=== PATIENT | female | born 1980 | race Caucasian/White ===

== ENCOUNTER → 2020-08-16 15:48 | Outpatient (BNVA) | payer OTHER, SELFPAY | PROVIDERS: PCP Emergency Medicine; Referring Provider Emergency Medicine; Visit Provider Surgery | DX: Z76.89 Persons encountering health services in other specified circumstances (principal) ==

== ENCOUNTER 2022-03-20 14:07 | Outpatient (REF) | payer MEDICAID, SELFPAY ==
--- NOTE | ~2022-03-20 | MM_ITS ---
EXAMINATION: MM DIAGNOSTIC DIGITAL BREAST TOMOSYNTHESIS, BILATERAL US DIAGNOSTIC ULTRASOUND BREAST, BILATERAL CLINICAL INFORMATION: 41-year-old with bilateral outer quadrant pain for approximately 2 months. No palpable mass or discharge. No prior breast imaging. No known family history breast cancer. The lifetime risk of breast cancer based on the Tyrer-Cuzick Model is 8%. COMPARISON: None (current study represents initial baseline exam). TECHNIQUE: Digital mammography is performed in craniocaudal and mediolateral oblique views. Digital breast tomosynthesis is performed in implant-displaced craniocaudal and implant-displaced mediolateral oblique views. Synthesized 2D images are generated from the tomosynthesis. Computer-aided detection (CAD) is performed for this exam. Ultrasound bilateral breasts is targeted to the areas of mastodynia, left 3:00-6:00 and right 6:00-9:00. Grayscale imaging and color Doppler are performed without and with harmonics. FINDINGS: There are scattered areas of fibroglandular density (ACR BI-RADS breast composition Category b). Breast tissue composition borders on heterogeneously dense. There is mild fibronodular parenchymal pattern without architectural abnormality or significant mass or abnormal calcifications. There are bilateral implants. The implant contours are smooth and grossly symmetric. There is no skin thickening or coarsening of the Darwin's ligaments. The axilla are unremarkable. Ultrasound bilateral breasts show no cystic or solid mass or architectural abnormality. No focal duct ectasia. No skin thickening or edema tracking in soft tissue planes. Results are discussed with the patient at time of visit. MM/MM tomosynthesis diag imp BI IMPRESSION: -No mammographic evidence of malignancy or inflammatory changes. -Unremarkable bilateral targeted breast ultrasound. ASSESSMENT: BI-RADS 2: Benign RECOMMENDATION: 1. Patient's bilateral mastodynia should be managed based on the clinical impression. 2. Otherwise, routine annual screening mammography. This patient's information was entered into a reminder system with a target due date for their next mammogram.
== END 2022-03-20 14:08 | disposition home or self-care (01) ==
LOC: HO.MAMMO 14:07
PROVIDERS: Visit Provider Internal Medicine
DX: N64.4 Mastodynia (principal)
CPT/HCPCS: 76642; 77062; 77066

== ENCOUNTER 2023-09-23 11:47 | Outpatient (REF) | payer MEDICAID, SELFPAY ==
[2023-09-23 14:05] LABS: HBS Num1 > 1000.00 mIU/mL (0-7.99); ~Hepatitis B Surface Antibody REACTIVE (Nonreactive)
[2023-09-25 09:49] LABS: Rubella IgG Antibody 4.85 Index
[2023-09-26 15:38] LABS: TS Negative Control Passed; TS Panel A 0; TS Panel B 0; TS Positive Control Passed; TSpotTB Negative (Negative)
== END 2023-09-23 11:48 | disposition home or self-care (01) ==
LOC: HO.HHCL 11:47
PROVIDERS: Visit Provider Family Medicine
DX: Z01.84 Encounter for antibody response examination (principal); Z11.1 Encounter for screening for respiratory tuberculosis
CPT/HCPCS: 36415; 86481; 86706; 86735; 86762; 86765; 86787

== ENCOUNTER → 2024-02-04 13:06 | Outpatient (BNVA) | payer MEDICAID, SELFPAY | PROVIDERS: PCP Family Medicine; Visit Provider Physician Assistant Medical | DX: S92.515A Nondisplaced fracture of proximal phalanx of left lesser toe(s), initial encounter for closed fracture (principal); X50.1XXA Overexertion from prolonged static or awkward postures, initial encounter | CPT/HCPCS: 99203 ==

== ENCOUNTER 2024-02-13 08:43 | Outpatient (REF) | payer OTHER, SELFPAY | END 2024-02-13 08:44 | disposition home or self-care (01) | LOC: HO.MAMMO 08:43 | PROVIDERS: PCP Family Medicine; Visit Provider Family Medicine | DX: Z13.89 Encounter for screening for other disorder (principal) ==

== ENCOUNTER 2024-02-18 10:18 | Outpatient (REF) | payer MEDICAID, SELFPAY ==
--- NOTE | ~2024-02-18 | XR_ITS ---
EXAMINATION: XR FOOT, LEFT CLINICAL INFORMATION: fracture of proximal phalanx of lesser toes, non displaced, left initial encounter for closed fracture. Order stated s/p fall 2 weeks ago, was told that fracture at left 4th and 5th toes(points to metatarsal area) no records available continued pain. COMPARISON: None available. TECHNIQUE: AP, lateral, and oblique views of the left foot. FINDINGS: The bones and soft tissues are normal. No fracture. Alignment is anatomic. Joint spaces are maintained. XR/XR foot LT min 3V IMPRESSION: Normal left foot.
== END 2024-02-18 10:19 | disposition home or self-care (01) ==
LOC: HO.HHCX 10:18
PROVIDERS: Visit Provider Family Medicine
DX: M79.672 Pain in left foot (principal)
CPT/HCPCS: 73630

== ENCOUNTER 2024-03-28 14:40 | Outpatient (REF) | payer MEDICAID, SELFPAY ==
--- NOTE | ~2024-03-28 | US_ITS ---
EXAMINATION: MM DIAGNOSTIC DIGITAL BREAST TOMOSYNTHESIS, BILATERAL US BREAST LIMITED, LEFT CLINICAL INFORMATION: Patient complaining of upper outer left breast pain x3 months, off and on. Patient also states right retroareolar pain although not currently. Patient due for bilateral screening. Bilateral implants. COMPARISON: Mammography: 03/20/2022 Baseline exam. Ultrasound: Bilateral breasts 11/20/2021 (upper outer bilateral pain) TECHNIQUE: Digital mammography is performed in craniocaudal and mediolateral oblique views. Digital breast tomosynthesis is performed in implant-displaced craniocaudal and implant-displaced mediolateral oblique views. Synthesized 2D images are generated from the tomosynthesis. Computer-aided detection (CAD) is performed for this exam. In addition, full-field left implant displaced ML view was obtained. FINDINGS: The breasts are heterogeneously dense, which may obscure small masses (ACR BI-RADS breast composition Category c). The implant contours are unremarkable. There is heterogeneously dense breast tissue present. There are no suspicious masses, suspicious grouped calcifications, or areas of architectural distortion in either breast. The parenchymal pattern is stable from prior exams. There is no skin or axillary abnormality. No mammographic correlate is seen in the upper outer quadrant left breast to explain breast pain. We will evaluate this region with ultrasound. ULTRASOUND: CLINICAL INFORMATION: Patient complaining of upper outer left breast pain x3 months, off and on. COMPARISON: Ultrasound left breast for same area of pain 11/20/2021. TECHNIQUE: Targeted sonographic evaluation was performed using a high frequency linear transducer. Attention was given to the left breast upper outer quadrant. Selected archived documentation. FINDINGS: LEFT BREAST: -There is heterogeneously dense fibroglandular tissue. Implant appears intact. No suspicious mass, abnormal shadowing, cystic abnormality, or architectural distortion identified in the upper outer quadrant of the left breast. No sonographic correlate to left breast pain. US/US breast LT limited mamm only IMPRESSION: -No mammographic evidence of malignancy in either breast. No implant complication evident. -Unremarkable targeted left breast ultrasound. No mammographic or sonographic correlate to the region of breast pain. Recommend clinical management and follow-up. -Otherwise, recommend returning to routine annual screening mammography. OVERALL ASSESSMENT: Mammography: BI-RADS 2 - Benign Findings Ultrasound: BI-RADS 2 - Benign Findings RECOMMENDATION: 1. Patient should be managed based on the clinical impression. 2. Otherwise, routine annual screening mammography. This patient's information was entered into a reminder system with a target due date for their next mammogram.
== END 2024-03-28 14:41 | disposition home or self-care (01) ==
LOC: HO.MAMMO 14:40
PROVIDERS: PCP Family Medicine; Visit Provider Family Medicine
DX: N64.4 Mastodynia (principal)
CPT/HCPCS: 76642; 77062; 77066

== ENCOUNTER → 2024-03-28 15:30 | Outpatient (BNV) | payer MEDICAID, SELFPAY | PROVIDERS: PCP Family Medicine; Visit Provider Radiology Diagnostic Radiology | DX: N64.4 Mastodynia (principal) | CPT/HCPCS: 76642; 77062; 77066 ==

== ENCOUNTER 2024-05-25 10:00 | Outpatient (REF) | payer MEDICAID, SELFPAY ==
--- NOTE | ~2024-05-25 | US_ITS ---
EXAMINATION: US LOWER EXTREMITY VENOUS (REFLUX EXAM), BILATERAL CLINICAL INFORMATION: Bilateral leg pain, swelling, heaviness, prominent veins COMPARISON: None. TECHNIQUE: Color flow triplex imaging and compression Doppler was performed to evaluate both the deep and the superficial systems bilaterally. To evaluate the superficial system, the examination was performed in the upright position. Color-flow Doppler ultrasound and compression ultrasound were utilized. In addition, maneuvers were utilized to demonstrate reflux. FINDINGS: 1. DEEP VENOUS ULTRASOUND OF THE RIGHT LOWER EXTREMITY: Common Femoral Vein: Compressible, normal respiratory variation and augmented flow. Femoral Vein: Compressible, normal color flow and augmentation. Popliteal Vein: Compressible, normal augmentation. Deep Reflux: There is no evidence of reflux in the deep system in either the common femoral vein, superficial femoral or the popliteal vein. There is no evidence of a Matute's cyst. 2. SUPERFICIAL ULTRASOUND WITH DOPPLER OF RIGHT LOWER EXTREMITY: GREAT SAPHENOUS VEIN: Saphenofemoral Junction: 0.5 cm; Reflux: 0 ms Proximal Thigh: 0.4 cm; Reflux: 0 ms Mid Thigh: 0.5 cm; Reflux: 1628 ms Distal Thigh: 0.4 cm; Reflux: 0 ms At Knee: 0.5 cm; Reflux: 0 ms Proximal Calf: 0.4 cm; Reflux: 0 ms Mid Calf: 0.3 cm; Reflux: 2268 ms Distal Calf: 0.3 cm; Reflux: 0 ms DUPLICATED LATERAL GREAT SAPHENOUS VEIN: Diameter: 0.2 cm at the saphenofemoral junction and mid thigh Reflux: None SMALL SAPHENOUS VEIN: Saphenopopliteal Junction: 0.2 cm; Reflux: 0 ms Proximal: 0.2 cm; Reflux: 0 ms Distal: 0.3 cm; Reflux: 0 ms PERFORATORS: Location: Midportion of small saphenous vein Size: 0.2 Reflux: None VARICOSITIES: Location: Varicosities are seen at the level of the distal thigh, knee, and the proximal calf Size: 0.3 cm Reflux: None 3. DEEP VENOUS ULTRASOUND OF THE LEFT LOWER EXTREMITY: Common Femoral Vein: Compressible, normal respiratory variation and augmented flow. Femoral Vein: Compressible, normal color flow and augmentation. Popliteal Vein: Compressible, normal augmentation. Deep Reflux: There is no evidence of reflux in the deep system in either the common femoral vein, superficial femoral or the popliteal vein. There is no evidence of a Matute's cyst. 4. SUPERFICIAL ULTRASOUND WITH DOPPLER OF LEFT LOWER EXTREMITY: GREAT SAPHENOUS VEIN: Saphenofemoral Junction: 0.6 cm; Reflux: 0 ms Proximal Thigh: 0.3 cm; Reflux: 0 ms Mid Thigh: 0.2 cm; Reflux: 0 ms Distal Thigh: 0.2 cm; Reflux: 0 ms At Knee: 0.2 cm; Reflux: 0 ms Proximal Calf: 0.2 cm; Reflux: 0 ms Mid Calf: 0.3 cm; Reflux: 0 ms Distal Calf: 0.2 cm; Reflux: 0 ms DUPLICATED LATERAL GREAT SAPHENOUS VEIN: Diameter: 0.4 cm at the saphenofemoral junction, 0.3 cm at the mid thigh Reflux: No SMALL SAPHENOUS VEIN: Saphenopopliteal Junction: 0.3 cm; Reflux: 0 ms Proximal: 0.2 cm; Reflux: 0 ms Distal: 0.1 cm; Reflux: 0 ms PERFORATORS: Location: There is a mail processing equipment mechanic at the level of the proximal calf Size: 0.2 cm Reflux: None VARICOSITIES: Location: None Imaged Size: NA Reflux: NA Incidentally in the left popliteal fossa there is a 3.5 x 1.8 x 3.9 cm anechoic structure compatible with a Matute's cyst. US/US venous insuf bilat IMPRESSION: Right: On the right there is segmental reflux within the great saphenous vein at the mid thigh and mid calf segments. There is a small mail processing equipment mechanic associated with the small saphenous vein which does not demonstrate reflux and there are a few varicosities at the level of the distal thigh, the knee, and the proximal calf that measures 0.3 cm and do not demonstrate reflux. Left: On the left there is no evidence of venous reflux. Incidental note of a left Matute's cyst. Electronically signed by: Marco A Bryant MD 05/31/2024 04:08 PM EDT
== END 2024-05-25 10:01 | disposition home or self-care (01) ==
LOC: HO.US 10:00
PROVIDERS: PCP Family Medicine; Visit Provider Family Medicine
DX: R22.43 Localized swelling, mass and lump, lower limb, bilateral (principal)
CPT/HCPCS: 93970

== ENCOUNTER 2024-07-20 12:27 | Outpatient (REF) | payer MEDICAID, SELFPAY ==
--- NOTE | ~2024-07-20 | XR_ITS ---
EXAMINATION: XR FOOT, RIGHT CLINICAL INFORMATION: Persistent right fourth and fifth toe pain. COMPARISON: None available. TECHNIQUE: AP, lateral, and oblique views of the right foot. FINDINGS: The bones and soft tissues appear unremarkable. No fracture identified. Alignment is anatomic. Joint spaces appear maintained. XR/XR foot RT min 3V IMPRESSION: Normal plain film examination of the right foot. Electronically signed by: Wicho Collier MD 07/20/2024 04:02 PM EDT
== END 2024-07-20 12:28 | disposition home or self-care (01) ==
LOC: HO.HHCX 12:27
PROVIDERS: Visit Provider Family Medicine
DX: M79.671 Pain in right foot (principal); G89.29 Other chronic pain
CPT/HCPCS: 73630

== ENCOUNTER 2024-07-20 13:34 | Outpatient (REF) | payer MEDICAID, SELFPAY ==
[2024-07-20 16:48] LABS: Alanine Aminotransferase 13 U/L (0-31); Albumin Level 4.5 g/dL (3.5-5.0); Alkaline Phosphatase 59 U/L (39-117); Anion Gap 9 (12-20); Aspartate Amino Transferase 15 U/L (5-31); Bilirubin Total 0.6 mg/dL (0.0-1.0); Blood Urea Nitrogen 9 mg/dL (9-16); Calcium 9.7 mg/dL (8.4-10.2); Carbon Dioxide 28 mmol/L (22-29); Chloride 107 mmol/L (96-108); Cholesterol 161 mg/dL (<200); Estimated Glomerular Filt Rate > 60; Glucose Random 85 mg/dL (60-115); HDL Cholesterol 63 mg/dL (>40); LDL Cholesterol Calculated 87 mg/dL (<100); Potassium 4.1 mmol/L (3.3-5.1); Sodium 140 mmol/L (135-145); Total Protein 7.4 g/dL (6.5-8.0); Triglycerides 58 mg/dL (<150)
[2024-07-20 16:49] LABS: Estimated Average Glucose 85 mg/dL; Hemoglobin A1C 91.9737 umol/L; Hemoglobin A1c % 4.6 % (<6.0); Total Hemoglobin (HGBA1C) 3455.8219 umol/L
[2024-07-20 17:09] LABS: Parathyroid Hormone Intact 73.6 pg/mL (8.7-77.1); TSH reflex Free T4 1.13 uIU/mL (0.32-4.0); Vitamin D 25-OH Total 19.1 ng/mL (>30)
[2024-07-20 20:42] LABS: Reflex LDLD? No
[2024-07-21 03:31] LABS: CT PCR NOT DETECTED (Not Detect.); NG PCR NOT DETECTED (Not Detect.)
[2024-07-21 08:21] LABS: Syphilis Screen Nonreactive (Nonreactive)
[2024-07-21 08:29] LABS: HBS Num1 > 1000.00 mIU/mL (0-7.99); HBc Num1 0.11 S/CO (0.00-0.79); HBsAGNum1 0.43 S/CO (0.00-0.99); HIV AB/AG Nonreactive (Nonreactive); HIV Num 1 0.04 S/CO (0.00-0.99); Hepatitis B Core Antibody Nonreactive (Nonreactive); Hepatitis B Surface Antigen Negative (Negative); ~Hepatitis B Surface Antibody REACTIVE (Nonreactive); ~Hepatitis C Antibody Nonreactive (Nonreactive)
[2024-07-21 08:49] LABS: Hepatitis A Antibody IgG REACTIVE (Nonreactive); ~Hepatitis A Antibody IgG 9.04 S/CO (0.00-0.99)
[2024-07-23 15:12] LABS: TS Negative Control Passed; TS Panel A 0; TS Panel B 0; TS Positive Control Passed; TSpotTB Negative (Negative)
== END 2024-07-20 13:35 | disposition home or self-care (01) ==
LOC: HO.HHCL 13:34
PROVIDERS: Visit Provider Family Medicine
DX: E66.09 Other obesity due to excess calories (principal); Z01.84 Encounter for antibody response examination; Z11.3 Encounter for screening for infections with a predominantly sexual mode of transmission; E55.9 Vitamin D deficiency, unspecified; Z83.3 Family history of diabetes mellitus; Z68.30 Body mass index [BMI] 30.0-30.9, adult; Z11.1 Encounter for screening for respiratory tuberculosis
CPT/HCPCS: 36415; 80053; 80061; 82306; 83036; 83970; 84443; 86481; 86704; 86706; 86708; 86780; 86787; 86803; 87340; 87389; 87491; 87591

== ENCOUNTER 2024-07-31 16:48 | Outpatient (REF) | payer MEDICAID, SELFPAY ==
--- NOTE | ~2024-07-31 | MR_ITS ---
EXAMINATION: MR BRAIN WITHOUT AND WITH CONTRAST CLINICAL INFORMATION: Episodes of sharp head pain. COMPARISON: None available. TECHNIQUE: MRI of the brain was obtained using routine sequences without and following the administration of 8 mL of Gadavist intravenous contrast. FINDINGS: No focal restricted diffusion is demonstrated to suggest acute or subacute cerebral ischemia. No evidence of acute or chronic hemorrhagic products on heme-sensitive imaging. Normal parenchymal signal characteristics. The ventricles are normal in morphology and size. No abnormal mass effect. No midline shift. Normal appearance of the pituitary gland. No abnormalities of the posterior fossa with normal appearance of the brainstem and cerebellum. Normal arterial and venous vascular flow voids are present. No abnormal contrast enhancement. Normal, homogeneous marrow signal. Mild mucosal thickening of the paranasal sinuses. No signal abnormalities within the mastoids. MR/MR head/brain wo/w con IMPRESSION: 1. No acute intracranial abnormalities. No abnormal intracranial enhancement. 2. No MRI abnormalities to explain the patient's symptoms. Electronically signed by: Johnny Mancilla DO 09/14/2024 05:42 AM [id number]
[2024-07-31] MEDS: gadobutroL 10 ML VIAL IVPUSH (17:33)
== END 2024-07-31 16:49 | disposition home or self-care (01) ==
LOC: HO.MRI 16:48
PROVIDERS: PCP Family Medicine; Visit Provider Family Medicine
DX: G44.85 Primary stabbing headache (principal)
CPT/HCPCS: 70553; A9585

== ENCOUNTER 2025-01-19 12:06 | Outpatient (REF) | payer MEDICAID, SELFPAY ==
--- NOTE | ~2025-01-19 | XR_ITS ---
EXAMINATION: XR LUMBOSACRAL SPINE CLINICAL INFORMATION: LBP and tailbone pain x one mos COMPARISON: None available. TECHNIQUE: Three views of the lumbosacral spine. FINDINGS: There is a mild right convex scoliosis. There is a normal lordosis. There is no subluxation. There is no fracture, compression deformity, or suspicious bone lesion. Disc spaces are preserved throughout. There is normal facet alignment and appearance. The sacrum and SI joints appear normal. No soft tissue abnormality. XR/XR lumbar spine 2-3V IMPRESSION: Aside from a mild right convex scoliosis, normal lumbar spine. Electronically signed by: Terrence Bowie MD 01/19/2025 02:08 PM EDT
--- NOTE | ~2025-01-19 | XR_ITS ---
EXAMINATION: XR SACRUM AND COCCYX CLINICAL INFORMATION: LBP and tailbone pain x one mos COMPARISON: None available. TECHNIQUE: 2 views of the sacrum and 2 views of the coccyx were obtained. FINDINGS: No fracture, dislocation, or suspicious bone lesion. Evaluation of the coccyx is limited due to extensive anatomical variation in this region. No acute finding evident. Sacrum appears intact. SI joints appear grossly normal. No erosive changes. No soft tissue abnormalities are evident. XR/XR sacrum coccyx min 2V IMPRESSION: No acute findings evident. Electronically signed by: Terrence Bowie MD 01/19/2025 02:06 PM EDT
--- OUTSIDE RECORDS SUMMARY | 2025-01-19 15:01 | XMS_ITS | Encounter Summary ---
Author Organization [employer] Address [address] [place] [address] 7 [place] [address] Care Team Providers Care Home Health Care Provider Name Role Phone Anabela Resendez MD Primary Care Provider [phone] Reason for Referral * Imaging (Routine) - Closed Specialty Diagnoses / Procedures Referred By Contlizette hart Referred To Contact Radiology Diagnoses Breast pain, left Procedures BI US Breast Complete Right Anabela Resendez MD [address] [place] [address] Phone: tel: fax: [address] Phone: tel: fax: Referral ID Status Reason Start Date Expiration Date Visits Re quested Visits Authorized [id number] Closed 03/21/2024 03/21/2025 1 1 Encounter Details Date Type Department Care Team (Late st Contact Info) Description 03/21/2024 Orders Only [facility] [address] [place], [place] [phone] Anabela Resendez MD [address] [place] [address] Breast pain, left (Primary Dx) Social History Tobacco Use Types Packs/Day Years Used Date Smoking Tobacco: Never Passive Smoke Exposure: Never Smokeless Tobacco: Never Depression Answer Date Recorded Patient Health Questionnaire-9 Score 0 06/09/2023 Housing Stability Answer Date Recorded What is your housing situation today? I have silverio marks 07/24/[address] you li ve. Do you have problems with any of the following? None of the above 07/24/2023 Food Insecurity Answer Date Recorded Within the past 12 months, y ou worried that your food would run out before you got money to buy more: Never True 07/24/2023 Within the past 12 months,th e food you bought just didn't last and you didn't have enough money to get more: Never True Transportation Answer Date Recorded In the past 12 months, has l ack of transportation kept you from medical appts, meetings, work or from getting things needed for daily living? No 07/24/2023 Utilities Answer Date Recorded In the past 12 months, has t he electric, gas, oil or water company threatened to shut off services in your home? No 07/24/2023 Depression Answer Date Recorded Patient Health Questionnaire-2 Score 0 06/09/2023 Comments Unknown Sex and Gender Information Value Date Recorded Sex Assigned at Female 08/04/2022 10:15 AM EDT Legal Sex Female 10:15 AM EDT Gender Identity Female 08/04/2022 10:15 AM EDT Sexual Orientation Straight 08/04/2022 10 :15 AM EDT documented as of this encounter Plan of Treatment Not on file documented as of this encounter Procedures Procedure Name Priority Date/Time Associated Diagnosis Comments BI US BREAST LIMITED LEFT Routine 03/28/2024 3:43 PM EDT BI MAMMOGRAM DIAG W KRISHNA W IMPLANTS MAKSIM Routine 03/28/2024 3:08 PM EDT documented in this encounter Results * BI US Breast Limited Left (03/28/2024 3:43 PM EDT) Anatomical Region Laterality Modality Breast Left Ultrasound 03/28/2024 3:43 PM EDT Narrative 03/28/2024 3:50 PM EDT ? [facility] ? [address] ?[place] [address] ? Ultrasound Report ? Signed ? Patient: Estevez Kuilan,Romi ?MR ?? #: [id number] ? : 1980 ?Acct:[id number] ? Age/Sex: 43 / F ?ADM Date: 03/28/24 ? Loc: HO.MAMMO ? Attending Dr: Anabela Resendez MD ? Ordering Physician: Anabela Resendez MD ?? Date of Service: 03/28/24 ?? Procedure(s): US breast LT limited mamm only ?? Accession Number(s): [id number] ? cc: Anabela Resendez MD ? EXAMINATION: ?? MM DIAGNOSTIC DIGITAL BREAST TOMOSYNTHESIS, BILATERAL ?? US BREAST LIMITED, LEFT ? CLINICAL INFORMATION: ? Patient complaining of upper outer left breast pain x3 months, off and ?? on. Patient also states right retroareolar pain although not currently. ?? Patient due for bilateral screening. Bilateral implants. ? COMPARISON: ?? Mammography: 03/20/2022 Baseline exam. ?? Ultrasound: Bilateral breasts 11/20/2021 (upper outer bilateral pain) ? TECHNIQUE: ?? Digital mammography is performed in craniocaudal and mediolateral ?? oblique views. ??Digital breast tomosynthesis is performed in ?? implant-displaced craniocaudal and implant-displaced mediolateral ?? oblique views. Synthesized 2D images are generated from the ?? tomosynthesis. Computer-aided detection (CAD) is performed for this ?? exam. In addition, full-field left implant displaced ML view was ?? obtained. ? FINDINGS: ?? The breasts are heterogeneously dense, which may obscure small masses ?? (ACR BI-RADS breast composition Category c). ? The implant contours are unremarkable. ??There is heterogeneously dense ?? breast tissue present. ??There are no suspicious masses, suspicious ?? grouped calcifications, or areas of architectural distortion in either ?? breast. The parenchymal pattern is stable from prior exams. There is no ?? skin or axillary abnormality. ? No mammographic correlate is seen in the upper outer quadrant left ?? breast to explain breast pain. We will evaluate this region with ?? ultrasound. ? ULTRASOUND: ?? CLINICAL INFORMATION: ?? Patient complaining of upper outer left breast pain x3 months, off and ?? on. ? COMPARISON: ?? Ultrasound left breast for same area of pain 11/20/2021. ? TECHNIQUE: ?? Targeted sonographic evaluation was performed using a high frequency ?? linear transducer. Attention was given to the left breast upper outer ?? quadrant. Selected archived documentation. ? FINDINGS: ? LEFT BREAST: ?? -There is heterogeneously dense fibroglandular tissue. Implant appears ?? intact. No suspicious mass, abnormal shadowing, cystic abnormality, or ?? architectural distortion identified in the upper outer quadrant of the ?? left breast. No sonographic correlate to left breast pain. ? US/US breast LT limited mamm only ?? IMPRESSION: ?? -No mammographic evidence of malignancy in either breast. No implant ?? complication evident. ? -Unremarkable targeted left breast ultrasound. No mammographic or ?? sonographic correlate to the region of breast pain. Recommend clinical ?? management and follow-up. ? -Otherwise, recommend returning to routine annual screening ?? mammography. ? OVERALL ASSESSMENT: ?? Mammography: BI-RADS 2 - Benign Findings ?? Ultrasound: BI-RADS 2 - Benign Findings ? RECOMMENDATION: ?? 1. Patient should be managed based on the clinical impression. ?2. ?? Otherwise, routine annual screening mammography. ? This patient's information was entered into a reminder system with a ?? target due date for their next mammogram. ? Dictated By: ?Terrence Bowie MD ? Signed By: ?<Electronically signed by Terrence Bowie MD in OV> ?03/28/24 1546 ? DD/ 1543 ? TD/TT: ? Part Time Receptionist: ? Procedure Note Ashwin, Image - 03/28/2024 [facility] [address] [place] [address] Dr. Stout, [place] [address] Ultrasound Report Signed Patient: Romi Howard #: [id number] : 1980Acct:[id number] Age/Sex: 43 / FADM Date: 03/28/24 Loc: [facility] Attending Dr: Anabela Resendez MD Ordering Physician: Anabela Resendez MD Date of Service: 06/24/24 Procedure(s): US breast LT limited mamm only Accession Number(s): [id number] cc: Anabela Resendez MD EXAMINATION: MM DIAGNOSTIC DIGITAL BREAST TOMOSYNTHESIS, BILATERAL US BREAST LIMITED, LEFT CLINICAL INFORMATION: Patient complaining of upper outer left breast pain x3 months, off and on. Patient also states right retroareolar pain although not currently. Patient due for bilateral screening. Bilateral implants. COMPARISON: Mammography: 03/20/2022 Baseline exam. Ultrasound: Bilateral breasts 11/20/2021 (upper outer bilateral pain) TECHNIQUE: Digital mammography is performed in craniocaudal and mediolateral oblique views. Digital breast tomosynthesis is performed in implant-displaced craniocaudal and implant-displaced mediolateral oblique views. Synthesized 2D images are generated from the tomosynthesis. Computer-aided detection (CAD) is performed for this exam. In addition, full-field left implant displaced ML view was obtained. FINDINGS: The breasts are heterogeneously dense, which may obscure small masses (ACR BI-RADS breast composition Category c). The implant contours are unremarkable. There is heterogeneously dense breast tissue present. There are no suspicious masses, suspicious grouped calcifications, or areas of architectural distortion in either breast. The parenchymal pattern is stable from prior exams. There is no skin or axillary abnormality. No mammographic correlate is seen in the upper outer quadrant left breast to explain breast pain. We will evaluate this region with ultrasound. ULTRASOUND: CLINICAL INFORMATION: Patient complaining of upper outer left breast pain x3 months, off and on. COMPARISON: Ultrasound left breast for same area of pain 11/20/2021. TECHNIQUE: Targeted sonographic evaluation was performed using a high frequency linear transducer. Attention was given to the left breast upper outer quadrant. Selected archived documentation. FINDINGS: LEFT BREAST: -There is heterogeneously dense fibroglandular tissue. Implant appears intact. No suspicious mass, abnormal shadowing, cystic abnormality, or architectural distortion identified in the upper outer quadrant of the left breast. No sonographic correlate to left breast pain. US/US breast LT limited mamm only IMPRESSION: -No mammographic evidence of malignancy in either breast. No implant complication evident. -Unremarkable targeted left breast ultrasound. No mammographic or sonographic correlate to the region of breast pain. Recommend clinical management and follow-up. -Otherwise, recommend returning to routine annual screening mammography. OVERALL ASSESSMENT: Mammography: BI-RADS 2 - Benign Findings Ultrasound: BI-RADS 2 - Benign Findings RECOMMENDATION: 1. Patient should be managed based on the clinical impression. 2. Otherwise, routine annual screening mammography. This patient's information was entered into a reminder system with a target due date for their next mammogram. Dictated By: Terrence Bowie MD Signed By: <Electronically signed by Terrence Bowie MD in OV> 03/28/24 1546 DD/ 1543 TD/TT: Part Time Receptionist: us Anabela Resendez MD IMG US PROCEDURES Final Result * BI Mammogram Diag w/ Krishna w/ Implants Maksim (03/28/2024 3:08 PM EDT) Anatomical Region Laterality Modality Mammography 03/28/2024 3:08 PM EDT Narrative 03/28/2024 3:50 PM EDT ? [facility] ? [address] ?[place] [address] ? Mammography Report ? Signed ? Patient: Estevez Kuilan,Romi ?MR ?? #: [id number] ? : 1980 ?Acct:[id number] ? Age/Sex: 43 / F ?ADM Date: 03/28/ ? Loc: HO.MAMMO ? Attending Dr: Anabela Resendez MD ? Ordering Physician: Anabela Resendez MD ?Results: 2Benign F ?? indings ? Date of Service: 03/28/24 ?Follow Up: 1 Year From Orig ?? inal Mammogram ? Procedure(s): MM tomosynthesis diag imp BI ?? Accession Number(s): [id number] ? cc: Anabela Resendez MD ? EXAMINATION: ?? MM DIAGNOSTIC DIGITAL BREAST TOMOSYNTHESIS, BILATERAL ?? US BREAST LIMITED, LEFT ? CLINICAL INFORMATION: ? Patient complaining of upper outer left breast pain x3 months, off and ?? on. Patient also states right retroareolar pain although not currently. ?? Patient due for bilateral screening. Bilateral implants. ? COMPARISON: ?? Mammography: 03/20/2022 Baseline exam. ?? Ultrasound: Bilateral breasts 11/20/2021 (upper outer bilateral pain) ? TECHNIQUE: ?? Digital mammography is performed in craniocaudal and mediolateral ?? oblique views. ??Digital breast tomosynthesis is performed in ?? implant-displaced craniocaudal and implant-displaced mediolateral ?? oblique views. Synthesized 2D images are generated from the ?? tomosynthesis. Computer-aided detection (CAD) is performed for this ?? exam. In addition, full-field left implant displaced ML view was ?? obtained. ? FINDINGS: ?? The breasts are heterogeneously dense, which may obscure small masses ?? (ACR BI-RADS breast composition Category c). ? The implant contours are unremarkable. ??There is heterogeneously dense ?? breast tissue present. ??There are no suspicious masses, suspicious ?? grouped calcifications, or areas of architectural distortion in either ?? breast. The parenchymal pattern is stable from prior exams. There is no ?? skin or axillary abnormality. ? No mammographic correlate is seen in the upper outer quadrant left ?? breast to explain breast pain. We will evaluate this region with ?? ultrasound. ? ULTRASOUND: ?? CLINICAL INFORMATION: ?? Patient complaining of upper outer left breast pain x3 months, off and ?? on. ? COMPARISON: ?? Ultrasound left breast for same area of pain 11/20/2021. ? TECHNIQUE: ?? Targeted sonographic evaluation was performed using a high frequency ?? linear transducer. Attention was given to the left breast upper outer ?? quadrant. Selected archived documentation. ? FINDINGS: ? LEFT BREAST: ?? -There is heterogeneously dense fibroglandular tissue. Implant appears ?? intact. No suspicious mass, abnormal shadowing, cystic abnormality, or ?? architectural distortion identified in the upper outer quadrant of the ?? left breast. No sonographic correlate to left breast pain. ? MM/MM tomosynthesis diag imp BI ?? IMPRESSION: ?? -No mammographic evidence of malignancy in either breast. No implant ?? complication evident. ? -Unremarkable targeted left breast ultrasound. No mammographic or ?? sonographic correlate to the region of breast pain. Recommend clinical ?? management and follow-up. ? -Otherwise, recommend returning to routine annual screening ?? mammography. ? OVERALL ASSESSMENT: ?? Mammography: BI-RADS 2 - Benign Findings ?? Ultrasound: BI-RADS 2 - Benign Findings ? RECOMMENDATION: ?? 1. Patient should be managed based on the clinical impression. ?2. ?? Otherwise, routine annual screening mammography. ? This patient's information was entered into a reminder system with a ?? target due date for their next mammogram. ? Dictated By: ?Terrence Bowie MD ? Signed By: ?<Electronically signed by Terrence Bowie MD in OV> ?03/28/24 1546 ? DD/ 1508 ? TD/TT: ? Part Time Receptionist: ? Procedure Note Alfred Christopher - 03/28/2024 [facility] [address] [place] [address] Dr. [place], [place] [address] Mammography Report Signed Patient: Romi Howard #: [id number] : 1980Acct:[id number] Age/Sex: 43 / FADM Date: 03/28/24 Loc: MAMMO Attending Dr: Anabela Resendez MD Ordering Physician: Anabela Resendezesults: 2Benign F indings Date of Service: 03/28/24Follow Up: 1 Year From Orig inal Mammogram Procedure(s): MM tomosynthesis diag imp BI Accession Number(s): [id number] cc: Anabela Resendez MD EXAMINATION: MM DIAGNOSTIC DIGITAL BREAST TOMOSYNTHESIS, BILATERAL US BREAST LIMITED, LEFT CLINICAL INFORMATION: Patient complaining of upper outer left breast pain x3 months, off and on. Patient also states right retroareolar pain although not currently. Patient due for bilateral screening. Bilateral implants. COMPARISON: Mammography: 03/20/2022 Baseline exam. Ultrasound: Bilateral breasts 11/20/2021 (upper outer bilateral pain) TECHNIQUE: Digital mammography is performed in craniocaudal and mediolateral oblique views. Digital breast tomosynthesis is performed in implant-displaced craniocaudal and implant-displaced mediolateral oblique views. Synthesized 2D images are generated from the tomosynthesis. Computer-aided detection (CAD) is performed for this exam. In addition, full-field left implant displaced ML view was obtained. FINDINGS: The breasts are heterogeneously dense, which may obscure small masses (ACR BI-RADS breast composition Category c). The implant contours are unremarkable. There is heterogeneously dense breast tissue present. There are no suspicious masses, suspicious grouped calcifications, or areas of architectural distortion in either breast. The parenchymal pattern is stable from prior exams. There is no skin or axillary abnormality. No mammographic correlate is seen in the upper outer quadrant left breast to explain breast pain. We will evaluate this region with ultrasound. ULTRASOUND: CLINICAL INFORMATION: Patient complaining of upper outer left breast pain x3 months, off and on. COMPARISON: Ultrasound left breast for same area of pain 11/20/2021. TECHNIQUE: Targeted sonographic evaluation was performed using a high frequency linear transducer. Attention was given to the left breast upper outer quadrant. Selected archived documentation. FINDINGS: LEFT BREAST: -There is heterogeneously dense fibroglandular tissue. Implant appears intact. No suspicious mass, abnormal shadowing, cystic abnormality, or architectural distortion identified in the upper outer quadrant of the left breast. No sonographic correlate to left breast pain. MM/MM tomosynthesis [facility] BI IMPRESSION: -No mammographic evidence of malignancy in either breast. No implant complication evident. -Unremarkable targeted left breast ultrasound. No mammographic or sonographic correlate to the region of breast pain. Recommend clinical management and follow-up. -Otherwise, recommend returning to routine annual screening mammography. OVERALL ASSESSMENT: Mammography: BI-RADS 2 - Benign Findings Ultrasound: BI-RADS 2 - Benign Findings RECOMMENDATION: 1. Patient should be managed based on the clinical impression. 2. Otherwise, routine annual screening mammography. This patient's information was entered into a reminder system with a target due date for their next mammogram. Dictated By: Terrence Bowie MD Signed By: <Electronically signed by Terrence Bowie MD in OV> 03/28/24 1546 DD/ 1508 TD/TT: Part Time Receptionist: us Anabela Resendez MD IMG BI PROCEDURES Final Result documented in this encounter Visit Diagnoses Diagnosis Breast pain, left- Primary documented in this encounter Additional Health Concerns Assessment Noted Time PHQ-9 Depression Total Score: 0 06/09/20 9:48 AM EDT documented as of this encounter Care Teams Home Health Care Provider Relationship Specialty Start Date End Date Anabela Resendez MD [address] [place] [address] PCP - General Family Medicine 01/21/23 documented as of this encounter
--- OUTSIDE RECORDS SUMMARY | 2025-01-19 15:01 | XMS_ITS | Encounter Summary ---
Author Organization [employer] Address [address] [facility] [address] [place] [address] Care Team Providers Care Long Distance Billing Operator Name Role Phone Anabela Resendez MD Primary Care Provider Reason for Visit * Reason Onset Date Comments Appointment Request 01/21/2023 Encounter Details Date Type Department Care Team ([facility] st Contact Info) Description 01/21/2023 Telephone [facility] [address] [place], [place] [phone] Danni Bhatti FNP [address] [place], [place] [phone] Appointment Request Social History Tobacco Use Types Packs/Day Years Used Date Smoking Tobacco: Never Assessed Comments Unknown Sex and Gender Information Value Date Recorded Sex Assigned at Female 08/04/2022 10:15 AM EDT Legal Sex Female 10:15 AM EDT Gender Identity Female 08/04/2022 10:15 AM EDT Sexual Orientation Straight 08/04/2022 10 :15 AM EDT documented as of this encounter Miscellaneous Notes * Telephone Encounter - Dary Rodriguez RN - 01/21/2023 11:50 AM EDT Call to Romi Yang, pt reports having asthma sx x 2 days. Per pt having cough. Pt having chest tightness . Wheezing only 2 days ago. Pt denies any ear pain, ST or fever. Nasal congestion. Pt using albuterol TID. Pt advised of dispsiton, no appts availability with PCP or team providers today. Pt advised to seek WIC for assessment today. Reviewed operating hours and that wait times vary. Pt upset that has not had TP with new assigned PCP. Pt advised that TP appts are specific slots in provider schedule. Pt last TP annmarie cancelled by office. Will send to [place] to schedule TP appt again for pt. Nothing noted in provider schedule for February. Protocol Used: Asthma Attack (Adult) Protocol-Based Disposition: See in Office or Video Visit Today Video visit offer not recorded Positive Triage Question: * Continuous (nonstop) coughing that keeps patient from working or sleeping, and not improved after2 or 3 inhaler or nebulizer treatments given 20 minutes apart * All higher-acuity triage questions were negative Care Advice Discussed: * Reassurance and Education - Mild Asthma Attack * Asthma Attack * Drink Plenty of Liquids and Use a Humidifier * Reasons To Call Back - You become worse * Telephone Encounter - Claudio Patel - 01/21/2023 11:21 AM EDT Symptom: Wheezing Outcome: Transfer to a nurse or provider NOW! Reason: Struggling for each breath (severe trouble breathing) The caller accepted this outcome Please contact pt at [phone] documented in this encounter Plan of Treatment Not on file documented as of this encounter Visit Diagnoses Not on filedocumented in this encounter Care Teams Long Distance Billing Operator Relationship Specialty Start Date End Date Anabela Resendez MD [address] [place] [phone] PCP - General Family Medicine 01/21/23 documented as of this encounter
--- OUTSIDE RECORDS SUMMARY | 2025-01-19 15:01 | XMS_ITS | Encounter Summary ---
Author Organization [employer] Address [address] [place] [address] [address] [place] [address] Care Team Providers Care Inshore Undersea Warfare Officer Name Role Phone Anabela Rseendez MD Primary Care Provider [phone] Reason for Referral * Imaging (Routine) - Closed Specialty Diagnoses / Procedures Referred By Nicol t Referred To Contact Radiology Diagnoses Breast cancer screening by mammogram Procedures BI Mammogram Screening Tomosynthesis Right Anabela Resendez MD [address] [place] [address] Phone: tel: fax: [address] Phone: tel: fax: Referral ID Status Reason Start Date Expiration Date Visits Re quested Visits Authorized [id number] Closed 02/17/2024 02/16/2025 1 1 * Imaging (Routine) - Closed Specialty Diagnoses / Procedures Referred By Contac t Referred To Contact Radiology Diagnoses Mass of left breast, unspecified quadrant Procedures BI Mammogram Diagnostic Tomosynthesis Left Anabela Resendez MD [address] [place] [address] Phone: tel: fax: [address] Phone: tel: fax: Referral ID Status Reason Start Date Expiration Date Visits Re quested Visits Authorized [id number] Closed 02/17/2024 02/16/2025 1 1 Encounter Details Date Type Department Care Team (Late st Contact Info) Description 02/17/2024 Orders Only [facility] [address] [place] [address] Anabela Resendez MD [address] [place] [address] Mass of left breast, unspecified quadrant (Primary Dx); Breast cancer screening by mammogram Social History Tobacco Use Types Packs/Day Years [...] as of this encounter Plan of Treatment Scheduled Orders Name Type Priority Associated Diagnoses Orde r Schedule BI Mammogram Diagnostic Tomosynthesis Left Imaging Routine Mass of left breast, unspecified quadrant Expected: 02/17/2024, Expires: 04/18/2025 BI Mammogram Screening Tomosynthesis Right Imaging Routine Breast cancer screening by mammogram Expected: 02/17/2024, Expires: 04/18/2025 documented as of this encounter Visit Diagnoses Diagnosis Mass of left breast, unspecified quadrant- Primary Breast cancer screening by mammogram documented in this encounter Additional Health Concerns Assessment Noted Time PHQ-9 Depression Total Score: 0 06/09/20 9:48 AM EDT documented as of this encounter Care Teams Inshore Undersea Warfare Officer Relationship Specialty Start Date End Date Anabela Resendez MD [address] [place] [phone] PCP - General Family Medicine 01/21/23 documented as of this encounter
--- OUTSIDE RECORDS SUMMARY | 2025-01-19 15:01 | XMS_ITS | Encounter Summary ---
Author Organization [employer] Address [address] [facility] 7 [place] [address] Care Team Providers Care Spacecraft Systems Engineer Name Role Phone Anabela Resendez MD Primary Care Provider [phone] Reason for Visit * Reason Onset Date Comments Nurse Triage 08/02/2024 Encounter Details Date Type Department Care Team ([facility] st Contact Info) Description 08/02/2024 Telephone [facility] MEDICINE [address] [place], [place] [phone] Anabela Resendez MD [address] [place], [place] [phone] Nurse Triage Social History Tobacco Use Types Packs/Day Years Used Date Smoking Tobacco: Never Passive Smoke Exposure: Never Smokeless Tobacco: Never Depression Answer Date Recorded Patient Health Questionnaire-9 Score 11 07/27/2024 Patient Health Questionnaire-9 Score 11 07/27/2024 Last PHQ-9: Questionnaire Data Not on file 1 Housing Stability Answer Date Recorded What is your housing situation today? I have silverio marks 06/21/[address] you li ve. Do you have problems with any of the following? None of the above 06/21/2024 Food Insecurity Answer Date Recorded Within the past 12 months, y ou worried that your food would run out before you got money to buy more: Never True 06/21/2024 Within the past 12 months,th e food you bought just didn't last and you didn't have enough money to get more: Never True Transportation Answer Date Recorded In the past 12 months, has l ack of transportation kept you from medical appts, meetings, work or from getting things needed for daily living? No 06/21/2024 Utilities Answer Date Recorded In the past 12 months, has t he electric, gas, oil or water company threatened to shut off services in your home? No 06/21/2024 Depression Answer Date Recorded Patient Health Questionnaire-2 Score 2 07/27/2024 Internet Access Answer Date Recorded Internet Access Q1 Yes 06/21/2024 Internet Access Q2 Not on file 06/21/2024 Comments Unknown Sex and Gender Information Value Date Recorded Sex Assigned at Female 08/04/2022 10:15 AM EDT Legal Sex Female 10:15 AM EDT Gender Identity Female 08/04/2022 10:15 AM EDT Sexual Orientation Straight 08/04/2022 10 :15 AM EDT documented as of this encounter Miscellaneous Notes * Telephone Encounter - Michelle Méndez - 08/02/2024 1:59 PM EDT Symptom: Headache Outcome: Schedule a same-day appointment or talk to a nurse or provider today Reason: Caller denied all higher acuity questions The caller accepted this outcome. documented in this encounter Plan of Treatment Not on file documented as of this encounter Visit Diagnoses Not on filedocumented in this encounter Additional Health Concerns Assessment Noted Time PHQ-9 Depression Total Score: 11 024 10:02 AM EDT documented as of this encounter Care Teams Spacecraft Systems Engineer Relationship Specialty Start Date End Date Anabela Resendez MD [address] [place] [address] PCP - General Family Medicine 01/21/23 documented as of this encounter
--- OUTSIDE RECORDS SUMMARY | 2025-01-19 15:01 | XMS_ITS | Encounter Summary ---
Author Organization [employer] Address [address] [place] [address] [address] [place] [address] Care Team Providers Care [employer] Name Role Phone Anabela Resendez MD Primary Care Provider [phone] Encounter Details Date Type Department Care Team ([facility] st Contact Info) Description 02/05/2023 Orders Only [facility] MED[facility]INE [address] [place], [place] [phone] Anabela Resendez MD [address] [place] [address] Vitamin D deficiency (Primary Dx) Social History Tobacco Use Types Packs/Day Years Used Date Smoking Tobacco: Never Passive Smoke Exposure: Never Smokeless Tobacco: Never Comments Unknown Sex and Gender Information Value Date Recorded Sex Assigned at Female 08/04/2022 10:15 AM EDT Legal Sex Female 10:15 AM EDT Gender Identity Female 08/04/2022 10:15 AM EDT Sexual Orientation Straight 08/04/2022 10 :15 AM EDT COVID-19 Exposure Response Date Recorded In the last 10 days, have yo u been in contact with someone who was confirmed or suspected to have Coronavirus/COVID-19? No / Unsure 02/04/2023 10:15 AM EDT documented as of this encounter Plan of Treatment Not on file documented as of this encounter Visit Diagnoses Diagnosis Vitamin D deficiency- Primary documented in this encounter Care Teams [employer] Relationship Specialty Start Date End Date Anabela Resendez MD [address] [place], [place] [phone] PCP - General Family Medicine 01/21/23 documented as of this encounter
--- OUTSIDE RECORDS SUMMARY | 2025-01-19 15:01 | XMS_ITS | Encounter Summary ---
Author Organization [employer] Address [address] [place] [address] [address], [place] [address] Care Team Providers Care Three Knife Trimmer Name Role Phone Jory Yoder Primary Care Provider Danni Miles Primary Care Provider [phone] Anabela Resendez MD Primary Care Provider [phone] Reason for Visit * Reason Onset Date Comments Appointment Confirmation 11/07/2022 Encounter Details Date Type Department Care Team (Late st Contact Info) Description 11/07/2022 Telephone [facility] MEDICINE [address] [place] [address] Jory Yoder FNP Appointment Confirmation Social History Tobacco Use Types Packs/Day Years Used Date Smoking Tobacco: Never Assessed Comments Unknown Sex and Gender Information Value Date Recorded Sex Assigned at Female 08/04/2022 10:15 AM EDT Legal Sex Female 10:15 AM EDT Gender Identity Female 08/04/2022 10:15 AM EDT Sexual Orientation Straight 08/04/2022 10 :15 AM EDT documented as of this encounter Miscellaneous Notes * Telephone Encounter - Rubio Nair - 11/07/2022 9:10 AM EST Tc to pt. No answer left a message stating new appt due to scheduling error documented in this encounter Plan of Treatment Not on file documented as of this encounter Visit Diagnoses Not on filedocumented in this encounter Care Teams Three Knife Trimmer Relationship Specialty Start Date End Date Jory Yoder FNP PCP - General Family Medicine 09/01/22 11/30/22 Danni Bhatti FNP [address] [place] [address] PCP - General Family Medicine 12/01/22 01/20/23 Anabela Resendez MD [address] [place] [address] PCP - General Family Medicine 01/21/23 documented as of this encounter
--- OUTSIDE RECORDS SUMMARY | 2025-01-19 15:01 | XMS_ITS | Clinical Summary ---
Author Organization [employer] Address [address] [facility] 7 [place] [address] Care Team Providers Care Adobe Flex Developer Name Role Phone Anabela Resendez MD Primary Care Provider [phone] Allergies Active Allergy Reactions Criticality Noted Date Comments Bee Venom 02/04/2023 Cortisone 10/30/2017 Other reaction(s): face,throat swollen Shellfish Allergy 02/04/2023 Shellfish-Derived Products Unknown 0 Medications * This document contains information received from the source organization and may not represent a complete record from that organization. sodium chloride ([place]) 0.65 % nasal sprayIndication s:Allergic rhinitis, unspecified seasonality, unspecified trigger 1-2 spray on each nostril every 2-3 hours as needed for nasal congestion 30 mL 1 023 Active ibuprofen 600 MG tablet Take 1 tablet (600 mg) by mouth every 8 (eight) hours if needed for moderate pain or fever. 30 tablet 1 023 Active albuterol (2.5 MG/3ML) 0.083% nebulizer solutionIndicat ions:Mild intermittent asthma without complication Use 3 ml every 6 hours as needed for difficulty breathing / asthma exacerbation 75 mL 2 024 Active topiramate (Topamax) 25 MG tabletIndicatio ns:Migraine without aura, not refractory Take 1 tablet (25 mg) by mouth Once per day. 90 tablet 3 024 Active SUMAtriptan (Imitrex) 50 MG tablet Take 1 tablet (50 mg) by mouth 1 (one) time if needed for migraine. May repeat dose once in 2 hours if no relief. Do not exceed 2 doses in 24 hours. 9 tablet 3 Active cholecalciferol (Vitamin D-3) 75 MCG (3000 UT) tablet Take 1 tablet (75 mcg) by mouth Once per day. Increased dose 90 tablet 3 Active fluticasone (Flonase) 50 MCG/ACT nasal sprayIndication s:Allergic rhinitis, unspecified seasonality, unspecified trigger ADMINISTER 1-2 SPRAYS INTO AFFECTED NOSTRIL(S) ONCE A DAY 48 mL Active escitalopram (Lexapro) 10 MG tabletIndicatio ns:Anxiety and depression Take 1 tablet (10 mg) by mouth in the morning. 30 tablet 1 024 Active albuterol 108 (90 Base) MCG/ACT inhalerIndicati ons:Mild intermittent asthma without complication Inhale 2 puffs every 4 (four) hours if needed for wheezing or shortness of breath. Maximum 8 puffs per day 18 g 2 025 2025 Active cetirizine (ZyrTEC) 10 MG tabletIndicatio ns:Allergic rhinitis, unspecified seasonality, unspecified trigger Take 1 tablet (10 mg) by mouth Once per day. 90 tablet 3 Active EPINEPHrine (Epipen) 0.3 MG/0.3ML injection syringeIndicati ons:Allergic reaction to bee sting Administer one dose as instructed for severe allergy symptoms. Call 911 after use. 2 each 1 Active naproxen (Naprosyn) 500 MG tablet Take 1 tablet (500 mg) by mouth if needed in the morning and at bedtime for mild pain. DO NOT TAKE WITH MOTRIN 40 tablet 1 025 2025 Active acetaminophen (Tylenol 8 Hour) 650 MG ER tablet Take 1 tablet (650 mg) by mouth every 8 (eight) hours if needed for mild pain. Do not crush, chew, or split. 40 tablet 1 025 2024 Active baclofen (Lioresal) 10 MG tablet Take 1 tablet (10 mg) by mouth if needed in the morning, at noon, and at bedtime for muscle spasms. 60 tablet 1 025 2024 Active lidocaine (Lidoderm) 5 % patch Apply 1 patch topically if needed each day for mild pain. Remove & discard patch within 12 hours or as directed by MD. 30 patch 1 Active Diclofenac Sodium 1 % gel Apply 2 g topically if needed in the morning, at noon, in the evening, and at bedtime (pain). 150 g 3 Active EPINEPHrine (Epipen) 0.3 MG/0.3ML injection syringeIndicati ons:Allergic reaction to bee sting Administer one dose as instructed for severe allergy symptoms. Call 911 after use. 2 each 1 024 2024 Discontinued(R eorder (will not trigger notification to Pharmacy)) albuterol 108 (90 Base) MCG/ACT inhalerIndicati ons:Mild intermittent asthma without complication Inhale 2 puffs every 4 (four) hours if needed for wheezing or shortness of breath. Maximum 8 puffs per day 18 g 2 024 2024 Discontinued(R eorder (will not trigger notification to Pharmacy)) cetirizine (ZyrTEC) 10 MG tabletIndicatio ns:Allergic rhinitis, unspecified seasonality, unspecified trigger Take 1 tablet (10 mg) by mouth Once per day. 90 tablet 3 024 2024 Discontinued(R eorder (will not trigger notification to Pharmacy)) Diclofenac Sodium 1 % gel Apply 2 g topically if needed in the morning, at noon, in the evening, and at bedtime (pain). 150 g 3 024 2024 Discontinued(R eorder (will not trigger notification to Pharmacy)) Active Problems Problem Noted Date Diagnosed Date CHERISE (generalized anxiety disorder) 09/05/2024 Assessment & Plan (09/05/2024 8:19 AM EST): PROGRESS NOTE: ID: Romi is a 43 y.o. straight-identified cis-female with previous documented hx of Depression and Anxiety MH services including OP Psychotherapy who presents for Anxiety and Depression During IBH Consult Romi presenting with depressed mood, crying spells , hopelessness, irritable mood, loss of interests/pleasure , sense of isolation/loneliness , change in appetite or weight reduce appetite, changes in sleep difficulty falling asleep and difficulty staying asleep , psychomotor agitation, fatigue/loss of energy, inappropriate/excessive guilt , difficulty concentrating, indecisiveness and excessive worry/anxiety, difficulty controlling worry, anxiety/worry associated to restlessness and/or feeling keyed-up/On edge , easily fatigued , difficulty concentrating and/or mind going blank , irritability, muscle tension , and sleep disturbance difficulty falling asleep and difficulty staying asleep , Fear , and sense of dread ; for a period of 18+ mo, for most or all symptoms in the context of concern about 17 y/o behaviors, holidays are a trigger for her after not having her parents alive, increase in racing thoughts, loneliness. PLAN: (check all that apply) New/Additional Services needed PCP management Off-site services for Behavioral Health Integration Plan External OP therapy referral and OP psychiatry Referral Patient Self Plan Patient to utilize skills provided in intervention , [facility], Comply with medication , Patient to engage in OP therapy , and Patient to reach out to [facility] as needed Chronic headache 07/27/2024 Assessment & Plan (07/27/2024 9:58 AM EDT): - family history of brain tumor - upcoming MRI appointment - continue NSAIDs Stress incontinence 06/08/2023 Assessment & Plan (10/15/2023 5:43 AM EST): - following with [facility] - s/p advantage blue retropubic midurethral sling, posterior colporrhaphy, and cystoscopy on 07/15/23 Assessment & Plan (06/12/2023 5:22 AM EDT): - following with UroGYN - anticipating surgery in Jul 2023 Overactive bladder 06/08/2023 Assessment & Plan (06/12/2023 5:21 AM EDT): - start oxybutynin ER 5 mg daily - continue following with UroGYN Urinary incontinence, mixed 06/08/2023 Assessment & Plan (07/27/2024 9:36 AM EDT): - following with [facility], last visit in Oct 2023 - 07/15/23 advantage blue retropubic midurethral sling, posterior colporrhaphy, and cystoscopy Assessment & Plan (05/04/2024 4:49 AM EDT): - following with [facility], last visit in Oct 2023 - 07/15/23 advantage blue retropubic midurethral sling, posterior colporrhaphy, and cystoscopy Assessment & Plan (10/15/2023 5:44 AM EST): - following with [facility], last visit in Aug 2023 - 07/15/23 advantage blue retropubic midurethral sling, posterior colporrhaphy, and cystoscopy Assessment & Plan (06/12/2023 5:22 AM EDT): - following with [facility] Asthma 02/04/2023 Assessment & Plan (07/27/2024 9:53 AM EDT): - Continue Albuterol inhaler and Nebulizer solution - New nebulizer script written in 2022 Assessment & Plan (05/04/2024 4:42 PM EDT): - Continue Albuterol inhaler and Nebulizer solution - New nebulizer script written in 2022 - Removed montelukast from med list as she has never taken it Assessment & Plan (06/12/2023 5:21 AM EDT): - Continue Albuterol inhaler and Nebulizer solution - New nebulizer script written in 2022 Assessment & Plan (02/04/2023 12:53 PM EDT): Continue Albuterol inhaler and Nebulizer solution -Patient requested a new nebulizer machine due to current one is old. -Rx Nebulizer Machine Vitamin D deficiency 02/04/2023 Assessment & Plan (07/27/2024 9:54 AM EDT): - increase vitamin D supplementation dose Assessment & Plan (05/04/2024 4:43 PM EDT): - continue vitamin D supplementation Assessment & Plan (06/12/2023 5:23 AM EDT): - continue vitamin D supplementation Assessment & Plan (02/04/2023 12:51 PM EDT): Last Vitamin D was 13 on 03/04/22 -restart vitamin-D supplement Urge incontinence 02/04/2023 Assessment & Plan (02/04/2023 6:11 PM EDT): Followed by UroGYN -schedled for Urodynamic Study -Patient may be having bladder suspension surgery in the near future Moderate depressive disorder 02/04/2023 Assessment & Plan (07/27/2024 9:55 AM EDT): - continue escitalopram - patient agreed to [facility] referral Assessment & Plan (05/04/2024 4:45 PM EDT): -continue escitalopram -pt declined [facility] referral Assessment & Plan (06/12/2023 5:25 AM EDT): -continue Lexapro -pt able to contract her safety today -pt declines [facility] referral Assessment & Plan (02/04/2023 12:49 PM EDT): Pt has severe anxiety, previously controlled with Lexapro -will restart Lexapro -pt able to contract her safety today -will see if she wants to have a BHS provider in the near future History of breast augmentation 02/04/2023 Family history of diabetes mellitus 02/04/2023 Assessment & Plan (06/12/2023 5:25 AM EDT): - annual screening has been normal Assessment & Plan (02/04/2023 12:46 PM EDT): Will screen for Diabetes Mellitus Eczema 02/04/2023 Assessment & Plan (07/27/2024 9:36 AM EDT): - liberal moisturization - avoid irritation (scratching) - use hypoallergenic, unscented skin care prodruct - judicious use of topical steroid Assessment & Plan (06/12/2023 5:28 AM EDT): - liberal moisturization - avoid irritation (scratching) - use hypoallergenic, unscented skin care prodruct - judicious use of topical steroid Chronic pelvic pain in female 02/04/2023 Assessment & Plan (06/12/2023 5:20 AM EDT): - followed by [facility] - Dx Pelvic Congestion Syndrome - continue Tx plan per [facility] / UroGYN Assessment & Plan (02/04/2023 6:11 PM EDT): - followed by [facility] - Dx Pelvic Congestion Syndrome - continue Tx plan per [facility] / UroGYN Allergic rhinitis 02/04/2023 Assessment & Plan (07/27/2024 9:37 AM EDT): - continue cetirizine and Flonase Assessment & Plan (05/04/2024 4:44 PM EDT): - continue cetirizine and Flonase Assessment & Plan (06/12/2023 5:26 AM EDT): - continue cetirizine, montelukast, and Flonase Assessment & Plan (02/04/2023 6:12 PM EDT): - restart cetirizine, montelukast, and Flonase Allergic reaction to bee sting 01/10/2019 Assessment & Plan (05/04/2024 4:44 PM EDT): - continue carrying Epi-pen Assessment & Plan (06/12/2023 5:26 AM EDT): - continue carrying Epi-pen Assessment & Plan (02/04/2023 12:50 PM EDT): Carries an Epi-Pen -Will renew Prescription and will as for two so patient can have one at work and at home for use Migraine without aura, not refractory 09/26/2015 Assessment & Plan (07/27/2024 9:57 AM EDT): - continue topiramate, improve adherence - Excedrin migraine is no longer effective for abortive medication - Try sumatriptan 50 mg prn Assessment & Plan (05/04/2024 4:45 PM EDT): - continue topiramate, improve adherence - Excedrin migraine is no longer effective for abortive medication - Try sumatriptan 50 mg prn Assessment & Plan (06/12/2023 5:24 AM EDT): - continue topiramate, improve adherence - continue Excedrine migraine prn Assessment & Plan (02/04/2023 6:13 PM EDT): - restart topiramate Obesity 09/26/2015 Assessment & Plan (05/04/2024 4:43 PM EDT): -Lifestyle modifications -Lipid profile on 02/04/23 normal -A1C on 02/04/23 normal -Significant weight gain. Will check lab Assessment & Plan (06/12/2023 5:33 AM EDT): -Lifestyle modifications -Lipid profile on 02/04/23 normal, repeat in 5 years -A1C on 02/04/23 normal Resolved Problems Problem Noted Date Diagnosed Date Resolved Date COVID-19 04/30/2023 06/08/2023 Assessment & Plan (04/30/2023 9:34 PM EDT): Pt w respiratory symptoms ,normal VS Had asthma exacerbation from infection that improves after alb NBZ Here + covid 19 rapid test, neg flu -pt has asthma within window x tx -normal renal function from last labs in 02/2023 -Px paxlovid -supportive tx -hydration -refilled her asthma meds -isolation x at least 5 days -request [place] to give to pt excuse letter and explained that is asymptomatic can return to work on day 6 but with N95 for at least 10 days from infection. -alarm signs and symptoms discussed -advised that once is feeling better in next 2 to 3 weeks can come to vaccine clinic to get Bivalent dose Acute left-sided low back pa in without sciatica 02/04/2023 05/04/2024 Assessment & Plan (06/12/2023 5:27 AM EDT): - recommended PT and home exercise program Assessment & Plan (02/04/2023 12:44 PM EDT): Will check her urine for possible Kidney Stone or UTI; If the urine is normla, will evaluate for musculoskeletal cause of back pain and try Physical Therapy Encounters Date Type Department Care Team Description 01/19/2025 11:20 AM EDT Office Visit [facility] [address] [place] [phone] Acute bilateral low back pain without sciatica (Primary Dx); Acute coccygeal pain; Allergic rhinitis, unspecified seasonality, unspecified trigger; Mild intermittent asthma without complication; Allergic reaction to bee sting 12/29/2024 Telephone [facility] [address] [place] [address] Anabela Resendez MD Nurse Triage 10/21/2024 Telephone [facility] [address] [place] [address] Bebe Bronson [place] november recall from Last 3 Months Immunizations Name Administration Dates Next Due DTaP 12/11/1987, 6,03/15/1985,1982 Hep A, Adult 01/31/2013,05/14/2011 Hep B, Adolescent or Pediatric 07/01/2004,2001,06/09/1997 IPV 12/29/1989, 8,10/17/1985,1984,01/30/1983 Influenza Injectable Quadriv alant Preservative Free IIV4 MDCK 08/04/2023 Influenza injectable quadriv alent IIV4 with preservative 06/26/2016 Influenza injectable quadriv alent preservative free 07/22/2021,07/28/2020 Influenza, seasonal, injecta ble, preservative free 07/27/2024 MMR 01/25/1996,12/11/1987 Pneumococcal Conjugate PCV 20 07/27/2024 TD (adult), 2 Lf tetanus tox oid, preservative free, adsorbed 12/11/1987 Tdap 03/04/2022,05/14/2011 Family History Medical History Relation Name Comments Diabetes type II Brother Cancer Father Pancreatic cancer Mother Relation Name Status Comments Brother Father Mother Social History Tobacco Use Types Packs/Day Years Used Date Smoking Tobacco: Never Passive Smoke Exposure: Never Smokeless Tobacco: Never Tobacco Cessation:Counseling Given: Not Answered Depression Answer Date Recorded Patient Health Questionnaire-9 Score 14 09/05/2024 Patient Health Questionnaire-9 Score 14 09/05/2024 Last PHQ-9: Questionnaire Data Not on file 1 11/06/2023 Housing Stability Answer Date Recorded What is your housing situation today? I have silveiro marks 06/21/[address] you [...] Date Recorded Patient Health Questionnaire-2 Score 2 09/05/2024 Internet Access Answer Date Recorded Internet Access Q1 Yes 06/21/2024 Internet Access Q2 Not on file 06/21/2024 Comments Unknown Sex and Gender Information Value Date Recorded Sex Assigned at Female 08/04/2022 10:15 AM EDT Legal Sex Female 10:15 AM EDT Gender Identity Female 08/04/2022 10:15 AM EDT Sexual Orientation Straight 08/04/2022 10 :15 AM EDT Last Filed Vital Signs Vital Sign Reading Time Taken Comments Blood Pressure 108/78 01/19/2025 11:16 AM EDT Pulse 83 01/19/2025 11:16 AM EDT Temperature 36.8 ??C (98.2 ??F) 01/19/2025 11:16 AM E DT Respiratory Rate 18 01/19/2025 11:16 AM EDT Oxygen Saturation 99% 01/19/2025 11:16 AM EDT Inhaled Oxygen Concentration - - Weight 78.1 kg (172 lb 3.2 oz) 01/19/2025 11:16 AM EDT Height 162.6 cm (5' 4 ) 07/27/2024 9:19 AM EDT Body Mass Index 29.56 07/27/2024 9:19 AM EDT Plan of Treatment Health Maintenance Due Date Last Done Comments Alcohol/Substance Use Screening 1994 Family Planning (PISQ) 1997 COVID-19 Vaccine ( season) 2024 08/21/2021, 11/16/2020, 10/17/2020 Depression Monitoring 03/06/2025 09/05/2024, 024 Pap Smear 03/13/2025 03/13/2022 SDOH Screening 06/21/2025 06/21/2024 Depression Screening 09/05/2025 09/05/2024, 09/05/20 24 Tobacco Screening 09/16/2025 09/16/2024 Mammogram 03/28/2026 03/28/2024, 03/20/2022 Cervical Cancer Screening 03/13/2027 HPV/Cotest 03/13/2027 03/13/2022, 12/24/2016 Lipid Panel 07/20/2029 07/20/2024, 05/0 12/2022, 03/04/2022 DTaP/Tdap/Td Vaccines (6 - Td or Tdap) 03/04/2032 03/04/2022, 05/14/2011, 12/11/1987, Additional history exists Zoster Vaccines (1 of 2) 2032 RSV Patients and Patients Aged 60 years or older (1 - 1-dose 75+ series) 2057 IPV Vaccines Completed 12/29/1989, 05/1988, 10/17/1985, Additional history exists Hepatitis B Vaccines Discontinued 07/01/2004, 06/20/2002, 06/09/1997 Hepatitis A Vaccines Aged Out 01/31/2013, 05/14/20 11 No longer eligible based on patient's age to complete this topic HIV Screening Completed 07/20/2024, 12/2022, 04/29/2021 Hepatitis C Screening Completed 07/20/2024 , 02/04/2023, 04/29/2021 Influenza Vaccine Completed 07/27/2024, , 07/22/2021, Additional history exists Pneumococcal Vaccine: Pediatrics (0 to 5 Years) and At-Risk Patients (6 to 49) Years) Completed 07/27/2024 HIB Vaccines Aged Out No longer eligi ble based on patient's age to complete this topic HPV Vaccines Aged Out No longer eligi ble based on patient's age to complete this topic Meningococcal Vaccine Aged Out No becca whit eligible based on patient's age to complete this topic RSV under 20 months Aged Out No longe r eligible based on patient's age to complete this topic Rotavirus Vaccines Aged Out No longer eligible based on patient's age to complete this topic Procedures Procedure Name Priority Date/Time Associated Diagnosis Comments XR SACRUM COCCYX 2+ VIEWS Routine 01/19/2025 12:07 PM EDT Acute bilateral low back pain without sciatica Acute coccygeal pain XR LUMBAR SPINE 2-3 VIEWS Routine 01/19/2025 12:07 PM EDT Acute bilateral low back pain without sciatica Acute coccygeal pain HEPATITIS C AB W/REFL TO HCV RNA, QN, PCR Routine 07/20/2024 1:38 PM EDT Routine screening for STI (sexually transmitted infection) HIV 1/2 ANTIGEN/ANTIBODY, FOURTH GENERATION W/RFL Routine 07/20/2024 1:38 PM EDT Routine screening for STI (sexually transmitted infection) LIPID PANEL WITH REFLEX TO DIRECT LDL Routine 07/20/2024 1:38 PM EDT Family history of diabetes mellitus Class 1 obesity due to excess calories without serious comorbidity with body mass index (BMI) of 30.0 to 30.9 in adult BI US BREAST LIMITED LEFT Routine 03/28/2024 3:43 PM EDT HM PAP/HPV Routine 03/13/2022 from Last 3 Months or Most Recently Relevant to Health Maintenance Results * XR Sacrum Coccyx 2+ Views (01/19/2025 12:07 PM EDT) Anatomical Region Laterality Modality Sacrum, Coccyx Radiographic Evelin ging 01/19/2025 12:0 7 PM EDT Narrative 01/19/2025 2:09 PM EDT ?[facility] ?[address] ?[place] [address] ?XRay Report ? Signed ? Patient: Estevezjose e Yang,Romi ?MR ?? #: [id number] ? : 1980 ?Acct:[id number] ? Age/Sex: 44 / F ?ADM Date: 01/19/25 ? Loc: HO.HHCX ? Attending Dr: Liliana Covarrubias DO ? Ordering Physician: Liliana Covarrubias DO ?? Date of Service: 01/19/25 ?? Procedure(s): XR sacrum coccyx min 2V ?? Accession Number(s): [id number] ? cc: Liliana Covarrubias DO ? EXAMINATION: ?? XR SACRUM AND COCCYX ? CLINICAL INFORMATION: ?? LBP and tailbone pain x one mos ? COMPARISON: ?? None available. ? TECHNIQUE: ?? 2 views of the sacrum and 2 views of the coccyx were obtained. ? FINDINGS: ?? No fracture, dislocation, or suspicious bone lesion. ?? Evaluation of the coccyx is limited due to extensive anatomical ?? variation in this region. No acute finding evident. ?? Sacrum appears intact. SI joints appear grossly normal. No erosive ?? changes. ? No soft tissue abnormalities are evident. ? XR/XR sacrum coccyx min 2V ?? IMPRESSION: ?? No acute findings evident. ? Electronically signed by: ??Terrence Bowie MD ??01/19/2025 02:06 PM EDT RP ? Dictated By: ?Terrence Bowie MD ? Signed By: ?<Electronically signed by Terrence Bowie MD in OV> ?01/19/25 1406 ? DD/ 1207 ? TD/TT: 01/19/25 1220 ? Bleacher Lard: ? Procedure Note Donotuseinterpreter, Image - 01/19/[address] [address] XRay Report Signed Patient: Romi HowardMR #: [id number] : 1980Acct:[id number] Age/Sex: 44 / FADM Date: 01/19/25 Loc: .HHCX Attending Dr: Liliana Covarrubias DO Ordering Physician: Liliana Covarrubias DO Date of Service: 01/19/25 Procedure(s): XR sacrum coccyx min 2V Accession Number(s): [id number] cc: Liliana Covarrubias DO EXAMINATION: XR SACRUM AND COCCYX CLINICAL INFORMATION: LBP and tailbone pain x one mos COMPARISON: None available. TECHNIQUE: 2 views of the sacrum and 2 views of the coccyx were obtained. FINDINGS: No fracture, dislocation, or suspicious bone lesion. Evaluation of the coccyx is limited due to extensive anatomical variation in this region. No acute finding evident. Sacrum appears intact. SI joints appear grossly normal. No erosive changes. No soft tissue abnormalities are evident. XR/XR sacrum coccyx min 2V IMPRESSION: No acute findings evident. Electronically signed by: Terrence Bowie MD 01/19/2025 02:06 PM EDT Dictated By: Terrence Bowie MD Signed By: <Electronically signed by Terrence Bowie MD in OV> 01/19/25 1406 DD/ 1207 TD/TT: 01/19/25 1220 Bleacher Lard: us Liliana Covarrubias DO IMG XR PROCEDURES Final Resu lt * XR Lumbar Spine 2-3 Views (01/19/2025 12:07 PM EDT) Anatomical Region Laterality Modality Spine, L-spine Radiographic Evelin ging 01/19/2025 12:0 7 PM EDT Narrative 01/19/2025 2:10 PM EDT ?[facility] ?[address] ?[place] [address] ?XRay Report ? Signed ? Patient: Romi Howard ?MR ?? #: [id number] ? : 1980 ?Acct:[id number] ? Age/Sex: 44 / F ?ADM Date: 01/19/25 ? Loc: HO.HHCX ? Attending Dr: Liliana Covarrubias DO ? Ordering Physician: Liliana Covarrubias DO ?? Date of Service: 01/19/25 ?? Procedure(s): XR lumbar spine 2-3V ?? Accession Number(s): [id number] ? cc: Liliana Covarrubias DO ? EXAMINATION: ?? XR LUMBOSACRAL SPINE ? CLINICAL INFORMATION: ?? LBP and tailbone pain x one mos ? COMPARISON: ?? None available. ? TECHNIQUE: ?? Three views of the lumbosacral spine. ? FINDINGS: ?? There is a mild right convex scoliosis. There is a normal lordosis. ?? There is no subluxation. ?? There is no fracture, compression deformity, or suspicious bone lesion. ?? Disc spaces are preserved throughout. ?? There is normal facet alignment and appearance. ? The sacrum and SI joints appear normal. ? No soft tissue abnormality. ? XR/XR lumbar spine 2-3V ?? IMPRESSION: ?? Aside from a mild right convex scoliosis, normal lumbar spine. ? Electronically signed by: ??Terrence Bowie MD ??01/19/2025 02:08 PM EDT RP ? Dictated By: ?Terrence Bowie MD ? Signed By: ?<Electronically signed by Terrence Bowie MD in OV> ?01/19/25 1408 ? DD/ 1207 ? TD/TT: 01/19/25 1220 ? Bleacher Lard: ? Procedure Note Donotarletteinterpreter, Image - 01/19/2025 [facility] [address] [facility] [place] [address] XRay Report Signed Patient: Romi HowardMR #: [id number] : 1980Acct:[id number] Age/Sex: 44 / FADM Date: 01/19/25 Loc: HO.HHCX Attending Dr: Liliana Covarrubias DO Ordering Physician: Liliana Covarrubias DO Date of Service: 01/19/25 Procedure(s): XR lumbar spine 2-3V Accession Number(s): [id number] cc: Liliana Covarrubias DO EXAMINATION: XR LUMBOSACRAL SPINE CLINICAL INFORMATION: LBP and tailbone pain x one mos COMPARISON: None available. TECHNIQUE: Three views of the lumbosacral spine. FINDINGS: There is a mild right convex scoliosis. There is a normal lordosis. There is no subluxation. There is no fracture, compression deformity, or suspicious bone lesion. Disc spaces are preserved throughout. There is normal facet alignment and appearance. The sacrum and SI joints appear normal. No soft tissue abnormality. XR/XR lumbar spine 2-3V IMPRESSION: Aside from a mild right convex scoliosis, normal lumbar spine. Electronically signed by: Terrence Bowie MD 01/19/2025 02:08 PM EDT Dictated By: Terrence Bowie MD Signed By: <Electronically signed by Terrence Bowie MD in OV> 01/19/25 1408 DD/ 1207 TD/TT: 01/19/25 1220 Bleacher Lard: Liliana Covarrubias DO IMG XR PROCEDURES Final Resu lt * Lipid Panel with Reflex to Direct LDL (07/20/2024 1:38 PM EDT) Triglycerides 58 <150 mg/dL [facility] Comment:Desirable Triglyceri de: less than 150 mg/dLBorderline High Triglyceride 150-199 mg/dLHigh Triglyceride: 200-499 mg/dLVery High Triglyceride: greater than or equal to 5OO mg/dL Cholesterol 161 <200 mg/dL [facility] Comment:Desirable Cholestero l: less than 200 mg/dLBorderline High Cholesterol: 200-239 mg/dLHigh Cholesterol: greater than 239 mg/dL LDL Cholesterol Calculated 87 <100 mg/dL [facility] Comment:Desirable LDL: less than 100 mg/dLNear Optimal/Above Optimal LDL: 110- 129 mg/dLBorderline High LDL: 130-159 mg/dLHigh LDL: 160-189 mg/dLVery High LDL: greater than or equal to 190 mg/dL HDL Cholesterol 63 >40 mg/dL [facility] Comment:Desirable HDL: great er than 40 mg/dL Note: This HDL assay may give artificially low results in patients with liver disease. Blood 07/20/2024 1:38 PM EDT 07/20/2024 4:20 PM EDT Anabela Resendez MD LAB BLOOD ORDERABLES Final Resul t Performing Organization Address [facility] Co de Phone Number [facility] [address] [place] [phone] * Hepatitis C Antibody with Reflex to HCV, RNA, Quantitative, Real-Time PCR (07/20/2024 1:38 PM EDT) Hepatitis C Antibody Nonreactive Nonreactive [facility] Comment:Antibodies to HCV no t detected; does not exclude early acuteHCV infection. Blood Venous blood specimen / Unknown 07/20/2024 1:38 PM EDT 07/20/2024 4:20 PM EDT Anabela Resendez MD LAB BLOOD ORDERABLES Final Resul t Performing Organization Address [facility] Co de Phone Number [facility] [address] [place] [phone] * HIV-1/2 Antigen and Antibodies, Fourth Generation, with Reflexes (07/20/2024 1:38 PM EDT) [facility] Signature HIV AB/AG Nonreactive Nonreactive [facility] Comment:HIV-1 p24 Ag and/or HIV-1/HIV-2 Ab not detected.A test result that is nonreactive does not exclude thepossibility of exposure to or infection with HIV-1 and/orHIV-2. Nonreactive results in this assay for individualswith prior exposure to HIV-1 and/or HIV-2 may be due toantigen and antibody levels that are below the limit ofdetection of this assay.The [employer] HIV Ag/Ab Combo assay result andsupplemental assay results should be interpreted inconjunction with the patient's clinical presentation,history and other laboratory results. If the results areinconsistent with clinical evidence, additional testing issuggested to confirm the result. Blood Venous blood specimen / Unknown 07/20/2024 1:38 PM EDT 07/20/2024 4:20 PM EDT us Anabela Resendez MD LAB BLOOD ORDERABLES Final Resul t [facility] [address] [place] [phone] * BI US Breast Limited Left (03/28/2024 3:43 PM EDT) Anatomical Region Laterality Modality Breast Left Ultrasound 03/28/2024 3:43 PM EDT Narrative 03/28/2024 3:50 PM EDT ? [facility] [place] ? [address] ?[place] [address] ? Ultrasound Report ? Signed ? Patient: Estevez Celia,Romi ?MR ?? #: [id number] ? : 1980 ?Acct:[id number] ? Age/Sex: 43 / F ?ADM Date: 06/24/24 ? Loc: HO.MAMMO ? Attending Dr: Anabela Resendez MD ? Ordering Physician: Anabela Resendez MD ?? Date of Service: 03/28/24 ?? Procedure(s): US breast LT limited mamm only ?? Accession Number(s): [id number] ? cc: Anabela Resendez MD ? EXAMINATION: [...] 1546 ? DD/ 1543 ? TD/TT: ? Bleacher Lard: ? Procedure Note Alfred Christopher - 03/28/2024 [facility] [address] [place] [address] Ultrasound Report Signed Patient: Romi Howard #: [id number] : 1980Acct:[id number] Age/Sex: 43 / FADM Date: 03/28/24 Loc: HO.MAMMO Attending Dr: Anbaela Resendez MD Ordering Physician: Anabela Resendez MD Date of Service: 03/28/24 Procedure(s): US breast LT limited mamm only Accession Number(s): [id number] cc: Anabela Resendez MD EXAMINATION: MM DIAGNOSTIC [...] in OV> 03/28/24 1546 DD/ 1543 TD/TT: Bleacher Lard: Anabela Resendez MD [facility] PROCEDURES Final Result * Hm Pap Smear (03/13/2022) Pap Negative for intraephithelial lesion or malignancy Negative for intraephithelial lesion or malignancy, Other HPV Undetected Pap Vial 03/13/2022 Result [facility] External Provider HEALTH MAINTENANCE Final Result from Last 3 Months or Most Recently Relevant to Health Maintenance Insurance STANDARD Care Teams Adobe Flex Developer Relationship Specialty Start Date End Date Anabela Resendez MD [address] [place] [phone] PCP - General Family Medicine 01/21/23
--- OUTSIDE RECORDS SUMMARY | 2025-01-19 15:01 | XMS_ITS | Encounter Summary ---
Author Organization [employer] Address [address] [facility] [address] [place] [address] Care Team Providers Care Auto Dealer Name Role Phone Anabela Resendez MD Primary Care Provider [phone] Reason for Visit * Reason Onset Date Comments Nurse Triage 12/29/2024 Encounter Details Date Type Department Care Team ([facility] st Contact Info) Description 12/29/2024 Telephone [facility] [address] [place], [place] [phone] Anabela Resendez MD [address] [place], [place] [phone] Nurse Triage Social History Tobacco Use Types [...] encounter Miscellaneous Notes * Telephone Encounter - Radha Singh RN - 12/29/2024 10:40 AM EDT Triage call Pt is at work at time of call. Pt reports low back pain especially at night. Pt has to use pillows for back support to relieve the pain. Pt is not taking pain medication for back pain at this time. Pt reports bilateral foot swelling and is using compression stockings to reduce this but,swelling remains. No difficulty breathing reported. Pt denies any urinary symptoms. Pt is drinking adequate liquids. Pt is advised to come to [facility] today open till 4pm for provider to see. Pt agrees with disposition. Pt is advised that medicaid shows inactive. Pt reports it is active. Pt is advised to call front desk clerk for information and to be sure insurance is still active. Pt agrees. Protocol Used: Back Pain (Adult) Protocol-Based Disposition: See in Office or Video Visit within 3 Days Video visit not offered Positive Triage Questions: * Moderate back pain (e.g., interferes with normal activities) and present > 3 days * Patient wants to be seen * All higher-acuity triage questions were negative Care Advice Discussed: * Reassurance and Education - Back Pain * Pain Medicines * Reasons To Call Back - Fever occurs - Numbness or weakness occurs - Loss of control of your bladder or bowel - Severe pain not better after taking pain medicines - Pain begins to shoot into the leg - Pain lasts over 2 weeks - Pain becomes worse - You become worse * Telephone Encounter - Suraj Stark - 12/29/2024 9:30 AM EDT Symptoms: Back Pain - Not From Injury, Foot or Ankle Swelling Outcome: Schedule an urgent appointment (within 4 hours) or talk to a nurse or provider soon Reason: Getting worse The caller accepted this outcome. Contact pt at [phone] documented in this encounter Plan of Treatment Not on file documented as of this encounter Visit Diagnoses Not on filedocumented in this encounter Additional Health Concerns Assessment Noted Time PHQ-9 Depression Total Score: 14 024 7:54 AM EST documented as of this encounter Care Teams Auto Dealer Relationship Specialty Start Date End Date Anabela Resendez MD [address] [place] [phone] PCP - General Family Medicine 01/21/23 documented as of this encounter
--- OUTSIDE RECORDS SUMMARY | 2025-01-19 15:01 | XMS_ITS | Encounter Summary ---
Author Organization [employer] Address [address] [facility] [address] [place] [address] Care Team Providers Care Reel Stripper Name Role Phone Anabela Resendez MD Primary Care Provider [phone] Reason for Visit * Reason Comments Back Pain Encounter Details Date Type Department Care Team (Late st Contact Info) Description 01/19/2025 11:20 AM EDT Office Visit [facility] [address] [place] [address] Acute bilateral low back pain without sciatica (Primary Dx); Acute coccygeal pain; Allergic rhinitis, unspecified seasonality, unspecified trigger; Mild intermittent asthma without complication; Allergic reaction to bee sting Social History Tobacco Use Types Packs/Day Years [...] AM EDT documented as of this encounter Last Filed Vital Signs Vital Sign Reading [...] 3.2 oz) 01/19/2025 11:16 AM EDT Height - - Body Mass Index 29.56 07/27/2024 9:19 AM EDT documented in this encounter Plan of Treatment Not on file documented as of this encounter Procedures Procedure Name Priority Date/Time Associated Diagnosis Comments XR SACRUM COCCYX 2+ VIEWS Routine 01/19/2025 12:07 PM EDT Acute bilateral low back pain without sciatica Acute coccygeal pain XR LUMBAR SPINE 2-3 VIEWS Routine 01/19/2025 12:07 PM EDT Acute bilateral low back pain without sciatica Acute coccygeal pain documented in this encounter Results * XR Sacrum Coccyx 2+ Views (01/19/2025 12:07 PM EDT) Anatomical Region Laterality Modality Sacrum, Coccyx Radiographic Evelin ging 01/19/2025 12:0 7 PM EDT Narrative 01/19/2025 2:09 PM EDT ?[facility] ?[address] ?[place] [address] ?XRay Report ? Signed ? Patient: Estevez Kuilan,Romi ?MR ?? #: [id number] ? : 1980 ?Acct:[id number] ? Age/Sex: 44 / F ?ADM Date: 01/19/25 ? Loc: HO.HHCX ? Attending Dr: Liliana Covarrubias DO ? Ordering Physician: Liliana Covarrubias DO ?? Date of Service: 01/19/25 ?? Procedure(s): XR sacrum coccyx min 2V ?? Accession Number(s): [id number] ? cc: Liliana Covarrubias DO ? EXAMINATION: [...] Bowie MD ??01/19/2025 02:06 PM EDT RP ?? Workstation: [id number] ? Dictated By: ?Terrence Bowie MD ? Signed By: ?<Electronically signed by Terrence Bowie MD in OV> ?01/19/25 1406 ? DD/ 1207 ? TD/TT: 01/19/25 1220 ? Project Construction Assistant Manager: ? Procedure Note Alfred Christopher - 01/19/2025 [facility] [address] [facility] [place] [address] XRay Report Signed Patient: Maria Guadalupe Howard #: [id number] : 1980Acct:[id number] Age/Sex: 44 / FADM Date: 01/19/25 Loc: HO.HHCX Attending Dr: Liliana Covarrubias DO Ordering Physician: Liliana Covarrubias DO Date of Service: 01/19/25 Procedure(s): XR sacrum coccyx min 2V Accession Number(s): [id number] cc: Liliana Covarrubias DO EXAMINATION: XR SACRUM [...] 01/19/25 1406 DD/ 1207 TD/TT: 01/19/25 1220 Project Construction Assistant Manager: us Liliana Covarrubias DO IMG XR PROCEDURES Final Resu lt * XR Lumbar Spine 2-3 Views (01/19/2025 12:07 PM EDT) Anatomical Region Laterality Modality Spine, L-spine Radiographic Evelin ging 01/19/2025 12:0 7 PM EDT Narrative 01/19/2025 2:10 PM EDT ?[facility] ?[address] ?[place] [address] ?XRay Report ? Signed ? Patient: Estevez Kuilan,Romi ?MR ?? #: [id number] ? : 1980 ?Acct:[id number] ? Age/Sex: 44 / F ?ADM Date: 04/17/25 ? Loc: HO.HHCX ? Attending Dr: Liliana Covarrubias DO ? Ordering Physician: Liliana Covarrubias DO ?? Date of Service: 01/19/25 ?? Procedure(s): XR lumbar spine 2-3V ?? Accession Number(s): [id number] ? cc: Liliana Covarrubias DO ? EXAMINATION: [...] DD/ 1207 ? TD/TT: 01/19/25 1220 ? Project Construction Assistant Manager: ? Procedure Note Alfred Christopher - 01/19/[address] [address] XRay Report Signed Patient: Romi Howard #: [id number] : 1980Acct:[id number] Age/Sex: 44 / FADM Date: 01/19/25 Loc: HO.HHCX Attending Dr: Liliana Covarrubias DO Ordering Physician: Liliana Covarrubias DO Date of Service: 01/19/25 Procedure(s): XR lumbar spine 2-3V Accession Number(s): [id number] cc: Liliana Covarrubias DO EXAMINATION: XR LUMBOSACRAL [...] 01/19/25 1408 DD/ 1207 TD/TT: 01/19/25 1220 Project Construction Assistant Manager: Liliana Covarrubias DO IMG XR PROCEDURES Final Resu lt documented in this encounter Visit Diagnoses Diagnosis Acute bilateral low back pain without sciatica- Primary Acute coccygeal pain Allergic rhinitis, unspecified seasonality, unspecified trigger Mild intermittent asthma without complication Allergic reaction to bee sting documented in this encounter Additional Health Concerns Assessment Noted Time PHQ-9 Depression Total Score: 14 024 7:54 AM EST documented as of this encounter Care Teams Reel Stripper Relationship Specialty Start Date End Date Anabela Resendez MD [address] [place] [phone] PCP - General Family Medicine 01/21/23 documented as of this encounter
--- OUTSIDE RECORDS SUMMARY | 2025-01-19 15:01 | XMS_ITS | Encounter Summary ---
Author Organization [employer] Address [address] [facility] 7t [place] [address] Care Team Providers Care Undercollar Baster Name Role Phone Anabela Resendez MD Primary Care Provider [phone] Encounter Details Date Type Department Care Team ([facility] st Contact Info) Description 12/01/2023 Orders Only [facility] MED[facility] [address], [place] [phone] Anabela Resendez MD [address] [place], [place] [phone] Family history of diabetes mellitus (Primary Dx); Vitamin D deficiency; Routine screening for STI (sexually transmitted infection); Class 1 obesity due to excess calories without serious comorbidity with body mass index (BMI) of 30.0 to 30.9 in adult; Immunity status testing Social History Tobacco Use Types Packs/Day Years [...] Procedure Name Priority Date/Time Associated Diagnosis Comments SYPHILIS SCREEN Routine 07/20/2024 1:38 PM EDT Routine screening for STI (sexually transmitted infection) VITAMIN D,25-OH,TOTAL,IA Routine 07/20/2024 1:38 PM EDT Vitamin D deficiency TSH W/REFLEX TO FT4 Routine 07/20/2024 1 :38 PM EDT Class 1 obesity due to excess calories without serious comorbidity with body mass index (BMI) of 30.0 to 30.9 in adult LIPID PANEL WITH REFLEX TO DIRECT LDL Routine 07/20/2024 1:38 PM EDT Family history of diabetes mellitus Class 1 obesity due to excess calories without serious comorbidity with body mass index (BMI) of 30.0 to 30.9 in adult HEPATITIS C AB W/REFL TO HCV RNA, QN, PCR Routine 07/20/2024 1:38 PM EDT Routine screening for STI (sexually transmitted infection) HEPATITIS A ANTIBODY, TOTAL Routine 07/20/2024 1:38 PM EDT Immunity status testing CHLAMYDIA/N. GONORRHOEAE RNA, TMA, UROGENITAL Routine 07/20/2024 1:38 PM EDT Routine screening for STI (sexually transmitted infection) HEPATITIS B SURFACE ANTIGEN, EIA Routine 07/20/2024 1:38 PM EDT Routine screening for STI (sexually transmitted infection) HEPATITIS B CORE AB TOTAL Routine 07/20/2024 1:38 PM EDT Routine screening for STI (sexually transmitted infection) HIV 1/2 ANTIGEN/ANTIBODY, FOURTH GENERATION W/RFL Routine 07/20/2024 1:38 PM EDT Routine screening for STI (sexually transmitted infection) HEPATITIS B SURFACE ANTIBODY, QUALITATIVE Routine 07/20/2024 1:38 PM EDT Routine screening for STI (sexually transmitted infection) COMPREHENSIVE METABOLIC PANEL Routine 07/20/2024 1:38 PM EDT Class 1 obesity due to excess calories without serious comorbidity with body mass index (BMI) of 30.0 to 30.9 in adult documented in this encounter Results * Hepatitis A Antibody, Total (07/20/2024 1:38 PM EDT) Hepatitis A Antibody IgG REACTIVE Nonreactive [facility] Comment:The presence of IgG anti-HAV implies past HAV infection(recent or distant) or vaccination against HAV. Blood Venous blood specimen / Unknown 07/20/2024 1:38 PM EDT 07/20/2024 4:20 PM EDT us Anabela Resendez MD LAB BLOOD ORDERABLES Final Resul t [facility] [address], [place] [phone] * (ABNORMAL) Vitamin D, 25-Hydroxy, Total, Immunoassay (07/20/2024 1:38 PM EDT) Vitamin D 25-OH Total 19.1(L) >30 ng/mL [facility] Comment:Health Based Referen ce Values*< 20 ng/mL Selfirbor56-79 ng/mL Insufficient> 30 ng/mL Sufficient*Holick MF. N Engl J Med. 2007;357:266-280Care must be taken in interpreting Vitamin D results fromdifferent laboratories and methodologies. Published datademonstrated that results from patients undergoinghemodialysis may show a negative bias when tested withvarious automated 25-OH vitamin D assays when compared toLC-MS/MS.When testing samples from patients whose predominant form ofVitamin D is Vitamin D2, such as patients receiving VitaminD2 supplementation, results that are subtherapeutic shouldbe confirmed with another method such as LC-MS/MS. Blood Venous blood specimen / Unknown 07/20/2024 1:38 PM EDT 07/20/2024 4:20 PM EDT Anabela Resendez MD LAB BLOOD ORDERABLES Final Resul t Performing Organization Address [facility] Co de Phone Number [facility] [address] [place] [phone] * Hepatitis B surface antigen, EIA (07/20/2024 1:38 PM EDT) Hepatitis B Surface Ag Negative Negative [facility] Blood Venous blood specimen / Unknown 07/20/2024 1:38 PM EDT 07/20/2024 4:20 PM EDT Anabela Resendez MD LAB BLOOD ORDERABLES Final Resul t Performing Organization Address [facility] Co de Phone Number [facility] [address] [place] [phone] * HIV-1/2 Antigen and Antibodies, Fourth Generation, with Reflexes (07/20/2024 1:38 PM EDT) HIV AB/AG Nonreactive Nonreactive [facility] Comment:HIV-1 p24 Ag and/or HIV-1/HIV-2 Ab not detected.A test result that is nonreactive does not exclude thepossibility of exposure to or infection with HIV-1 and/orHIV-2. Nonreactive results in this assay for individualswith prior exposure to HIV-1 and/or HIV-2 may be due toantigen and antibody levels that are below the limit ofdetection of this assay.The [employer] HIV Ag/Ab Combo assay result andsupplemental assay results should be interpreted inconjunction with the patient's clinical presentation,history and other laboratory results. If the results areinconsistent with clinical evidence, additional testing issuggested to confirm the result. Blood Venous blood specimen / Unknown 07/20/2024 1:38 PM EDT 07/20/2024 4:20 PM EDT us Anabela Resendez MD LAB BLOOD ORDERABLES Final Resul t [facility] [address] [place] [phone] * Chlamydia/N. Gonorrhoeae RNA, TMA, Urogenitial (07/20/2024 1:38 PM EDT) CT PCR NOT DETECTED Not Detect. [facility] Comment:A not detected test result does not exclude the possibilityof infection because test results can be affected byimproper specimen collection, concurrent antibiotic therapy,or the number of organisms in the specimen which may bebelow the sensitivity of the test. As with many diagnostictests, results from the Xpert CT/NG assay should beinterpreted in conjunction with other laboratory andclinical data available to the clinician.Xpert CT/NG performance has not been evaluated in patientsless than 14 years of age. The assay should not be used forthe evaluationof suspected sexual abuse or for other medico-legalindications. Additional testing is recommended in anycircumstance when false positive or false negative resultscould lead to adverse medical, social or psychologicalconsequences. NG PCR NOT DETECTED Not Detect. [facility] Comment:A not detected test result does not exclude the possibilityof infection because test results can be affected byimproper specimen collection, concurrent antibiotic therapy,or the number of organisms in the specimen which may bebelow the sensitivity of the test. As with many diagnostictests, results from the Xpert CT/NG assay should beinterpreted in conjunction with other laboratory andclinical data available to the clinician.Xpert CT/NG performance has not been evaluated in patientsless than 14 years of age. The assay should not be used forthe evaluationof suspected sexual abuse or for other medico-legalindications. Additional testing is recommended in anycircumstance when false positive or false negative resultscould lead to adverse medical, social or psychologicalconsequences. Urine, Random 07/20/2024 1:3 8 PM EDT 07/20/2024 4:24 PM EDT Narrative [facility] - 07/21/2024 3:31 AM EDT Urine us Anabela Resendez MD LAB MICROBIOLOGY - GENERAL ORDER VIJI Final Result Performing Organization Address [facility] Co de Phone Number [facility] [address] [place] [phone] * Hepatitis B Core Antibody, Total (07/20/2024 1:38 PM EDT) Hepatitis B Core Antibody Nonreactive Nonreactive [facility] Blood Venous blood specimen / Unknown 07/20/2024 1:38 PM EDT 07/20/2024 4:20 PM EDT us Anabela Resendez MD LAB BLOOD ORDERABLES Final Resul t Performing Organization Address [facility] Co de Phone Number [facility] [address] [place] [address] [phone] * Hepatitis B Surface Antibody, Qualitative (07/20/2024 1:38 PM EDT) ~Hepatitis B Surface Antibody REACTIVE Nonreactive [facility] Comment:REACTIVE: > 11.99 mI U/mL Blood Venous blood specimen / Unknown 07/20/2024 1:38 PM EDT 07/20/2024 4:20 PM EDT Anabela Resendez MD LAB BLOOD ORDERABLES Final Resul t Performing Organization Address City/[facility] Co de Phone Number [facility] [address] [place] [phone] * Hepatitis C Antibody with Reflex to HCV, RNA, Quantitative, Real-Time PCR (07/20/2024 1:38 PM EDT) Hepatitis C Antibody Nonreactive Nonreactive [facility] Comment:Antibodies to HCV no t detected; does not exclude early acuteHCV infection. Blood Venous blood specimen / Unknown 07/20/2024 1:38 PM EDT 07/20/2024 4:20 PM EDT Anabela Resendez MD LAB BLOOD ORDERABLES Final Resul t Performing Organization Address [facility] Co de Phone Number [facility] [address] [place] [address] [phone] * Syphilis Screen (07/20/2024 1:38 PM EDT) Syphilis Screen Nonreactive Nonreactive [facility] Blood 07/20/2024 1:38 PM EDT 07/20/2024 4:20 PM EDT Anabela Resendez MD LAB BLOOD ORDERABLES Final Resul t Performing Organization Address [facility] de Phone Number [facility] [address] [place] [phone] * Lipid Panel with Reflex to Direct LDL (07/20/2024 1:38 PM EDT) Triglycerides 58 <150 mg/dL [facility] Comment:Desirable Triglyceri de: less than 150 mg/dLBorderline High Triglyceride 150-199 mg/dLHigh Triglyceride: 200-499 mg/dLVery High Triglyceride: greater than or equal to 5OO mg/dL Cholesterol 161 <200 mg/dL [facility] Comment:Desirable Cholestero l: less than 200 mg/dLBorderline High Cholesterol: 200-239 mg/dLHigh Cholesterol: greater than 239 mg/dL LDL Cholesterol Calculated 87 <100 mg/dL [facility] Comment:Desirable LDL: less than 100 mg/dLNear Optimal/Above Optimal LDL: 110- 129 mg/dLBorderline High LDL: 130-159 mg/dLHigh LDL: 160-189 mg/dLVery High LDL: greater than or equal to 190 mg/dL HDL Cholesterol 63 >40 mg/dL [facility] Comment:Desirable HDL: great er than 40 mg/dL Note: This HDL assay may give artificially low results in patients with liver disease. Blood 07/20/2024 1:38 PM EDT 07/20/2024 4:20 PM EDT us Anabela Resendez MD LAB BLOOD ORDERABLES Final Resul t [facility] [address] [place] [phone] * (ABNORMAL) Comprehensive Metabolic Panel (07/20/2024 1:38 PM EDT) Sodium 140 135 - 145 mmol/L [facility] Potassium 4.1 3.3 - 5.1 mmol/L [facility] Chloride 107 96 - 108 mmol/L [facility] Carbon Dioxide 28 22 - 29 mmol/L [facility] Anion Gap 9(L) 12 - 20 [facility] Urea Nitrogen (BUN) 9 9 - 16 mg/dL [facility] Creatinine, Serum 1.00 0.5 - 1.4 mg/dL [facility] Estimated Glomerular Filt Rate >60 [facility] Comment:NOTE: For -Am erican individuals, multiply the result by 1.210.Chronic Kidney Disease: Estimated GFR < 60 mL/min/[id number] Kidney Disease: Estimated GFR < 15 mL/min/1.73m2 Glucose 85 60 - 115 mg/dL [facility] Calcium 9.7 8.4 - 10.2 mg/dL [facility] Bilirubin, Total 0.6 0.0 - 1.0 mg/dL [facility] Aspartate Amino Transferase 15 5 - 31 U/L [facility] Alanine Aminotransferase 13 0 - 31 U/L [facility] Total Protein 7.4 6.5 - 8.0 g/dL [facility] Albumin Level 4.5 3.5 - 5.0 g/dL [facility] Alkaline Phosphatase 59 39 - 117 U/L [facility] Blood Venous blood specimen / Unknown 07/20/2024 1:38 PM EDT 07/20/2024 4:20 PM EDT us Anabela Resendez MD LAB BLOOD ORDERABLES Final Resul t Performing Organization Address City/[facility]/ZIP Co de Phone Number [facility] [address] [place] [address] [phone] * TSH with Reflex to Free T4 (07/20/2024 1:38 PM EDT) TSH reflex Free T4 1.13 0.32 - 4.0 uIU/mL [facility] Blood 07/20/2024 1:38 PM EDT 07/20/2024 4:20 PM EDT us Anabela Resendez MD LAB BLOOD ORDERABLES Final Resul t Performing Organization Address [facility] Co de Phone Number [facility] [address] [place] [address] [phone] documented in this encounter Visit Diagnoses Diagnosis Family history of diabetes mellitus- Primary Vitamin D deficiency Routine screening for STI (sexually transmitted infection) Screening examination for venereal disease Class 1 obesity due to excess calories without serious comorbidity with body mass index (BMI) of 30.0 to 30.9 in adult Immunity status testing Antibody response examination documented in this encounter Additional Health Concerns Assessment Noted Time PHQ-9 Depression Total Score: 0 06/09/20 23 9:48 AM EDT documented as of this encounter Care Teams Undercollar Baster Relationship Specialty Start Date End Date Anabela Resendez MD [address] [place] [phone] PCP - General Family Medicine 01/21/23 documented as of this encounter
--- OUTSIDE RECORDS SUMMARY | 2025-01-19 15:01 | XMS_ITS | Encounter Summary ---
Author Organization [employer] Address [address] [facility] 7 [place] [address] Care Team Providers Care Wholesale Diamond Broker Name Role Phone Anabela Resendez MD Primary Care Provider [phone] Reason for Visit * Reason Onset Date Comments Results 09/06/2024 Encounter Details Date Type Department Care Team ([facility] st Contact Info) Description 09/06/[address] [facility] MEDICINE [address], [place] [phone] Anabela Resendez MD [address] [place], [place] [phone] Results Social History Tobacco Use Types Packs/Day Years [...] encounter Miscellaneous Notes * Telephone Encounter - Sully Ladd RN - 09/07/2024 10:06 AM EST TC from pt requesting call back regarding Results. Type of results: MRI Date when done: 07/31/24 Facility: [facility] TC placed to [facility] [place] department to request that MRI report be done stat as it was done 07/31/2024. Patient notified by phone that we are awaiting results she states she was told at the hospital that it would take 4-6 weeks to result. Will contact pt with results when available. Will task back to red team nurse to check later in the week. * Telephone Encounter - Duncan Sahu - 09/06/2024 2:54 PM EST TC from pt requesting call back regarding Results. Type of results: MRI Date when done: 07/31/24 Facility: [facility] documented in this encounter Plan of Treatment Not on file documented as of this encounter Visit Diagnoses Not on filedocumented in this encounter Additional Health Concerns Assessment Noted Time PHQ-9 Depression Total Score: 14 024 7:54 AM EST documented as of this encounter Care Teams Wholesale Diamond Broker Relationship Specialty Start Date End Date Anabela Resendez MD [address] [place] [phone] PCP - General Family Medicine 01/21/23 documented as of this encounter
--- OUTSIDE RECORDS SUMMARY | 2025-01-19 15:01 | XMS_ITS | Encounter Summary ---
Author Organization [employer] Address [address] [facility] 7 [place] [address] Care Team Providers Care Remote Sensing Scientist Name Role Phone Anabela Resendez MD Primary Care Provider [phone] Reason for Visit * Reason Onset Date Comments Nurse Triage 08/12/2024 Encounter Details Date Type Department Care Team ([facility] st Contact Info) Description 08/12/[address] [facility] MEDICINE [address] [place], [place] [phone] Anabela Resendez MD [address] [place], [place] [phone] Nurse Triage Social History Tobacco Use Types [...] encounter Miscellaneous Notes * Telephone Encounter - Lizzeth Styles RN - 08/12/2024 4:40 PM EST Called pt. She states that today she has been feeling dizzy and has had a slight headache all day. Pt states it's a small sharp pain that goes from her back right side of head and then gets a sharp pain on left side. Pt has strong Family HX. Of Brain cancer, tumors, and aneurisms. I see an MRUI of head was ordered by PCP 07/20/24 but, pt. Has not been called to schedule MRI yet. Pt is advised to go to ED if she feels worse and to also have buy some electrolyte solution to see if she is lightly dehydrated and that may help. Pt does state that she walks a lot and drinks plenty of water daily. No numbness of face, no blurry vision. Pt denies having Diabetes or Hypertension. I did advise that if pt. Feels she needs to go to ED she should go to [facility] ED due to MRI order there. Pt. Will go to ED if needed. I will send this to a green team covering provider and Provider that ordered MRI since PCP not in office onThursday08/15/24 to see if MRI can be expedited due to pt. concerns Protocol Used: Headache (Adult) Protocol-Based Disposition: Pt. Will go to [facility] ED if needed Video visit not offered Positive Triage Questions: * Severe headache and not relieved by pain meds * Patient wants to be seen * Headache is a chronic symptom (recurrent or ongoing AND lasting > 4 weeks) * All higher-acuity triage questions were negative Care Advice Discussed: * Cold Pack for Headache * Telephone Encounter - Duncan Luis Alberto - 08/12/2024 4:24 PM EST Symptom: Dizziness Outcome: Talk to a nurse or provider within 15 minutes Reason: Trouble walking The caller accepted this outcome. documented in this encounter Plan of Treatment Not on file documented as of this encounter Visit Diagnoses Not on filedocumented in this encounter Additional Health Concerns Assessment Noted Time PHQ-9 Depression Total Score: 11 07/27/ 024 10:02 AM EDT documented as of this encounter Care Teams Remote Sensing Scientist Relationship Specialty Start Date End Date Anabela Resendez MD [address] [place] [phone] PCP - General Family Medicine 01/21/23 documented as of this encounter
== END 2025-01-19 12:07 | disposition home or self-care (01) ==
LOC: HO.HHCX 12:06
PROVIDERS: Visit Provider Family Medicine
DX: M53.3 Sacrococcygeal disorders, not elsewhere classified (principal); M54.50 Low back pain, unspecified
CPT/HCPCS: 72100; 72220

== ENCOUNTER → 2025-01-19 12:07 | Outpatient (BNV) | payer MEDICAID, SELFPAY | PROVIDERS: Visit Provider Radiology Diagnostic Radiology | DX: M54.50 Low back pain, unspecified (principal); M53.3 Sacrococcygeal disorders, not elsewhere classified | CPT/HCPCS: 72100; 72220 ==

== ENCOUNTER 2025-02-18 08:58 | Outpatient (REF) | payer MEDICAID, SELFPAY | END 2025-02-18 08:59 | disposition home or self-care (01) | LOC: HO.MAMMO 08:58 | PROVIDERS: PCP Family Medicine; Visit Provider Family Medicine | DX: Z12.31 Encounter for screening mammogram for malignant neoplasm of breast (principal) | CPT/HCPCS: 77063; 77067 ==

== ENCOUNTER → 2025-02-18 09:00 | Outpatient (BNV) | payer MEDICAID, SELFPAY | PROVIDERS: PCP Family Medicine; Visit Provider Internal Medicine | DX: Z12.31 Encounter for screening mammogram for malignant neoplasm of breast (principal) | CPT/HCPCS: 77063; 77067 ==

== ENCOUNTER 2025-04-27 08:25 | Outpatient (REF) | payer MEDICAID, SELFPAY ==
--- OUTSIDE RECORDS SUMMARY | 2025-04-27 08:44 | XMS_ITS | Clinical Summary ---
Author Organization [email or web address] Address [address] [place] [address] 7 [place] [address] Care Team Providers Care Medical Artist Name Role Phone Anabela Resendez MD Primary Care Provider [phone] Allergies Active Allergy Reactions Criticality Noted Date Comments Bee Venom 02/04/2023 Cortisone 10/30/2017 Other reaction(s): face,throat swollen Shellfish Allergy 02/04/2023 Shellfish-Derived Products Unknown 0 Medications * This document contains information received from the source organization and may not represent a complete record from that organization. sodium chloride (Bagnell) 0.65 % nasal sprayIndication s:Allergic rhinitis, unspecified [...] doses in 24 hours. 9 tablet 3 024 Active cholecalciferol (Vitamin D-3) 75 MCG (3000 UT) tablet Take 1 tablet (75 mcg) by mouth Once per day. Increased dose 90 tablet 3 Active fluticasone (Flonase) 50 MCG/ACT nasal sprayIndication s:Allergic rhinitis, unspecified seasonality, unspecified trigger ADMINISTER 1-2 SPRAYS INTO AFFECTED NOSTRIL(S) ONCE A DAY 48 mL 024 Active escitalopram (Lexapro) 10 MG tabletIndicatio ns:Anxiety [...] Once per day. 90 tablet 3 Active naproxen (Naprosyn) 500 MG tablet Take 1 tablet (500 mg) by mouth if needed in the morning and at bedtime for mild pain. DO NOT TAKE WITH MOTRIN 40 tablet 1 025 2025 Active baclofen (Lioresal) 10 MG tablet Take 1 tablet (10 mg) by mouth if needed in the morning, at noon, and at bedtime for muscle spasms. 60 tablet 1 Active lidocaine (Lidoderm) 5 % patch Apply 1 patch topically if needed each day for mild pain. Remove & discard patch within 12 hours or as directed by MD. 30 patch 1 Active Diclofenac Sodium 1 % gel Apply 2 g topically if needed in the morning, at noon, in the evening, and at bedtime (pain). 150 g 3 Active triamcinolone (Kenalog) 0.1 % ointmentIndicat ions:Eczema, unspecified type Apply topically 2 times daily. 80 g Active EPINEPHrine (Epipen) 0.3 MG/0.3ML injection syringeIndicati ons:Allergic reaction to bee sting Administer one dose as instructed for severe allergy symptoms. Call 911 after use. 2 each 1 Active EPINEPHrine (Epipen) 0.3 MG/0.3ML injection syringeIndicati ons:Allergic reaction to bee sting Administer one dose as instructed for severe allergy symptoms. Call 911 after use. 2 each 1 025 2024 Discontinued(R eorder (will not trigger notification to Pharmacy)) acetaminophen (Tylenol Extra Strength) 500 MG tabletIndicatio ns:Acute coccygeal pain Take 1 tablet (500 mg) by mouth every 6 (six) hours if needed for mild pain for up to 10 days. 30 tablet 025 2024 Active Problems Problem Noted Date Diagnosed Date Skin lesion 04/14/2025 CHERISE (generalized anxiety disorder) 09/05/2024 Assessment & [...] intervention , [facility], Comply with medication , Patient to engage in OP therapy , and Patient to reach out to [facility] as needed Chronic headache 07/27/2024 Assessment & Plan (07/27/2024 9:58 AM EDT): - family history of brain tumor - upcoming MRI appointment - continue NSAIDs Stress incontinence 06/08/2023 Assessment & Plan (10/15/2023 5:43 AM EST): - following with [facility] UroGYN - s/p advantage blue retropubic midurethral [...] (07/27/2024 9:36 AM EDT): - following with [facility], last visit in Oct 2023 - 07/15/23 advantage blue retropubic midurethral sling, posterior colporrhaphy, and cystoscopy Assessment & Plan (05/04/2024 4:49 AM EDT): - following with [facility], last visit in Oct 2023 - 07/15/23 advantage blue retropubic midurethral sling, posterior colporrhaphy, and cystoscopy Assessment & Plan (10/15/2023 5:44 AM EST): - following with [facility] U[facility], last visit in Aug 2023 - 07/15/23 advantage blue retropubic midurethral sling, posterior colporrhaphy, and cystoscopy Assessment & Plan (06/12/2023 5:22 AM EDT): - following with [facility] UroGYKaren Asthma 02/04/2023 Assessment & Plan (07/27/2024 9:53 [...] (06/12/2023 5:20 AM EDT): - followed by [facility] LENS MARKER - Dx Pelvic Congestion Syndrome - continue Tx plan per LENS MARKER / UroGYN Assessment & Plan (02/04/2023 6:11 PM EDT): - followed by [facility] LENS MARKER - Dx Pelvic Congestion Syndrome - continue Tx plan per LENS MARKER / UroGYN Allergic rhinitis 02/04/2023 Assessment & [...] back pain and try Physical Therapy Encounters * This document contains information received from the source organization and may not represent a complete record from that organization. Date Type Department Care Team Description 04/26/2025 3:30 PM EDT Office Visit [place] [address] Gwendolyn Lau FNP Abnormal bruising (Primary Dx) 04/26/2025 Travel 04/25/2025 [place]phone [place] [address] Maciel Alvarez MA CHARTPREP 04/24/2025 Telephone [place] [address] Anabela Resendez MD Nurse Triage 04/18/2025 Telephone [place] [address] Anabela Resendez MD Appointment Request 04/14/2025 9:15 AM EDT Office [place] [address] Gwendolyn Lau FNP Skin lesion (Primary Dx) 04/14/2025 Telephone [place] [address] Anabela Resendez MD Referral 04/14/2025 Travel 04/13/2025 Telephone [place] [address] Gwendolyn Lau FNP Chart Prep 04/12/2025 Telephone [place] [address] Anabela Resendez MD Nurse Triage 04/12/2025 Telephone [place] [address] Anabela Resendez MD Nurse Triage 04/10/2025 3:45 PM EDT Office [place] [address] Vadim Alves MD Varicose veins of both lower extremities, unspecified whether complicated (Primary Dx); Eczema, unspecified type; Acute coccygeal pain; Allergic reaction to bee sting 04/10/2025 Travel 04/06/2025 Telephone [facility] [place] [address] Vadim Alves MD Chart Prep 04/05/2025 Telephone [facility] [place] [address] Anabela Resendez MD Appointment Request 04/05/2025 Telephone [facility] [address] [place], [place] [address] [address] Anabela Resendez MD 04/04/2025 Telephone [facility] [place] [address] Anabela Resendez MD chart prep 04/04/2025 Telephone [facility] [place] [address] Anabela Resendez MD CHART PREP 03/20/2025 Telephone [facility] [address] [place], [place] [address] [address] Anabela Resendez MD chartprep 03/20/2025 Telephone [facility] [place] [address] Anabela Resendez MD Nurse Triage 03/14/2025 Telephone [facility] [place] [address] Anabela Resendez MD Nurse Triage 02/18/2025 Orders Only [facility] [place] [address] Anabela Resendez MD 01/30/2025 Population Health Risk Score [facility] ([facility]) Department [address] [place] [id number] Provider, Population Health Generic from Last 3 Months Immunizations Immunization Administration Dates Next Due DTaP 12/11/1987, 6,03/15/1985,1982 [...] Sign Reading Time Taken Comments Blood Pressure 122/78 04/26/2025 3:37 PM EDT Pulse 78 04/26/2025 3:37 PM EDT Temperature 36.8 C (98.3 F) 04/26/2025 3:37 PM EDT Respiratory Rate 18 04/26/2025 3:37 PM EDT Oxygen Saturation 95% 04/26/2025 3:37 PM EDT Inhaled Oxygen Concentration - - Weight 78.5 kg (173 lb 2 oz) 04/26/2025 3:37 PM EDT Height 162.6 cm (5' 4 ) 04/26/2025 3:37 PM EDT Body Mass Index 29.72 04/26/2025 3:37 PM EDT Plan of Treatment Health Maintenance Due Date Last Done Comments Family Planning (PISQ) 1997 HPV Vaccines (1 - 3-dose series) 1997 COVID-19 Vaccine ( season) 2024 08/21/2021, 11/16/2020, 10/17/2020 Depression Monitoring 03/06/2025 09/05/2024, 024 Influenza Vaccine (#1) 2025 , 08/04/2023, 07/22/2021, Additional history exists SDOH Screening 06/21/2025 06/21/2024 Alcohol/Substance Use Screening 04/10/2026 04/10/2025 Disability Screening 04/14/2026 04/14/2025 Tobacco Screening 04/26/2026 04/26/2025 Mammogram 02/18/2027 02/18/2025, 03/06, 03/20/2022 Cervical Cancer Screening 03/13/2027 HPV/Cotest 03/13/2027 03/13/2022, 12/24/2016 Pap Smear 03/13/2027 03/13/2022 Lipid Panel 07/20/2029 07/20/2024, 12/2022, 03/04/2022 DTaP/Tdap/Td Vaccines (6 - Td [...] C Screening Completed 07/20/2024 , 02/04/2023, 04/29/2021 Pneumococcal Vaccine: Pediatrics (0 to 5 Years) and At-Risk Patients (6 to 49) Years Completed 07/27/2024 HIB Vaccines Aged Out No longer eligi ble based on patient's age to complete this topic Meningococcal B Vaccine Aged Out No l onger eligible based on patient's age to complete [...] Name Priority Date/Time Associated Diagnosis Comments BI MAMMOGRAM SCREENING TOMOSYNTHESIS BILATERAL Routine 02/18/2025 9:30 AM EDT HEPATITIS C AB W/REFL TO HCV RNA, [...] (BMI) of 30.0 to 30.9 in adult HM PAP/HPV Routine 03/13/2022 from Last 3 Months or Most Recently Relevant to Health Maintenance Results * BI Mammogram Screening Tomosynthesis Bilateral (02/18/2025 9:30 AM EDT) Anatomical Region Laterality Modality Breast Bilateral Mammography 02/18/2025 9:30 AM EDT Narrative 02/25/2025 3:29 PM EDT [facility] [address] [place] [address] Mammography Report Signed Patient: Romi Howard MR #: [id number] : 1980 Acct:[id number] Age/Sex: 44 / F ADM Date: 02/18/25 Loc: .MAMMO Attending Dr: Anabela Resendez MD Ordering Physician: Anabela Resendez MD Results: 2Benign F indings Date of Service: 02/18/25 Follow Up: 1 Year From [facility] Mammogram Procedure(s): MM tomosynthesis screening BI Accession Number(s): [id number] cc: Anabela Resendez MD EXAMINATION: MM SCREENING DIGITAL BREAST TOMOSYNTHESIS, BILATERAL CLINICAL INFORMATION: Screening. Asymptomatic. COMPARISON: Mammography: Comparison is made with available priors TECHNIQUE: Digital breast mammography with tomosynthesis is performed in both the craniocaudal and mediolateral oblique views along with computer-aided detection (CAD). FINDINGS: The breasts are heterogeneously dense, which may obscure small masses (ACR BI-RADS breast composition Category c). Bilateral retropectoral distorted implants are stable appearing. There are no significant masses, abnormal calcifications, or other abnormalities. MM/MM tomosynthesis screening BI IMPRESSION: No mammographic evidence of malignancy. ASSESSMENT: BI-RADS BI-RADS 2 - Benign Findings RECOMMENDATION: Routine annual mammography screening. 1 year F/U This examination should not preclude the clinical evaluation of a suspicious palpable abnormality. This patient's information was entered into a reminder system with a target due date for their next mammogram. Electronically signed by: Kylah Kurtz DO 02/25/2025 03:25 PM EDT RP Dictated By: Kylah Kurtz DO Signed By: <Electronically signed by Kylah Kurtz DO in OV> 02/25/25 1525 DD/ 0930 TD/TT: 02/18/25 0944 Crab Picker: Procedure Note Donotuseinterpreter, Image - 02/25/2025 [facility] [address] [place] [address] Mammography Report Signed Patient: Romi HowardMR #: [id number] : 1980Acct:[id number] Age/Sex: 44 / FADM Date: 02/18/25 Loc: [facility] Attending Dr: Anabela Resendez MD Ordering Physician: Anabela Resendez MDResults: 2Benign F indings Date of Service: 02/18/25Follow Up: 1 Year From Orig ina Mammogram Procedure(s): MM tomosynthesis screening BI Accession Number(s): [id number] cc: Anabela Resendez MD EXAMINATION: MM SCREENING DIGITAL BREAST TOMOSYNTHESIS, BILATERAL CLINICAL INFORMATION: Screening. Asymptomatic. COMPARISON: Mammography: Comparison is made with available priors TECHNIQUE: Digital breast mammography with tomosynthesis is performed in both the craniocaudal and mediolateral oblique views along with computer-aided detection (CAD). FINDINGS: The breasts are heterogeneously dense, which may obscure small masses (ACR BI-RADS breast composition Category c). Bilateral retropectoral distorted implants are stable appearing. There are no significant masses, abnormal calcifications, or other abnormalities. MM/MM tomosynthesis screening BI IMPRESSION: No mammographic evidence of malignancy. ASSESSMENT: BI-RADS BI-RADS 2 - Benign Findings RECOMMENDATION: Routine annual mammography screening. 1 year F/U This examination should not preclude the clinical evaluation of a suspicious palpable abnormality. This patient's information was entered into a reminder system with a target due date for their next mammogram. Electronically signed by: Kylah Kurtz DO 02/25/2025 03:25 PM EDT RP Dictated By: Kylah Kurtz DO Signed By: <Electronically signed by Kylah Kurtz DO in OV> 02/25/25 1525 DD/ 0930 TD/TT: 02/18/25 0944 Crab Picker: us Anabela Resendez MD IMG BI PROCEDURES Edited Result - Final * Lipid Panel with Reflex to Direct LDL (07/20/2024 1:38 PM EDT) Triglycerides 58 <150 mg/dL [facility] Comment:Desirable Triglyceri de: less than 150 mg/dLBorderline High Triglyceride 150-199 mg/dLHigh Triglyceride: 200-499 mg/dLVery High Triglyceride: greater than or equal to 5OO mg/dL Cholesterol 161 <200 mg/dL [facility] Comment:Desirable Cholestero l: less than 200 mg/dLBorderline High Cholesterol: 200-239 mg/dLHigh Cholesterol: greater than 239 mg/dL LDL Cholesterol Calculated 87 <100 mg/dL [facility] Comment:Desirable LDL: less than 100 mg/dLNear Optimal/Above Optimal LDL: 110- 129 mg/dLBorderline High LDL: 130-159 mg/dLHigh LDL: 160-189 mg/dLVery High LDL: greater than or equal to 190 mg/dL HDL Cholesterol 63 >40 mg/dL [facility] Comment:Desirable HDL: great er than 40 mg/dL Note: This HDL assay may give artificially low results in patients with liver disease. Blood 07/20/2024 1:38 PM EDT 07/20/2024 4:20 PM EDT us Anabela Resendez MD LAB BLOOD ORDERABLES Final Resul t [facility] [address] [place] [phone] * Hepatitis C Antibody with Reflex to HCV, RNA, Quantitative, Real-Time PCR (07/20/2024 1:38 PM EDT) Hepatitis C Antibody Nonreactive Nonreactive [facility] Comment:Antibodies to HCV no t detected; does not exclude early acuteHCV infection. Blood Venous blood specimen / Unknown 07/20/2024 1:38 PM EDT 07/20/2024 4:20 PM EDT us Anabela Resendez MD LAB BLOOD ORDERABLES Final Resul t Performing Organization Address City/[facility]/ZIP Co de Phone Number [facility] [address] [place] [address] [phone] * HIV-1/2 Antigen and Antibodies, Fourth Generation, with Reflexes (07/20/2024 1:38 PM EDT) Pathologist [facility] [place] HIV AB/AG Nonreactive Nonreactive [facility] Comment:HIV-1 p24 Ag and/or HIV-1/HIV-2 Ab not detected.A test result that is nonreactive does not exclude thepossibility of exposure to or infection with HIV-1 and/orHIV-2. Nonreactive results in this assay for individualswith prior exposure to HIV-1 and/or HIV-2 may be due toantigen and antibody levels that are below the limit ofdetection of this assay.The [employer] HIV Ag/Ab Combo assay result andsupplemental assay results should be interpreted inconjunction with the patient's clinical presentation,history and other laboratory results. If the results areinconsistent with clinical evidence, additional testing issuggested to confirm the result. Blood Venous blood specimen / Unknown 07/20/2024 1:38 PM EDT 07/20/2024 4:20 PM EDT us Anabela Resendez MD LAB BLOOD ORDERABLES Final Resul t Performing Organization Address City/[facility]/ZIP Co de Phone Number [facility] [address] [place] [address] [phone] * Pap Smear (03/13/2022) Pap Negative for intraephithelial lesion or malignancy Negative for intraephithelial lesion or malignancy, Other HPV Undetected Pap Vial 03/13/2022 [facility] External Provider HEALTH MAINTENANCE Final Result from Last 3 Months or Most Recently Relevant to Health Maintenance Insurance C3 Care Teams Medical Artist Relationship Specialty Start Date End Date Anabela Resendez MD [address] [place] [phone] PCP - General Family Medicine 01/21/23
[2025-04-27 11:25] LABS: MANUAL DIFF FLAG NO
[2025-04-27 11:27] LABS: Hematocrit 39.0 % (37.0-47.0); Hemoglobin 12.8 g/dl (12.0-16.0); Imm Gran Abs Auto 0.01 X10*3/uL (0.00-0.03); Imm Gran Pct Auto 0.2 % (0.0-0.4); Lymphocytes Absolute Auto 1.3 X10*3/uL (1.2-4.9); Mean Corpuscular HGB Conc 32.8 g/dl (31.0-35.0); Mean Corpuscular Hemoglobin 27.2 pg (27.0-33.0); Mean Corpuscular Volume 83.0 fL (80.0-98.0); NRBC Abs Auto 0.000 X10*3/uL (0.0-0.012); NRBC Pct Auto 0.0 /100WBC (0.0-0.2); Platelet Count 176 X10*3/uL (160-400); Red Blood Count 4.70 X10*6/uL (4.20-5.50); White Blood Count 4.3 X10*3/uL (4.8-10.8)
[2025-04-27 11:34] LABS: INTERNATIONAL NORM RATIO 0.9 (0.9-1.1); Prothrombin Time 10.8 SEC (10.9-12.4)
[2025-04-27 11:37] LABS: Partial Thromboplastin Time 34.6 SEC (26.0-36.8)
[2025-04-29 20:18] LABS: TS Negative Control Passed; TS Panel A 0; TS Panel B 0; TS Positive Control Passed; TSpotTB Negative (Negative)
== END 2025-04-27 08:26 | disposition home or self-care (01) ==
LOC: HO.HHCL 08:25
PROVIDERS: PCP Nurse Practitioner Family; Visit Provider Nurse Practitioner Family
DX: Z11.1 Encounter for screening for respiratory tuberculosis (principal); R23.3 Spontaneous ecchymoses
CPT/HCPCS: 36415; 85025; 85610; 85730; 86481

== ENCOUNTER 2025-05-16 14:59 | Outpatient (AMB) | payer MEDICAID, SELFPAY ==
--- NOTE | 2025-05-16 15:02 | A.OFFVIS_ITS ---
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 Patient is constantly on her feet , 5-6 days a week. She uses compression socks. After 4-5 hours of standing and walking her veins hurt and bulge. Bilateral leg cramping. She also gets bruises out of nowhere . 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 Complaints include pain over varicosities, swelling of lower extremities, cramping, fatigue, and heaviness of the lower extremities. 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 It is noted more so in left leg. Patient denies any previous venous surgery or injections. Of note she does have prior history of breast implants and abdominoplasty as well. Patient denies any history of DVT/ PE. Patient denies any history of phlebitis. Trial of compression includes - has used [id number]-[id number] compression and at work wears Kris stockings They now present for vascular evaluation regarding their varicose veins. [facility] Medical History Postoperative pain Surgical History History of breast augmentation History of tubal ligation History of abdominoplasty (~04/2020) Family History Father Lung cancer Mother Stomach cancer Review of Systems Const Reports as per HPI ENT Reports no additional complaints Card Denies chest pain, Denies chest pain at rest and Denies chest pain with activity Resp Denies chest congestion and Denies cough GI Reports no additional complaints Musc Details: pain over varicosities, aching of lower extremities, swelling, cramping, heaviness and tiredness, itching Denies abnormal gait Skin/Breast Reports pruritus and Denies wounds Neuro Reports no additional complaints and Denies abnormal gait Psych Denies no additional complaints Physical Exam Const General: cooperative, healthy appearing and comfortable Orientation/consciousness: oriented to person, oriented to place and oriented to time Neck Carotids: no bruits Chest Chest palpation & inspection: normal inspection of the chest and normal palpation of entire chest wall Resp Effort & Inspection: normal respiratory effort and able to speak in complete sentences Cardio Rate: regular rate Heart sounds: S1 normal heart sound present and S2 normal heart sound present Peripheral pulses: Peripheral pulses 2+ throughout GI Inspection: Yes normal to inspection Skin Other: +2 edema, left greater than right CEAP Classification C4 - skin color changes Ep - Etiology Primary As - superficial veins P - reflux General skin exam: dry skin Neuro General: oriented to person, oriented to place and oriented to time Extrem Right lower extremity: full ROM, normal capillary refill and edema Left lower extremity: full ROM, normal capillary refill and edema Psych Mental Status: mental status grossly normal Assessment & Plan Assessment & Plan (1) Varicose veins of left lower extremity with inflammation: Code(s): I83.12 - Varicose veins of left lower extremity with inflammation Category: Medical Plan: In short, the patient has evidence of venous insufficiency. I have discussed t he pathophysiology with the patient. In addition I have provided informational material regarding venous disease to the patient. We have discussed conservative measures including compression, elevation, and exercise. I have also provided a handout regarding appropriate use of compression stockings and where to purchase good compression stockings as well. I have taken the liberty of ordering venous insufficiency testing with the patient. They will follow up with me after testing. The patient had an opportunity to ask questions regarding the treatment plan. All questions were answered. Imaging studies, laboratory studies and physical exam results were discussed and reviewed in detail. No major barriers to understanding were identified. The patient expressed understanding and agr eement with the above treatment plan. The patient is aware they should contact our office by phone for worsening of the current condition or the appearance of new symptoms. Thank you for allowing me to participate in the vascular care of this patient. If you have any questions or concerns regarding the treatment for the above condition please do not hesitate to contact me. The office telephone contact is [phone]. This note is constructed using voice recognition software. While every effort has been made to ensure accuracy, straight edger errors may have been included. Thank you for allowing me to participate in the care of your patient. Yours sincerely, Jaswant Wolf MD, FACS, R.P.V.I. Coding Level of Care Code New Pt Level 4 (97547) Diagnoses Varicose veins of left lower extremity with inflammation I83.12
--- OUTSIDE RECORDS SUMMARY | 2025-05-16 15:49 | XMS_ITS | Clinical Summary ---
Author Organization [employer] Address [address] [place] [address] 7 [place] [address] Care Team Providers Care Placement Manager Name Role Phone Anabela Resendez MD Primary Care Provider [phone] Allergies Active Allergy Reactions Criticality Noted Date Comments Bee Venom 02/04/2023 Cortisone 10/30/2017 Other reaction(s): face,throat swollen Shellfish Allergy 02/04/2023 Shellfish-Derived Products Unknown 0 Medications * This document contains information received from the source organization and may not represent a complete record from that organization. sodium chloride ([place]) 0.65 % nasal sprayIndications :Allergic rhinitis, unspecified seasonality, unspecified trigger 1-2 spray on each nostril every 2-3 hours as needed for nasal congestion 30 mL 1 02/05/20 23 Active ibuprofen 600 MG tablet Take 1 tablet (600 mg) by mouth every 8 (eight) hours if needed for moderate pain or fever. 30 tablet 1 07/17/20 23 Active albuterol (2.5 MG/3ML) 0.083% nebulizer solutionIndicati ons:Mild intermittent asthma without complication Use 3 ml every 6 hours as needed for difficulty breathing / asthma exacerbation 75 mL 2 05/04/20 24 Active topiramate (Topamax) 25 MG tabletIndication s:Migraine without aura, not refractory Take 1 tablet (25 mg) by mouth Once per day. 90 tablet 3 05/04/20 24 Active SUMAtriptan (Imitrex) 50 MG tablet Take 1 tablet (50 mg) by mouth 1 (one) time if needed for migraine. May repeat dose once in 2 hours if no relief. Do not exceed 2 doses in 24 hours. 9 tablet 3 05/04/20 24 Active cholecalciferol (Vitamin D-3) 75 MCG (3000 UT) tablet Take 1 tablet (75 mcg) by mouth Once per day. Increased dose 90 tablet 3 07/27/20 24 Active fluticasone (Flonase) 50 MCG/ACT nasal sprayIndications :Allergic rhinitis, unspecified seasonality, unspecified trigger ADMINISTER 1-2 SPRAYS INTO AFFECTED NOSTRIL(S) ONCE A DAY 48 mL 08/19/20 24 Active escitalopram (Lexapro) 10 MG tabletIndication s:Anxiety and depression Take 1 tablet (10 mg) by mouth in the morning. 30 tablet 1 09/16/20 24 Active albuterol 108 (90 Base) MCG/ACT inhalerIndicatio ns:Mild intermittent asthma without complication Inhale 2 puffs every 4 (four) hours if needed for wheezing or shortness of breath. Maximum 8 puffs per day 18 g 2 01/20/20 25 026 Active cetirizine (ZyrTEC) 10 MG tabletIndication s:Allergic rhinitis, unspecified seasonality, unspecified trigger Take 1 tablet (10 mg) by mouth Once per day. 90 tablet 3 01/20/20 25 Active naproxen (Naprosyn) 500 MG tablet Take 1 tablet (500 mg) by mouth if needed in the morning and at bedtime for mild pain. DO NOT TAKE WITH MOTRIN 40 tablet 1 01/20/20 25 026 Active baclofen (Lioresal) 10 MG tablet Take 1 tablet (10 mg) by mouth if needed in the morning, at noon, and at bedtime for muscle spasms. 60 tablet 1 01/20/20 25 Active lidocaine (Lidoderm) 5 % patch Apply 1 patch topically if needed each day for mild pain. Remove & discard patch within 12 hours or as directed by MD. 30 patch 1 01/20/20 25 Active Diclofenac Sodium 1 % gel Apply 2 g topically if needed in the morning, at noon, in the evening, and at bedtime (pain). 150 g 3 01/20/20 25 Active triamcinolone (Kenalog) 0.1 % ointmentIndicati ons:Eczema, unspecified type Apply topically 2 times daily. 80 g 04/10/20 25 Active EPINEPHrine (Epipen) 0.3 MG/0.3ML injection syringeIndicatio ns:Allergic reaction to bee sting Administer one dose as instructed for severe allergy symptoms. Call 911 after use. 2 each 1 04/10/20 25 Active acetaminophen (Tylenol Extra Strength) 500 MG tabletIndication s:Acute coccygeal pain Take 1 tablet (500 mg) by mouth every 6 (six) hours if needed for mild pain for up to 10 days. 30 tablet 04/10/20 25 025 Active Problems Problem Noted Date Diagnosed Date Skin lesion 04/14/2025 CHERISE (generalized anxiety disorder) 09/05/2024 Assessment & Plan (09/05/2024 8:19 AM EST): PROGRESS NOTE: ID: Romi is a 43 y.o. straight-identified cis-female with previous documented hx of Depression and Anxiety services including OP Psychotherapy who presents for [...] intervention , [facility], Comply with medication , Patient to engage in OP therapy , and Patient to reach out to CB as needed Chronic headache 07/27/2024 Assessment & Plan (07/27/2024 9:58 AM EDT): - family history of brain tumor - upcoming MRI appointment - continue NSAIDs Stress incontinence 06/08/2023 Assessment & Plan (10/15/2023 5:43 AM EST): - following with [facility] UroGYN - s/p advantage blue [...] (07/27/2024 9:36 AM EDT): - following with [facility] UroGYN, last visit in Oct 2023 - 07/15/23 advantage blue retropubic midurethral sling, posterior colporrhaphy, and cystoscopy Assessment & Plan (05/04/2024 4:49 AM EDT): - following with [facility] UroGYN, last visit in Oct 2023 - 07/15/23 advantage blue retropubic midurethral sling, posterior colporrhaphy, and cystoscopy Assessment & Plan (10/15/2023 5:44 AM EST): - following with [facility] UroGYN, last visit in Aug 2023 - 07/15/23 advantage blue retropubic midurethral sling, posterior colporrhaphy, and cystoscopy Assessment & Plan (06/12/2023 5:22 AM EDT): - following with [facility] UroGYN Asthma 02/04/2023 Assessment & [...] - continue escitalopram - patient agreed to S referral Assessment & Plan (05/04/2024 4:45 PM [...] (06/12/2023 5:20 AM EDT): - followed by [facility] CHIEF OF VITAL STATISTICS - Dx Pelvic Congestion Syndrome - continue Tx plan per CHIEF OF VITAL STATISTICS / UroGYN Assessment & Plan (02/04/2023 6:11 PM EDT): - followed by [facility] CHIEF OF VITAL STATISTICS - Dx Pelvic Congestion Syndrome - continue Tx plan per CHIEF OF VITAL STATISTICS / UroGYN Allergic rhinitis 02/04/2023 Assessment & [...] organization. Date Type Department Care Team Description 05/15/2025 Telephone [facility] [address] [facility] [place] [address] Anabela Resendez MD FMLA Form 05/12/2025 Telephone [facility] [address] Anabela Resendez MD request call back 05/05/2025 10:40 AM EDT Office Visit [facility] [address] [place] [address] Amish Connolly MD Abnormal bruising (Primary Dx) 05/05/2025 Travel 05/05/[address] [address] Anabela Resendez MD 05/03/2025 Telephone [facility] [address] [place] [phone] Anabela Resendez MD derm appt 05/02/[address] [address] Anabela Resendez MD Referral 04/26/2025 3:30 PM EDT Office Visit [address] [address] Gwendolyn Lau FNP Abnormal bruising (Primary Dx); Healthcare maintenance 04/26/2025 Travel 04/25/[address] [address] Maciel Alvarez [place] CHARTPREP 04/24/[address] [address] Anabela Resendez MD Nurse Triage 04/18/[address] [address] Anabela Resendez MD Appointment Request 04/14/2025 9:15 AM EDT Office [address] [address] Gwendolyn Lau FNP Skin lesion (Primary Dx) 04/14/[address] [address] Anabela Resendez MD Referral 04/14/2025 Travel 04/13/2025 Telephone [facility] [place] [address] Gwendolyn Lau FNP Chart Prep 04/12/2025 Telephone [facility] [place] [address] Anabela Resendez MD Nurse Triage 04/12/2025 [address] [place] [address] Anabela Resendez MD Nurse Triage 04/10/2025 3:45 PM EDT Office Visit [facility] [place] [address] Vadim Alves MD Varicose veins of both lower extremities, unspecified whether complicated (Primary Dx); Eczema, unspecified type; Acute coccygeal pain; Allergic reaction to bee sting 04/10/2025 Travel 04/06/[address] [place] [address] Vadim Alves MD Chart Prep 04/05/20[address] [place] [address] Anabela Resendez MD Appointment Request 04/05/2025 [address] [place] [address] Anabela Resendez MD 04/04/2025 [address] [place] [address] Anabela Resendez MD chart prep 04/04/[address] [address] Anabela Resendez MD CHART PREP 03/20/2025 [address] [place] [address] Anabela Resendez MD chartprep 03/20/[address] [address] Anabela Resendez MD Nurse Triage 03/14/20[address] [place] [address] Anabela Resendez MD Nurse Triage 02/18/2025 Orders Only [facility] [address] [place] [address] Anabela Resendez MD from Last 3 Months Immunizations Immunization Administration [...] your housing situation today? I have silverio kendrick 06/21/[address] you li [...] Access Q2 Not on file 06/21/2024 Comments No Sex and Gender Information Value Date Recorded Sex Assigned at Female 08/04/2022 10:15 AM EDT Legal Sex Female 10:15 AM EDT Gender Identity Female 08/04/2022 10:15 AM EDT Sexual Orientation Straight 08/04/2022 10 :15 AM EDT Last Filed Vital Signs Vital Sign Reading Time Taken Comments Blood Pressure 121/69 05/05/2025 10:03 AM EDT Pulse 65 05/05/2025 10:03 AM EDT Temperature 36.8 C (98.3 F) 05/05/2025 10:03 AM EDT Respiratory Rate 18 05/05/2025 10:03 AM EDT Oxygen Saturation 95% 04/26/2025 3:37 PM EDT Inhaled Oxygen Concentration - - Weight 78.2 kg (172 lb 6.4 oz) 05/05/2025 10:03 AM EDT Height 162.6 cm (5' 4 ) 05/05/2025 10:03 AM EDT Body Mass Index 29.59 05/05/2025 10:03 AM EDT Plan of Treatment Upcoming Encounters Date Type Department Care Team (Late st Contact Info) Description 05/22/2025 3:30 PM EDT Office Visit [facility] [address] [place], [place] [phone] Anabela Resendez MD [address] [place] [address] Health Maintenance Due Date Last Done Comments Family Planning (PISQ) 1997 HPV Vaccines (1 - 3-dose series) 1997 COVID-19 Vaccine (4 - 2024-25 season) 2024 08/21/2021, 11/16/2020, 10/17/2020 Depression Monitoring 03/06/2025 09/05/2024, 024 Influenza Vaccine (#1) 2025 , 08/04/2023, 07/22/2021, Additional history exists SDOH Screening 06/21/2025 06/21/2024 Alcohol/Substance Use Screening 04/10/2026 04/10/2025 Disability Screening 04/14/2026 04/14/2025 Tobacco Screening 05/05/2026 05/05/2025 Mammogram 02/18/2027 02/18/2025, 03/06, 03/20/2022 Cervical Cancer Screening 03/13/2027 HPV/Cotest 03/13/2027 03/13/2022, 12/24/2016 Pap Smear 03/13/2027 03/13/2022 Lipid Panel 07/20/2029 07/20/2024, 0 12/2022, 03/04/2022 DTaP/Tdap/Td Vaccines (6 - Td [...] complete this topic HIV Screening Completed 07/20/2024, 050 12/2022, 04/29/2021 Hepatitis C Screening Completed 07/20/2024 [...] Procedure Name Priority Date/Time Associated Diagnosis Comments T-SPOT(R).TB Routine 04/27/2025 8:31 AM EDT Healthcare maintenance CBC WITH AUTO DIFFERENTIAL Routine 04/27/2025 8:31 AM EDT Abnormal bruising PROTHROMBIN TIME-INR Routine 04/27/2025 8:31 AM EDT Abnormal bruising APTT Routine 04/27/2025 8:31 AM EDT Abnormal bruising BI MAMMOGRAM SCREENING TOMOSYNTHESIS BILATERAL Routine 02/18/2025 [...] Recently Relevant to Health Maintenance Results * T-SPOT??.TB (04/27/2025 8:31 AM EDT) T Spot TB Negative Negative [facility] Comment:A negative test resu lt does not exclude the possibilityof exposure to or infection with Mycobacteriumtuberculosis (M. tuberculosis). Patients with recentexposure to TB infected individuals exhibiting anegative T-SPOT.TB result should be considered forretesting within 6 weeks or if other relevant clinicalsymptoms indicate. Results from T-SPOT.TB testing mustbe used in conjunction with each individual'sepidemiological history, current medical status,and results of other diagnostic evaluations.The T-SPOT.TB test is qualitative and results arereported as positive, borderline, or negative, giventhat the test controls perform as expected. In linewith the Centers for Disease Control and Prevention's2010 recommendation to report quantitative measurementsalongside the qualitative result, the laboratoryprovides spot counts for informational purposes only.The T-SPOT.TB test should not be interpreted as aquantitative test. TS PANEL A 0 [facility] TS PANEL B 0 [facility] Negative Control Passed [facility] Positive Control Passed [facility] Comment:For additional infor nadira, please refer [email or web address].[employer]faq/VIG516(This link is being provided for informational/educational purposes only.)REPORT COMMENT:REC'D AT [facility] TEST WAS PERFORMED AT:[employer]/ANGELES [id number] [place] [address]SZNASBAMANISHA VELAZQUEZ MD,PHD 04/27/2025 8:31 AM EDT 04/27/2025 11:22 AM EDT us Gwendolyndario Lau C D REACTOR OPERATOR LAB BLOOD ORDERABLES Final Res ult [facility] [address] [place] [phone] * (ABNORMAL) CBC auto differential (04/27/2025 8:31 AM EDT) White Blood Count 4.3(L) 4.8 - 10.8 X10*3/uL [facility] Red Blood Count 4.70 4.20 - 5.50 X10*6/uL [facility] Hemoglobin 12.8 12.0 - 16.0 g/dl [facility] Hematocrit 39.0 37.0 - 47.0 % [facility] Mean Corpuscular Volume 83.0 80.0 - 98.0 fL [facility] Mean Corpuscular Hemoglobin 27.2 27.0 - 33.0 pg [facility] Mean Corpuscular HGB Conc 32.8 31.0 - 35.0 g/dl [facility] Red Cell Distribution Width 13.1 11.0 - 16.0 % [facility] Platelet Count 176 160 - 400 X10*3/uL [facility] Mean Platelet Volume 10.8 9.4 - 12.3 fL [facility] Neutrophils Percent Auto 62.2 45 - 73 % [facility] Imm Gran Pct Auto 0.2 0.0 - 0.4 % [facility] Lymphocytes Percent Auto 29.6 20 - 40 % [facility] Monocytes Percent Auto 6.3 2 - 11 % [facility] Eosinophils Percent Auto 1.2 0 - 4 % [facility] Basophils Percent Auto 0.5 0 - 2 % [facility] NRBC Pct Auto 0.0 0.0 - 0.2 /100WBC [facility] Neutrophils Absolute Auto 2.7 2.0 - 8.3 x10*3/uL [facility] Imm Gran Abs Auto 0.01 0.00 - 0.03 X10*3/uL [facility] Lymphocytes Absolute Auto 1.3 1.2 - 4.9 X10*3/uL [facility] Monocytes Absolute Auto 0.3 0.1 - 1.2 X10*3/uL [facility] Eosinophils Absolute Auto 0.1 0.0 - 0.4 X10*3/uL [facility] Basophils Absolute Auto 0.0 0.0 - 0.2 X10*3/uL [facility] NRBC Abs Auto 0.000 0.0 - 0.012 X10*3/uL [facility] Blood Venous blood specimen / Unknown 04/27/2025 8:31 AM EDT 04/27/2025 11:22 AM EDT [facility] BLOOD ORDERABLES Final Res ult Performing Organization Address [facility] Co de Phone Number [facility] [address] [place] [phone] * Partial Thromboplastin Time, Activated (APTT) (04/27/2025 8:31 AM EDT) Partial Thromboplastin Time 34.6 26.0 - 36.8 SEC [facility] Comment:For information rega rding the monitoring of direct thrombininhibitors, please refer to Pharmacy. Blood Venous blood specimen / Unknown 04/27/2025 8:31 AM EDT 04/27/2025 11:22 AM EDT [facility] LAB BLOOD ORDERABLES Final Res ult Performing Organization Address [facility] Co de Phone Number [facility] [address] [place] [phone] * (ABNORMAL) Prothrombin Time-INR (04/27/2025 8:31 AM EDT) Prothrombin Time 10.8(L) 10.9 - 12.4 SEC [facility] INTERNATIONAL NORM RATIO 0.9 0.9 - 1.1 [facility] Comment:INTERNATIONAL NORMAL IZED RATIO (INR) REFERENCE RANGES Reference RangeFor patients not on anticoagulant therapy: 0.9 - 1.1INR ranges for oral anticoagulanttherapy:For prevention and treatment of venous thrombosis and pulmonary embolism: 2.0 - 3.0For acute myocardial infarction with aspirin therapy: 2.0 - 3.0For acute myocardial infarction without aspirin therapy: 3.0 - 4.0For patients with mechanical prosthetic heart valves: 2.5 - 3.5 Blood Venous blood specimen / Unknown 04/27/2025 8:31 AM EDT 04/27/2025 11:22 AM EDT us Gwendolyn Lau C D REACTOR OPERATOR LAB BLOOD ORDERABLES Final Res ult [facility] [address] [place] [address] [phone] * BI Mammogram Screening Tomosynthesis Bilateral (02/18/2025 9:30 AM EDT) Anatomical Region Laterality Modality Breast Bilateral Mammography 02/18/2025 9:30 AM EDT Narrative 02/25/2025 3:29 PM EDT [address] [place] [address] Mammography Report Signed Patient: Romi Howard MR #: [id number] : 1980 Acct:[id number] Age/Sex: 44 / F ADM Date: 02/18/25 Loc: [facility] Attending Dr: Anabela Resendez MD Ordering Physician: Anabela Resendez MD Results: 2Benign F indings Date of Service: 02/18/25 Follow Up: 1 Year From Orig ina Mammogram Procedure(s): MM tomosynthesis screening BI Accession Number(s): [id number] cc: Anabela Resendez MD EXAMINATION: MM SCREENING [...] Kylah Kurtz DO 02/25/2025 03:25 PM EDT Dictated By: Kylah Kurtz DO Signed By: <Electronically signed by Kylah Kurtz DO in OV> 02/25/25 1525 DD/ 0930 TD/TT: 02/18/25 0944 Nut Processing Supervisor: Procedure Note Donotuseinterpreter, Image - [facility] [address] [place] [address] Mammography Report Signed Patient: Romi HowardMR #: [id number] : 1980Acct:[id number] Age/Sex: 44 / FADM Date: 02/18/25 Loc: [facility] Attending Dr: Anabela Resendez MD Ordering Physician: Anabela Resendez MDResults: 2Benign F indings Date of Service: 02/18/25Follow Up: 1 Year From Orig inal Mammogram Procedure(s): MM tomosynthesis screening BI Accession Number(s): [id number] cc: Anabela Resendez MD EXAMINATION: MM SCREENING [...] 02/25/25 1525 DD/ 0930 TD/TT: 02/18/25 0944 Nut Processing Supervisor: Anabela Resendez MD IMG BI PROCEDURES Edited Result - Final * Lipid Panel with Reflex to Direct LDL (07/20/2024 1:38 PM EDT) Triglycerides 58 <150 mg/dL [facility] Comment:Desirable Triglyceri de: less than 150 mg/dLBorderline High Triglyceride 150-199 mg/dLHigh Triglyceride: 200-499 mg/dLVery High Triglyceride: greater than or equal to 5OO mg/dL Cholesterol 161 <200 mg/dL [facility] Comment:Desirable Cholestero l: less than 200 mg/dLBorderline High Cholesterol: 200-239 mg/dLHigh Cholesterol: greater than 239 mg/dL LDL Cholesterol Calculated 87 <100 mg/dL [facility] Comment:Desirable LDL: less than 100 mg/dLNear Optimal/Above Optimal LDL: 110- 129 mg/dLBorderline High LDL: 130-159 mg/dLHigh LDL: 160-189 mg/dLVery High LDL: greater than or equal to 190 mg/dL HDL Cholesterol 63 >40 mg/dL [facility] Comment:Desirable HDL: great er than 40 mg/dL Note: This HDL assay may give artificially low results in patients with liver disease. Blood 07/20/2024 1:38 PM EDT 07/20/2024 4:20 PM EDT Anabela Resendez MD LAB BLOOD ORDERABLES Final Resul t [facility] [address] [place] [phone] * Hepatitis C Antibody with Reflex to HCV, RNA, Quantitative, Real-Time PCR (07/20/2024 1:38 PM EDT) Pathologist [facility] Hepatitis C Antibody Nonreactive Nonreactive [facility] Comment:Antibodies to HCV no t detected; does not exclude early acuteHCV infection. Blood Venous blood specimen / Unknown 07/20/2024 1:38 PM EDT 07/20/2024 4:20 PM EDT us Anabela Resendez MD LAB BLOOD ORDERABLES Final Resul t Performing Organization Address City/[facility]/ZIP Co de Phone Number [facility] [address] [place] [phone] * HIV-1/2 Antigen and Antibodies, Fourth Generation, with Reflexes (07/20/2024 1:38 PM EDT) [facility] HIV AB/AG Nonreactive Nonreactive [facility] Comment:HIV-1 p24 Ag and/or HIV-1/HIV-2 Ab not detected.A test result that is nonreactive does not exclude thepossibility of exposure to or infection with HIV-1 and/orHIV-2. Nonreactive results in this assay for individualswith prior exposure to HIV-1 and/or HIV-2 may be due toantigen and antibody levels that are below the limit ofdetection of this assay.The [employer] HIV Ag/Ab Combo assay result andsupplemental assay results should be interpreted inconjunction with the patient's clinical presentation,history and other laboratory results. If the results areinconsistent with clinical evidence, additional testing issuggested to confirm the result. Blood Venous blood specimen / Unknown 07/20/2024 1:38 PM EDT 07/20/2024 4:20 PM EDT us Anabela Resendez MD LAB BLOOD ORDERABLES Final Resul t Performing Organization Address City/[facility]/ZIP Co de Phone Number [facility] [address] [place] [phone] * Hm Pap Smear (03/13/2022) Pathologist [facility] Pap Negative for intraephithelial lesion or malignancy Negative for intraephithelial lesion or malignancy, Other HPV Undetected Pap Vial 03/13/2022 [facility] External Provider HEALTH MAINTENANCE Final Result from Last 3 Months or Most Recently Relevant to Health Maintenance Insurance Care Teams Placement Manager Relationship Specialty Start Date End Date Anabela Resendez MD [address] [place] [phone] PCP - General Family Medicine 01/21/23
== END 2025-05-16 15:34 | disposition home or self-care (01) ==
LOC: HO.HVS 15:00
PROVIDERS: PCP Family Medicine; Visit Provider Surgery Vascular Surgery
DX: I83.12 Varicose veins of left lower extremity with inflammation (principal)
CPT/HCPCS: 99204

== ENCOUNTER → 2025-05-16 14:59 | Outpatient (BNVA) | payer MEDICAID, SELFPAY | PROVIDERS: PCP Family Medicine; Visit Provider Surgery Vascular Surgery | DX: I83.12 Varicose veins of left lower extremity with inflammation (principal) | CPT/HCPCS: 99202 ==

== ENCOUNTER 2025-06-20 09:23 | Outpatient (REF) | payer MEDICAID, SELFPAY ==
[2025-06-20 11:21] LABS: MANUAL DIFF FLAG NO
[2025-06-20 11:36] LABS: Hematocrit 37.5 % (37.0-47.0); Hemoglobin 12.4 g/dl (12.0-16.0); Imm Gran Abs Auto 0.02 X10*3/uL (0.00-0.03); Imm Gran Pct Auto 0.5 % (0.0-0.4); Lymphocytes Absolute Auto 1.3 X10*3/uL (1.2-4.9); Mean Corpuscular HGB Conc 33.1 g/dl (31.0-35.0); Mean Corpuscular Hemoglobin 27.0 pg (27.0-33.0); Mean Corpuscular Volume 81.5 fL (80.0-98.0); NRBC Abs Auto 0.000 X10*3/uL (0.0-0.012); NRBC Pct Auto 0.0 /100WBC (0.0-0.2); Platelet Count 162 X10*3/uL (160-400); Red Blood Count 4.60 X10*6/uL (4.20-5.50); White Blood Count 4.4 X10*3/uL (4.8-10.8)
[2025-06-20 11:53] LABS: Hemoglobin A1C 94.5190 umol/L; Total Hemoglobin (HGBA1C) 3229.4033 umol/L
--- OUTSIDE RECORDS SUMMARY | 2025-06-20 11:53 | XMS_ITS | Clinical Summary ---
Author Organization [employer] Address [address] [place] [address] 7 [place] [address] Care Team Providers Care Trim Setter Helper Name Role Phone Anabela Resendez MD Primary Care Provider [phone] Allergies Active Allergy Reactions Criticality Noted Date Comments Bee Venom 02/04/2023 Cortisone 10/30/2017 Other reaction(s): face,throat swollen Shellfish Allergy 02/04/2023 Shellfish-Derived Products Unknown 0 Medications * This document contains information received from the source organization and may not represent a complete record from that organization. sodium chloride ([place]) 0.65 % nasal sprayIndication s:Allergic rhinitis, unspecified [...] in 24 hours. 9 tablet 3 Active fluticasone (Flonase) 50 MCG/ACT nasal sprayIndication s:Allergic rhinitis, unspecified seasonality, unspecified trigger ADMINISTER 1-2 SPRAYS INTO AFFECTED NOSTRIL(S) ONCE A DAY 48 mL Active albuterol 108 (90 Base) MCG/ACT inhalerIndicati [...] or as directed by MD. 30 patch Active Diclofenac Sodium 1 % gel Apply 2 g topically if needed in the morning, at noon, in the evening, and at bedtime (pain). 150 g Active triamcinolone (Kenalog) 0.1 % ointmentIndicat ions:Eczema, unspecified type Apply topically 2 times daily. 80 g 025 Active EPINEPHrine (Epipen) 0.3 MG/0.3ML injection syringeIndicati ons:Allergic reaction to bee sting Administer one dose as instructed for severe allergy symptoms. Call 911 after use. 2 each 1 Active escitalopram (Lexapro) 10 MG tablet Take 1 tablet (10 mg) by mouth Once per day. 30 tablet 2 025 2024 Active cholecalciferol (Vitamin D-3) 75 MCG (3000 UT) tablet Take 1 tablet (75 mcg) by mouth Once per day. Increased dose 90 tablet 3 025 Active cholecalciferol (Vitamin D-3) 75 MCG (3000 UT) tablet Take 1 tablet (75 mcg) by mouth Once per day. Increased dose 90 tablet 3 024 2024 Discontinued escitalopram (Lexapro) 10 MG tabletIndicatio ns:Anxiety and depression Take 1 tablet (10 mg) by mouth in the morning. 30 tablet 1 024 2024 Discontinued(M ed list cleanup (will not trigger notification to Pharmacy)) cholecalciferol (Vitamin D-3) 75 MCG (3000 UT) tablet TAKE 1 TABLET (75 MCG) BY MOUTH ONCE PER DAY. INCREASED DOSE 90 tablet 3 025 2024 Discontinued(R eorder (will not trigger notification to Pharmacy)) Active Problems Problem Noted Date Diagnosed Date Overweight 05/27/2025 Varicose veins of lower extremity with pain 05/06 Assessment & Plan (05/27/2025 6:56 AM EDT): - continue following up with vascular specialist - discussed that we can fill out her FMLA form once her US is complete and her vascular specialist have treatment plan Skin lesion 04/14/2025 Assessment & Plan (05/27/2025 6:57 AM EDT): - seen by supermarket manager - family history of melanoma - upcoming appointment for excisional biopsy - discussed about FMLA form once the result becomes available and her specialist makes a treatment plan CHERISE (generalized anxiety disorder) 09/05/2024 Assessment & Plan (05/27/2025 6:54 AM EDT): - continue escitalopram - evaluated by behavioral health service - continue escitalopram Assessment & Plan (09/05/2024 8:19 AM EST): PROGRESS NOTE: ID: Romi is a 43 y.o. straight-identified cis-female with previous documented hx of Depression and Anxiety services including OP Psychotherapy who presents for Anxiety and Depression During IB Consult Romi presenting with depressed mood, crying [...] intervention , [facility], Comply with medication , Patient to engage in OP therapy , and Patient to reach out to HC as needed Chronic headache 07/27/2024 Assessment & Plan (07/27/2024 9:58 AM EDT): - family history of brain tumor - upcoming MRI appointment - continue NSAIDs Stress incontinence 06/08/2023 Assessment & Plan (10/15/2023 5:43 AM EST): - following with [facility] UroGYN - s/p advantage blue [...] (07/27/2024 9:36 AM EDT): - following with [facility], last visit in Oct 2023 - 07/15/23 advantage blue retropubic midurethral sling, posterior colporrhaphy, and cystoscopy Assessment & Plan (05/04/2024 4:49 AM EDT): - following with [facility] U[facility], last visit in Oct 2023 - 07/15/23 advantage blue retropubic midurethral sling, posterior colporrhaphy, and cystoscopy Assessment & Plan (10/15/2023 5:44 AM EST): - following with [facility], last visit in Aug 2023 - 07/15/23 advantage blue retropubic midurethral sling, posterior colporrhaphy, and cystoscopy Assessment & Plan (06/12/2023 5:22 AM EDT): - following with [facility] Asthma 02/04/2023 Assessment & Plan (05/27/2025 6:53 AM EDT): - Continue Albuterol inhaler and Nebulizer solution - New nebulizer script written in 2022 Assessment & Plan (07/27/2024 9:53 AM EDT): [...] Vitamin D deficiency 02/04/2023 Assessment & Plan (05/27/2025 6:47 AM EDT): - continue vitamin D supplement Assessment & Plan (07/27/2024 9:54 AM EDT): [...] Moderate depressive disorder 02/04/2023 Assessment & Plan (05/27/2025 6:54 AM EDT): - continue escitalopram - evaluated by behavioral health service - continue escitalopram Assessment & Plan (07/27/2024 9:55 AM EDT): [...] (06/12/2023 5:20 AM EDT): - followed by [facility] ROAD PACKER OPERATOR - Dx Pelvic Congestion Syndrome - continue Tx plan per ROAD PACKER OPERATOR / UroGYN Assessment & Plan (02/04/2023 6:11 PM EDT): - followed by [facility] ROAD PACKER OPERATOR - Dx Pelvic Congestion Syndrome - continue Tx plan per ROAD PACKER OPERATOR / UroGYN Allergic rhinitis 02/04/2023 Assessment & [...] (02/04/2023 6:13 PM EDT): - restart topiramate Resolved Problems Problem Noted Date Diagnosed Date [...] organization. Date Type Department Care Team Description 06/19/2025 Telephone [facility] [address] [place] [address] Anabela Resendez MD Appointment Request 06/14/2025 Telephone [facility] [address] [place] [address] Anabela Resendez MD FYI/Call Back Request 06/08/2025 Refill [facility] [address] [place], [place] [phone] Anabela Resendez MD 06/06/2025 Refill [facility] [address] [place] [address] Anabela Resendez MD 06/01/2025 Telephone [facility] [address] [place] [address] Anabela Resendez MD Call Back Request 05/31/2025 Orders Only [address] [address] Anabela Resendez MD 05/23/[address] [address] Anabela Resendez MD call back needed 05/22/2025 3:30 PM EDT Office Visit [address] [address] Anabela Resendez MD Vitamin D deficiency (Primary Dx); Screening for lipid disorders; Screening for diabetes mellitus; Leukopenia, unspecified type; Easy bruising; Dietary counseling; Exercise counseling; Skin lesion; Mild intermittent asthma without complication; Moderate depressive disorder; CHERISE (generalized anxiety disorder); Varicose veins of both lower extremities with pain 05/22/[address] [address] Anabela Resendez MD Change PCP 05/22/[address] [address] Anabela Resendez MD 05/22/2025 Travel 05/19/[address] [address] Anabela Resendez MD chart prep 05/17/2025 Travel 05/15/[address] [address] Anabela Resendez MD FMLA Form 05/12/[address] [address] Anabela Resendez MD request call back 05/05/2025 10:40 AM EDT Office Visit [facility] [address] [place] [address] Amish Connolly MD Abnormal bruising (Primary Dx) 05/05/2025 Travel 05/05/[address] [address] Anabela Resendez MD 05/03/2025 Telephone [facility] [address] [place] [address] Anabela Resendez MD derm appt 05/02/2025 Telephone [facility] [place] [address] Anabela Resendez MD Referral 04/26/2025 3:30 PM EDT Office Visit [facility] [place] [address] Gwendolyn Lau FNP Abnormal bruising (Primary Dx); Healthcare maintenance 04/26/2025 Travel 04/25/2025 Telephone [facility] [place] [address] Maciel Alvarez MA CHARTPREP 04/24/2025 [address] [place] [address] Anabela Resendez MD Nurse Triage 04/18/[address] [address] Anabela Resendez MD Appointment Request 04/14/2025 9:15 AM EDT Office Visit [facility] [place] [address] Gwendolyn Lau FNP Skin lesion (Primary Dx) 04/14/2025 [address] [place] [address] Anabela Resendez MD Referral 04/14/2025 Travel 04/13/2025 [address] [place] [address] Gwendolyn Lau FNP Chart Prep 04/12/2025 [address] [place] [address] Anabela Resendez MD Nurse Triage 04/12/[address] [address] Anabela Resendez MD Nurse Triage 04/10/2025 3:45 PM EDT Office Visit [facility] [place] [address] Vadim Alves MD Varicose veins of both lower extremities, unspecified whether complicated (Primary Dx); Eczema, unspecified type; Acute coccygeal pain; Allergic reaction to bee sting 04/10/2025 Travel 04/06/[address] [address] Vadim Alves MD Chart Prep 04/05/[address] [address] Anabela Resendez MD Appointment Request 04/05/[address] [address] Anabela Resendez MD 04/04/[address] [address] Anabela Resendez MD chart prep 04/04/[address] [address] Anabela Resendez MD CHART PREP 03/20/[address] [address] Anabela Resendez MD chartprep 03/20/[address] [address] Anabela Resendez MD Nurse Triage from Last 3 Months Immunizations Immunization Administration [...] Tobacco: Never Tobacco Cessation:Counseling Given: Not Answered Alcohol Use Standard Drinks/Week Comments Never 0 (1 standard drink = 0.6 oz pur e alcohol) Depression Answer Date Recorded Patient Health Questionnaire-9 [...] Sign Reading Time Taken Comments Blood Pressure 100/80 05/22/2025 3:28 PM EDT Pulse 61 05/22/2025 3:28 PM EDT Temperature 36.4 C (97.6 F) 05/22/2025 3:28 PM EDT Respiratory Rate 20 05/22/2025 3:28 PM EDT Oxygen Saturation 99% 05/22/2025 3:28 PM EDT Inhaled Oxygen Concentration - - Weight 77.7 kg (171 lb 3.2 oz) 05/22/2025 3:28 P M EDT Height 162.6 cm (5' 4 ) 05/22/2025 3:28 PM EDT Body Mass Index 29.39 05/22/2025 3:28 PM EDT Plan of Treatment Health Maintenance Due Date Last Done Comments Family Planning (PISQ) 1997 HPV Vaccines (1 - 3-dose series) 1997 Depression Monitoring 03/06/2025 09/05/2024, 024 COVID-19 Vaccine ( season) 2025 08/21/2021, 11/16/2020, 10/17/2020 Influenza Vaccine (#1) 2025 , 08/04/2023, 07/22/2021, Additional history exists SDOH Screening 06/21/2025 06/21/2024 Alcohol/Substance Use Screening 04/10/2026 04/10/2025 Disability Screening 05/17/2026 05/17/2025 Tobacco Screening 05/22/2026 05/22/2025 Mammogram 02/18/2027 02/18/2025, 03/06, 03/20/2022 Cervical Cancer Screening 03/13/2027 HPV/Cotest 03/13/2027 03/13/2022, 12/24/2016 Pap Smear 03/13/2027 03/13/2022 Lipid Panel 07/20/2029 07/20/2024, 05/0 12/2022, 03/04/2022 [...] Procedure Name Priority Date/Time Associated Diagnosis Comments CBC WITH AUTO DIFFERENTIAL Routine 06/20/2025 9:36 AM EDT Leukopenia, unspecified type AMB REFERRAL TO GENERAL SURGERY Urgent 06/13/2025 Skin lesion T-SPOT(R).TB Routine 04/27/2025 8:31 AM EDT Healthcare [...] Recently Relevant to Health Maintenance Results * (ABNORMAL) CBC auto differential (06/20/2025 9:36 AM EDT) Only the most recent of2 resultswithin the time period is included. White Blood Count 4.4(L) 4.8 - 10.8 X10*3/uL [facility] Red Blood Count 4.60 4.20 - 5.50 X10*6/uL [facility] Hemoglobin 12.4 12.0 - 16.0 g/dl [facility] Hematocrit 37.5 37.0 - 47.0 % [facility] Mean Corpuscular Volume 81.5 80.0 - 98.0 fL [facility] Mean Corpuscular Hemoglobin 27.0 27.0 - 33.0 pg [facility] Mean Corpuscular HGB Conc 33.1 31.0 - 35.0 g/dl [facility] Red Cell Distribution Width 13.2 11.0 - 16.0 % [facility] Platelet Count 162 160 - 400 X10*3/uL [facility] Mean Platelet Volume 11.5 9.4 - 12.3 fL [facility] Neutrophils Percent Auto 60.6 45 - 73 % [facility] Imm Gran Pct Auto 0.5(H) 0.0 - 0.4 % [facility] Lymphocytes Percent Auto 28.8 20 - 40 % [facility] Monocytes Percent Auto 7.8 2 - 11 % [facility] Eosinophils Percent Auto 1.6 0 - 4 % [facility] Basophils Percent Auto 0.7 0 - 2 % [facility] NRBC Pct Auto 0.0 0.0 - 0.2 /100WBC [facility] Neutrophils Absolute Auto 2.7 2.0 - 8.3 x10*3/uL [facility] Imm Gran Abs Auto 0.02 0.00 - 0.03 X10*3/uL [facility] Lymphocytes Absolute Auto 1.3 1.2 - 4.9 X10*3/uL [facility] Monocytes Absolute Auto 0.3 0.1 - 1.2 X10*3/uL [facility] Eosinophils Absolute Auto 0.1 0.0 - 0.4 X10*3/uL [facility] Basophils Absolute Auto 0.0 0.0 - 0.2 X10*3/uL [facility] NRBC Abs Auto 0.000 0.0 - 0.012 X10*3/uL [facility] Blood Venous blood specimen / Unknown 06/20/2025 9:36 AM EDT 06/20/2025 11:16 AM EDT Anabela Resendez MD LAB BLOOD ORDERABLES Final Resul t [facility] [address] [place] [phone] * Referral to General Surgery (06/13/2025) Gwendolyn GALEP OUTPATIENT REFERRAL ORDERABLES Final Result * T-SPOT??.TB (04/27/2025 8:31 AM EDT) T Spot TB Negative Negative [facility] Comment:A negative test resu lt does [...] as aquantitative test. TS PANEL A 0 [facility] TS PANEL B 0 [facility] Negative Control Passed [facility] Positive Control Passed [facility] Comment:For additional infor nadira, please refer tohttp://education.MediVision/faq/BKO950(This link is being provided for informational/educational purposes only.)REPORT COMMENT:REC'D AT [facility] TEST WAS PERFORMED AT:[employer] [id number] [place] [address]BLBXMDPMANISHA VELAZQUEZ MD,PHD 04/27/2025 8:31 AM EDT 04/27/2025 11:22 AM EDT us Gwendolyn Lau [facility] LAB BLOOD ORDERABLES Final Res ult [facility] [address] [place] [phone] * Partial Thromboplastin Time, Activated (APTT) (04/27/2025 8:31 AM EDT) Partial Thromboplastin Time 34.6 26.0 - 36.8 SEC [facility] Comment:For information rega rding the monitoring of direct thrombininhibitors, please refer to Pharmacy. Blood Venous blood specimen / Unknown 04/27/2025 8:31 AM EDT 04/27/2025 11:22 AM EDT Gwendolyn Lau [facility] LAB BLOOD ORDERABLES Final Res ult Performing Organization Address [facility] Co de Phone Number [facility] [address] [place] [phone] * (ABNORMAL) Prothrombin Time-INR (04/27/2025 8:31 AM EDT) Prothrombin Time 10.8(L) 10.9 - 12.4 SEC [facility] INTERNATIONAL NORM RATIO 0.9 0.9 - 1.1 [facility] Comment:INTERNATIONAL NORMAL IZED RATIO (INR) REFERENCE [...] AM EDT 04/27/2025 11:22 AM EDT Gwendolyn Lau [facility] LAB BLOOD ORDERABLES Final Res ult Performing Organization Address [facility] Co de Phone Number [facility] [address] [place] [phone] * BI Mammogram Screening Tomosynthesis Bilateral (02/18/2025 9:30 AM EDT) Anatomical Region Laterality Modality Breast Bilateral Mammography 02/18/2025 9:30 AM EDT Narrative 02/25/2025 3:29 PM EDT [facility] [address] [place] [address] Mammography Report Signed Patient: Romi Howard MR #: [id number] : 1980 Acct:[id number] Age/Sex: 44 / F ADM Date: 02/18/25 Loc: MAMMO Attending Dr: Anabela Resendez MD Ordering Physician: Anabela Resendez MD Results: 2Benign F indings Date of Service: 02/18/25 Follow Up: 1 Year From [facility] Mammogram Procedure(s): MM tomosynthesis screening BI Accession Number(s): [id number] cc: Anabela Resendez MD EXAMINATION: MM SCREENING [...] 02/25/25 1525 DD/ 0930 TD/TT: 02/18/25 0944 Cyber Forensic Specialist: Procedure Note Donotuseinterpreter, Image - 02/25/2025 [facility] [address] [place] [address] Mammography Report Signed Patient: Romi HowardMR #: [id number] : 1980Acct:[id number] Age/Sex: 44 / FADM Date: 02/18/25 Loc: [facility] Attending Dr: Anabela Resendez MD Ordering Physician: Anabela Resendez MDResults: 2Benign F indings Date of Service: 02/18/25Follow Up: 1 Year From [facility] Mammogram Procedure(s): MM tomosynthesis screening BI Accession Number(s): [id number] cc: Anabela Resendez MD EXAMINATION: MM SCREENING [...] 02/25/25 1525 DD/ 0930 TD/TT: 02/18/25 0944 Cyber Forensic Specialist: us Anabela Resendez MD IM BI PROCEDURES Edited Result - Final * Lipid Panel with Reflex to Direct LDL (07/20/2024 1:38 PM EDT) Triglycerides 58 <150 mg/dL [facility] Comment:Desirable Triglyceri de: less than 150 mg/dLBorderline High Triglyceride 150-199 mg/dLHigh Triglyceride: 200-499 mg/dLVery High Triglyceride: greater than or equal to 5OO mg/dL Cholesterol 161 <200 mg/dL [facility] Comment:Desirable Cholestero l: less than 200 mg/dLBorderline High Cholesterol: 200-239 mg/dLHigh Cholesterol: greater than 239 mg/dL LDL Cholesterol Calculated 87 <100 mg/dL [facility] Comment:Desirable LDL: less than 100 mg/dLNear Optimal/Above Optimal LDL: 110- 129 mg/dLBorderline High LDL: 130-159 mg/dLHigh LDL: 160-189 mg/dLVery High LDL: greater than or equal to 190 mg/dL HDL Cholesterol 63 >40 mg/dL [facility] Comment:Desirable HDL: great er than 40 mg/dL Note: This HDL assay may give artificially low results in patients with liver disease. Blood 07/20/2024 1:38 PM EDT 07/20/2024 4:20 PM EDT Anabela Resendez MD LAB BLOOD ORDERABLES Final Resul t Performing Organization Address [facility] Co de Phone Number [facility] [address] [place] [phone] * Hepatitis C Antibody with Reflex to HCV, RNA, Quantitative, Real-Time PCR (07/20/2024 1:38 PM EDT) Hepatitis C Antibody Nonreactive Nonreactive [facility] Comment:Antibodies to HCV no t detected; does not exclude early acuteHCV infection. Blood Venous blood specimen / Unknown 07/20/2024 1:38 PM EDT 07/20/2024 4:20 PM EDT us Anabela Resendez MD LAB BLOOD ORDERABLES Final Resul t Performing Organization Address [facility] Co de Phone Number [facility] [address] [place] [phone] * HIV-1/2 Antigen and Antibodies, Fourth Generation, with Reflexes (07/20/2024 1:38 PM EDT) HIV AB/AG Nonreactive Nonreactive [facility] Comment:HIV-1 p24 Ag and/or HIV-1/HIV-2 Ab not detected.A test result that is nonreactive does not exclude thepossibility of exposure to or infection with HIV-1 and/orHIV-2. Nonreactive results in this assay for individualswith prior exposure to HIV-1 and/or HIV-2 may be due toantigen and antibody levels that are below the limit ofdetection of this assay.The [employer] HIV Ag/Ab Combo assay result andsupplemental assay results should be interpreted inconjunction with the patient's clinical presentation,history and other laboratory results. If the results areinconsistent with clinical evidence, additional testing issuggested to confirm the result. Blood Venous blood specimen / Unknown 07/20/2024 1:38 PM EDT 07/20/2024 4:20 PM EDT Anabela Resendez MD LAB BLOOD ORDERABLES Final Resul t [facility] [address] [place] [phone] * Hm Pap Smear (03/13/2022) Pap Negative for intraephithelial lesion or malignancy Negative for intraephithelial lesion or malignancy, Other HPV Undetected Pap Vial 03/13/2022 [facility] External Provider HEALTH MAINTENANCE Final Result from Last 3 Months or Most Recently Relevant to Health Maintenance [place] [address] [place] [address] C3 Care Teams Trim Setter Helper Relationship Specialty Start Date End Date Anabela Resendez MD [address] [place] [phone] PCP - General Family Medicine 01/21/23
--- OUTSIDE RECORDS SUMMARY | 2025-06-20 11:53 | XMS_ITS | Encounter Summary ---
Author Organization [employer] Address [address] [place] [address] [address] [address] Care Team Providers Care Justowriter Operator Name Role Phone Anabela Resendez MD Primary Care Provider [phone] Reason for Visit * Reason Onset Date Comments Appointment Request 01/21/2023 Encounter Details Date Type Department Care Team ([facility] st Contact Info) Description 01/21/2023 Telephone [facility] [address] [place], [place] [phone] Danni Bhatti FNP [address] [place] [address] Appointment Request Social History Tobacco Use Types [...] annmarie cancelled by office. Will send to [place] to schedule TP appt again for pt. [...] accepted this outcome Please contact pt at [phone] documented in this encounter Plan of Treatment Not on file documented as of this encounter Visit Diagnoses Not on filedocumented in this encounter Care Teams Justowriter Operator Relationship Specialty Start Date End Date Anabela Resendez MD [address] [place] [phone] PCP - General Family Medicine 01/21/23 documented as of this encounter
--- OUTSIDE RECORDS SUMMARY | 2025-06-20 11:54 | XMS_ITS | Encounter Summary ---
Author Organization [employer] Address [address] [place] [address] [place] [address] Care Team Providers Care Anode Worker Name Role Phone Anabela Resendez MD Primary Care Provider [phone] Reason for Referral * Imaging (Routine) - Closed Specialty Diagnoses / Procedures Referred By Nicol t Referred To Contact Radiology Diagnoses Breast cancer screening by mammogram Procedures BI Mammogram Screening Tomosynthesis Right Anabela Resendez MD [address] [place] [address] Phone: tel: fax: [address] Phone: tel: fax: Referral ID Status Reason Start Date Expiration Date Visits Re quested Visits Authorized [id number] Closed 02/17/2024 02/16/2025 1 1 * Imaging (Routine) - Closed Specialty Diagnoses / Procedures Referred By Contac t Referred To Contact Radiology Diagnoses Mass of left breast, unspecified quadrant Procedures BI Mammogram Diagnostic Tomosynthesis Left Anabela Resendez MD [address] [place] [address] Phone: tel: fax: [address] Phone: tel: fax: Referral ID Status Reason Start Date Expiration Date Visits Re quested Visits Authorized [id number] Closed 02/17/2024 02/16/2025 1 1 Encounter Details Date Type Department Care Team (Late st Contact Info) Description 02/17/2024 Orders Only [facility] [address] [place] [address] Anabela Resendez MD [address] [place] [address] Mass of left breast, unspecified quadrant (Primary [...] documented as of this encounter Care Teams Anode Worker Relationship Specialty Start Date End Date Anabela Resendez MD [address] [place] [phone] PCP - General Family Medicine 01/21/23 documented as of this encounter
--- OUTSIDE RECORDS SUMMARY | 2025-06-20 11:54 | XMS_ITS | Encounter Summary ---
Author Organization [employer] Address [address] [place] [address] 7 [place] [address] Care Team Providers Care School Psychological Examiner Name Role Phone Anabela Resendez MD Primary Care Provider [phone] Reason for Referral * Imaging (Routine) - Closed Specialty Diagnoses / Procedures Referred By Contlizette t Referred To Contact Radiology Diagnoses Breast pain, left Procedures BI US Breast Complete Right Anabela Resendez MD [address] [place] [address] Phone: tel: fax: [address] Phone: tel: fax: Referral ID Status Reason Start Date Expiration Date Visits Re quested Visits Authorized [id number] Closed 03/21/2024 03/21/2025 1 1 Encounter Details Date Type Department Care Team (Late st Contact Info) Description 03/21/2024 Orders Only [facility] [address] [place] [address] [phone] Anabela Resendez MD [address] [place] [address] Breast pain, left (Primary Dx) Social [...] PM EDT Narrative 03/28/2024 3:50 PM EDT [facility] [address] [place] [address] Ultrasound Report Signed Patient: Romi Howard MR #: [id number] : 1980 Acct:[id number] Age/Sex: 43 / F ADM Date: 03/28/24 Loc: HO.MAMMO Attending Dr: Anabela Resendez MD Ordering Physician: Anabela Resendez MD Date of Service: 03/28/24 Procedure(s): US breast LT limited mamm only Accession Number(s): [id number] cc: Anabela Resendez MD EXAMINATION: MM DIAGNOSTIC [...] Bowie MD in OV> 03/28/24 1546 DD/ 154 TD/TT: Spring Salvage Worker: Procedure Note Donotuseinterpreter, Image - 03/28/2024 [facility] [address] [place] [address] Ultrasound Report Signed Patient: Romi Howard #: [id number] : 1980Acct:[id number] Age/Sex: 43 / FADM Date: 03/28/24 Loc: [facility] Attending Dr: Anabela Resendez MD Ordering Physician: Anabela Resendez MD Date of Service: 03/28/24 Procedure(s): US breast LT limited mamm only Accession Number(s): [id number] cc: Anabela Resendez MD EXAMINATION: MM DIAGNOSTIC [...] in OV> 03/28/24 1546 DD/ 1543 TD/TT: Spring Salvage Worker: us Anabela Resendez MD IMG US PROCEDURES Final Result * BI Mammogram Diag w/ Krishna w/ Implants Maksim (03/28/2024 3:08 PM EDT) Anatomical Region Laterality Modality Mammography 03/28/2024 3:08 PM EDT Narrative 03/28/2024 3:50 PM EDT [place] [facility] [address] [place] [address] Mammography Report Signed Patient: Romi Howard MR #: [id number] : 1980 Acct:[id number] Age/Sex: 43 / F ADM Date: 03/28/24 Loc: HO.MAMMO Attending Dr: Anabela Resendez MD Ordering Physician: Anabela Resendez MD Results: 2Benign F indings Date of Service: 03/28/24 Follow Up: 1 Year From Orig ina Mammogram Procedure(s): MM tomosynthesis diag [facility] BI Accession Number(s): [id number] cc: Anabela Resendez MD EXAMINATION: MM DIAGNOSTIC [...] correlate to left breast pain. MM/MM tomosynthesis diag imp BI IMPRESSION: -No mammographic evidence of malignancy [...] in OV> 03/28/24 1546 DD/ 1508 TD/TT: Spring Salvage Worker: Procedure Note Donotuseinterpreter, Image - 03/28/2024 [facility] [address] [place], [place] [address] Mammography Report Signed Patient: Romi Howard #: [id number] : 1980Acct:[id number] Age/Sex: 43 / FADM Date: 03/28/24 Loc: K[facility] Attending Dr: Anabela Resendez MD Ordering Physician: Anabela Resendez MDResults: 2Benign F indings Date of Service: 03/28/24Follow Up: 1 Year From Orig inal Mammogram Procedure(s): MM tomosynthesis diag imp BI Accession Number(s): [id number] cc: Anabela Resendez MD EXAMINATION: MM DIAGNOSTIC [...] correlate to left breast pain. MM/MM tomosynthesis diag imp BI IMPRESSION: -No mammographic evidence of malignancy [...] in OV> 03/28/24 1546 DD/ 1508 TD/TT: Spring Salvage Worker: Anabela Resendez MD IMG BI PROCEDURES Final Result documented in this encounter Visit Diagnoses Diagnosis Breast pain, left- Primary documented in this encounter Additional Health Concerns Assessment Noted Time PHQ-9 Depression Total Score: 0 06/09/20 9:48 AM EDT documented as of this encounter Care Teams School Psychological Examiner Relationship Specialty Start Date End Date Anabela Resendez MD [address] [place] [address] PCP - General Family Medicine 01/21/23 documented as of this encounter
--- OUTSIDE RECORDS SUMMARY | 2025-06-20 11:54 | XMS_ITS | Encounter Summary ---
Author Organization [employer] Address [address] [place] [address] 7 [place] [address] Care Team Providers Care Technical Manager Chemical Plant Name Role Phone Anabela Resendez MD Primary Care Provider [phone] Encounter Details Date Type Department Care Team ([facility] st Contact Info) Description 02/05/2023 Orders Only [facility] MEDICINE [address] [place], [place] [phone] Anabela Resendez MD [address] [place], [place] [phone] Vitamin D deficiency (Primary Dx) Social History [...] Primary documented in this encounter Care Teams Technical Manager Chemical Plant Relationship Specialty Start Date End Date Anabela Resendez MD [address] [place], [place] [phone] PCP - General Family Medicine 01/21/23 documented as of this encounter
--- OUTSIDE RECORDS SUMMARY | 2025-06-20 11:54 | XMS_ITS | Encounter Summary ---
Author Organization [employer] Address [address] [place] [address] 7 [place] [address] Care Team Providers Care Strategic Communications Manager Name Role Phone Anabela Resendez MD Primary Care Provider [phone] Reason for Visit * Reason Onset Date Comments Appointment Request 06/19/2025 Encounter Details Date Type Department Care Team ([facility] st Contact Info) Description 06/19/2025 Telephone [facility] MEDICINE [address] [place], [place] [phone] Anabela Resendez MD [address] [place] [address] Appointment Request Social History Tobacco Use Types Packs/Day Years Used Date Smoking Tobacco: Never Passive Smoke Exposure: Never Smokeless Tobacco: Never Alcohol Use Standard Drinks/Week Comments Never 0 [...] encounter Miscellaneous Notes * Telephone Encounter - Sandra Quevedo RN - 06/20/2025 10:35 AM EDT Called pt who says she has follow up skin cancer surgery planned for 07/05/25 and was advised by cancer center to schedule follow up appt with PCP for afterward to avoid any lapses in medication. Advised pt typically follow up is with surgeon/oncology, pt states she understands. Informed her will send message to PCP to advise on scheduling follow up now versus after surgery and call back with any updates. Also advised her to call us for any refills needed on medications before her surgery. Pt verbalized understanding. * Telephone Encounter - Sandra Quevedo RN - 06/20/2025 10:20 AM EDT Telephone call to pt who says she is driving and asked for call back later. * Telephone Encounter - Gaby Smith - 06/19/2025 9:49 AM EDT Tc from pt retuning the disconnect call. Surgery will be October 1st, will be done in [facility]. Time will be at 7 am. Following ppt after that they Contact pt at [phone] * Telephone Encounter - Gaby Smith - 06/19/2025 9:34 AM EDT Tc from pt requesting a call back. Pt stated she will be having surgery on July 05 and was advised to request a follow-up appointment after surgery to ensure she does not run out of medication. The call disconnected before obtaining further information. Please contact pt at [phone] documented in this encounter Plan of Treatment Not on file documented as of this encounter Visit Diagnoses Not on filedocumented in this encounter Additional Health Concerns Assessment Noted Time PHQ-9 Depression Total Score: 14 024 7:54 AM EST documented as of this encounter Care Teams Strategic Communications Manager Relationship Specialty Start Date End Date Anabela Resendez MD [address] [place] [address] PCP - General Family Medicine 01/21/23 documented as of this encounter
--- OUTSIDE RECORDS SUMMARY | 2025-06-20 11:54 | XMS_ITS | Encounter Summary ---
Author Organization [employer] Address [address] [place] [address] 7 [place] [address] Care Team Providers Care Railroad Wheels And Axles Inspector Name Role Phone Anabela Resendez MD Primary Care Provider [phone] Reason for Visit * Reason Onset Date Comments Nurse Triage 08/12/2024 Encounter Details Date Type Department Care Team ([facility] st Contact Info) Description 08/12/2024 Telephone [facility] MEDICINE 230 [place], [place] [phone] Anabela Resendez MD 230 [place], [place] [phone] Nurse Triage Social History Tobacco Use Types [...] to ED she should go to [facility] ED due to MRI order there. Pt. Will go to ED if needed. I will send this to a green team covering provider and Provider that ordered MRI since PCP not in office onThursday08/15/24 to see if MRI can be expedited due to pt. concerns Protocol Used: Headache (Adult) Protocol-Based Disposition: Pt. Will go to [facility] ED if needed Video visit not offered [...] documented as of this encounter Care Teams Railroad Wheels And Axles Inspector Relationship Specialty Start Date End Date Anabela Resendez MD [address] [place] [address] PCP - General Family Medicine 01/21/23 documented as of this encounter
--- OUTSIDE RECORDS SUMMARY | 2025-06-20 11:54 | XMS_ITS | Encounter Summary ---
Author Organization [employer] Address [address] [place] [address] 7 [place] [address] Care Team Providers Care Bone Char Puller Name Role Phone Anablea Resendez MD Primary Care Provider [phone] Reason for Visit * Reason Onset Date Comments Nurse Triage 08/02/2024 Encounter Details Date Type Department Care Team ([facility] st Contact Info) Description 08/02/[address] [facility] MEDICINE [address] [place], [place] [phone] Anabela Resendez MD 230 [place], [place] [phone] Nurse Triage Social History Tobacco Use Types [...] documented as of this encounter Care Teams Bone Char Puller Relationship Specialty Start Date End Date Anabela Resendez MD [address] [place] [address] PCP - General Family Medicine 01/21/23 documented as of this encounter
--- OUTSIDE RECORDS SUMMARY | 2025-06-20 11:54 | XMS_ITS | Encounter Summary ---
Author Organization [employer] Address [address] [place] [address] 7 [place] [address] Care Team Providers Care Cut File Clerk Name Role Phone Anabela Resendez MD Primary Care Provider [phone] Reason for Visit * Reason Onset Date Comments Nurse Triage 01/20/2025 Encounter Details Date Type Department Care Team ([facility] st Contact Info) Description 01/20/2025 Telephone [facility] MEDICINE 230 [place], [place] [phone] Anabela Resendez MD [address] [place], [place] [phone] Nurse Triage Social History Tobacco Use Types [...] Telephone Encounter - Dary Rodriguez RN - 01/20/2025 10:36 AM EDT Images from the original note were not included. Call returned to Romi Yang to triage below. Reports having lower back pain closerto coccyx. Per pt has not yet picked up rx for Acetaminophen 650 mg Oral Every 8 hours PRN, Do not crush, chew, or split. Baclofen 10 mg Oral 3 times daily PRN Lidocaine 5 % 1 patch Apply externally Daily PRN, Remove & discard patch within 12 hours or as directed by MD. Naproxen 500 mg Oral 2 times daily PRN, DO NOT TAKE WITH MOTRIN Pt sates was also was looking for xray results and status of DME for donut pillow. Pt requesting that rx be sent to [facility] in [place] as closer to her home. Pt advised to medicinal plant picker and start rx as soon as possible, can also try cold/ warm compresses and return call if no improvement. Reviewed [facility] operating hours and that wait times vary. Reviewed to call in for Nurse Telephone Triage Service over weekend should sx change or new sx develop. Protocol Used: Information Only Call - No Triage (Adult) Protocol-Based Disposition: Discuss with PCP and Callback by Nurse Today Video visit offer not recorded Positive Triage Question: * Requesting lab results and adult stable (no new symptoms, not getting worse) * All higher-acuity triage questions were negative Care Advice Discussed: * Reasons To Call Back - New symptoms develop - You have more questions - You become worse * Telephone Encounter - Maia Ayala - 01/20/2025 9:39 AM EDT Symptom: Back Pain - Not From Injury Outcome: Schedule an appointment to be seen within 3 days Reason: Caller denied all higher acuity questions The caller accepted this outcome. [phone] documented in this encounter Plan of Treatment Not on file documented as of this encounter Visit Diagnoses Not on filedocumented in this encounter Additional Health Concerns Assessment Noted Time PHQ-9 Depression Total Score: 14 024 7:54 AM EST documented as of this encounter Care Teams Cut File Clerk Relationship Specialty Start Date End Date Anabela Resendez MD [address] [place] [address] PCP - General Family Medicine 01/21/23 documented as of this encounter
--- OUTSIDE RECORDS SUMMARY | 2025-06-20 11:54 | XMS_ITS | Encounter Summary ---
Author Organization [employer] Address [address] [place] [address] Care Team Providers Care Fruit Harvest Worker Name Role Phone Jory Yoder Primary Care Provider Danni Miles Primary Care Provider [phone] Anabela Resendez MD Primary Care Provider [phone] Reason for Visit * Reason Onset Date Comments Appointment Confirmation 11/07/2022 Encounter Details Date Type Department Care Team (Late st Contact Info) Description 11/07/2022 Telephone [facility] MEDICINE [address] [place] [address] Jory Yoder FNP Appointment Confirmation Social History [...] on filedocumented in this encounter Care Teams Fruit Harvest Worker Relationship Specialty Start Date End Date Jory Yoder FNP PCP - General Family Medicine 09/01/22 11/30/22 Danni Bhatti FNP [address] [place] [address] PCP - General Family Medicine 12/01/22 01/20/23 Anabela Resendez MD [address] [place] [address] PCP - General Family Medicine 01/21/23 documented as of this encounter
--- OUTSIDE RECORDS SUMMARY | 2025-06-20 11:54 | XMS_ITS | Encounter Summary ---
Author Organization [employer] Address [address] [place] [address] 7 [place] [address] Care Team Providers Care Optical Instrument Assembly Supervisor Name Role Phone Anabela Resendez MD Primary Care Provider [phone] Reason for Visit * Reason Onset Date Comments Appointment Request 04/18/2025 Encounter Details Date Type Department Care Team ([facility] st Contact Info) Description 04/18/2025 Telephone [facility] MEDICINE 230 [place], [place] [phone] Anabela Resendez MD [address] [place], [place] [phone] Appointment Request Social History Tobacco Use Types [...] encounter Miscellaneous Notes * Telephone Encounter - Cameron Moody - 04/18/2025 12:04 PM EDT Tc from pt requesting a call back to schedule derm appt. Pt stated she received a call but is unsure if it was from derm office. Please contact pt at [phone]. (Moldovan Speaker) documented in this encounter Plan of Treatment Not on file documented as of this encounter Visit Diagnoses Not on filedocumented in this encounter Additional Health Concerns Assessment Noted Time PHQ-9 Depression Total Score: 14 024 7:54 AM EST documented as of this encounter Care Teams Optical Instrument Assembly Supervisor Relationship Specialty Start Date End Date Anabela Resendez MD [address] [place] [address] PCP - General Family Medicine 01/21/23 documented as of this encounter
--- OUTSIDE RECORDS SUMMARY | 2025-06-20 11:54 | XMS_ITS | Encounter Summary ---
Author Organization [employer] Address [address] [place] [address] 7 [place] [address] Care Team Providers Care Sales Representative Raw Fibers Name Role Phone Anabela Resendez MD Primary Care Provider [phone] Reason for Visit * Reason Onset Date Comments Nurse Triage 12/29/2024 Encounter Details Date Type Department Care Team ([facility] st Contact Info) Description 12/29/2024 Telephone [facility] MEDICINE [address] [place], [place] [phone] Anabela Resendez MD [address] [place], [place] [phone] Nurse Triage Social History Tobacco Use Types [...] liquids. Pt is advised to come to [facility] today open till 4pm for provider to see. Pt agrees with disposition. Pt is advised that medicaid shows inactive. Pt reports it is active. Pt is advised to call front end developer designer for information and to be sure insurance [...] caller accepted this outcome. Contact pt at [phone] documented in this encounter Plan of Treatment Not on file documented as of this encounter Visit Diagnoses Not on filedocumented in this encounter Additional Health Concerns Assessment Noted Time PHQ-9 Depression Total Score: 14 024 7:54 AM EST documented as of this encounter Care Teams Sales Representative Raw Fibers Relationship Specialty Start Date End Date Anabela Resendez MD [address] [place] [address] PCP - General Family Medicine 01/21/23 documented as of this encounter
--- OUTSIDE RECORDS SUMMARY | 2025-06-20 11:54 | XMS_ITS | Encounter Summary ---
Author Organization [employer] Address [address] [place] [address] 7 [place] [address] Care Team Providers Care Floor Manager Name Role Phone Anabela Resendez MD Primary Care Provider [phone] Reason for Visit * Reason Onset Date Comments Results 09/06/2024 Encounter Details Date Type Department Care Team ([facility] st Contact Info) Description 09/06/2024 Telephone [facility] MEDICINE [address] [place], [place] [phone] Anabela Resendez MD [address] [place], [place] [phone] Results Social History Tobacco Use Types Packs/Day [...] results: MRI Date when done: 07/31/24 Facility: [facility] TC placed to [facility] MRI department to request that MRI report [...] results: MRI Date when done: 07/31/24 Facility: [facility] documented in this encounter Plan of Treatment Not on file documented as of this encounter Visit Diagnoses Not on filedocumented in this encounter Additional Health Concerns Assessment Noted Time PHQ-9 Depression Total Score: 14 024 7:54 AM EST documented as of this encounter Care Teams Floor Manager Relationship Specialty Start Date End Date Anabela Resendez MD [address] [place] [address] PCP - General Family Medicine 01/21/23 documented as of this encounter
--- OUTSIDE RECORDS SUMMARY | 2025-06-20 11:54 | XMS_ITS | Encounter Summary ---
Author Organization [employer] Address [address] [facility] [address] [place] [address] Care Team Providers Care Copper Etcher Name Role Phone Anabela Resendez MD Primary Care Provider [phone] Encounter Details Date Type Department Care Team ([facility] st Contact Info) Description 12/01/2023 Orders Only [facility] MEDICINE [address] [place], [place] [phone] Anabela Resendez MD [address] [place], [place] [phone] Family history of diabetes mellitus (Primary Dx); [...] EDT) Hepatitis A Antibody IgG REACTIVE Nonreactive [facility] Comment:The presence of IgG anti-HAV implies past HAV infection(recent or distant) or vaccination against HAV. Blood Venous blood specimen / Unknown 07/20/2024 1:38 PM EDT 07/20/2024 4:20 PM EDT us Anabela Resendez MD LAB BLOOD ORDERABLES Final Resul t [facility] [address] [place], [place] [phone] * (ABNORMAL) Vitamin D, 25-Hydroxy, Total, Immunoassay (07/20/2024 1:38 PM EDT) Vitamin D 25-OH Total 19.1(L) >30 ng/mL [facility] Comment:Health Based Referen ce Values*< 20 ng/mL Bybpboyuv21-03 ng/mL Insufficient> 30 ng/mL Sufficient*Holick MF. N [...] ORDERABLES Final Resul t Performing Organization Address [facility] Co de Phone Number [facility] [address] [place] [phone] * Hepatitis B surface antigen, EIA (07/20/2024 1:38 PM EDT) Hepatitis B Surface Ag Negative Negative [facility] Blood Venous blood specimen / Unknown 07/20/2024 1:38 PM EDT 07/20/2024 4:20 PM EDT Anabela Resendez MD LAB BLOOD ORDERABLES Final Resul t Performing Organization Address [facility] Co de Phone Number [facility] [address] [place] [phone] * HIV-1/2 Antigen and Antibodies, Fourth Generation, with Reflexes (07/20/2024 1:38 PM EDT) HIV AB/AG Nonreactive Nonreactive [facility] Comment:HIV-1 p24 Ag and/or HIV-1/HIV-2 Ab not detected.A test result that is nonreactive does not exclude thepossibility of exposure to or infection with HIV-1 and/orHIV-2. Nonreactive results in this assay for individualswith prior exposure to HIV-1 and/or HIV-2 may be due toantigen and antibody levels that are below the limit ofdetection of this assay.The [employer] HIV Ag/Ab Combo assay result andsupplemental assay results should be interpreted inconjunction with the patient's clinical presentation,history and other laboratory results. If the results areinconsistent with clinical evidence, additional testing issuggested to confirm the result. Blood Venous blood specimen / Unknown 07/20/2024 1:38 PM EDT 07/20/2024 4:20 PM EDT us Anabela Resendez MD LAB BLOOD ORDERABLES Final Resul t [facility] [address] [place] [phone] * Chlamydia/N. Gonorrhoeae RNA, TMA, Urogenitial (07/20/2024 1:38 PM EDT) CT PCR NOT DETECTED Not Detect. [facility] Comment:A not detected test result does [...] psychologicalconsequences. NG PCR NOT DETECTED Not Detect. [facility] Comment:A not detected test result does [...] PM EDT 07/20/2024 4:24 PM EDT Narrative [facility] - 07/21/2024 3:31 AM EDT Urine Anabela Resendez MD LAB MICROBIOLOGY - GENERAL ORDER VIJI Final Result Performing Organization Address [facility] Co de Phone Number [facility] [address] [place] [phone] * Hepatitis B Core Antibody, Total (07/20/2024 1:38 PM EDT) Hepatitis B Core Antibody Nonreactive Nonreactive [facility] Blood Venous blood specimen / Unknown 07/20/2024 1:38 PM EDT 07/20/2024 4:20 PM EDT us Anabela Resendez MD LAB BLOOD ORDERABLES Final Resul t Performing Organization Address [facility] Co de Phone Number [facility] [address] [place] [phone] * Hepatitis B Surface Antibody, Qualitative (07/20/2024 1:38 PM EDT) ~Hepatitis B Surface Antibody REACTIVE Nonreactive [facility] Comment:REACTIVE: > 11.99 mI U/mL Blood Venous blood specimen / Unknown 07/20/2024 1:38 PM EDT 07/20/2024 4:20 PM EDT Anabela Resendez MD LAB BLOOD ORDERABLES Final Resul t Performing Organization Address City/[facility] Co de Phone Number [facility] [address] [place] [phone] * Hepatitis C Antibody with Reflex to HCV, RNA, Quantitative, Real-Time PCR (07/20/2024 1:38 PM EDT) Hepatitis C Antibody Nonreactive Nonreactive [facility] Comment:Antibodies to HCV no t detected; does not exclude early acuteHCV infection. Blood Venous blood specimen / Unknown 07/20/2024 1:38 PM EDT 07/20/2024 4:20 PM EDT Anabela Resendez MD LAB BLOOD ORDERABLES Final Resul t Performing Organization Address [facility] Co de Phone Number [facility] [address] [place] [phone] * Syphilis Screen (07/20/2024 1:38 PM EDT) Syphilis Screen Nonreactive Nonreactive [facility] Blood 07/20/2024 1:38 PM EDT 07/20/2024 4:20 PM EDT Anabela Resendez MD LAB BLOOD ORDERABLES Final Resul t Performing Organization Address [facility] de Phone Number [facility] [address] [place] [phone] * Lipid Panel with Reflex to Direct LDL (07/20/2024 1:38 PM EDT) Triglycerides 58 <150 mg/dL [facility] Comment:Desirable Triglyceri de: less than 150 mg/dLBorderline High Triglyceride 150-199 mg/dLHigh Triglyceride: 200-499 mg/dLVery High Triglyceride: greater than or equal to 5OO mg/dL Cholesterol 161 <200 mg/dL [facility] Comment:Desirable Cholestero l: less than 200 mg/dLBorderline High Cholesterol: 200-239 mg/dLHigh Cholesterol: greater than 239 mg/dL LDL Cholesterol Calculated 87 <100 mg/dL [facility] Comment:Desirable LDL: less than 100 mg/dLNear Optimal/Above Optimal LDL: 110- 129 mg/dLBorderline High LDL: 130-159 mg/dLHigh LDL: 160-189 mg/dLVery High LDL: greater than or equal to 190 mg/dL HDL Cholesterol 63 >40 mg/dL [facility] Comment:Desirable HDL: great er than 40 mg/dL Note: This HDL assay may give artificially low results in patients with liver disease. Blood 07/20/2024 1:38 PM EDT 07/20/2024 4:20 PM EDT us Anabela Resendze MD LAB BLOOD ORDERABLES Final Resul t [facility] [address] [place] [phone] * (ABNORMAL) Comprehensive Metabolic Panel (07/20/2024 1:38 PM EDT) Sodium 140 135 - 145 mmol/L [facility] Potassium 4.1 3.3 - 5.1 mmol/L [facility] Chloride 107 96 - 108 mmol/L [facility] Carbon Dioxide 28 22 - 29 mmol/L [facility] Anion Gap 9(L) 12 - 20 [facility] Urea Nitrogen (BUN) 9 9 - 16 mg/dL [facility] Creatinine, Serum 1.00 0.5 - 1.4 mg/dL [facility] Estimated Glomerular Filt Rate >60 [facility] Comment:NOTE: For -Am erican individuals, multiply the result by 1.210.Chronic Kidney Disease: Estimated GFR < 60 mL/min/1.37l7Plhdso Kidney Disease: Estimated GFR < 15 mL/min/1.73m2 Glucose 85 60 - 115 mg/dL [facility] Calcium 9.7 8.4 - 10.2 mg/dL [facility] Bilirubin, Total 0.6 0.0 - 1.0 mg/dL [facility] Aspartate Amino Transferase 15 5 - 31 U/L [facility] Alanine Aminotransferase 13 0 - 31 U/L [facility] Total Protein 7.4 6.5 - 8.0 g/dL [facility] Albumin Level 4.5 3.5 - 5.0 g/dL [facility] Alkaline Phosphatase 59 39 - 117 U/L [facility] Blood Venous blood specimen / Unknown 07/20/2024 1:38 PM EDT 07/20/2024 4:20 PM EDT us Anabela Resendez MD LAB BLOOD ORDERABLES Final Resul t Performing Organization Address [facility]/ZIP Co de Phone Number [facility] [address] [place] [phone] * TSH with Reflex to Free T4 (07/20/2024 1:38 PM EDT) TSH reflex Free T4 1.13 0.32 - 4.0 uIU/mL [facility] Blood 07/20/2024 1:38 PM EDT 07/20/2024 4:20 PM EDT us Anabela Resendez MD LAB BLOOD ORDERABLES Final Resul t Performing Organization Address [facility] Co de Phone Number [facility] [address] [place] [phone] documented in this encounter Visit Diagnoses [...] documented as of this encounter Care Teams Copper Etcher Relationship Specialty Start Date End Date Anabela Resendez MD [address] [place] [phone] PCP - General Family Medicine 01/21/23 documented as of this encounter
--- OUTSIDE RECORDS SUMMARY | 2025-06-20 11:54 | XMS_ITS | Encounter Summary ---
Author Organization [employer] Address [address] [facility] 7[address] [place] [address] Care Team Providers Care Rrt Name Role Phone Anabela Resendez MD Primary Care Provider [phone] Encounter Details Date Type Department Care Team ([facility] st Contact Info) Description 05/31/2025 Orders Only [facility] MEDICINE [address] [place], [place] [phone] Anabela Resendez MD [address] [place], [place] [phone] Social History Tobacco Use Types Packs/Day Years [...] documented as of this encounter Care Teams Rrt Relationship Specialty Start Date End Date Anabela Resendez MD [address] [place] [phone] PCP - General Family Medicine 01/21/23 documented as of this encounter
--- OUTSIDE RECORDS SUMMARY | 2025-06-20 11:54 | XMS_ITS | Encounter Summary ---
Author Organization [employer] Address [address] [place] [address] [address] [place] [address] Care Team Providers Care Drafting Layout Man Name Role Phone Anabela Resendez MD Primary Care Provider [phone] Reason for Visit * Reason Onset Date Comments FYI/Call Back Request 06/14/2025 Encounter Details Date Type Department Care Team ([facility] st Contact Info) Description 06/14/2025 Telephone [facility] MEDICINE [address] [place], [place] [phone] Anabela Resendez MD [address] [place] [address] FYI/Call Back Request Social History Tobacco Use Types Packs/Day [...] encounter Miscellaneous Notes * Telephone Encounter - Maria Del Rosario Zhou RN - 06/15/2025 11:11 AM EDT TC placed to the pt and LVM to call back the office regarding message below. * Telephone Encounter - Cameron Moody - 06/14/2025 4:15 PM EDT Tc from pt calling to inform pcp she had surgery 4 years ago for the hip area but is still feeling symptoms. PT was seen with [facility] General surgery yesterday but states provider didn't evaluate the area, simply let the pt go stating it's getting better . Pt will be seeing cancer center tomorrowbut would like a call back to further discuss. Please contact pt at [phone]. documented in this encounter Plan of Treatment Not on file documented as of this encounter Visit Diagnoses Not on filedocumented in this encounter Additional Health Concerns Assessment Noted Time PHQ-9 Depression Total Score: 14 024 7:54 AM EST documented as of this encounter Care Teams Drafting Layout Man Relationship Specialty Start Date End Date Anabela Resendez MD [address] [place] [phone] PCP - General Family Medicine 01/21/23 documented as of this encounter
[2025-06-20 12:22] LABS: Alanine Aminotransferase 14 U/L (0-31); Albumin Level 4.4 g/dL (3.5-5.0); Alkaline Phosphatase 60 U/L (39-117); Anion Gap 8 (12-20); Aspartate Amino Transferase 21 U/L (5-31); Blood Urea Nitrogen 12 mg/dL (9-16); Calcium 9.2 mg/dL (8.4-10.2); Carbon Dioxide 28 mmol/L (22-29); Chloride 108 mmol/L (96-108); Cholesterol 150 mg/dL (<200); Estimated Glomerular Filt Rate > 60; HDL Cholesterol 61 mg/dL (>40); Potassium 4.3 mmol/L (3.3-5.1); Sodium 140 mmol/L (135-145); Total Protein 6.9 g/dL (6.5-8.0); Triglycerides 34 mg/dL (<150)
[2025-06-20 12:37] LABS: Parathyroid Hormone Intact 69.9 pg/mL (8.7-77.1)
[2025-06-20 14:08] LABS: Reflex LDLD? No
== END 2025-06-20 09:24 | disposition home or self-care (01) ==
LOC: HO.HHCL 09:23
PROVIDERS: PCP Family Medicine; Visit Provider Family Medicine
DX: Z13.1 Encounter for screening for diabetes mellitus (principal); Z13.220 Encounter for screening for lipoid disorders; R23.3 Spontaneous ecchymoses; E55.9 Vitamin D deficiency, unspecified; D72.819 Decreased white blood cell count, unspecified
CPT/HCPCS: 36415; 80048; 80061; 80076; 82306; 83036; 83970; 85025

== ENCOUNTER 2025-06-27 10:23 | Outpatient (REF) | payer MEDICAID, SELFPAY ==
--- NOTE | ~2025-06-27 | US_ITS ---
EXAMINATION: US LOWER EXTREMITY VENOUS (REFLUX EXAM), BILATERAL CLINICAL INFORMATION: Varices. COMPARISON: May 25, 2024. TECHNIQUE: Color flow triplex imaging and compression Doppler was performed to evaluate both the deep and the superficial systems bilaterally. To evaluate the superficial system, the examination was performed in the upright position. Color-flow Doppler ultrasound and compression ultrasound were utilized. In addition, maneuvers were utilized to demonstrate reflux. FINDINGS: 1. DEEP VENOUS ULTRASOUND OF THE RIGHT LOWER EXTREMITY: Common Femoral Vein: Compressible, normal respiratory variation and augmented flow. Femoral Vein: Compressible, normal color flow and augmentation. Popliteal Vein: Compressible, normal augmentation. Deep Reflux: There is no evidence of reflux in the deep system in either the common femoral vein, superficial femoral or the popliteal vein. There is no evidence of a Matute's cyst. 2. SUPERFICIAL ULTRASOUND WITH DOPPLER OF RIGHT LOWER EXTREMITY: GREAT SAPHENOUS VEIN: Saphenofemoral Junction: 0.7 cm; Reflux: 0 ms Proximal Thigh: 0.2 cm; Reflux: 0 ms Mid Thigh: 0.3 cm; Reflux: 2748 ms Distal Thigh: 0.3 cm; Reflux: 0 ms At Knee: 0.3 cm; Reflux: 740 ms Proximal Calf: 0.2 cm; Reflux: 0 ms Mid Calf: 0.2 cm; Reflux: 0 ms Distal Calf: 0.2 cm; Reflux: 0 ms DUPLICATED MEDIAL GREAT SAPHENOUS VEIN: Diameter: None imaged Reflux: NA DUPLICATED LATERAL GREAT SAPHENOUS VEIN: Diameter: 0.2 cm. Reflux: NA SMALL SAPHENOUS VEIN: Saphenopopliteal Junction: 0.1 cm; Reflux: 0 ms Proximal: 0.2 cm; Reflux: 0 ms Distal: 0.2 cm; Reflux: 0 ms VEIN OF GIACOMINI: Size: NA Reflux: NA PERFORATORS: Location: Small saphenous vein, proximal segment. Mid calf. Size: 0.1-0.2 cm. Reflux: NA VARICOSITIES: Location: None imaged. Size: NA Reflux: NA 3. DEEP VENOUS ULTRASOUND OF THE LEFT LOWER EXTREMITY: Common Femoral Vein: Compressible, normal respiratory variation and augmented flow. Femoral Vein: Compressible, normal color flow and augmentation. Popliteal Vein: Compressible, normal augmentation. Deep Reflux: There is no evidence of reflux in the deep system in either the common femoral vein, superficial femoral or the popliteal vein. There is a 4.5 x 1.1 x 1.9 cm lobulated anechoic lesion in the popliteal fossa without flow on color Doppler interrogation. 4. SUPERFICIAL ULTRASOUND WITH DOPPLER OF LEFT LOWER EXTREMITY: GREAT SAPHENOUS VEIN: Saphenofemoral Junction: 0.4 cm; Reflux: 0 ms Proximal Thigh: 0.2 cm; Reflux: 0 ms Mid Thigh: 0.1 cm; Reflux: 0 ms Distal Thigh: 0.1 cm; Reflux: 0 ms At Knee: 0.2 cm; Reflux: 0 ms Proximal Calf: 0.2 cm; Reflux: 0 ms Mid Calf: 0.2 cm; Reflux: 0 ms Distal Calf: 0.2 cm; Reflux: 0 ms DUPLICATED MEDIAL GREAT SAPHENOUS VEIN: Diameter: None imaged Reflux: NA DUPLICATED LATERAL GREAT SAPHENOUS VEIN: Diameter: 0.2-0.3 cm. Reflux: NA SMALL SAPHENOUS VEIN: Saphenopopliteal Junction: 0.2 cm; Reflux: 0 ms Proximal: 0.2 cm; Reflux: 0 ms Distal: 0.1 cm; Reflux: 0 ms VEIN OF GIACOMINI: Size: NA Reflux: NA PERFORATORS: Location: Mid thigh. Size: 0.1 cm. Reflux: NA VARICOSITIES: Location: None Imaged Size: NA Reflux: NA US/US venous duplex LE BI IMPRESSION: Right: Venous insufficiency, great saphenous vein at the mid thigh and at the knee. Perforators without reflux. Left: No venous insufficiency. 4.5 cm popliteal cyst. . Electronically signed by: Cecilio Gavin MD 06/27/2025 11:33 AM EDT
--- OUTSIDE RECORDS SUMMARY | 2025-06-27 12:38 | XMS_ITS | Clinical Summary ---
Author Organization [employer] Address [address] [place] [address] 7 [place] [address] Care Team Providers Care Conversion Worker Name Role Phone Anabela Resendez MD Primary Care Provider [phone] Allergies Active Allergy Reactions Criticality Noted Date Comments Bee Venom 02/04/2023 Cortisone 10/30/2017 Other reaction(s): face,throat swollen Shellfish Allergy 02/04/2023 Shellfish-Derived Products Unknown 0 Medications * This document contains information received from the source organization and may not represent a complete record from that organization. sodium chloride ([place]) 0.65 % nasal sprayIndication s:Allergic rhinitis, unspecified [...] Increased dose 90 tablet 3 025 Active ergocalciferol (Vitamin D2) 1.25 MG (71493 UT) capsule Take 1 capsule (1.25 mg) by mouth 1 (one) time per week. 8 capsule 025 Active cholecalciferol (Vitamin D-3) 75 MCG (3000 UT) tablet Take 1 tablet (75 mcg) by mouth Once per day. Increased dose 90 tablet 3 024 2024 Discontinued cholecalciferol (Vitamin D-3) 75 MCG (3000 UT) [...] (05/27/2025 6:57 AM EDT): - seen by vat overhauler - family history of melanoma - upcoming [...] intervention , [facility], Comply with medication , Patient to engage in OP therapy , and Patient to reach out to HC as needed Chronic headache 07/27/2024 Assessment & Plan (07/27/2024 9:58 AM EDT): - family history of brain tumor - upcoming MRI appointment - continue NSAIDs Stress incontinence 06/08/2023 Assessment & Plan (10/15/2023 5:43 AM EST): - following with [facility] - s/p advantage blue retropubic midurethral [...] (07/27/2024 9:36 AM EDT): - following with [facility], last visit in Oct 2023 - 07/15/23 advantage blue retropubic midurethral sling, posterior colporrhaphy, and cystoscopy Assessment & Plan (05/04/2024 4:49 AM EDT): - following with [facility], last visit in Oct 2023 - 07/15/23 advantage blue retropubic midurethral sling, posterior colporrhaphy, and cystoscopy Assessment & Plan (10/15/2023 5:44 AM EST): - following with [facility], last visit in Aug 2023 - 07/15/23 advantage blue retropubic midurethral sling, posterior colporrhaphy, and cystoscopy Assessment & Plan (06/12/2023 5:22 AM EDT): - following with [facility] Asthma 02/04/2023 Assessment & Plan (05/27/2025 [...] (06/12/2023 5:20 AM EDT): - followed by [facility] [employer] - 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 Date Type Department Care Team Description 06/27/2025 Orders Only [facility] External Provider, [facility] 06/20/2025 Orders Only [facility] [address] [place] [phone] Anabela Resendez MD 06/20/2025 Orders Only [facility] [address] [place] [phone] Anabela Resendez MD 06/20/2025 Orders Only [address] [phone] Anabela Resendez MD Vitamin D deficiency (Primary Dx) 06/20/2025 Results Follow-Up [address] [address] Anabela Resendez MD Vitamin D, 25-Hydroxy, Total, Immunoassay, CBC auto differential, Hemoglobin A1c, Additional followed-up results: 4 06/20/2025 Telephone [facility] [place] [address] Anabela Resendez MD Results 06/19/2025 Telephone [facility] [place] [address] Anabela Resendez MD Appointment Request 06/14/2025 Telephone [facility] [place] [address] Anabela Resendez MD FYI/Call Back Request 06/08/2025 Refill [facility] [address] [place] [address] Anabela Resendez MD 06/06/2025 Refill [facility] [place] [address] Anabela Resendez MD 06/01/2025 Telephone [facility] [place] [address] Anabela Resendez MD Call Back Request 05/31/2025 Orders Only [facility] [place] [address] Anabela Resendez MD 05/23/2025 Telephone [facility] [place] [address] Anabela Resendez MD call back needed 05/22/2025 3:30 PM EDT Office Visit [facility] [place] [address] Anabela Resendez MD Vitamin D deficiency (Primary Dx); Screening for lipid disorders; Screening for diabetes mellitus; Leukopenia, unspecified type; Easy bruising; Dietary counseling; Exercise counseling; Skin lesion; Mild intermittent asthma without complication; Moderate depressive disorder; CHERISE (generalized anxiety disorder); Varicose veins of both lower extremities with pain 05/22/2025 Telephone [facility] [place] [address] Anabela Resendez MD Change PCP 05/22/2025 Telephone [facility] [place] [place] [address] Anabela Resendez MD 05/22/2025 Travel 05/19/2025 Telephone [facility] [address] [place] [address], [place] [address] Anabela Resendez MD chart prep 05/17/2025 Travel 05/15/2025 [address] [place] [address] Anabela Resendez MD FMLA Form 05/12/[address] [address] Anabela Resendez MD request call back 05/05/2025 10:40 AM EDT Office Visit [facility] [address] [place], [place] [address] [address] Amish Connolly MD Abnormal bruising (Primary Dx) 05/05/2025 Travel 05/05/[address] [address] Anabela Resendez MD 05/03/2025 Telephone [facility] [address] [place] [phone] Anabela Resendez MD derm appt 05/02/[address] [address] Anabela Resendez MD Referral 04/26/2025 3:30 PM EDT Office Visit [address] [place] [address] wGendolyn Lau FNP Abnormal bruising (Primary Dx); Healthcare maintenance 04/26/2025 Travel 04/25/[address] [address] Maciel Alvarez [place] CHARTPREP 04/24/[address] [address] Anabela Resendez MD Nurse Triage 04/18/[address] [address] Anabela Resendez MD Appointment Request 04/14/2025 9:15 AM EDT Office Visit [address] [address] Gwendolyn Lau FNP Skin lesion (Primary Dx) 04/14/2025 Telephone [facility] [place] [address] Anabela Resendez MD Referral 04/14/2025 Travel 04/13/2025 Telephone [facility] [place] [address] Gwendolyn Lua FNP Chart Prep 04/12/2025 Telephone [facility] [place] [address] Anabela Resendez MD Nurse Triage 04/12/2025 [address] [place] [address] Anabela Resendez MD Nurse Triage 04/10/2025 3:45 PM EDT Office Visit [facility] [place] [place] [address] Vadim Alves MD Varicose veins of both lower extremities, unspecified whether complicated (Primary Dx); Eczema, unspecified type; Acute coccygeal pain; Allergic reaction to bee sting 04/10/2025 Travel 04/06/2025 Telephone [facility] [place] [address] Vadim Alves MD Chart Prep 04/05/[address] [address] Anabela Resendez MD Appointment Request 04/05/[address] [address] Anabela Resendez MD 04/04/[address] [address] Anabela Resendez MD chart prep 04/04/[address] [address] Anabela Resendez MD CHART PREP from Last 3 Months Immunizations Immunization Administration [...] 05/22/2025 3:28 PM EDT Plan of Treatment Upcoming Encounters Date Type Department Care Team (Late st Contact Info) Description 07/17/2025 10:30 AM EDT Office Visit [facility] [address] [place] [address] Anabela Resendez MD [address] [place] [address] Health Maintenance Due Date Last Done Comments [...] 12/24/2016 Pap Smear 03/13/2027 03/13/2022 Lipid Panel 06/20/2030 06/20/2025, 07/05, 02/04/2023, Additional history exists DTaP/Tdap/Td Vaccines (6 - Td or Tdap) [...] Procedure Name Priority Date/Time Associated Diagnosis Comments VASC US LOWER EXTREMITY VENOUS DUPLEX BILATERAL Routine 06/27/2025 10:40 AM EDT HEPATIC FUNCTION PANEL Routine 9:36 AM EDT Easy bruising PTH, INTACT WITHOUT CALCIUM Routine 06/20/2025 9:36 AM EDT Vitamin D deficiency BASIC METABOLIC PANEL Routine 06/20/2025 9:36 AM EDT Vitamin D deficiency LIPID PANEL WITH REFLEX TO DIRECT LDL Routine 06/20/2025 9:36 AM EDT Screening for lipid disorders HEMOGLOBIN A1C Routine 06/20/2025 9:36 AM EDT Screening for diabetes mellitus CBC WITH AUTO DIFFERENTIAL Routine 06/20/2025 9:36 AM EDT Leukopenia, unspecified type VITAMIN D,25-OH,TOTAL,IA Routine 06/20/2025 9:36 AM EDT Vitamin D deficiency AMB REFERRAL TO GENERAL SURGERY Urgent 06/13/2025 [...] Routine screening for STI (sexually transmitted infection) HM PAP/HPV Routine 03/13/2022 from Last 3 Months or Most Recently Relevant to Health Maintenance Results * VASC US Lower Extremity Venous Duplex Bilateral (06/27/2025 10:40 AM EDT) 06/27/2025 10:4 0 AM EDT Narrative [facility] - 06/27/2025 11:35 AM EDT [place] [address] Ultrasound Report Signed Patient: Romi Howard MR #: [id number] : 1980 Acct:[id number] Age/Sex: 44 / F ADM Date: 06/27/25 Loc: .US Attending Dr: Jaswant Wolf MD Ordering Physician: Jaswant Wolf MD Date of Service: 06/27/25 Procedure(s): US venous duplex LE BI Accession Number(s): [id number] cc: Jaswant Wolf MD; Anabela Resendez MD Reason for Exam: I83.12 - Varicose veins of left lower extremity with inflammation EXAMINATION: US LOWER EXTREMITY VENOUS (REFLUX EXAM), BILATERAL CLINICAL INFORMATION: Varices. COMPARISON: May 25, 2024. TECHNIQUE: Color flow triplex imaging and compression Doppler was performed to evaluate both the deep and the superficial systems bilaterally. To evaluate the superficial system, the examination was performed in the upright position. Color-flow Doppler ultrasound and compression ultrasound were utilized. In addition, maneuvers were utilized to demonstrate reflux. FINDINGS: 1. DEEP VENOUS ULTRASOUND OF THE RIGHT LOWER EXTREMITY: Common Femoral Vein: Compressible, normal respiratory variation and augmented flow. Femoral Vein: Compressible, normal color flow and augmentation. Popliteal Vein: Compressible, normal augmentation. Deep Reflux: There is no evidence of reflux in the deep system in either the common femoral vein, superficial femoral or the popliteal vein. There is no evidence of a Matute's cyst. 2. SUPERFICIAL ULTRASOUND WITH DOPPLER OF RIGHT LOWER EXTREMITY: GREAT SAPHENOUS VEIN: Saphenofemoral Junction: 0.7 cm; Reflux: 0 ms Proximal Thigh: 0.2 cm; Reflux: 0 ms Mid Thigh: 0.3 cm; Reflux: 2748 ms Distal Thigh: 0.3 cm; Reflux: 0 ms At Knee: 0.3 cm; Reflux: 740 ms Proximal Calf: 0.2 cm; Reflux: 0 ms Mid Calf: 0.2 cm; Reflux: 0 ms Distal Calf: 0.2 cm; Reflux: 0 ms DUPLICATED MEDIAL GREAT SAPHENOUS VEIN: Diameter: None imaged Reflux: NA DUPLICATED LATERAL GREAT SAPHENOUS VEIN: Diameter: 0.2 cm. Reflux: NA SMALL SAPHENOUS VEIN: Saphenopopliteal Junction: 0.1 cm; Reflux: 0 ms Proximal: 0.2 cm; Reflux: 0 ms Distal: 0.2 cm; Reflux: 0 ms VEIN OF GIACOMINI: Size: NA Reflux: NA PERFORATORS: Location: Small saphenous vein, proximal segment. Mid calf. Size: 0.1-0.2 cm. Reflux: NA VARICOSITIES: Location: None imaged. Size: NA Reflux: NA 3. DEEP VENOUS ULTRASOUND OF THE LEFT LOWER EXTREMITY: Common Femoral Vein: Compressible, normal respiratory variation and augmented flow. Femoral Vein: Compressible, normal color flow and augmentation. Popliteal Vein: Compressible, normal augmentation. Deep Reflux: There is no evidence of reflux in the deep system in either the common femoral vein, superficial femoral or the popliteal vein. There is a 4.5 x 1.1 x 1.9 cm lobulated anechoic lesion in the popliteal fossa without flow on color Doppler interrogation. 4. SUPERFICIAL ULTRASOUND WITH DOPPLER OF LEFT LOWER EXTREMITY: GREAT SAPHENOUS VEIN: Saphenofemoral Junction: 0.4 cm; Reflux: 0 ms Proximal Thigh: 0.2 cm; Reflux: 0 ms Mid Thigh: 0.1 cm; Reflux: 0 ms Distal Thigh: 0.1 cm; Reflux: 0 ms At Knee: 0.2 cm; Reflux: 0 ms Proximal Calf: 0.2 cm; Reflux: 0 ms Mid Calf: 0.2 cm; Reflux: 0 ms Distal Calf: 0.2 cm; Reflux: 0 ms DUPLICATED MEDIAL GREAT SAPHENOUS VEIN: Diameter: None imaged Reflux: NA DUPLICATED LATERAL GREAT SAPHENOUS VEIN: Diameter: 0.2-0.3 cm. Reflux: NA SMALL SAPHENOUS VEIN: Saphenopopliteal Junction: 0.2 cm; Reflux: 0 ms Proximal: 0.2 cm; Reflux: 0 ms Distal: 0.1 cm; Reflux: 0 ms VEIN OF GIACOMINI: Size: NA Reflux: NA PERFORATORS: Location: Mid thigh. Size: 0.1 cm. Reflux: NA VARICOSITIES: Location: None Imaged Size: NA Reflux: NA US/US venous duplex LE BI IMPRESSION: Right: Venous insufficiency, great saphenous vein at the mid thigh and at the knee. Perforators without reflux. Left: No venous insufficiency. 4.5 cm popliteal cyst. . Electronically signed by: Cecilio Gavin MD 06/27/2025 11:33 AM EDT RP Dictated By: Cecilio Nath MD Signed By: <Electronically signed by Cecilio Sykes MD in [place]> 06/27/25 1133 DD/ 1040 TD/TT: 06/27/25 1108 Mobile Equipment Servicer: Procedure Note Donotuseinterpreter, Image - 06/27/2025 [place] [address] Ultrasound Report Signed Patient: Romi Howard #: [id number] : 1980Acct:[id number] Age/Sex: 44 / FADM Date: 06/27/25 Loc: .US Attending Dr: Jaswant Wolf MD Ordering Physician: Jaswant Wolf MD Date of Service: 06/27/25 Procedure(s): US venous duplex LE BI Accession Number(s): [id number] cc: Jaswant Wolf MD; Anabela Resendez MD Reason for Exam: I83.12 - Varicose veins of left lower extremity withinflammation EXAMINATION: US LOWER EXTREMITY VENOUS (REFLUX EXAM), BILATERAL CLINICAL INFORMATION: Varices. COMPARISON: May 25, 2024. TECHNIQUE: Color flow triplex imaging and compression Doppler was performed to evaluate both the deep and the superficial systems bilaterally. To evaluate the superficial system, the examination was performed in the upright position. Color-flow Doppler ultrasound and compression ultrasound were utilized. In addition, maneuvers were utilized to demonstrate reflux. FINDINGS: 1. DEEP VENOUS ULTRASOUND OF THE RIGHT LOWER EXTREMITY: Common Femoral Vein: Compressible, normal respiratory variation and augmented flow. Femoral Vein: Compressible, normal color flow and augmentation. Popliteal Vein: Compressible, normal augmentation. Deep Reflux: There is no evidence of reflux in the deep system in either the common femoral vein, superficial femoral or the popliteal vein. There is no evidence of a Matute's cyst. 2. SUPERFICIAL ULTRASOUND WITH DOPPLER OF RIGHT LOWER EXTREMITY: GREAT SAPHENOUS VEIN: Saphenofemoral Junction: 0.7 cm; Reflux: 0 ms Proximal Thigh: 0.2 cm; Reflux: 0 ms Mid Thigh: 0.3 cm; Reflux: 2748 ms Distal Thigh: 0.3 cm; Reflux: 0 ms At Knee: 0.3 cm; Reflux: 740 ms Proximal Calf: 0.2 cm; Reflux: 0 ms Mid Calf: 0.2 cm; Reflux: 0 ms Distal Calf: 0.2 cm; Reflux: 0 ms DUPLICATED MEDIAL GREAT SAPHENOUS VEIN: Diameter: None imaged Reflux: NA DUPLICATED LATERAL GREAT SAPHENOUS VEIN: Diameter: 0.2 cm. Reflux: NA SMALL SAPHENOUS VEIN: Saphenopopliteal Junction: 0.1 cm; Reflux: 0 ms Proximal: 0.2 cm; Reflux: 0 ms Distal: 0.2 cm; Reflux: 0 ms VEIN OF GIACOMINI: Size: NA Reflux: NA PERFORATORS: Location: Small saphenous vein, proximal segment. Mid calf. Size: 0.1-0.2 cm. Reflux: NA VARICOSITIES: Location: None imaged. Size: NA Reflux: NA 3. DEEP VENOUS ULTRASOUND OF THE LEFT LOWER EXTREMITY: Common Femoral Vein: Compressible, normal respiratory variation and augmented flow. Femoral Vein: Compressible, normal color flow and augmentation. Popliteal Vein: Compressible, normal augmentation. Deep Reflux: There is no evidence of reflux in the deep system in either the common femoral vein, superficial femoral or the popliteal vein. There is a 4.5 x 1.1 x 1.9 cm lobulated anechoic lesion in the popliteal fossa without flow on color Doppler interrogation. 4. SUPERFICIAL ULTRASOUND WITH DOPPLER OF LEFT LOWER EXTREMITY: GREAT SAPHENOUS VEIN: Saphenofemoral Junction: 0.4 cm; Reflux: 0 ms Proximal Thigh: 0.2 cm; Reflux: 0 ms Mid Thigh: 0.1 cm; Reflux: 0 ms Distal Thigh: 0.1 cm; Reflux: 0 ms At Knee: 0.2 cm; Reflux: 0 ms Proximal Calf: 0.2 cm; Reflux: 0 ms Mid Calf: 0.2 cm; Reflux: 0 ms Distal Calf: 0.2 cm; Reflux: 0 ms DUPLICATED MEDIAL GREAT SAPHENOUS VEIN: Diameter: None imaged Reflux: NA DUPLICATED LATERAL GREAT SAPHENOUS VEIN: Diameter: 0.2-0.3 cm. Reflux: NA SMALL SAPHENOUS VEIN: Saphenopopliteal Junction: 0.2 cm; Reflux: 0 ms Proximal: 0.2 cm; Reflux: 0 ms Distal: 0.1 cm; Reflux: 0 ms VEIN OF GIACOMINI: Size: NA Reflux: NA PERFORATORS: Location: Mid thigh. Size: 0.1 cm. Reflux: NA VARICOSITIES: Location: None Imaged Size: NA Reflux: NA US/US venous duplex LE BI IMPRESSION: Right: Venous insufficiency, great saphenous vein at the mid thigh and at the knee. Perforators without reflux. Left: No venous insufficiency. 4.5 cm popliteal cyst. . Electronically signed by: Cecilio Gavin MD 06/27/2025 11:33 AM EDT RP Dictated By: Cecilio Nath MD Signed By: <Electronically signed by Cecilio Sykes MDin OV> 06/27/25 1133 DD/ 1040 TD/TT: 06/27/25 1108 Mobile Equipment Servicer: us [facility] External Provider CV VASC ULAR PROCEDURES Final Result [facility] [address] [place] [address] * (ABNORMAL) Vitamin D, 25-Hydroxy, Total, Immunoassay (06/20/2025 9:36 AM EDT) Vitamin D 25-OH Total 19.5(L) >30 ng/mL [facility] Comment: Health Based Reference Values*< 20 ng/mL Eypswynlw47-21 ng/mL Insufficient> 30 ng/mL Sufficient*Holick MF. N Engl J Med. 2007;357:266-280There is no well-established upper level of normal vitamin Dlevels. Some laboratories use 50 ng/mL as an upper limit ofnormal. However, toxicity is patient-dependent and may occurat any level. Careful correlation with the patient'spresentation is necessary and, if there is concern forvitamin D toxicity, treatment should be consideredirrespective of the serum level.Care must be taken in interpreting Vitamin D [...] LC-MS/MS. Blood Venous blood specimen / Unknown 06/20/2025 9:36 AM EDT 06/20/2025 11:20 AM EDT us Anabela Resendez MD LAB BLOOD ORDERABLES Final Resul t [facility] [address] [place] [phone] * Lipid Panel with Reflex to Direct LDL (06/20/2025 9:36 AM EDT) Triglycerides 34 <150 mg/dL [facility] Comment:Desirable Triglyceri de: less than 150 mg/dLBorderline High Triglyceride 150-199 mg/dLHigh Triglyceride: 200-499 mg/dLVery High Triglyceride: greater than or equal to 5OO mg/dL Cholesterol 150 <200 mg/dL [facility] Comment:Desirable Cholestero l: less than 200 mg/dLBorderline High Cholesterol: 200-239 mg/dLHigh Cholesterol: greater than 239 mg/dL LDL Cholesterol Calculated 83 <100 mg/dL [facility] Comment:Desirable LDL: less than 100 mg/dLNear Optimal/Above Optimal LDL: 110- 129 mg/dLBorderline High LDL: 130-159 mg/dLHigh LDL: 160-189 mg/dLVery High LDL: greater than or equal to 190 mg/dL HDL Cholesterol 61 >40 mg/dL [facility] Comment:Desirable HDL: great er than 40 mg/dL Note: This HDL assay may give artificially low results in patients with liver disease. Blood 06/20/2025 9:36 AM EDT 06/20/2025 11:20 AM EDT us Anabela Resendez MD LAB BLOOD ORDERABLES Final Resul t [facility] [address], [place] [phone] * (ABNORMAL) CBC auto differential (06/20/2025 9:36 AM EDT) Only the most recent of2 resultswithin the time period is included. White Blood Count 4.4(L) 4.8 - 10.8 X10*3/uL [facility] Red Blood Count 4.60 4.20 - 5.50 X10*6/uL [facility] Hemoglobin 12.4 12.0 - 16.0 g/dl [facility] Hematocrit 37.5 37.0 - 47.0 % [facility] Mean Corpuscular Volume 81.5 80.0 - 98.0 fL [facility] Mean Corpuscular Hemoglobin 27.0 27.0 - 33.0 pg [facility] Mean Corpuscular HGB Conc 33.1 31.0 - 35.0 g/dl [facility] Red Cell Distribution Width 13.2 11.0 - 16.0 % [facility] Platelet Count 162 160 - 400 X10*3/uL [facility] Mean Platelet Volume 11.5 9.4 - 12.3 fL [facility] Neutrophils Percent Auto 60.6 45 - 73 % [facility] Imm Gran Pct Auto 0.5(H) 0.0 - 0.4 % [facility] Lymphocytes Percent Auto 28.8 20 - 40 % [facility] Monocytes Percent Auto 7.8 2 - 11 % [facility] Eosinophils Percent Auto 1.6 0 - 4 % [facility] Basophils Percent Auto 0.7 0 - 2 % [facility] NRBC Pct Auto 0.0 0.0 - 0.2 /100WBC [facility] Neutrophils Absolute Auto 2.7 2.0 - 8.3 x10*3/uL [facility] Imm Gran Abs Auto 0.02 0.00 - 0.03 X10*3/uL [facility] Lymphocytes Absolute Auto 1.3 1.2 - 4.9 X10*3/uL [facility] Monocytes Absolute Auto 0.3 0.1 - 1.2 X10*3/uL [facility] Eosinophils Absolute Auto 0.1 0.0 - 0.4 X10*3/uL [facility] Basophils Absolute Auto 0.0 0.0 - 0.2 X10*3/uL [facility] NRBC Abs Auto 0.000 0.0 - 0.012 X10*3/uL [facility] Blood Venous blood specimen / Unknown 06/20/2025 9:36 AM EDT 06/20/2025 11:16 AM EDT Anabela Resendez MD LAB BLOOD ORDERABLES Final Resul t Performing Organization Address [facility]/ZIP Co de Phone Number [facility] [address] [place] [phone] * PTH, Intact Without Calcium (06/20/2025 9:36 AM EDT) Parathyroid Hormone, Intact 69.9 8.7 - 77.1 pg/mL [facility] Blood Venous blood specimen / Unknown 06/20/2025 9:36 AM EDT 06/20/2025 11:16 AM EDT Anabela Resendez MD LAB BLOOD ORDERABLES Final Resul t Performing Organization Address City/[facility]/ZIP Co de Phone Number [facility] [address] [place] [phone] * Hemoglobin A1c (06/20/2025 9:36 AM EDT) Hemoglobin A1c 4.8 <6.0 % [facility] Comment:Hemoglobin A1C Refer ence Range Adults: 4.8 - 6.0 % Non diabetic: < 6.0 % Goal: < 7.0 %Additional Action Suggested: > 8.0 %Note: Hemoglobin A1c results are invalid for patients with abnormal amounts of HbF. Blood transfusions may impact the HbA1c concentration in the patient sample. Estimated Average Glucose 91 mg/dL [facility] Comment:eAG = Estimated ave rage glucose which is %A1C expressed asaverage glucose, using the formula of the [id number] Glucose study (ADAG), Diabetes Care, Vol.31,#8,May. 2007 Blood Venous blood specimen / Unknown 06/20/2025 9:36 AM EDT 06/20/2025 11:16 AM EDT us Anabela Resendez MD LAB BLOOD ORDERABLES Final Resul t [facility] [address] [place] [phone] * Hepatic Function Panel (06/20/2025 9:36 AM EDT) Bilirubin, Total 0.7 0.0 - 1.0 mg/dL [facility] Bilirubin, Direct 0.3 0.0 - 0.5 mg/dL [facility] Aspartate Amino Transferase 21 5 - 31 U/L [facility] Alanine Aminotransferase 14 0 - 31 U/L [facility] Total Protein 6.9 6.5 - 8.0 g/dL [facility] Albumin Level 4.4 3.5 - 5.0 g/dL [facility] Alkaline Phosphatase 60 39 - 117 U/L [facility] Blood Venous blood specimen / Unknown 06/20/2025 9:36 AM EDT 06/20/2025 11:20 AM EDT Anabela Resendez MD LAB BLOOD ORDERABLES Final Resul t Performing Organization Address [facility] de Phone Number [facility] [address] [place] [address] [phone] * (ABNORMAL) Basic Metabolic Panel (06/20/2025 9:36 AM EDT) Sodium 140 135 - 145 mmol/L [facility] Potassium 4.3 3.3 - 5.1 mmol/L [facility] Chloride 108 96 - 108 mmol/L [facility] Carbon Dioxide 28 22 - 29 mmol/L [facility] Anion Gap 8(L) 12 - 20 [facility] Urea Nitrogen (BUN) 12 9 - 16 mg/dL [facility] Creatinine, Serum 0.67 0.5 - 1.4 mg/dL [facility] Estimated Glomerular Filt Rate >60 [facility] Comment:Chronic Kidney Disea se: Estimated GFR < 60 mL/min/1.35o5Gnvwej Kidney Disease: Estimated GFR < 15 mL/min/1.73m2 Glucose 79 60 - 115 mg/dL [facility] Calcium 9.2 8.4 - 10.2 mg/dL [facility] Blood Venous blood specimen / Unknown 06/20/2025 9:36 AM EDT 06/20/2025 11:20 AM EDT Anabela Resendez MD LAB BLOOD ORDERABLES Final Resul t Performing Organization Address [facility] Co de Phone Number [facility] [address] [place] [address] [phone] * Referral to General Surgery (06/13/2025) Gwendolyn Lau [employer] OUTPATIENT REFERRAL ORDERABLES Final Result * T-SPOT??.TB (04/27/2025 8:31 AM EDT) T Spot TB Negative Negative [facility] Comment:A negative test resu lt [...] as aquantitative test. TS PANEL A 0 [facility] TS PANEL B 0 [facility] Negative Control Passed [facility] Positive Control Passed [facility] Comment:For additional infor nadira, please refer [email or web address]/faq/[email or web address](This link is being provided for informational/educational purposes only.)REPORT COMMENT:REC'D AT [facility] TEST WAS PERFORMED AT:[id number] [place] [address]ICVHEVIMANISHA VELAZQUEZ MD,PHD 04/27/2025 8:31 AM EDT 04/27/2025 11:22 AM EDT us Gwendolyn Lau [facility] BLOOD ORDERABLES Final Res ult [facility] [address] [place] [phone] * Partial Thromboplastin Time, Activated (APTT) (04/27/2025 8:31 AM EDT) Partial Thromboplastin Time 34.6 26.0 - 36.8 SEC [facility] Comment:For information rega rding the monitoring of direct thrombininhibitors, please refer to Pharmacy. Blood Venous blood specimen / Unknown 04/27/2025 8:31 AM EDT 04/27/2025 11:22 AM EDT Gwendolyn Lau [facility] LAB BLOOD ORDERABLES Final Res ult Performing Organization Address [facility] Co de Phone Number [facility] [address] [place] [address] [phone] * (ABNORMAL) Prothrombin Time-INR (04/27/2025 8:31 AM EDT) Prothrombin Time 10.8(L) 10.9 - 12.4 SEC [facility] INTERNATIONAL NORM RATIO 0.9 0.9 - 1.1 [facility] Comment:INTERNATIONAL NORMAL IZED RATIO (INR) [...] AM EDT 04/27/2025 11:22 AM EDT Gwendolyn Okjose francisco [facility] LAB BLOOD ORDERABLES Final Res ult Performing Organization Address [facility]/ZIP Co de Phone Number [facility] [address] [place] [phone] * BI Mammogram Screening Tomosynthesis Bilateral (02/18/2025 9:30 AM EDT) Anatomical Region Laterality Modality Breast Bilateral Mammography 02/18/2025 9:30 AM EDT Narrative 02/25/2025 3:29 PM EDT [facility] [address] [place] [address] Mammography Report Signed Patient: Romi Howard MR #: [id number] : 1980 Acct:[id number] Age/Sex: 44 / F ADM Date: 02/18/25 Loc: HO.MAMMO Attending Dr: Anabela Resendez MD Ordering Physician: Anabela Resendez MD Results: 2Benign F indings Date of Service: 02/18/25 Follow Up: 1 Year From Orig inal Mammogram Procedure(s): MM tomosynthesis screening BI Accession Number(s): [id number] cc: Anabela Resendez MD EXAMINATION: MM SCREENING [...] 02/25/25 1525 DD/ 0930 TD/TT: 02/18/25 0944 Mobile Equipment Servicer: Procedure Note Donotuseinterpreter, Image - 02/25/2025 [place] [facility] [address] [place], [place] [address] Mammography Report Signed Patient: Romi HowardMR #: [id number] : 1980Acct:[id number] Age/Sex: 44 / FADM Date: 02/18/25 Loc: HO.MAMMO Attending Dr: Anabela Resendez MD Ordering Physician: Anabela Resendez MDResults: 2Benign F indings Date of Service: 02/18/25Follow Up: 1 Year From Orig ina Mammogram Procedure(s): MM tomosynthesis screening BI Accession Number(s): [id number] cc: Anabela Resendez MD EXAMINATION: MM SCREENING [...] 02/25/25 1525 DD/ 0930 TD/TT: 02/18/25 0944 Mobile Equipment Servicer: us Anabela Resendez MD [facility] BI PROCEDURES Edited Result - Final * Hepatitis C Antibody with Reflex to HCV, RNA, Quantitative, Real-Time PCR (07/20/2024 1:38 PM EDT) Hepatitis C Antibody Nonreactive Nonreactive [facility] Comment:Antibodies to HCV no t detected; does not exclude early acuteHCV infection. Blood Venous blood specimen / Unknown 07/20/2024 1:38 PM EDT 07/20/2024 4:20 PM EDT Anabela Resendez MD LAB BLOOD ORDERABLES Final Resul t Performing Organization Address [facility]/ZIP Co de Phone Number [facility] [address] [place] [address] [phone] * HIV-1/2 Antigen and Antibodies, Fourth Generation, with Reflexes (07/20/2024 1:38 PM EDT) HIV AB/AG Nonreactive Nonreactive [facility] Comment:HIV-1 p24 Ag and/or HIV-1/HIV-2 Ab not detected.A test result that is nonreactive does not exclude thepossibility of exposure to or infection with HIV-1 and/orHIV-2. Nonreactive results in this assay for individualswith prior exposure to HIV-1 and/or HIV-2 may be due toantigen and antibody levels that are below the limit ofdetection of this assay.The DS [employer]it[employer] Seiten HIV Ag/Ab Combo assay result andsupplemental assay results should be interpreted inconjunction with the patient's clinical presentation,history and other laboratory results. If the results areinconsistent with clinical evidence, additional testing issuggested to confirm the result. Blood Venous blood specimen / Unknown 07/20/2024 1:38 PM EDT 07/20/2024 4:20 PM EDT Anabela Resendez MD LAB BLOOD ORDERABLES Final Resul t Performing Organization Address City/[facility]/ZIP Co de Phone Number [facility] [address] [place] [address] [phone] * Hm Pap Smear (03/13/2022) Pap Negative for intraephithelial lesion or malignancy Negative for intraephithelial lesion or malignancy, Other HPV Undetected Pap Vial 03/13/2022 [facility] External Provider HEALTH MAINTENANCE Final Result from Last 3 Months or Most Recently Relevant to Health Maintenance Insurance Care Teams Conversion Worker Relationship Specialty Start Date End Date Anabela Resendez MD [address] [place] [address] PCP - General Family Medicine 01/21/23
--- OUTSIDE RECORDS SUMMARY | 2025-06-27 12:39 | XMS_ITS | Encounter Summary ---
Author Organization [employer] Address [address] [facility] 7t [place] [address] Care Team Providers Care Prepress Supervisor Name Role Phone Anabela Resendez MD Primary Care Provider [phone] Encounter Details Date Type Department Care Team ([facility] st Contact Info) Description 06/20/2025 Orders Only [facility] MEDICINE [address] [place], [place] [phone] Anabela Resendez MD [address] [place], [place] [phone] Social History Tobacco Use Types Packs/Day Years [...] as of this encounter Plan of Treatment Upcoming Encounters Date Type Department Care Team (Late st Contact Info) Description 07/17/2025 10:30 AM EDT Office Visit [facility] MEDICINE [address] [place] [address] Anabela Resendez MD [address] [place] [address] documented as of this encounter Visit Diagnoses Not on filedocumented in this encounter Additional Health Concerns Assessment Noted Time PHQ-9 Depression Total Score: 14 024 7:54 AM EST documented as of this encounter Care Teams Prepress Supervisor Relationship Specialty Start Date End Date Anabela Resendez MD [address] [place] [address] PCP - General Family Medicine 01/21/23 documented as of this encounter
--- OUTSIDE RECORDS SUMMARY | 2025-06-27 12:39 | XMS_ITS | Encounter Summary ---
Author Organization [employer] Address [address] [place] [address] 7 [place] [address] Care Team Providers Care Technology Coordinator Name Role Phone Anabela Resendez MD Primary Care Provider [phone] Reason for Referral * Imaging (Routine) - Closed Specialty Diagnoses / Procedures Referred By Contlizette t Referred To Contact Radiology Diagnoses Breast pain, left Procedures BI US Breast Complete Right Anabela Resendez MD [address] [place] [address] Phone: tel: fax: [address] Phone: tel: fax: Referral ID Status Reason Start Date Expiration Date Visits Re quested Visits Authorized [id number] Closed 03/21/2024 03/21/2025 1 1 Encounter Details Date Type Department Care Team (Late st Contact Info) Description 03/21/2024 Orders Only [facility] MEDICINE [address] [place] [address] [phone] Anabela Resendez MD [address] [place] [phone] Breast pain, left (Primary Dx) Social [...] Description 07/17/2025 10:30 AM EDT Office Visit [facility] MEDICINE [address] [place] [address] Anabela Resendez MD [address] [place] [address] documented as of this encounter Procedures Procedure [...] EDT Narrative 03/28/2024 3:50 PM EDT [place] [facility] [address] [place], [place] [address] Ultrasound Report Signed Patient: Romi Howard MR #: [id number] : 1980 Acct:[id number] Age/Sex: 43 / F ADM Date: 03/28/24 Loc: HO.MAMMO Attending Dr: Anabela Resendez MD Ordering Physician: Anabela Resendez MD Date of Service: 03/28/24 Procedure(s): US breast LT limited mamm only Accession Number(s): [id number] cc: Anabela Resendez MD EXAMINATION: MM DIAGNOSTIC [...] in OV> 03/28/24 1546 DD/ 1543 TD/TT: Disc Pad Plate Filler: Procedure Note Donotuseinterpreter, Image - 03/28/20[facility] [address] [place] [address] Ultrasound Report Signed Patient: Romi Howard #: [id number] : 1980Acct:[id number] Age/Sex: 43 / FADM Date: 03/28/24 Loc: KYLEIGH Attending Dr: Anabela Resendez MD Ordering Physician: Anabela Resendez MD Date of Service: 03/28/24 Procedure(s): US breast LT limited mamm only Accession Number(s): [id number] cc: Anabela Resendez MD EXAMINATION: MM DIAGNOSTIC [...] in OV> 03/28/24 1546 DD/ 1543 TD/TT: Disc Pad Plate Filler: us Anabela Resendez MD IMG US PROCEDURES Final Result * BI Mammogram Diag w/ Krishna w/ Implants Maksim (03/28/2024 3:08 PM EDT) Anatomical Region Laterality Modality Mammography 03/28/2024 3:08 PM EDT Narrative 03/28/2024 3:50 PM EDT [facility] [address] [place] [address] Mammography Report Signed Patient: Romi Howard MR #: [id number] : 1980 Acct:[id number] Age/Sex: 43 / F ADM Date: 03/28/24 Loc: HO.MAMMO Attending Dr: Anabela Resendez MD Ordering Physician: Anabela Resendez MD Results: 2Benign F indings Date of Service: 03/28/24 Follow Up: 1 Year From Orig ina Mammogram Procedure(s): MM tomosynthesis diag imp BI Accession Number(s): [id number] cc: Anabela Resendez MD EXAMINATION: MM DIAGNOSTIC [...] in OV> 03/28/24 1546 DD/ 1508 TD/TT: Disc Pad Plate Filler: Procedure Note Donotuseinterpreter, Image - 03/28/2024 [place] [facility] [address] [place], [place] [address] Mammography Report Signed Patient: Romi Howard #: [id number] : 1980Acct:[id number] Age/Sex: 43 / FADM Date: 03/28/24 Loc: HOMargieMAMMO Attending Dr: Anabela Resendez MD Ordering Physician: Anabela Resendez MDResults: 2Benign F indings Date of Service: 03/28/24Follow Up: 1 Year From [facility] Mammogram Procedure(s): MM tomosynthesis diag [facility] BI Accession Number(s): [id number] cc: Anabela Resendez MD EXAMINATION: MM DIAGNOSTIC [...] to left breast pain. MM/MM tomosynthesis diag [facility] BI IMPRESSION: -No mammographic evidence of malignancy [...] in OV> 03/28/24 1546 DD/ 1508 TD/TT: Disc Pad Plate Filler: us Anabela Resendez MD IMG BI PROCEDURES Final Result documented in this encounter Visit Diagnoses Diagnosis Breast pain, left- Primary documented in this encounter Additional Health Concerns Assessment Noted Time PHQ-9 Depression Total Score: 0 06/09/20 9:48 AM EDT documented as of this encounter Care Teams Technology Coordinator Relationship Specialty Start Date End Date Anabela Resendez MD [address] [place] [address] PCP - General Family Medicine 01/21/23 documented as of this encounter
--- OUTSIDE RECORDS SUMMARY | 2025-06-27 12:39 | XMS_ITS | Encounter Summary ---
Author Organization [employer] Address [address] [facility] 7t [place] [address] Care Team Providers Care Rat Farmer Name Role Phone Anabela Resendez MD Primary Care Provider [phone] Encounter Details Date Type Department Care Team ([facility] st Contact Info) Description 06/20/2025 Orders Only [facility] MEDICINE [address] [place], [place] [phone] Anabela Resendez MD 230 [place], [place] [phone] Vitamin D deficiency (Primary Dx) Social History [...] Description 07/17/2025 10:30 AM EDT Office Visit [facility] MEDICINE [address] [place] [phone] Anabela Resendez MD [address] [place] [address] Scheduled Orders Name Type Priority Associated Diagnoses Orde r Schedule Vitamin D, 25-Hydroxy, Total, Immunoassay Lab Routine Vitamin D deficiency Expected: 09/19/2025 (Approximate), Expires: 06/20/2026 Basic Metabolic Panel Lab Routine Vitamin D deficiency Expected: 09/19/2025 (Approximate), Expires: 06/20/2026 PTH, Intact Without Calcium Lab Routine Vitamin D deficiency Expected: 09/19/2025 (Approximate), Expires: 06/20/2026 documented as of this encounter Visit Diagnoses Diagnosis Vitamin D deficiency- Primary documented in this encounter Additional Health Concerns Assessment Noted Time PHQ-9 Depression Total Score: 14 024 7:54 AM EST documented as of this encounter Care Teams Rat Farmer Relationship Specialty Start Date End Date Anabela Resendez MD [address] [place] [address] PCP - General Family Medicine 01/21/23 documented as of this encounter
--- OUTSIDE RECORDS SUMMARY | 2025-06-27 12:39 | XMS_ITS | Encounter Summary ---
Author Organization [employer] Address [address] [facility] 7t [place] [address] Care Team Providers Care Forestry Farm Laborer Name Role Phone Anabela Resendez MD Primary Care Provider [phone] Encounter Details Date Type Department Care Team ([facility] st Contact Info) Description 05/31/2025 Orders Only [facility] MEDICINE [address] [place], [place] [phone] Anabela Resendez MD 230 [place], [place] [phone] Social History Tobacco Use Types Packs/Day Years [...] Description 07/17/2025 10:30 AM EDT Office Visit [facility] MEDICINE [address] [place] [address] Anabela Resendez MD [address] [place] [address] documented as of this encounter Visit Diagnoses Not on filedocumented in this encounter Additional Health Concerns Assessment Noted Time PHQ-9 Depression Total Score: 14 024 7:54 AM EST documented as of this encounter Care Teams Forestry Farm Laborer Relationship Specialty Start Date End Date Anabela Resendez MD [address] [place] [address] PCP - General Family Medicine 01/21/23 documented as of this encounter
--- OUTSIDE RECORDS SUMMARY | 2025-06-27 12:39 | XMS_ITS | Encounter Summary ---
Author Organization [employer] Address [address] [facility] 7t [place] [address] Care Team Providers Care Fiscal Economist Name Role Phone Anabela Resendez MD Primary Care Provider [phone] Encounter Details Date Type Department Care Team ([facility] st Contact Info) Description 06/20/2025 Orders Only [facility] MEDICINE [address] [place], [place] [phone] Anabela Resendez MD [address] [place], [place] [phone] Social History Tobacco Use Types Packs/Day Years [...] Description 07/17/2025 10:30 AM EDT Office Visit [facility] MEDICINE [address] [place] [address] Anabela Resendez MD [address] [place] [address] documented as of this encounter Visit Diagnoses Not on filedocumented in this encounter Additional Health Concerns Assessment Noted Time PHQ-9 Depression Total Score: 14 024 7:54 AM EST documented as of this encounter Care Teams Fiscal Economist Relationship Specialty Start Date End Date Anabela Resendez MD [address] [place] [address] PCP - General Family Medicine 01/21/23 documented as of this encounter
--- OUTSIDE RECORDS SUMMARY | 2025-06-27 12:39 | XMS_ITS | Encounter Summary ---
Author Organization [employer] Address [address] [place] [address] Care Team Providers Care Alterations Manager Name Role Phone Jory Yoder Primary Care Provider Danni Miles Primary Care Provider [phone] Anabela Resendez MD Primary Care Provider Reason for Visit * Reason Onset Date Comments Appointment Confirmation 11/07/2022 Encounter Details Date Type Department Care Team (Late st Contact Info) Description 11/07/[address] [address] Jory Yoder FNP Appointment Confirmation Social History [...] documented in this encounter Plan of Treatment Upcoming Encounters Date Type Department Care Team (Late st Contact Info) Description 07/17/2025 10:30 AM EDT Office Visit [address] [phone] Anabela Resendez MD [address] [place], [place] [phone] documented as of this encounter Visit Diagnoses Not on filedocumented in this encounter Care Teams Alterations Manager Relationship Specialty Start Date End Date Jory Yoder FNP PCP - General Family Medicine 09/01/22 11/30/22 Danni Bhatti FNP [address] [place] [address] PCP - General Family Medicine 12/01/22 01/20/23 Anabela Resendez MD [address] [place] [address] [phone] PCP - General Family Medicine 01/21/23 documented as of this encounter
--- OUTSIDE RECORDS SUMMARY | 2025-06-27 12:39 | XMS_ITS | Encounter Summary ---
Author Organization [employer] Address [address] [place] [address] [address] [place] [address] Care Team Providers Care Painter Structural Steel Name Role Phone Anabela Resendez MD Primary Care Provider [phone] Reason for Visit * Reason Onset Date Comments Nurse Triage 12/29/2024 Encounter Details Date Type Department Care Team ([facility] st Contact Info) Description 12/29/2024 Telephone [facility] MEDICINE [address] [place], [place] [phone] Anabela Resendez MD [address] [place], [place] [phone] Nurse Triage Social History Tobacco Use Types [...] liquids. Pt is advised to come to [facility] today open till 4pm for provider to see. Pt agrees with disposition. Pt is advised that medicaid shows inactive. Pt reports it is active. Pt is advised to call front sight attacher for information and to be sure insurance [...] caller accepted this outcome. Contact pt at [phone] documented in this encounter Plan of Treatment Upcoming Encounters Date Type Department Care Team (Late st Contact Info) Description 07/17/2025 10:30 AM EDT Office Visit [facility] MEDICINE [address] [place] [address] Anabela Resendez MD [address] [place] [address] documented as of this encounter Visit Diagnoses Not on filedocumented in this encounter Additional Health Concerns Assessment Noted Time PHQ-9 Depression Total Score: 14 024 7:54 AM EST documented as of this encounter Care Teams Painter Structural Steel Relationship Specialty Start Date End Date Anabela Resendez MD [address] [place] [address] PCP - General Family Medicine 01/21/23 documented as of this encounter
--- OUTSIDE RECORDS SUMMARY | 2025-06-27 12:39 | XMS_ITS | Encounter Summary ---
Author Organization [employer] Address [address] [place] [address] [place], [place] [address] Care Team Providers Care Mixed Crop Farmer Name Role Phone Anabela Resendez MD Primary Care Provider [phone] Reason for Visit * Reason Onset Date Comments Appointment Request 01/21/2023 Encounter Details Date Type Department Care Team ([facility] st Contact Info) Description 01/21/2023 Telephone [facility] MEDICINE [address] [place], [place] [phone] Danni Bhatti FNP [address] [place] [address] Appointment Request Social History Tobacco Use Types [...] annmarie cancelled by office. Will send to [place] to schedule TP appt again for pt. [...] accepted this outcome Please contact pt at [phone] documented in this encounter Plan of Treatment Upcoming Encounters Date Type Department Care Team (Late st Contact Info) Description 07/17/2025 10:30 AM EDT Office Visit [facility] MEDICINE [address] [place] [address] Anabela Resendez MD [address] [place] [address] documented as of this encounter Visit Diagnoses Not on filedocumented in this encounter Care Teams Mixed Crop Farmer Relationship Specialty Start Date End Date Anabela Resendez MD [address] [place] [address] PCP - General Family Medicine 01/21/23 documented as of this encounter
--- OUTSIDE RECORDS SUMMARY | 2025-06-27 12:39 | XMS_ITS | Encounter Summary ---
Author Organization [employer] Address [address] [place] [address] [place] [address] Care Team Providers Care Hydraulic Auto Jack Mechanic Name Role Phone Anabela Resendez MD Primary Care Provider [phone] Reason for Referral * Imaging (Routine) - Closed Specialty Diagnoses / Procedures Referred By Nicol t Referred To Contact Radiology Diagnoses Breast cancer screening by mammogram Procedures BI Mammogram Screening Tomosynthesis Right Anabela Resendez MD [address] [place] [address] Phone: tel: fax: [address] Phone: tel: fax: Referral ID Status Reason Start Date Expiration Date Visits Re quested Visits Authorized [id number] Closed 02/17/2024 02/16/2025 1 1 * Imaging (Routine) - Closed Specialty Diagnoses / Procedures Referred By Contac t Referred To Contact Radiology Diagnoses Mass of left breast, unspecified quadrant Procedures BI Mammogram Diagnostic Tomosynthesis Left Anabela Resendez MD [address] [place] [address] Phone: tel: fax: [address] Phone: tel: fax: Referral ID Status Reason Start Date Expiration Date Visits Re quested Visits Authorized [id number] Closed 02/17/2024 02/16/2025 1 1 Encounter Details Date Type Department Care Team (Late st Contact Info) Description 02/17/2024 Orders Only [facility] MEDICINE [address] [place] [address] Anabela Resendez MD [address] [place] [address] Mass of left breast, unspecified quadrant (Primary [...] Description 07/17/2025 10:30 AM EDT Office Visit [facility] [address] [place] [address] Anabela Resendez MD [address] [place] [address] Scheduled Orders Name Type Priority Associated Diagnoses [...] documented as of this encounter Care Teams Hydraulic Auto Jack Mechanic Relationship Specialty Start Date End Date Anabela Resendez MD [address] [place] [address] PCP - General Family Medicine 01/21/23 documented as of this encounter
--- OUTSIDE RECORDS SUMMARY | 2025-06-27 12:39 | XMS_ITS | Encounter Summary ---
Author Organization [employer] Address [address] [place] [address] 7 [place] [address] Care Team Providers Care Manufacturer'S Representative Name Role Phone Anabela Resendez MD Primary Care Provider Reason for Visit * Reason Onset Date Comments Nurse Triage 08/12/2024 Encounter Details Date Type Department Care Team ([facility] st Contact Info) Description 08/12/2024 Telephone [facility] MEDICINE [address] [place], [place] [phone] Anabela Resendez MD [address] [place], [place] [phone] Nurse Triage Social History Tobacco Use Types [...] go to ED she should go [place] [facility] due [place] MRI order there. Pt. Will go to ED if needed. I will send this to a green team covering provider and Provider that ordered MRI since PCP not in office onThursday08/15/24 to see if MRI can be expedited due to pt. concerns Protocol Used: Headache (Adult) Protocol-Based Disposition: Pt. Will go to [facility] if needed Video visit not offered [...] Description 07/17/2025 10:30 AM EDT Office Visit [facility] [address] [place] [address] Anabela Resendez MD [address] [place] [address] documented as of this encounter Visit Diagnoses Not on filedocumented in this encounter Additional Health Concerns Assessment Noted Time PHQ-9 Depression Total Score: 11 07/27/ 024 10:02 AM EDT documented as of this encounter Care Teams Manufacturer'S Representative Relationship Specialty Start Date End Date Anabela Resendez MD [address] [place] [address] PCP - General Family Medicine 01/21/23 documented as of this encounter
--- OUTSIDE RECORDS SUMMARY | 2025-06-27 12:39 | XMS_ITS | Encounter Summary ---
Author Organization [employer] Address [address] 7t [place] [address] Care Team Providers Care Guest Services Attendant Name Role Phone Anabela Resendez MD Primary Care Provider [phone] Encounter Details Date Type Department Care Team (Late st Contact Info) Description 06/27/2025 Orders Only [facility] External Provider, [facility] Social History Tobacco Use Types Packs/Day Years [...] the past 12 months, has t he [employer], gas, oil or water company threatened to [...] Description 07/17/2025 10:30 AM EDT Office Visit [facility] MEDICINE [address] [place], [place] [phone] Anabela Resendez MD [address] [place] [address] documented as of this encounter Procedures Procedure Name Priority Date/Time Associated Diagnosis Comments [facility] US LOWER EXTREMITY VENOUS DUPLEX BILATERAL Routine 06/27/2025 10:40 AM EDT documented in this encounter Results * [facility] US Lower Extremity Venous Duplex Bilateral (06/27/2025 10:40 AM EDT) 06/27/2025 10:4 0 AM EDT Narrative [facility] IMAGING - 06/27/2025 11:35 AM EDT [address] [address] Ultrasound Report Signed Patient: Romi Howard MR #: [id number] : 1980 Acct:[id number] Age/Sex: 44 / F ADM Date: 06/27/25 Loc: HO.US Attending Dr: Jaswant Wolf MD Ordering Physician: Jaswant Wolf MD Date of Service: 06/27/25 Procedure(s): US venous duplex LE BI Accession Number(s): [id number] cc: Jaswant Wolf MD; Anabela Resendez MD [...] Cecilio Gavin MD 06/27/2025 11:33 AM EDT Dictated By: Cecilio Nath MD Signed By: <Electronically signed by Cecilio Sykes MD in OV> 06/27/25 1133 DD/ 1040 TD/TT: 06/27/25 1108 Outreach Nurse: Procedure Note Donotuseinterpreter, Image - 06/27/[address] [address] Ultrasound Report Signed Patient: Herb Yang,[facility] #: [id number] : 1980Acct:[id number] Age/Sex: 44 / FADM Date: 06/27/25 Loc: . Attending Dr: Jaswant Wolf MD Ordering Physician: Jaswant Wolf MD Date of Service: 06/27/25 Procedure(s): US venous duplex LE BI Accession Number(s): [id number] cc: Jaswant Wolf MD; Anabela Resendez MD [...] Cecilio Gavin MD 06/27/2025 11:33 AM EDT Dictated By: Cecilio Nath MD Signed By: <Electronically signed by Cecilio Sykes MDin OV> 06/27/25 1133 DD/ 1040 TD/TT: 06/27/25 1108 Outreach Nurse: [facility] External Provider CV VASC ULAR PROCEDURES Final Result [facility] IMAGING [address] [place] [address] documented in this encounter Visit Diagnoses Not on filedocumented in this encounter Additional Health Concerns Assessment Noted Time PHQ-9 Depression Total Score: 14 024 7:54 AM EST documented as of this encounter Care Teams Guest Services Attendant Relationship Specialty Start Date End Date Anabela Resendez MD [address] [place] [address] PCP - General Family Medicine 01/21/23 documented as of this encounter
--- OUTSIDE RECORDS SUMMARY | 2025-06-27 12:39 | XMS_ITS | Encounter Summary ---
Author Organization [employer] Address [address] [facility] 7t [place] [address] Care Team Providers Care Office Nurse Name Role Phone Anabela Resendez MD Primary Care Provider [phone] Encounter Details Date Type Department Care Team ([facility] st Contact Info) Description 12/01/2023 Orders Only [facility] MEDICINE [address] [place], [place] [phone] Anabela Resednez MD [address] [place], [place] [phone] Family history of diabetes mellitus (Primary Dx); [...] Description 07/17/2025 10:30 AM EDT Office Visit [facility] MEDICINE [address] [place] [phone] Anabela Resendez MD [address] [place], [place] [phone] documented as of this encounter Procedures Procedure [...] EDT) Hepatitis A Antibody IgG REACTIVE Nonreactive [facility] Comment:The presence of IgG anti-HAV implies past HAV infection(recent or distant) or vaccination against HAV. Blood Venous blood specimen / Unknown 07/20/2024 1:38 PM EDT 07/20/2024 4:20 PM EDT us Anabela Resendez MD LAB BLOOD ORDERABLES Final Resul t [facility] [address] [place] [phone] * (ABNORMAL) Vitamin D, 25-Hydroxy, Total, Immunoassay (07/20/2024 1:38 PM EDT) Vitamin D 25-OH Total 19.1(L) >30 ng/mL [facility] Comment:Health Based Referen ce Values*< 20 ng/mL [id number] ng/mL Insufficient> 30 ng/mL Sufficient*Dana [place]. N Engl J Med. 2007;357:266-280Care must be [...] ORDERABLES Final Resul t Performing Organization Address City/[facility]/ZIP Co de Phone Number [facility] [address] [place] [phone] * Hepatitis B surface antigen, EIA (07/20/2024 1:38 PM EDT) Hepatitis B Surface Ag Negative Negative [facility] Blood Venous blood specimen / Unknown 07/20/2024 1:38 PM EDT 07/20/2024 4:20 PM EDT us Anabela Resendez MD LAB BLOOD ORDERABLES Final Resul t Performing Organization Address [facility]/ZIP Co de Phone Number [facility] [address] [place] [phone] * HIV-1/2 Antigen and Antibodies, Fourth Generation, with Reflexes (07/20/2024 1:38 PM EDT) HIV AB/AG Nonreactive Nonreactive [facility] Comment:HIV-1 p24 Ag and/or HIV-1/HIV-2 Ab not detected.A test result that is nonreactive does not exclude thepossibility of exposure to or infection with HIV-1 and/orHIV-2. Nonreactive results in this assay for individualswith prior exposure to HIV-1 and/or HIV-2 may be due toantigen and antibody levels that are below the limit ofdetection of this assay.The [employer] HIV Ag/Ab Combo assay result andsupplemental assay results should be interpreted inconjunction with the patient's clinical presentation,history and other laboratory results. If the results areinconsistent with clinical evidence, additional testing issuggested to confirm the result. Blood Venous blood specimen / Unknown 07/20/2024 1:38 PM EDT 07/20/2024 4:20 PM EDT us Anabela Resendez MD LAB BLOOD ORDERABLES Final Resul t [facility] [address] [place] [phone] [phone] * Chlamydia/N. Gonorrhoeae RNA, TMA, Urogenitial (07/20/2024 1:38 PM EDT) [facility] CT PCR NOT DETECTED Not Detect. [facility] Comment:A not detected test result does [...] psychologicalconsequences. NG PCR NOT DETECTED Not Detect. [facility] Comment:A not detected test result does [...] PM EDT 07/20/2024 4:24 PM EDT Narrative [facility] - 07/21/2024 3:31 AM EDT Urine Anabela Resendez MD LAB MICROBIOLOGY - GENERAL ORDER VIJI Final Result Performing Organization Address City/[facility]/ZIP Co de Phone Number [facility] [address] [place] [phone] * Hepatitis B Core Antibody, Total (07/20/2024 1:38 PM EDT) Hepatitis B Core Antibody Nonreactive Nonreactive [facility] Blood Venous blood specimen / Unknown 07/20/2024 1:38 PM EDT 07/20/2024 4:20 PM EDT Anabela Resendez MD LAB BLOOD ORDERABLES Final Resul t Performing Organization Address City/[facility]/ZIP Co de Phone Number [facility] [address] [place] [phone] * Hepatitis B Surface Antibody, Qualitative (07/20/2024 1:38 PM EDT) ~Hepatitis B Surface Antibody REACTIVE Nonreactive [facility] Comment:REACTIVE: > 11.99 mI U/mL Blood Venous blood specimen / Unknown 07/20/2024 1:38 PM EDT 07/20/2024 4:20 PM EDT Anabela Resendez MD LAB BLOOD ORDERABLES Final Resul t Performing Organization Address [facility] Co de Phone Number [facility] [address] [place] [phone] * Hepatitis C Antibody with Reflex to HCV, RNA, Quantitative, Real-Time PCR (07/20/2024 1:38 PM EDT) Hepatitis C Antibody Nonreactive Nonreactive [facility] Comment:Antibodies to HCV no t detected; does not exclude early acuteHCV infection. Blood Venous blood specimen / Unknown 07/20/2024 1:38 PM EDT 07/20/2024 4:20 PM EDT Anabela Resendez MD LAB BLOOD ORDERABLES Final Resul t Performing Organization Address [facility] Co de Phone Number [facility] [address] [place] [phone] * Syphilis Screen (07/20/2024 1:38 PM EDT) Syphilis Screen Nonreactive Nonreactive [facility] Blood 07/20/2024 1:38 PM EDT 07/20/2024 4:20 PM EDT Anabela Resendez MD LAB BLOOD ORDERABLES Final Resul t Performing Organization Address [facility] Co de Phone Number [facility] [address] [place] [phone] * Lipid Panel with Reflex to Direct LDL (07/20/2024 1:38 PM EDT) Triglycerides 58 <150 mg/dL [facility] Comment:Desirable Triglyceri de: less than 150 mg/dLBorderline High Triglyceride 150-199 mg/dLHigh Triglyceride: 200-499 mg/dLVery High Triglyceride: greater than or equal to 5OO mg/dL Cholesterol 161 <200 mg/dL [facility] Comment:Desirable Cholestero l: less than 200 mg/dLBorderline High Cholesterol: 200-239 mg/dLHigh Cholesterol: greater than 239 mg/dL LDL Cholesterol Calculated 87 <100 mg/dL [facility] Comment:Desirable LDL: less than 100 mg/dLNear Optimal/Above Optimal LDL: 110- 129 mg/dLBorderline High LDL: 130-159 mg/dLHigh LDL: 160-189 mg/dLVery High LDL: greater than or equal to 190 mg/dL HDL Cholesterol 63 >40 mg/dL [facility] Comment:Desirable HDL: great er than 40 mg/dL Note: This HDL assay may give artificially low results in patients with liver disease. Blood 07/20/2024 1:38 PM EDT 07/20/2024 4:20 PM EDT us Anabela Resendez MD LAB BLOOD ORDERABLES Final Resul t [facility] [address] [place] [phone] * (ABNORMAL) Comprehensive Metabolic Panel (07/20/2024 1:38 PM EDT) Sodium 140 135 - 145 mmol/L [facility] Potassium 4.1 3.3 - 5.1 mmol/L [facility] Chloride 107 96 - 108 mmol/L [facility] Carbon Dioxide 28 22 - 29 mmol/L [facility] Anion Gap 9(L) 12 - 20 [facility] Urea Nitrogen (BUN) 9 9 - 16 mg/dL [facility] Creatinine, Serum 1.00 0.5 - 1.4 mg/dL [facility] Estimated Glomerular Filt Rate >60 [facility] Comment:NOTE: For -Am erican individuals, multiply the result by 1.210.Chronic Kidney Disease: Estimated GFR < 60 mL/min/1.34z9Towwnj Kidney Disease: Estimated GFR < 15 mL/min/1.73m2 Glucose 85 60 - 115 mg/dL [facility] Calcium 9.7 8.4 - 10.2 mg/dL [facility] Bilirubin, Total 0.6 0.0 - 1.0 mg/dL [facility] Aspartate Amino Transferase 15 5 - 31 U/L [facility] Alanine Aminotransferase 13 0 - 31 U/L [facility] Total Protein 7.4 6.5 - 8.0 g/dL [facility] Albumin Level 4.5 3.5 - 5.0 g/dL [facility] Alkaline Phosphatase 59 39 - 117 U/L [facility] Blood Venous blood specimen / Unknown 07/20/2024 1:38 PM EDT 07/20/2024 4:20 PM EDT Anabela Resendez MD LAB BLOOD ORDERABLES Final Resul t Performing Organization Address City/[facility] Co de Phone Number [facility] [address] [place] [phone] * TSH with Reflex to Free T4 (07/20/2024 1:38 PM EDT) TSH reflex Free T4 1.13 0.32 - 4.0 uIU/mL [facility] Blood 07/20/2024 1:38 PM EDT 07/20/2024 4:20 PM EDT Anabela Resendez MD LAB BLOOD ORDERABLES Final Resul t Performing Organization Address [facility] Co de Phone Number [facility] [address] [place] [phone] documented in this encounter Visit Diagnoses [...] documented as of this encounter Care Teams Office Nurse Relationship Specialty Start Date End Date Anabela Resendez MD [address] [place] [address] PCP - General Family Medicine 01/21/23 documented as of this encounter
--- OUTSIDE RECORDS SUMMARY | 2025-06-27 12:39 | XMS_ITS | Encounter Summary ---
Author Organization [employer] Address [address] [place] [address] 7 [place] [address] Care Team Providers Care Interactive Digital Media Specialist Name Role Phone Anabela Resendez MD Primary Care Provider [phone] Reason for Visit * Reason Onset Date Comments Nurse Triage 08/02/2024 Encounter Details Date Type Department Care Team ([facility] st Contact Info) Description 08/02/2024 Telephone [facility] MEDICINE [address] [place], [place] [phone] Anabela Resendez MD [address] [place], [place] [phone] Nurse Triage Social History Tobacco Use Types [...] Description 07/17/2025 10:30 AM EDT Office Visit [facility]INE [address] [place] [address] Anabela Resendez MD [address] [place] [address] documented as of this encounter Visit Diagnoses Not on filedocumented in this encounter Additional Health Concerns Assessment Noted Time PHQ-9 Depression Total Score: 11 024 10:02 AM EDT documented as of this encounter Care Teams Interactive Digital Media Specialist Relationship Specialty Start Date End Date Anabela Resendez MD [address] [place] [address] PCP - General Family Medicine 01/21/23 documented as of this encounter
--- OUTSIDE RECORDS SUMMARY | 2025-06-27 12:39 | XMS_ITS | Encounter Summary ---
Author Organization [employer] Address [address] [place] [address] 7 [place] [address] Care Team Providers Care Custodian Blood Bank Name Role Phone Anabela Resendez MD Primary Care Provider [phone] Reason for Visit * Reason Onset Date Comments Nurse Triage 01/20/2025 Encounter Details Date Type Department Care Team ([facility] st Contact Info) Description 01/20/2025 Telephone [facility] MEDICINE [address] [place], [place] [phone] Anabela Resendez MD [address] [place], [place] [phone] Nurse Triage Social History Tobacco Use Types [...] that rx be sent to [facility] in [place] as closer to her home. 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 Reviewed [facility] operating hours and that wait times vary. [...] become worse * Telephone Encounter - Maia Denise Ayala - 01/20/2025 9:39 AM EDT Symptom: Back Pain - Not From Injury Outcome: Schedule an appointment to be seen within 3 days Reason: Caller denied all higher acuity questions The caller accepted this outcome. [phone] documented in this encounter Plan of Treatment Upcoming Encounters Date Type Department Care Team (Late st Contact Info) Description 07/17/2025 10:30 AM EDT Office Visit [facility] MEDICINE [address] [place] [address] Anabela Resendez MD [address] [place] [address] documented as of this encounter Visit Diagnoses Not on filedocumented in this encounter Additional Health Concerns Assessment Noted Time PHQ-9 Depression Total Score: 14 024 7:54 AM EST documented as of this encounter Care Teams Custodian Blood Bank Relationship Specialty Start Date End Date Anabela Resendez MD [address] [place] [address] PCP - General Family Medicine 01/21/23 documented as of this encounter
--- OUTSIDE RECORDS SUMMARY | 2025-06-27 12:39 | XMS_ITS | Encounter Summary ---
Author Organization [employer] Address [address] [place] [address] 7 [place] [address] Care Team Providers Care Coverstitch Machine Operator Name Role Phone Anabela Resendez MD Primary Care Provider [phone] Encounter Details Date Type Department Care Team (Late st Contact Info) Description 02/05/2023 Orders Only [facility] MEDICINE [address] [place] [phone] Anabela Resendez MD [address] [place] [address] [phone] Vitamin D deficiency (Primary Dx) Social History [...] Office Visit [facility] MEDICINE [address] [place] [address] [phone] Anabela Resendez MD [address] [place] [address] [phone] documented as of this encounter Visit Diagnoses Diagnosis Vitamin D deficiency- Primary documented in this encounter Care Teams Coverstitch Machine Operator Relationship Specialty Start Date End Date Anabela Resendez MD [address] [place] [address] PCP - General Family Medicine 01/21/23 documented as of this encounter
--- OUTSIDE RECORDS SUMMARY | 2025-06-27 12:39 | XMS_ITS | Encounter Summary ---
Author Organization [employer] Address [address] [place] [address] 7 [place] [address] Care Team Providers Care Sole Rounding Machine Operator Name Role Phone Anabela Resendez MD Primary Care Provider [phone] Reason for Visit * Reason Onset Date Comments Results 06/20/2025 Encounter Details Date Type Department Care Team ([facility] st Contact Info) Description 06/20/2025 Telephone [facility] MEDICINE [address] [place], [place] [phone] Anabela Resendez MD [address] [place] [address] Results Social History Tobacco Use Types Packs/Day [...] is your housing situation today? I have silveriozachariah marks 06/21/[address] you [...] encounter Miscellaneous Notes * Telephone Encounter - Janiya Mcnally - 06/20/2025 12:47 PM EDT Tc from pt requesting a call back to discuss lab results she received . Pt states she does not understand how to read them Contact pt at [phone] documented in this encounter Plan of Treatment Upcoming Encounters Date Type Department Care Team (Late st Contact Info) Description 07/17/2025 10:30 AM EDT Office Visit [facility] MEDICINE [address] [place] [address] Anabela Resendez MD [address] [place] [address] documented as of this encounter Visit Diagnoses Not on filedocumented in this encounter Additional Health Concerns Assessment Noted Time PHQ-9 Depression Total Score: 14 024 7:54 AM EST documented as of this encounter Care Teams Sole Rounding Machine Operator Relationship Specialty Start Date End Date Anabela Resendez MD [address] [place] [address] PCP - General Family Medicine 01/21/23 documented as of this encounter
--- OUTSIDE RECORDS SUMMARY | 2025-06-27 12:39 | XMS_ITS | Encounter Summary ---
Author Organization [employer] Address [address] [place] [address] 7 [place] [address] Care Team Providers Care Associate Financial Representative Name Role Phone Anabela Resendez MD Primary Care Provider [phone] Reason for Visit * Reason Onset Date Comments Results 09/06/2024 Encounter Details Date Type Department Care Team ([facility] st Contact Info) Description 09/06/2024 Telephone [facility] MEDICINE [address] [place], [place] [phone] Anabela Resendez MD [address] [place], [place] [phone] Results Social History Tobacco Use Types Packs/Day [...] results: MRI Date when done: 07/31/24 [place] [facility] [place] [facility] [place] to request that MRI report [...] results: MRI Date when done: 07/31/24 [place] [facility] [place] documented in this encounter Plan of Treatment Upcoming Encounters Date Type Department Care Team (Late st Contact Info) Description 07/17/2025 10:30 AM EDT Office Visit [facility] MEDICINE [address], [place] [phone] Anabela Resendez MD [address] [place] [address] documented as of this encounter Visit Diagnoses Not on filedocumented in this encounter Additional Health Concerns Assessment Noted Time PHQ-9 Depression Total Score: 14 024 7:54 AM EST documented as of this encounter Care Teams Associate Financial Representative Relationship Specialty Start Date End Date Anabela Resendez MD [address] [place] [address] [place] [id number] PCP - General Family Medicine 01/21/23 documented as of this encounter
--- OUTSIDE RECORDS SUMMARY | 2025-06-27 12:39 | XMS_ITS | Encounter Summary ---
Author Organization [employer] Address [address] [place] [address] 7 [place] [address] Care Team Providers Care Racebook Writer Name Role Phone Anabela Resendez MD Primary Care Provider Reason for Visit * Reason Onset Date Comments Appointment Request 04/18/2025 Encounter Details Date Type Department Care Team ([facility] st Contact Info) Description 04/18/2025 Telephone [facility] MEDICINE [address] [place], [place] [phone] Anabela Resendez MD [address] [place], [place] [phone] Appointment Request Social History Tobacco Use Types [...] from derm office. Please contact pt at [phone]. (Danish Speaker) documented in this encounter Plan of Treatment Upcoming Encounters Date Type Department Care Team (Late st Contact Info) Description 07/17/2025 10:30 AM EDT Office Visit [facility] MEDICINE [address] [place] [phone] Anabela Resendez MD [address] [place] [address] documented as of this encounter Visit Diagnoses Not on filedocumented in this encounter Additional Health Concerns Assessment Noted Time PHQ-9 Depression Total Score: 14 024 7:54 AM EST documented as of this encounter Care Teams Racebook Writer Relationship Specialty Start Date End Date Anabela Resendez MD [address] [place] [address] PCP - General Family Medicine 01/21/23 documented as of this encounter
== END 2025-06-27 10:24 | disposition home or self-care (01) ==
LOC: HO.US 10:23
PROVIDERS: PCP Family Medicine; Visit Provider Surgery Vascular Surgery
DX: I83.12 Varicose veins of left lower extremity with inflammation (principal)
CPT/HCPCS: 93970

== ENCOUNTER → 2025-06-27 10:25 | Outpatient (BNV) | payer MEDICAID, SELFPAY | PROVIDERS: PCP Family Medicine; Visit Provider Radiology Diagnostic Radiology | DX: I83.12 Varicose veins of left lower extremity with inflammation (principal) | CPT/HCPCS: 93970 ==

== ENCOUNTER 2025-08-01 11:02 | Outpatient (AMB) | payer MEDICAID, SELFPAY ==
--- NOTE | 2025-08-01 11:03 | MHC.OFFVIS ---
Intake Visit Reasons: follow up [facility] 06/27/25 Intake Note: Patient presents for follow up [facility]. No complaints. Accompanied by: Self / Same As Patient Allergies adhesive tape Allergy (Mild, Verified 08/01/25 11:05) Infection Cortisone Allergy (Unknown, Uncoded 09/24/23 16:27) Swelling face & throat HPI HPI follow up [facility] 06/27/25: Details: The patient is a 44-year-old female presenting for follow-up regarding venous insufficiency. She reports that her ultrasound results were normal, but she experiences spontaneous bruising and veins that occasionally feel like they are pounding. She has superficial spider veins and has been advised to elevate her legs to manage her condition. The patient was diagnosed with melanoma last month, which was surgically addressed on right hip, including a right groin lymph node dissection. She has been advised to wear compression stockings and elevate her legs to manage swelling and prevent lymphedema. She reports experiencing pressure in her legs, especially after lifting, and is concerned about developing lymphedema due to the lymph node dissection. She now presents for routine follow-up. [facility] Medical History Postoperative pain Surgical History History of breast augmentation History of tubal ligation History of abdominoplasty (~04/2020) Family History Father Lung cancer Mother Stomach cancer Review of Systems Const Reports as per HPI ENT Reports no additional complaints Card Denies chest pain, Denies chest pain at rest and Denies chest pain with activity Resp Denies chest congestion and Denies cough GI Reports no additional complaints Musc Details: pain over varicosities, aching of lower extremities, swelling, cramping, heaviness and tiredness, itching Denies abnormal gait Skin/Breast Reports pruritus and Denies wounds Neuro Reports no additional complaints and Denies abnormal gait Psych Denies no additional complaints Physical Exam Const General: cooperative, healthy appearing and comfortable Orientation/consciousness: oriented to person, oriented to place and oriented to time Neck Carotids: no bruits Chest Chest palpation & inspection: normal inspection of the chest and normal palpation of entire chest wall Resp Effort & Inspection: normal respiratory effort and able to speak in complete sentences Cardio Rate: regular rate Heart sounds: S1 normal heart sound present and S2 normal heart sound present Peripheral pulses: Peripheral pulses 2+ throughout GI Inspection: Yes normal to inspection Skin Other: +2 edema, large rope-like varicosities greater than 4 mm CEAP Classification C4 - skin color changes Ep - Etiology Primary As - superficial veins P - reflux General skin exam: dry skin Neuro General: oriented to person, oriented to place and oriented to time Extrem Right lower extremity: full ROM, normal capillary refill and edema Left lower extremity: full ROM, normal capillary refill and edema Psych Mental Status: mental status grossly normal Results Reviewed Results Reviewed: Brief summary of venous insufficiency testing is as follows: right great saphenous vein: negative right small saphenous vein: negative right accessory vein: none present left great saphenous vein: negative left small saphenous vein: negative left accessory vein: none present Please note there is no evidence of any venous aneurysms or significant tortuosity Assessment & Plan Assessment & Plan (1) Varicose veins of left lower extremity with inflammation: Code(s): I83.12 - Varicose veins of left lower extremity with inflammation Category: Medical Plan: I discussed with the patient the normal ultrasound findings and the importance of continuing compression therapy and leg elevation for venous insufficiency. We also reviewed the recent melanoma surgery and the potential for lymphedema, emphasizing the need for monitoring and follow-up in three months. (2) Lymphedema: Code(s): I89.0 - Lymphedema, not elsewhere classified Category: Medical Plan: Due to her melanoma and right groin lymph node dissection I am concerned about overall lymphedema. I would like her current surgery to heal and await final results. We will bring her back in approximately 3 months' time and at that time may consider lymphedema pump therapy. Thank you for allowing us to assist in her care. If there are any questions or concerns please do not hesitate to contact us. Coding Level of Care Code Est Pt Level 4 (05932) Diagnoses Varicose veins of left lower extremity with inflammation I83.12 Lymphedema I89.0
== END 2025-08-01 11:39 | disposition home or self-care (01) ==
LOC: HO.HVS 11:03
PROVIDERS: PCP Family Medicine; Visit Provider Surgery Vascular Surgery
DX: I83.12 Varicose veins of left lower extremity with inflammation (principal); I89.0 Lymphedema, not elsewhere classified
CPT/HCPCS: 99214

== ENCOUNTER → 2025-08-01 11:02 | Outpatient (BNVA) | payer MEDICAID, SELFPAY | PROVIDERS: PCP Family Medicine; Visit Provider Surgery Vascular Surgery | DX: I83.12 Varicose veins of left lower extremity with inflammation (principal); I89.0 Lymphedema, not elsewhere classified | CPT/HCPCS: 99212 ==

== ENCOUNTER 2025-08-14 12:23 | Outpatient (REF) | payer MEDICAID, SELFPAY ==
--- NOTE | ~2025-08-14 | XR_ITS ---
EXAMINATION: X-ray lumbar spine X-ray sacrum and coccyx CLINICAL INFORMATION: Acute coccygeal pain, low back pain COMPARISON: X-ray 01/19/2025 TECHNIQUE: Lumbar spine 3 views. Sacrum and coccyx 3 views FINDINGS: Lumbar spine: Normal lumbar spondylosis. Vertebral body sagittal alignment is maintained. No evidence of acute fracture, compression deformity or suspicious bony lesion. Disc spaces are maintained. Facet joint articulation is maintained. Paraspinal soft tissues unremarkable. Phleboliths in the pelvis. No suspicious soft tissue calcifications. Sacrum and coccyx: No evidence of acute fracture, malalignment or suspicious bony lesion. SI joints appear unremarkable. Evaluation of coccyx is limited by anatomic variation. No acute displaced fractures identified. Phleboliths in the pelvis. No soft tissue abnormality is seen. XR/XR sacrum coccyx min 2V IMPRESSION: Lumbar spine: No acute findings identified. Sacrum and coccyx: No radiographic evidence of acute acute findings identified Electronically signed by: Ramy Gonzalez MD 08/14/2025 01:26 PM [facility]
--- NOTE | ~2025-08-14 | XR_ITS ---
EXAMINATION: X-ray lumbar spine X-ray sacrum and coccyx CLINICAL INFORMATION: Acute coccygeal pain, low back pain COMPARISON: X-ray 01/19/2025 TECHNIQUE: Lumbar spine 3 views. Sacrum and coccyx 3 views FINDINGS: Lumbar spine: Normal lumbar spondylosis. Vertebral body sagittal alignment is maintained. No evidence of acute fracture, compression deformity or suspicious bony lesion. Disc spaces are maintained. Facet joint articulation is maintained. Paraspinal soft tissues unremarkable. Phleboliths in the pelvis. No suspicious soft tissue calcifications. Sacrum and coccyx: No evidence of acute fracture, malalignment or suspicious bony lesion. SI joints appear unremarkable. Evaluation of coccyx is limited by anatomic variation. No acute displaced fractures identified. Phleboliths in the pelvis. No soft tissue abnormality is seen. XR/XR lumbar spine 2-3V IMPRESSION: Lumbar spine: No acute findings identified. Sacrum and coccyx: No radiographic evidence of acute acute findings identified Electronically signed by: Ramy Gonzalez MD 08/14/2025 01:26 PM [facility]
--- OUTSIDE RECORDS SUMMARY | 2025-08-14 14:37 | XMS_ITS | Encounter Summary ---
Author Organization [employer] Address [address] [place] [address] 7 [place] [address] Care Team Providers Care Relationship Banker Name Role Phone Anabela Resendez MD Primary Care Provider [phone] Reason for Visit * Reason Onset Date Comments Results 06/20/2025 Encounter Details Date Type Department Care Team ([facility] st Contact Info) Description 06/20/2025 Telephone [facility] MEDICINE [address] [place], [place] [phone] Anabela Resendez MD [address] [place] [address] Results Social History Tobacco Use Types Packs/Day [...] how to read them Contact pt at [phone] documented in this encounter Plan of Treatment Not on file documented as of this encounter Visit Diagnoses Not on filedocumented in this encounter Additional Health Concerns Assessment Noted Time PHQ-9 Depression Total Score: 14 024 7:54 AM EST documented as of this encounter Care Teams Relationship Banker Relationship Specialty Start Date End Date Anabela Resendez MD [address] [place] [address] PCP - General Family Medicine 01/21/23 documented as of this encounter
--- OUTSIDE RECORDS SUMMARY | 2025-08-14 14:38 | XMS_ITS | Encounter Summary ---
Author Organization [employer] Address [address] [place] [address] 7 [place] [address] Care Team Providers Care Grants Director Name Role Phone Anabela Resendez MD Primary Care Provider [phone] Encounter Details Date Type Department Care Team ([facility] st Contact Info) Description 02/05/2023 Orders Only [facility] MEDICINE [address] [place], [place] [phone] Anabela Resendez MD [address] [place], [place] [phone] Vitamin D deficiency (Primary Dx) Social History [...] Primary documented in this encounter Care Teams Grants Director Relationship Specialty Start Date End Date Anabela Resendez MD [address] [place], [place] [phone] PCP - General Family Medicine 01/21/23 documented as of this encounter
--- OUTSIDE RECORDS SUMMARY | 2025-08-14 14:38 | XMS_ITS | Encounter Summary ---
Author Organization [employer] Address [address] [facility] 7t [place] [address] Care Team Providers Care Hydrography Teacher Name Role Phone Anabela Resendez MD Primary Care Provider [phone] Encounter Details Date Type Department Care Team ([facility] st Contact Info) Description 06/20/2025 Orders Only [facility] MEDICINE [address] [place], [place] [phone] Anabela Resendez MD [address] [place], [place] [phone] Social History Tobacco Use Types Packs/Day Years [...] documented as of this encounter Care Teams Hydrography Teacher Relationship Specialty Start Date End Date Anabela Resendez MD [address] [place] [address] PCP - General Family Medicine 01/21/23 documented as of this encounter
--- OUTSIDE RECORDS SUMMARY | 2025-08-14 14:38 | XMS_ITS | Encounter Summary ---
Author Organization [employer] Address [address] [facility] 7t [place] [address] Care Team Providers Care Reactor Service Operator Name Role Phone Anabela Resendez MD Primary Care Provider [phone] Encounter Details Date Type Department Care Team ([facility] st Contact Info) Description 06/20/2025 Orders Only [facility] MEDICINE [address] [place], [place] [phone] Anabela Resendez MD [address] [place], [place] [phone] Vitamin D deficiency (Primary Dx) Social History [...] documented as of this encounter Care Teams Reactor Service Operator Relationship Specialty Start Date End Date Anabela Resendez MD [address] [place] [address] PCP - General Family Medicine 01/21/23 documented as of this encounter
--- OUTSIDE RECORDS SUMMARY | 2025-08-14 14:38 | XMS_ITS | Encounter Summary ---
Author Organization [employer] Address [address] [place] [address] 7 [place] [address] Care Team Providers Care Air Traffic Supervisor Name Role Phone Anabela Resendez MD Primary Care Provider [phone] Reason for Visit * Reason Onset Date Comments Appointment Request 04/18/2025 Encounter Details Date Type Department Care Team ([facility] st Contact Info) Description 04/18/2025 Telephone [facility] MEDICINE [address] [place], [place] [phone] Anabela Resendez MD [address] [place], [place] [phone] Appointment Request Social History Tobacco Use Types [...] from derm office. Please contact pt at [phone]. (Turkish Speaker) documented in this encounter Plan of Treatment Not on file documented as of this encounter Visit Diagnoses Not on filedocumented in this encounter Additional Health Concerns Assessment Noted Time PHQ-9 Depression Total Score: 14 024 7:54 AM EST documented as of this encounter Care Teams Air Traffic Supervisor Relationship Specialty Start Date End Date Anabela Resendez MD [address] [place] [address] PCP - General Family Medicine 01/21/23 documented as of this encounter
--- OUTSIDE RECORDS SUMMARY | 2025-08-14 14:38 | XMS_ITS | Encounter Summary ---
Author Organization [employer] Address [address] [facility] 7t [place] [address] Care Team Providers Care Physician Interventional Cardiologist Name Role Phone Anabela Resendez MD Primary Care Provider Encounter Details Date Type Department Care Team ([facility] st Contact Info) Description 06/20/2025 Orders Only [facility] MEDICINE [address] [place], [place] [phone] Anabela Resendez MD [address] [place], [place] [phone] Social History Tobacco Use Types Packs/Day Years [...] documented as of this encounter Care Teams Physician Interventional Cardiologist Relationship Specialty Start Date End Date Anabela Resendez MD [address] [place] [address] PCP - General Family Medicine 01/21/23 documented as of this encounter
--- OUTSIDE RECORDS SUMMARY | 2025-08-14 14:38 | XMS_ITS | Encounter Summary ---
Author Organization [employer] Address [address] [facility] 7t [place] [address] Care Team Providers Care Hat Lining Paster Name Role Phone Anabela Resendez MD Primary Care Provider [phone] Encounter Details Date Type Department Care Team ([facility] st Contact Info) Description 05/31/2025 Orders Only [facility] MEDICINE [address] [place], [place] [phone] Anabela Resendez MD [address] [place], [place] [phone] Social History Tobacco Use Types Packs/Day Years [...] documented as of this encounter Care Teams Hat Lining Paster Relationship Specialty Start Date End Date Anabela Resendez MD [address] [place] [address] PCP - General Family Medicine 01/21/23 documented as of this encounter
--- OUTSIDE RECORDS SUMMARY | 2025-08-14 14:38 | XMS_ITS | Encounter Summary ---
Author Organization [employer] Address [address] [place] [address] 7 [place] [address] Care Team Providers Care Silverware Etcher Name Role Phone Anabela Resendez MD Primary Care Provider [phone] Reason for Visit * Reason Onset Date Comments Results 09/06/2024 Encounter Details Date Type Department Care Team ([facility] st Contact Info) Description 09/06/2024 Telephone [facility] MEDICINE 230 [place], [place] [phone] Anabela Resendez MD [address] [place], [place] [phone] Results Social History Tobacco Use Types Packs/Day [...] results: MRI Date when done: 07/31/24 Facility: [facility] [place] TC placed to [facility] MRI department to request that MRI report [...] results: MRI Date when done: 07/31/24 Facility: [facility] [place] documented in this encounter Plan of Treatment Not on file documented as of this encounter Visit Diagnoses Not on filedocumented in this encounter Additional Health Concerns Assessment Noted Time PHQ-9 Depression Total Score: 14 024 7:54 AM EST documented as of this encounter Care Teams Silverware Etcher Relationship Specialty Start Date End Date Anabela Resendez MD [address] [place] [address] PCP - General Family Medicine 01/21/23 documented as of this encounter
--- OUTSIDE RECORDS SUMMARY | 2025-08-14 14:38 | XMS_ITS | Encounter Summary ---
Author Organization [employer] Address [address] [place] [address], [place] [address] Care Team Providers Care Ur Coordinator Name Role Phone Anabela Resendez MD Primary Care Provider [phone] Reason for Referral * Imaging (Routine) - Closed Specialty Diagnoses / Procedures Referred By Nicol t Referred To Contact Radiology Diagnoses Breast cancer screening by mammogram Procedures BI Mammogram Screening Tomosynthesis Right Anabela Resendez MD [address] [place] [address] Phone: tel: fax: [address] Phone: tel: fax: Referral ID Status Reason Start Date Expiration Date Visits Re quested Visits Authorized [id number] Closed 02/17/2024 02/16/2025 1 1 * Imaging (Routine) - Closed Specialty Diagnoses / Procedures Referred By Contac t Referred To Contact Radiology Diagnoses Mass of left breast, unspecified quadrant Procedures BI Mammogram Diagnostic Tomosynthesis Left Anabela Resendez MD [address] [place] [address] Phone: tel: fax: [address] Phone: tel: fax: Referral ID Status Reason Start Date Expiration Date Visits Re quested Visits Authorized [id number] Closed 02/17/2024 02/16/2025 1 1 Encounter Details Date Type Department Care Team (Late st Contact Info) Description 02/17/2024 Orders Only [facility] MEDICINE [address] [place] [address] Anabela Resendez MD [address] [place] [address] Mass of left breast, unspecified quadrant (Primary [...] documented as of this encounter Care Teams Ur Coordinator Relationship Specialty Start Date End Date Anabela Resendez MD [address] [place] [address] PCP - General Family Medicine 01/21/23 documented as of this encounter
--- OUTSIDE RECORDS SUMMARY | 2025-08-14 14:38 | XMS_ITS | Encounter Summary ---
Author Organization [email or web address] Address [address] [facility] [address] [place] [address] Care Team Providers Care Monitor Tech Name Role Phone Anabela Resendez MD Primary Care Provider [phone] Encounter Details Date Type Department Care Team ([facility] st Contact Info) Description 12/01/2023 Orders Only [facility] [address] [place], [place] [phone] Anabela Resendez MD [address] [place], [place] [phone] Family history of diabetes mellitus (Primary Dx); [...] EDT) Hepatitis A Antibody IgG REACTIVE Nonreactive [facility] Comment:The presence of IgG anti-HAV implies past HAV infection(recent or distant) or vaccination against HAV. Blood Venous blood specimen / Unknown 07/20/2024 1:38 PM EDT 07/20/2024 4:20 PM EDT us Anabela Resendez MD LAB BLOOD ORDERABLES Final Resul t [facility] [address] [place], [place] [phone] * (ABNORMAL) Vitamin D, 25-Hydroxy, Total, Immunoassay (07/20/2024 1:38 PM EDT) Vitamin D 25-OH Total 19.1(L) >30 ng/mL [facility] Comment:Health Based Referen ce Values*< 20 ng/mL Wgolbagxl97-80 ng/mL Insufficient> 30 ng/mL Sufficient*Holick MF. N [...] ORDERABLES Final Resul t Performing Organization Address [facility] Co de Phone Number [facility] [address] [place] [phone] * Hepatitis B surface antigen, EIA (07/20/2024 1:38 PM EDT) Hepatitis B Surface Ag Negative Negative [facility] Blood Venous blood specimen / Unknown 07/20/2024 1:38 PM EDT 07/20/2024 4:20 PM EDT Anabela Resendez MD LAB BLOOD ORDERABLES Final Resul t Performing Organization Address [facility] Co de Phone Number [facility] [address] [place] [phone] * HIV-1/2 Antigen and Antibodies, Fourth Generation, with Reflexes (07/20/2024 1:38 PM EDT) HIV AB/AG Nonreactive Nonreactive [facility] Comment:HIV-1 p24 Ag and/or HIV-1/HIV-2 Ab not detected.A test result that is nonreactive does not exclude thepossibility of exposure to or infection with HIV-1 and/orHIV-2. Nonreactive results in this assay for individualswith prior exposure to HIV-1 and/or HIV-2 may be due toantigen and antibody levels that are below the limit ofdetection of this assay.The [employer] HIV Ag/Ab Combo assay result andsupplemental assay results should be interpreted inconjunction with the patient's clinical presentation,history and other laboratory results. If the results areinconsistent with clinical evidence, additional testing issuggested to confirm the result. Blood Venous blood specimen / Unknown 07/20/2024 1:38 PM EDT 07/20/2024 4:20 PM EDT us Anabela Resendez MD LAB BLOOD ORDERABLES Final Resul t [facility] [address] [place] [phone] * Chlamydia/N. Gonorrhoeae RNA, TMA, Urogenitial (07/20/2024 1:38 PM EDT) CT PCR NOT DETECTED Not Detect. [facility] Comment:A not detected test result does [...] psychologicalconsequences. NG PCR NOT DETECTED Not Detect. [facility] Comment:A not detected test result does [...] PM EDT 07/20/2024 4:24 PM EDT Narrative [facility] - 07/21/2024 3:31 AM EDT Urine Anabela Resendez MD LAB MICROBIOLOGY - GENERAL ORDER VIJI Final Result Performing Organization Address [facility] Co de Phone Number [facility] [address] [place] [phone] * Hepatitis B Core Antibody, Total (07/20/2024 1:38 PM EDT) Hepatitis B Core Antibody Nonreactive Nonreactive [facility] Blood Venous blood specimen / Unknown 07/20/2024 1:38 PM EDT 07/20/2024 4:20 PM EDT us Anabela Resendez MD LAB BLOOD ORDERABLES Final Resul t Performing Organization Address [facility] Co de Phone Number [facility] [address] [place] [phone] * Hepatitis B Surface Antibody, Qualitative (07/20/2024 1:38 PM EDT) ~Hepatitis B Surface Antibody REACTIVE Nonreactive [facility] Comment:REACTIVE: > 11.99 mI U/mL Blood Venous blood specimen / Unknown 07/20/2024 1:38 PM EDT 07/20/2024 4:20 PM EDT Anabela Resendez MD LAB BLOOD ORDERABLES Final Resul t Performing Organization Address [facility] Co de Phone Number [facility] [address] [place] [phone] * Hepatitis C Antibody with Reflex to HCV, RNA, Quantitative, Real-Time PCR (07/20/2024 1:38 PM EDT) Hepatitis C Antibody Nonreactive Nonreactive [facility] Comment:Antibodies to HCV no t detected; does not exclude early acuteHCV infection. Blood Venous blood specimen / Unknown 07/20/2024 1:38 PM EDT 07/20/2024 4:20 PM EDT Anabela Resendez MD LAB BLOOD ORDERABLES Final Resul t Performing Organization Address [facility] Co de Phone Number [facility] [address] [place] [phone] * Syphilis Screen (07/20/2024 1:38 PM EDT) Syphilis Screen Nonreactive Nonreactive [facility] Blood 07/20/2024 1:38 PM EDT 07/20/2024 4:20 PM EDT Anabela Resendez MD LAB BLOOD ORDERABLES Final Resul t Performing Organization Address [facility] de Phone Number [facility] [address] [place] [phone] * Lipid Panel with Reflex to Direct LDL (07/20/2024 1:38 PM EDT) Triglycerides 58 <150 mg/dL [facility] Comment:Desirable Triglyceri de: less than 150 mg/dLBorderline High Triglyceride 150-199 mg/dLHigh Triglyceride: 200-499 mg/dLVery High Triglyceride: greater than or equal to 5OO mg/dL Cholesterol 161 <200 mg/dL [facility] Comment:Desirable Cholestero l: less than 200 mg/dLBorderline High Cholesterol: 200-239 mg/dLHigh Cholesterol: greater than 239 mg/dL LDL Cholesterol Calculated 87 <100 mg/dL [facility] Comment:Desirable LDL: less than 100 mg/dLNear Optimal/Above Optimal LDL: 110- 129 mg/dLBorderline High LDL: 130-159 mg/dLHigh LDL: 160-189 mg/dLVery High LDL: greater than or equal to 190 mg/dL HDL Cholesterol 63 >40 mg/dL [facility] Comment:Desirable HDL: great er than 40 mg/dL Note: This HDL assay may give artificially low results in patients with liver disease. Blood 07/20/2024 1:38 PM EDT 07/20/2024 4:20 PM EDT us Anabela Resendez MD LAB BLOOD ORDERABLES Final Resul t [facility] [address] [place] [phone] * (ABNORMAL) Comprehensive Metabolic Panel (07/20/2024 1:38 PM EDT) Sodium 140 135 - 145 mmol/L [facility] Potassium 4.1 3.3 - 5.1 mmol/L [facility] Chloride 107 96 - 108 mmol/L [facility] Carbon Dioxide 28 22 - 29 mmol/L [facility] Anion Gap 9(L) 12 - 20 [facility] Urea Nitrogen (BUN) 9 9 - 16 mg/dL [facility] Creatinine, Serum 1.00 0.5 - 1.4 mg/dL [facility] Estimated Glomerular Filt Rate >60 [facility] Comment:NOTE: For -Am erican individuals, multiply the result by 1.210.Chronic Kidney Disease: Estimated GFR < 60 mL/min/1.66m3Nhaihs Kidney Disease: Estimated GFR < 15 mL/min/1.73m2 Glucose 85 60 - 115 mg/dL [facility] Calcium 9.7 8.4 - 10.2 mg/dL [facility] Bilirubin, Total 0.6 0.0 - 1.0 mg/dL [facility] Aspartate Amino Transferase 15 5 - 31 U/L [facility] Alanine Aminotransferase 13 0 - 31 U/L [facility] Total Protein 7.4 6.5 - 8.0 g/dL [facility] Albumin Level 4.5 3.5 - 5.0 g/dL [facility] Alkaline Phosphatase 59 39 - 117 U/L [facility] Blood Venous blood specimen / Unknown 07/20/2024 1:38 PM EDT 07/20/2024 4:20 PM EDT us Anabela Resendez MD LAB BLOOD ORDERABLES Final Resul t Performing Organization Address [facility]/ZIP Co de Phone Number [facility] [address] [place] [phone] * TSH with Reflex to Free T4 (07/20/2024 1:38 PM EDT) TSH reflex Free T4 1.13 0.32 - 4.0 uIU/mL [facility] Blood 07/20/2024 1:38 PM EDT 07/20/2024 4:20 PM EDT us Anabela Resendez MD LAB BLOOD ORDERABLES Final Resul t Performing Organization Address [facility] Co de Phone Number [facility] [address] [place] [address] [phone] documented in this encounter Visit Diagnoses [...] documented as of this encounter Care Teams Monitor Tech Relationship Specialty Start Date End Date Anabela Resendez MD [address] [place] [phone] PCP - General Family Medicine 01/21/23 documented as of this encounter
--- OUTSIDE RECORDS SUMMARY | 2025-08-14 14:38 | XMS_ITS | Encounter Summary ---
Author Organization [employer] Address [address] [place] [phone] Care Team Providers Care Branch Lending Officer Name Role Phone Jory Yoder Primary Care Provider Danni Miles Primary Care Provider [phone] Anabela Resendez MD Primary Care Provider [phone] Reason for Visit * Reason Onset Date Comments Appointment Confirmation 11/07/2022 Encounter Details Date Type Department Care Team (Late st Contact Info) Description 11/07/2022 Telephone [facility] [address] [place] [address] Jory Yoder FNP Appointment Confirmation Social History [...] on filedocumented in this encounter Care Teams Branch Lending Officer Relationship Specialty Start Date End Date Jory Yoder FNP PCP - General Family Medicine 09/01/22 11/30/22 Danni Bhatti FNP [address] [place] [address] PCP - General Family Medicine 12/01/22 01/20/23 Anabela Resendez MD [address] [place] [address] PCP - General Family Medicine 01/21/23 documented as of this encounter
--- OUTSIDE RECORDS SUMMARY | 2025-08-14 14:38 | XMS_ITS | Encounter Summary ---
Author Organization [email or web address] Address [address] [place] [address] 7 [place] [address] Care Team Providers Care Upsetter Helper Name Role Phone Anabela Resendez MD Primary Care Provider [phone] Reason for Visit * Reason Onset Date Comments Nurse Triage 01/20/2025 Encounter Details Date Type Department Care Team ([facility] st Contact Info) Description 01/20/2025 Telephone [facility] [address] [place], [place] [phone] Anabela Resendez MD [address] [place], [place] [phone] Nurse Triage Social History Tobacco Use Types [...] that rx be sent to [facility] in [place] as closer to her home. Pt advised to waste picker and start rx as soon as possible, can also try cold/ warm compresses and return call if no improvement. Reviewed [facility] operating hours and that wait [...] acuity questions The caller accepted this outcome. [phone] documented in this encounter Plan of Treatment Not on file documented as of this encounter Visit Diagnoses Not on filedocumented in this encounter Additional Health Concerns Assessment Noted Time PHQ-9 Depression Total Score: 14 024 7:54 AM EST documented as of this encounter Care Teams Upsetter Helper Relationship Specialty Start Date End Date Anabela Resendez MD [address] [place] [phone] PCP - General Family Medicine 01/21/23 documented as of this encounter
--- OUTSIDE RECORDS SUMMARY | 2025-08-14 14:38 | XMS_ITS | Encounter Summary ---
Author Organization [employer] Address [address] [facility] 7t [place] [address] Care Team Providers Care Director Quality Assurance Name Role Phone Anabela Resendez MD Primary Care Provider [phone] Encounter Details Date Type Department Care Team ([facility] st Contact Info) Description 08/03/2025 Orders Only [facility] [address] [place], [place] [phone] Anabela Resendez MD [address] [place], [place] [phone] Acute coccygeal pain (Primary Dx) Social History Tobacco Use Types Packs/Day Years Used Date Smoking Tobacco: Never Passive Smoke Exposure: Never Smokeless Tobacco: Never Alcohol Use Standard Drinks/Week Comments Never 0 (1 standard drink = 0.6 oz pur e alcohol) Depression Answer Date Recorded Patient Health Questionnaire-9 Score 10 07/17/2025 Patient Health Questionnaire-9 Score 10 07/17/2025 Last PHQ-9: Questionnaire Data Not on file 1 Housing Stability Answer Date Recorded What is your housing situation today? I am not s ure 07/17/[address] you li ve. Do you have problems with any of the following? None of the above 07/17/2025 Food Insecurity Answer Date Recorded Within the past 12 months, y ou worried that your food would run out before you got money to buy more: Sometimes True 2024 Within the past 12 months,th e food you bought just didn't last and you didn't have enough money to get more: Sometimes True 07/17/2025 Transportation Answer Date Recorded In the past 12 months, has l ack of transportation kept you from medical appts, meetings, work or from getting things needed for daily living? I am not sure 07/17/2025 Utilities Answer Date Recorded In the past 12 months, has t he electric, gas, oil or water company threatened to shut off services in your home? Already shut Off 07/17/2025 Depression Answer Date Recorded Patient Health Questionnaire-2 Score 2 07/17/2025 Internet Access Answer Date Recorded Internet Access Q1 No 07/17/2025 Internet Access Q2 I cannot afford it 07/17/2025 Comments No Sex and Gender Information Value Date Recorded Sex Assigned at Female 08/04/2022 10:15 AM EDT Legal Sex Female 10:15 AM EDT Gender Identity Female 08/04/2022 10:15 AM EDT Sexual Orientation Straight 08/04/2022 10 :15 AM EDT documented as of this encounter Plan of Treatment Not on file documented as of this encounter Procedures Procedure Name Priority Date/Time Associated Diagnosis Comments XR LUMBAR SPINE 2-3 VIEWS Routine 08/14/2025 1:10 PM EST Acute coccygeal pain XR SACRUM COCCYX 2+ VIEWS Routine 08/14/2025 12:58 PM EST Acute coccygeal pain documented in this encounter Results * XR Lumbar Spine 2-3 Views (08/14/2025 1:10 PM EST) Anatomical Region Laterality Modality Spine, L-spine Radiographic Evelin ging 08/14/2025 1:10 PM EST Narrative 08/14/2025 1:29 PM EST [address] [address] XRay Report Signed Patient: Romi Howard MR #: [id number] : 1980 Acct:[id number] Age/Sex: 44 / F ADM Date: 08/14/25 Loc: HO.HHCX Attending Dr: Anabela Resendez MD Ordering Physician: Anabela Resendez MD Date of Service: 08/14/25 Procedure(s): XR lumbar spine 2-3V Accession Number(s): [id number] cc: Anabela Resendez MD Reason for Exam: pain EXAMINATION: X-ray lumbar spine X-ray sacrum and coccyx CLINICAL INFORMATION: Acute coccygeal pain, low back pain COMPARISON: X-ray 01/19/2025 TECHNIQUE: Lumbar spine 3 views. Sacrum and coccyx 3 views FINDINGS: Lumbar spine: Normal lumbar spondylosis. Vertebral body sagittal alignment is maintained. No evidence of acute fracture, compression deformity or suspicious bony lesion. Disc spaces are maintained. Facet joint articulation is maintained. Paraspinal soft tissues unremarkable. Phleboliths in the pelvis. No suspicious soft tissue calcifications. Sacrum and coccyx: No evidence of acute fracture, malalignment or suspicious bony lesion. SI joints appear unremarkable. Evaluation of coccyx is limited by anatomic variation. No acute displaced fractures identified. Phleboliths in the pelvis. No soft tissue abnormality is seen. XR/XR lumbar spine 2-3V IMPRESSION: Lumbar spine: No acute findings identified. Sacrum and coccyx: No radiographic evidence of acute acute findings identified Electronically signed by: Ramy Gonzalez MD 08/14/2025 01:26 PM [facility] Dictated By: Ramy Gonzalez MD Signed By: <Electronically signed by Ramy Gonzalez MD in OV> 08/14/25 1326 DD/ 1310 TD/TT: 08/14/25 1312 Associate Embalmer/Funeral Director: JACK Procedure Note Donotuseinterpreter, Image - 08/14/2025 [place] [address] XRay Report Signed Patient: Romi Howard #: [id number] : 1980Acct:[id number] Age/Sex: 44 / FADM Date: 08/14/25 Loc: .HHCX Attending Dr: Anabela Resendez MD Ordering Physician: Anabela Resendez MD Date of Service: 08/14/25 Procedure(s): XR lumbar spine 2-3V Accession Number(s): [id number] cc: Anabela Resendez MD Reason for Exam: pain EXAMINATION: X-ray lumbar spine X-ray sacrum and coccyx CLINICAL INFORMATION: Acute coccygeal pain, low back pain COMPARISON: X-ray 01/19/2025 TECHNIQUE: Lumbar spine 3 views. Sacrum and coccyx 3 views FINDINGS: Lumbar spine: Normal lumbar spondylosis. Vertebral body sagittal alignment is maintained. No evidence of acute fracture, compression deformity or suspicious bony lesion. Disc spaces are maintained. Facet joint articulation is maintained. Paraspinal soft tissues unremarkable. Phleboliths in the pelvis. No suspicious soft tissue calcifications. Sacrum and coccyx: No evidence of acute fracture, malalignment or suspicious bony lesion. SI joints appear unremarkable. Evaluation of coccyx is limited by anatomic variation. No acute displaced fractures identified. Phleboliths in the pelvis. No soft tissue abnormality is seen. XR/XR lumbar spine 2-3V IMPRESSION: Lumbar spine: No acute findings identified. Sacrum and coccyx: No radiographic evidence of acute acute findings identified Electronically signed by: Ramy Gonzalez MD 08/14/2025 01:26 PM EST Dictated By: Ramy Gonzalez MD Signed By: <Electronically signed by Ramy Gonzalez MD in OV> 08/14/25 1326 DD/ 1310 TD/TT: 08/14/25 1312 Associate Embalmer/Funeral Director: JACK Anabela Resendez MD IMG XR PROCEDURES Edited Result - Final * XR Sacrum Coccyx 2+ Views (08/14/2025 12:58 PM EST) Anatomical Region Laterality Modality Sacrum, Coccyx Radiographic Evelin ging 08/14/2025 12:5 8 PM EST Narrative 08/14/2025 1:29 PM EST [address] [address] XRay Report Signed Patient: Romi Howard MR #: [id number] : 1980 Acct:[id number] Age/Sex: 44 / F ADM Date: 08/14/25 Loc: .HHCX Attending Dr: Anabela Resendez MD Ordering Physician: Anabela Resendez MD Date of Service: 08/14/25 Procedure(s): XR sacrum coccyx min 2V Accession Number(s): [id number] cc: Anabela Resendez MD Reason for Exam: pain EXAMINATION: X-ray lumbar spine X-ray sacrum and coccyx CLINICAL INFORMATION: Acute coccygeal pain, low back pain COMPARISON: X-ray 01/19/2025 TECHNIQUE: Lumbar spine 3 views. Sacrum and coccyx 3 views FINDINGS: Lumbar spine: Normal lumbar spondylosis. Vertebral body sagittal alignment is maintained. No evidence of acute fracture, compression deformity or suspicious bony lesion. Disc spaces are maintained. Facet joint articulation is maintained. Paraspinal soft tissues unremarkable. Phleboliths in the pelvis. No suspicious soft tissue calcifications. Sacrum and coccyx: No evidence of acute fracture, malalignment or suspicious bony lesion. SI joints appear unremarkable. Evaluation of coccyx is limited by anatomic variation. No acute displaced fractures identified. Phleboliths in the pelvis. No soft tissue abnormality is seen. XR/XR sacrum coccyx min 2V IMPRESSION: Lumbar spine: No acute findings identified. Sacrum and coccyx: No radiographic evidence of acute acute findings identified Electronically signed by: Ramy Gonzalez MD 08/14/2025 01:26 PM [facility] Dictated By: Ramy Gonzalez MD Signed By: <Electronically signed by Ramy Gonzalez MD in OV> 08/14/25 1326 DD/ 1258 TD/TT: 08/14/25 1312 Associate Embalmer/Funeral Director: Procedure Note Donotuseinterpreter, Image - 08/14/[address] [address] XRay Report Signed Patient: Romi Howard #: [id number] : 1980Acct:[id number] Age/Sex: 44 / FADM Date: 08/14/25 Loc: HO.HHCX Attending Dr: Anabela Resendez MD Ordering Physician: Anabela Resendez MD Date of Service: 08/14/25 Procedure(s): XR sacrum coccyx min 2V Accession Number(s): [id number] cc: Anabela Resendez MD Reason for Exam: pain EXAMINATION: X-ray lumbar spine X-ray sacrum and coccyx CLINICAL INFORMATION: Acute coccygeal pain, low back pain COMPARISON: X-ray 01/19/2025 TECHNIQUE: Lumbar spine 3 views. Sacrum and coccyx 3 views FINDINGS: Lumbar spine: Normal lumbar spondylosis. Vertebral body sagittal alignment is maintained. No evidence of acute fracture, compression deformity or suspicious bony lesion. Disc spaces are maintained. Facet joint articulation is maintained. Paraspinal soft tissues unremarkable. Phleboliths in the pelvis. No suspicious soft tissue calcifications. Sacrum and coccyx: No evidence of acute fracture, malalignment or suspicious bony lesion. SI joints appear unremarkable. Evaluation of coccyx is limited by anatomic variation. No acute displaced fractures identified. Phleboliths in the pelvis. No soft tissue abnormality is seen. XR/XR sacrum coccyx min 2V IMPRESSION: Lumbar spine: No acute findings identified. Sacrum and coccyx: No radiographic evidence of acute acute findings identified Electronically signed by: Ramy Gonzalez MD 08/14/2025 01:26 PM [facility] Dictated By: aRmy Gonzalez MD Signed By: <Electronically signed by Ramy Gonzalez MD in OV> 08/14/25 1326 DD/ 1258 TD/TT: 08/14/25 1312 Associate Embalmer/Funeral Director: JACK Anabela Resendez MD IMG XR PROCEDURES Edited Result - Final documented in this encounter Visit Diagnoses Diagnosis Acute coccygeal pain- Primary documented in this encounter Additional Health Concerns Assessment Noted Time PHQ-9 Depression Total Score: 10 025 2:15 PM EDT documented as of this encounter Care Teams Director Quality Assurance Relationship Specialty Start Date End Date Anabela Resendez MD [address] [place] [phone] PCP - General Family Medicine 01/21/23 documented as of this encounter
--- OUTSIDE RECORDS SUMMARY | 2025-08-14 14:38 | XMS_ITS | Encounter Summary ---
Author Organization [employer] Address [address] [place] [address] [address] [place] [address] Care Team Providers Care Electrical And Instrument Mechanic Name Role Phone Anabela Resendez MD Primary Care Provider [phone] Reason for Visit * Reason Onset Date Comments Nurse Triage 08/12/2024 Encounter Details Date Type Department Care Team ([facility] st Contact Info) Description 08/12/2024 Telephone [facility] [address] [place], [place] [phone] Anabela Resendez MD [address] [place], [place] [phone] Nurse Triage Social History Tobacco Use Types [...] go to ED [place] [facility] [place]. Pt. Will go to ED if needed. I will send this to a green team covering provider and Provider that ordered MRI since PCP not in office onThursday08/15/24 to see if MRI can be expedited due to pt. concerns Protocol Used: Headache (Adult) Protocol-Based Disposition: Pt. Will go [place] [facility] if needed Video visit not offered [...] documented as of this encounter Care Teams Electrical And Instrument Mechanic Relationship Specialty Start Date End Date Anabela Resendez MD [address] [place] [phone] PCP - General Family Medicine 01/21/23 documented as of this encounter
--- OUTSIDE RECORDS SUMMARY | 2025-08-14 14:38 | XMS_ITS | Clinical Summary ---
Author Organization [employer] Address [address] [place] [address] 7 [place] [address] Care Team Providers Care Ribbon Hanking Machine Operator Name Role Phone Anabela Resendez MD Primary Care Provider [phone] Allergies Active Allergy Reactions Criticality Noted Date Comments Bee Venom 02/04/2023 Cortisone 10/30/2017 Other reaction(s): face,throat swollen Shellfish Allergy 02/04/2023 Shellfish Protein-Containing Drug Products Unknown Medications * This document contains information received from the source organization and may not represent a complete record from that organization. sodium chloride ([place]) 0.65 % nasal sprayIndications :Allergic rhinitis, unspecified [...] hours. 9 tablet 3 05/04/20 24 Active fluticasone (Flonase) 50 MCG/ACT nasal sprayIndications :Allergic rhinitis, unspecified seasonality, unspecified trigger ADMINISTER 1-2 SPRAYS INTO AFFECTED NOSTRIL(S) ONCE A DAY 48 mL 08/19/20 24 Active albuterol 108 (90 Base) MCG/ACT [...] use. 2 each 1 04/10/20 25 Active escitalopram (Lexapro) 10 MG tablet Take 1 tablet (10 mg) by mouth Once per day. 30 tablet 2 05/31/20 25 025 Active cholecalciferol (Vitamin D-3) 75 MCG (3000 UT) tablet Take 1 tablet (75 mcg) by mouth Once per day. Increased dose 90 tablet 3 06/08/20 25 Active ergocalciferol (Vitamin D2) 1.25 MG (73522 UT) capsule Take 1 capsule (1.25 mg) by mouth 1 (one) time per week. 8 capsule 06/20/20 25 Active oxyCODONE (Roxicodone) 5 MG immediate release tabletIndication s:Vitamin D deficiency Take 1 tablet (5 mg) by mouth every 8 (eight) hours if needed for severe pain for up to 4 days. 12 tablet 07/17/20 25 025 Active Problems Problem Noted Date Diagnosed Date Melanoma (CMS/HCC) 07/28/2025 Assessment & Plan (07/28/2025 9:18 AM EDT): - right buttock - s/p excisional biopsy on 05/26/2025, malignant melanoma - s/p wide local excision and right groin sentinel lymph node biopsy on 07/05/2025 - refer to oil expeller operator, Dr. Ulrich, as requested Overweight 05/27/2025 Varicose veins of lower extremity with pain 05/06 Assessment & Plan (07/28/2025 9:22 AM EDT): - continue following up with vascular specialist - continue compression stocking, leg elevation, adequate physical activity, and low sodium diet Assessment & Plan (05/27/2025 6:56 AM EDT): - continue following up with vascular specialist - discussed that we can fill out her FMLA form once her US is complete and her vascular specialist have treatment plan Skin lesion 04/14/2025 Assessment & Plan (05/27/2025 6:57 AM EDT): - seen by oil expeller operator - family history of melanoma - upcoming appointment for excisional biopsy - discussed about FMLA form once the result becomes available and her specialist makes a treatment plan CHERISE (generalized anxiety disorder) 09/05/2024 Assessment & Plan (07/28/2025 9:20 AM EDT): - continue escitalopram - evaluated by behavioral health service Assessment & Plan (05/27/2025 6:54 AM EDT): [...] intervention , [facility], Comply with medication , Patient to engage in OP therapy , and Patient to reach out to [facility] as needed Chronic headache 07/27/2024 Assessment & Plan (07/27/2024 9:58 AM EDT): - family history of brain tumor - upcoming MRI appointment - continue NSAIDs Stress incontinence 06/08/2023 Assessment & Plan (10/15/2023 5:43 AM EST): - following with [facility] - s/p advantage blue retropubic [...] (07/27/2024 9:36 AM EDT): - following with [facility], last visit in Oct 2023 - 07/15/23 advantage blue retropubic midurethral sling, posterior colporrhaphy, and cystoscopy Assessment & Plan (05/04/2024 4:49 AM EDT): - following with [facility], last visit in Oct 2023 - 07/15/23 advantage blue retropubic midurethral sling, posterior colporrhaphy, and cystoscopy Assessment & Plan (10/15/2023 5:44 AM EST): - following with [facility], last visit in Aug 2023 - 07/15/23 advantage blue retropubic midurethral sling, posterior colporrhaphy, and cystoscopy Assessment & Plan (06/12/2023 5:22 AM EDT): - following with [facility] Asthma 02/04/2023 Assessment & Plan (07/28/2025 9:21 AM EDT): - Continue Albuterol inhaler and Nebulizer solution - New nebulizer script written in 2022 Assessment & Plan (05/27/2025 6:53 AM EDT): [...] Vitamin D deficiency 02/04/2023 Assessment & Plan (07/19/2025 5:12 PM EDT): - continue vitamin D supplement Assessment & Plan (05/27/2025 6:47 AM EDT): [...] bladder suspension surgery in the near future Depression 02/04/2023 Assessment & Plan (07/28/2025 9:20 AM EDT): - continue escitalopram - evaluated by behavioral health service Assessment & Plan (05/27/2025 6:54 AM EDT): [...] (06/12/2023 5:20 AM EDT): - followed by [facility] AMERICAN STUDIES PROFESSOR - Dx Pelvic Congestion Syndrome - continue Tx plan per AMERICAN STUDIES PROFESSOR / UroGYN Assessment & Plan (02/04/2023 6:11 PM EDT): - followed by [facility] AMERICAN STUDIES PROFESSOR - Dx Pelvic Congestion Syndrome - continue Tx plan per AMERICAN STUDIES PROFESSOR / UroGYN Allergic rhinitis 02/04/2023 Assessment & [...] Encounters Date Type Department Care Team Description 08/03/[address] [facility] [place] [address] Anabela Resendez MD Acute coccygeal pain (Primary Dx) 07/17/2025 10:30 AM EDT Office Visit [facility] [place] [address] Anabela Resendez MD Vitamin D deficiency (Primary Dx); Malignant melanoma of torso excluding breast (CMS/HCC) (HCC); Surgical wound infection; Moderate episode of recurrent major depressive disorder (CMS/HCC) (HCC); CHERISE (generalized anxiety disorder); Mild intermittent asthma without complication; Varicose veins of both lower extremities with pain 07/17/2025 Patient Outreach [address] [address] Anabela Resendez MD Care Coordination (CHW outreach for SDOH housing search-referral completed ) 07/17/2025 Travel 07/14/[address] [address] Beth Garrett MA chartprep 07/10/[address] [address] Laura Sykes, RN Nurse Triage 06/30/[address] [address] Anabela Resendez MD Nurse Triage 06/27/2025 Orders Only [facility] External Provider, [facility] 06/20/2025 Orders Only [address] [address] Anabela Resendez MD 06/20/2025 Orders Only [address] [address] Anabela Resendez MD 06/20/2025 Orders Only [address] [address] Anabela Resendez MD Vitamin D deficiency (Primary Dx) 06/20/2025 Results Follow-Up [address] [address] Anabela Resendez MD Vitamin D, 25-Hydroxy, Total, Immunoassay, CBC auto differential, Hemoglobin A1c, Additional followed-up results: 4 06/20/[address] [address] Anabela Resendez MD Results 06/19/[address] [address] Anabela Resendez MD Appointment Request 06/14/[address] [address] Anabela Resendez MD FYI/Call Back Request 06/08/2025 Refill [facility] [address] [facility] [place] [address] Anabela Resendez MD 06/06/[address] [address] Anabela Resendez MD 06/01/[address] [address] Anabela Resendez MD Call Back Request 05/31/2025 Orders Only [address] [address] Anabela Resendez MD 05/23/[address] [address] Anabela Resendez MD call back needed 05/22/2025 3:30 PM EDT Office Visit [address] [address] Anabela Resendez MD Vitamin D deficiency (Primary Dx); Screening for lipid disorders; Screening for diabetes mellitus; Leukopenia, unspecified type; Easy bruising; Dietary counseling; Exercise counseling; Skin lesion; Mild intermittent asthma without complication; Moderate depressive disorder; CHERISE (generalized anxiety disorder); Varicose veins of both lower extremities with pain 05/22/[address] [address] Anabela Resendez MD Change PCP 05/22/2025 Telephone [facility] [address] [place] [address] Anabela Resendez MD 05/22/2025 Travel 05/19/2025 Telephone [facility] [address] [place] [address] Anabela Resendez MD chart prep 05/17/2025 Travel 05/15/[address] [address] Anabela Resendez MD FMLA Form from Last 3 Months Immunizations Immunization Administration [...] Sign Reading Time Taken Comments Blood Pressure 100/78 07/17/2025 10:32 AM EDT Pulse 76 07/17/2025 10:32 AM EDT Temperature 36.3 C (97.4 F) 07/17/2025 10:32 AM EDT Respiratory Rate 16 07/17/2025 10:32 AM EDT Oxygen Saturation 100% 07/17/2025 10:32 AM EDT Inhaled Oxygen Concentration - - Weight 78.6 kg (173 lb 3.2 oz) 07/17/2025 10:32 AM EDT Height 162.6 cm (5' 4 ) 05/22/2025 3:28 PM EDT Body Mass Index 29.73 05/22/2025 3:28 PM EDT Plan of Treatment Health Maintenance Due Date Last Done Comments Derm Melanoma Skin Check 05/21/1983 Family Planning (PISQ) 1997 HPV Vaccines (1 - 3-dose series) 1997 COVID-19 Vaccine ( season) 2025 08/21/2021, 11/16/2020, 10/17/2020 Influenza Vaccine (#1) 2025 , 08/04/2023, 07/22/2021, Additional history exists Depression Monitoring 01/15/2026 07/17/2025, 025 Alcohol/Substance Use Screening 04/10/2026 04/10/2025 Disability Screening 05/17/2026 05/17/2025 SDOH Screening 07/17/2026 07/17/2025 Tobacco Screening 07/17/2026 07/17/2025 Mammogram 02/18/2027 02/18/2025, 03/06, 03/20/2022 Cervical Cancer Screening 03/13/2027 HPV/Cotest 03/13/2027 03/13/2022, 12/24/2016 Pap Smear 03/13/2027 03/13/2022 DTaP/Tdap/Td Vaccines (6 - Td or Tdap) [...] 08/14/2025 12:58 PM EST Acute coccygeal pain VASC US LOWER EXTREMITY VENOUS DUPLEX BILATERAL [...] TO GENERAL SURGERY Urgent 06/13/2025 Skin lesion BI MAMMOGRAM SCREENING TOMOSYNTHESIS BILATERAL Routine 02/18/2025 [...] Relevant to Health Maintenance Results * XR Lumbar Spine 2-3 Views (08/14/2025 1:10 PM EST) Anatomical Region Laterality Modality Spine, L-spine Radiographic Evelin ging 08/14/2025 1:10 PM EST Narrative 08/14/2025 1:29 [place] [address] XRay Report Signed Patient: Romi Howard MR #: [id number] : 1980 Acct:[id number] Age/Sex: 44 / F ADM Date: 08/14/25 Loc: .HHCX Attending Dr: Anabela Resendez MD Ordering Physician: Anabela Resendez MD Date of Service: 08/14/25 Procedure(s): XR lumbar spine 2-3V Accession Number(s): [id number] cc: Anabela Resendez MD Reason for Exam: [...] 08/14/25 1326 DD/ 1310 TD/TT: 08/14/25 1312 Career Education Teacher: JACK Procedure Note Donotuseinterpreter, Image - 08/14/[address] [address] XRay Report Signed Patient: Romi HowardMR #: [id number] : 1980Acct:[id number] Age/Sex: 44 / FADM Date: 08/14/25 Loc: HO.HHCX Attending Dr: Anabela Resendez MD Ordering Physician: Anabela Resendez MD Date of Service: 08/14/25 Procedure(s): XR lumbar spine 2-3V Accession Number(s): [id number] cc: Anabela Resendez MD Reason for Exam: [...] Ramy Gonzalez MD 08/14/2025 01:26 PM EST RP Dictated By: Ramy Gonzalez MD Signed By: <Electronically signed by Ramy Gonzalez MD in OV> 08/14/25 1326 DD/ 1310 TD/TT: 08/14/25 1312 Career Education Teacher: JACK us Anabela Resendez MD IMG XR PROCEDURES Edited Result - Final * XR Sacrum Coccyx 2+ Views (08/14/2025 12:58 PM EST) Anatomical Region Laterality Modality Sacrum, Coccyx Radiographic Evelin ging 08/14/2025 12:5 8 PM EST Narrative 08/14/2025 1:29 [place] [address] XRay Report Signed Patient: Romi Howard MR #: [id number] : 1980 Acct:[id number] Age/Sex: 44 / F ADM Date: 08/14/25 Loc: HO.HHCX Attending Dr: Anabela Resendez MD Ordering Physician: Anabela Resendez MD Date of Service: 08/14/25 Procedure(s): XR sacrum coccyx min 2V Accession Number(s): [id number] cc: Anabela Resendez MD Reason for Exam: [...] by: Ramy Gonzalez MD 08/14/2025 01:26 PM [facility] Dictated By: Ramy Gonzalez MD Signed By: <Electronically signed by Ramy Gonzalez MD in OV> 08/14/25 1326 DD/ 1258 TD/TT: 08/14/25 1312 Career Education Teacher: JACK Procedure Note Donotuseinterpreter, Image - 08/14/2025 [place] [address] XRay Report Signed Patient: Romi Howard #: [id number] : 1980Acct:[id number] Age/Sex: 44 / FADM Date: 08/14/25 Loc: .HHCX Attending Dr: Anabela Resendez MD Ordering Physician: Anabela Resendez MD Date of Service: 08/14/25 Procedure(s): XR sacrum coccyx min 2V Accession Number(s): [id number] cc: Anabela Resendez MD Reason for Exam: [...] by: Ramy Gonzalez MD 08/14/2025 01:26 PM [facility] Dictated By: Ramy Gonzalez MD Signed By: <Electronically signed by Ramy Gonzalez MD in OV> 08/14/25 1326 DD/ 1258 TD/TT: 08/14/25 1312 Career Education Teacher: JACK us Anabela Resendez MD IMG XR PROCEDURES Edited Result - Final * VASC US Lower Extremity Venous Duplex Bilateral (06/27/2025 10:40 AM EDT) 06/27/2025 10:4 0 AM EDT Narrative [facility] - 06/27/2025 11:35 AM EDT [place] [address] Ultrasound Report Signed Patient: Romi Howard MR #: [id number] : 1980 Acct:[id number] Age/Sex: 44 / F ADM Date: 06/27/25 Loc: . Attending Dr: Jaswant Wolf MD Ordering Physician: Jaswant Wolf MD Date of Service: 06/27/25 Procedure(s): US venous duplex LE Accession Number(s): [id number] cc: Jaswant Wolf MD; Anabela Resendez MD [...] 06/27/25 1133 DD/ 1040 TD/TT: 06/27/25 1108 Career Education Teacher: Procedure Note Donotuseinterpreter, Image - 06/27/2025 [place] [address] Ultrasound Report Signed Patient: Romi Howard #: [id number] : 1980Acct:[id number] Age/Sex: 44 / FADM Date: 06/27/25 Loc: HO.US Attending Dr: Jaswant Wolf MD Ordering Physician: Jaswant Wolf MD Date of Service: 06/27/25 Procedure(s): US venous duplex LE BI Accession Number(s): [id number] cc: Jaswant Wolf MD; Anabela Resendez MD [...] 06/27/25 1133 DD/ 1040 TD/TT: 06/27/25 1108 Career Education Teacher: us [facility] External Provider CV VASC ULAR PROCEDURES Final Result [facility] [address] [place] [phone] * (ABNORMAL) Vitamin D, 25-Hydroxy, Total, Immunoassay (06/20/2025 9:36 AM EDT) Vitamin D 25-OH Total 19.5(L) >30 ng/mL [facility] Comment: Health Based Reference Values*< 20 ng/mL Hqsttkmvv73-95 ng/mL Insufficient> 30 ng/mL Sufficient*Dana MASON. N Engl J Med. 2007;357:266-280There is no [...] MD LAB BLOOD ORDERABLES Final Resul t [facility] [address] [place] [address] [phone] * Lipid Panel with Reflex to Direct LDL (06/20/2025 9:36 AM EDT) Triglycerides 34 <150 mg/dL [facility] Comment:Desirable Triglyceri de: less than 150 mg/dLBorderline High Triglyceride 150-199 mg/dLHigh Triglyceride: 200-499 mg/dLVery High Triglyceride: greater than or equal to 5OO mg/dL Cholesterol 150 <200 mg/dL [facility] Comment:Desirable Cholestero l: less than 200 mg/dLBorderline High Cholesterol: 200-239 mg/dLHigh Cholesterol: greater than 239 mg/dL LDL Cholesterol Calculated 83 <100 mg/dL [facility] Comment:Desirable LDL: less than 100 mg/dLNear Optimal/Above Optimal LDL: 110- 129 mg/dLBorderline High LDL: 130-159 mg/dLHigh LDL: 160-189 mg/dLVery High LDL: greater than or equal to 190 mg/dL HDL Cholesterol 61 >40 mg/dL [facility] Comment:Desirable HDL: great er than 40 mg/dL Note: This HDL assay may give artificially low results in patients with liver disease. Blood 06/20/2025 9:36 AM EDT 06/20/2025 11:20 AM EDT us Anabela Resendez MD LAB BLOOD ORDERABLES Final Resul t [facility] [address] [place] [phone] * (ABNORMAL) CBC auto differential (06/20/2025 9:36 AM EDT) White Blood Count 4.4(L) 4.8 - 10.8 X10*3/uL [facility] Red Blood Count 4.60 4.20 - 5.50 X10*6/uL [facility] Hemoglobin 12.4 12.0 - 16.0 g/dl [facility] Hematocrit 37.5 37.0 - 47.0 % [facility] Mean Corpuscular Volume 81.5 80.0 - 98.0 fL [facility] Mean Corpuscular Hemoglobin 27.0 27.0 - 33.0 pg [facility] Mean Corpuscular HGB Conc 33.1 31.0 - 35.0 g/dl [facility] Red Cell Distribution Width 13.2 11.0 - 16.0 % [facility] Platelet Count 162 160 - 400 X10*3/uL [facility] Mean Platelet Volume 11.5 9.4 - 12.3 fL [facility] Neutrophils Percent Auto 60.6 45 - 73 % [facility] Imm Gran Pct Auto 0.5(H) 0.0 - 0.4 % [facility] Lymphocytes Percent Auto 28.8 20 - 40 % [facility] Monocytes Percent Auto 7.8 2 - 11 % [facility] Eosinophils Percent Auto 1.6 0 - 4 % [facility] Basophils Percent Auto 0.7 0 - 2 % [facility] NRBC Pct Auto 0.0 0.0 - 0.2 /100WBC [facility] Neutrophils Absolute Auto 2.7 2.0 - 8.3 x10*3/uL [facility] Imm Gran Abs Auto 0.02 0.00 - 0.03 X10*3/uL [facility] Lymphocytes Absolute Auto 1.3 1.2 - 4.9 X10*3/uL [facility] Monocytes Absolute Auto 0.3 0.1 - 1.2 X10*3/uL [facility] Eosinophils Absolute Auto 0.1 0.0 - 0.4 X10*3/uL [facility] Basophils Absolute Auto 0.0 0.0 - 0.2 X10*3/uL [facility] NRBC Abs Auto 0.000 0.0 - 0.012 X10*3/uL [facility] Blood Venous blood specimen / Unknown 06/20/2025 9:36 AM EDT 06/20/2025 11:16 AM EDT us Anabela Resendez MD LAB BLOOD ORDERABLES Final Resul t [facility] [address] [place] [address] [phone] * PTH, Intact Without Calcium (06/20/2025 9:36 AM EDT) Parathyroid Hormone, Intact 69.9 8.7 - 77.1 pg/mL [facility] Blood Venous blood specimen / Unknown 06/20/2025 9:36 AM EDT 06/20/2025 11:16 AM EDT Anabela Resendez MD LAB BLOOD ORDERABLES Final Resul t Performing Organization Address [facility] Co de Phone Number [facility] [address] [place] [phone] * Hemoglobin A1c (06/20/2025 9:36 AM EDT) Hemoglobin A1c 4.8 <6.0 % [facility] Comment:Hemoglobin A1C Refer ence Range Adults: 4.8 - 6.0 % Non diabetic: < 6.0 % Goal: < 7.0 %Additional Action Suggested: > 8.0 %Note: Hemoglobin A1c results are invalid for patients with abnormal amounts of HbF. Blood transfusions may impact the HbA1c concentration in the patient sample. Estimated Average Glucose 91 mg/dL [facility] Comment:eAG = Estimated ave rage glucose which is %A1C expressed asaverage glucose, using the formula of the A4N-GolnrlcOomfbjy Glucose study (ADAG), Diabetes Care, Vol.31,#8,May. 2007 Blood Venous blood specimen / Unknown 06/20/2025 9:36 AM EDT 06/20/2025 11:16 AM EDT us Anabela Resendez MD LAB BLOOD ORDERABLES Final Resul t Performing Organization Address [facility] Co de Phone Number [facility] [address] [place] [phone] * Hepatic Function Panel (06/20/2025 9:36 AM EDT) Bilirubin, Total 0.7 0.0 - 1.0 mg/dL [facility] Bilirubin, Direct 0.3 0.0 - 0.5 mg/dL [facility] Aspartate Amino Transferase 21 5 - 31 U/L [facility] Alanine Aminotransferase 14 0 - 31 U/L [facility] Total Protein 6.9 6.5 - 8.0 g/dL [facility] Albumin Level 4.4 3.5 - 5.0 g/dL [facility] Alkaline Phosphatase 60 39 - 117 U/L [facility] Blood Venous blood specimen / Unknown 06/20/2025 9:36 AM EDT 06/20/2025 11:20 AM EDT Anabela Resendez MD LAB BLOOD ORDERABLES Final Resul t Performing Organization Address City/[facility]/ZIP Co de Phone Number [facility] [address] [place] [phone] * (ABNORMAL) Basic Metabolic Panel (06/20/2025 9:36 AM EDT) Sodium 140 135 - 145 mmol/L [facility] Potassium 4.3 3.3 - 5.1 mmol/L [facility] Chloride 108 96 - 108 mmol/L [facility] Carbon Dioxide 28 22 - 29 mmol/L [facility] Anion Gap 8(L) 12 - 20 [facility] Urea Nitrogen (BUN) 12 9 - 16 mg/dL [facility] Creatinine, Serum 0.67 0.5 - 1.4 mg/dL [facility] Estimated Glomerular Filt Rate >60 [facility] Comment:Chronic Kidney Disea se: Estimated GFR < 60 mL/min/1.22n4Tjyzpi Kidney Disease: Estimated GFR < 15 mL/min/1.73m2 Glucose 79 60 - 115 mg/dL [facility] Calcium 9.2 8.4 - 10.2 mg/dL [facility] Blood Venous blood specimen / Unknown 06/20/2025 9:36 AM EDT 06/20/2025 11:20 AM EDT Anabela Resendez MD LAB BLOOD ORDERABLES Final Resul t Performing Organization Address [facility]/ZIP Co de Phone Number [facility] [address] [place] [phone] [phone] * Referral to General Surgery (06/13/2025) Gwendolyn Lau TRIAL MGR OUTPATIENT REFERRAL ORDERABLES Final Result * BI Mammogram Screening Tomosynthesis Bilateral (02/18/2025 9:30 AM EDT) Anatomical Region Laterality Modality Breast Bilateral Mammography 02/18/2025 9:30 AM EDT Narrative 02/25/2025 3:29 PM EDT [facility] [address] [place], [place] [address] Mammography Report Signed Patient: Romi Howard MR #: [id number] : 1980 Acct:[id number] Age/Sex: 44 / F ADM Date: 02/18/25 Loc: .MAMMO Attending Dr: Anabela Resendez MD Ordering Physician: Anabela Resendez MD Results: 2Benign F indings Date of Service: 02/18/25 Follow Up: 1 Year From [facility] ina Mammogram Procedure(s): MM tomosynthesis screening BI Accession Number(s): [id number] cc: Anabela Resendez MD EXAMINATION: MM SCREENING [...] 02/25/25 1525 DD/ 0930 TD/TT: 02/18/25 0944 Career Education Teacher: Procedure Note Donotuseinterpreter, Image - 02/25/2025 [facility] [address] [place] [address] Mammography Report Signed Patient: Romi Howard #: [id number] : 1980Acct:[id number] Age/Sex: 44 / FADM Date: 02/18/25 Loc: [facility] Attending Dr: Anabela Resendez MD Ordering Physician: Anabela Resendez MDResults: 2Benign F indings Date of Service: 02/18/25Follow Up: 1 Year From Orig ina Mammogram Procedure(s): MM tomosynthesis screening BI Accession Number(s): [id number] cc: Anabela Resendez MD EXAMINATION: MM SCREENING [...] 02/25/25 1525 DD/ 0930 TD/TT: 02/18/25 0944 Career Education Teacher: Anabela Resendez MD IMG BI PROCEDURES Edited Result - Final * Hepatitis C Antibody with Reflex to HCV, RNA, Quantitative, Real-Time PCR (07/20/2024 1:38 PM EDT) Hepatitis C Antibody Nonreactive Nonreactive [facility] Comment:Antibodies to HCV no t detected; does not exclude early acuteHCV infection. Blood Venous blood specimen / Unknown 07/20/2024 1:38 PM EDT 07/20/2024 4:20 PM EDT Anabela Resendez MD LAB BLOOD ORDERABLES Final Resul t [facility] [address] [place] [phone] * HIV-1/2 Antigen and Antibodies, Fourth Generation, with Reflexes (07/20/2024 1:38 PM EDT) HIV AB/AG Nonreactive Nonreactive [facility] Comment:HIV-1 p24 Ag and/or HIV-1/HIV-2 Ab not detected.A test result that is nonreactive does not exclude thepossibility of exposure to or infection with HIV-1 and/orHIV-2. Nonreactive results in this assay for individualswith prior exposure to HIV-1 and/or HIV-2 may be due toantigen and antibody levels that are below the limit ofdetection of this assay.The [employer] HIV Ag/Ab Combo assay result andsupplemental assay results should be interpreted inconjunction with the patient's clinical presentation,history and other laboratory results. If the results areinconsistent with clinical evidence, additional testing issuggested to confirm the result. Blood Venous blood specimen / Unknown 07/20/2024 1:38 PM EDT 07/20/2024 4:20 PM EDT Anabela Resendez MD LAB BLOOD ORDERABLES Final Resul t [facility] [address] [place] [phone] [phone] * Hm Pap Smear (03/13/2022) Pap Negative for intraephithelial lesion or malignancy Negative for intraephithelial lesion or malignancy, Other HPV Undetected Pap Vial 03/13/2022 [facility] External Provider HEALTH MAINTENANCE Final Result from Last 3 Months or Most Recently Relevant to Health Maintenance Insurance [employer] Hanking Machine Operator Relationship Specialty Start Date End Date Anabela Resendez MD [address] [place] [address] PCP - General Family Medicine 01/21/23
--- OUTSIDE RECORDS SUMMARY | 2025-08-14 14:38 | XMS_ITS | Encounter Summary ---
Author Organization [employer] Address [address] [place] [address] 7 [place] [address] Care Team Providers Care Novelty Dipper Name Role Phone Anabela Resendez MD Primary Care Provider [phone] Reason for Visit * Reason Onset Date Comments Nurse Triage 08/02/2024 Encounter Details Date Type Department Care Team ([facility] st Contact Info) Description 08/02/2024 Telephone [facility] MEDICINE [address] [place], [place] [phone] Anabela Resendez MD [address] [place], [place] [phone] Nurse Triage Social History Tobacco Use Types [...] documented as of this encounter Care Teams Novelty Dipper Relationship Specialty Start Date End Date Anabela Resendez MD [address] [place] [address] PCP - General Family Medicine 01/21/23 documented as of this encounter
--- OUTSIDE RECORDS SUMMARY | 2025-08-14 14:38 | XMS_ITS | Encounter Summary ---
Author Organization [employer] Address [address] [place] [address] 7 [place] [address] Care Team Providers Care Favor Maker Name Role Phone Anabela Resendez MD Primary Care Provider [phone] Reason for Visit * Reason Onset Date Comments Nurse Triage 12/29/2024 Encounter Details Date Type Department Care Team ([facility] st Contact Info) Description 12/29/2024 Telephone [facility] MEDICINE 230 [place], [place] [phone] Anabela Resendez MD 230 [place], [place] [phone] Nurse Triage Social History Tobacco Use Types [...] liquids. Pt is advised to come to [facility] today open till 4pm for provider to see. Pt agrees with disposition. Pt is advised that medicaid shows inactive. Pt reports it is active. Pt is advised to call restaurant front manager for information and to be sure insurance [...] caller accepted this outcome. Contact pt at [phone] documented in this encounter Plan of Treatment Not on file documented as of this encounter Visit Diagnoses Not on filedocumented in this encounter Additional Health Concerns Assessment Noted Time PHQ-9 Depression Total Score: 14 024 7:54 AM EST documented as of this encounter Care Teams Favor Maker Relationship Specialty Start Date End Date Anabela Resendez MD [address] [place] [address] PCP - General Family Medicine 01/21/23 documented as of this encounter
--- OUTSIDE RECORDS SUMMARY | 2025-08-14 14:38 | XMS_ITS | Encounter Summary ---
Author Organization [employer] Address [address] [place] [address] 7 [place] [address] Care Team Providers Care Trade Show Specialist Name Role Phone Anabela Resendez MD Primary Care Provider [phone] Reason for Referral * Imaging (Routine) - Closed Specialty Diagnoses / Procedures Referred By Contlizette t Referred To Contact Radiology Diagnoses Breast pain, left Procedures BI US Breast Complete Right Anabela Resendez MD [address] [place] [address] Phone: tel: fax: [address] Phone: tel: fax: Referral ID Status Reason Start Date Expiration Date Visits Re quested Visits Authorized [id number] Closed 03/21/2024 03/21/2025 1 1 Encounter Details Date Type Department Care Team (Late st Contact Info) Description 03/21/2024 Orders Only [facility] MEDICINE [address] [place] [address] [phone] Anabela Resendez MD [address] [place] [address] Breast pain, left (Primary Dx) Social [...] PM EDT Narrative 03/28/2024 3:50 PM EDT [facility] [address] [place] [address] Ultrasound Report Signed Patient: Romi Howard MR #: [id number] : 1980 Acct:[id number] Age/Sex: 43 / F ADM Date: 03/28/24 Loc: HO.MAMMO Attending Dr: Anabela Resendez MD Ordering Physician: Anabela Resendez MD Date of Service: 03/28/24 Procedure(s): US breast LT limited mamm only Accession Number(s): [id number] cc: Anabela Resendez MD EXAMINATION: MM DIAGNOSTIC [...] in OV> 03/28/24 1546 DD/ 154 TD/TT: Digital Operations Analyst: Procedure Note Donotuseinterpreter, Image - 03/28/2024 [facility] [address] [place] [address] Ultrasound Report Signed Patient: Romi Howard #: [id number] : 1980Acct:[id number] Age/Sex: 43 / FADM Date: 03/28/24 Loc: [facility] Attending Dr: Anabela Resendez MD Ordering Physician: Anabela Resendez MD Date of Service: 03/28/24 Procedure(s): US breast LT limited mamm only Accession Number(s): [id number] cc: Anabela Resendez MD EXAMINATION: MM DIAGNOSTIC [...] in OV> 03/28/24 1546 DD/ 1543 TD/TT: Digital Operations Analyst: us Anabela Resendez MD IMG US PROCEDURES Final Result * BI Mammogram Diag w/ Krishna w/ Implants Maksim (03/28/2024 3:08 PM EDT) Anatomical Region Laterality Modality Mammography 03/28/2024 3:08 PM EDT Narrative 03/28/2024 3:50 PM EDT [place] [facility] [address] [place] [address] Mammography Report Signed Patient: Romi Howard MR #: [id number] : 1980 Acct:[id number] Age/Sex: 43 / F ADM Date: 03/28/24 Loc: HO.MAMMO Attending Dr: Anabela Resendez MD Ordering Physician: Anabela Resendez MD Results: 2Benign F indings Date of Service: 03/28/24 Follow Up: 1 Year From Orig ina Mammogram Procedure(s): MM tomosynthesis diag [facility] BI Accession Number(s): [id number] cc: Anabela Resendez MD EXAMINATION: MM DIAGNOSTIC [...] in OV> 03/28/24 1546 DD/ 1508 TD/TT: Digital Operations Analyst: Procedure Note Donotuseinterpreter, Image - 03/28/2024 [facility] [address] [place], [place] [address] Mammography Report Signed Patient: Romi Howard #: [id number] : 1980Acct:[id number] Age/Sex: 43 / FADM Date: 03/28/24 Loc: [facility] Attending Dr: Anabela Resendez MD Ordering Physician: Anabela Resendez MDResults: 2Benign F indings Date of Service: 03/28/24Follow Up: 1 Year From Orig inal Mammogram Procedure(s): MM tomosynthesis diag imp BI Accession Number(s): [id number] cc: Anabela Resendez MD EXAMINATION: MM DIAGNOSTIC [...] in OV> 03/28/24 1546 DD/ 1508 TD/TT: Digital Operations Analyst: Anabela Resendez MD IMG BI PROCEDURES Final Result documented in this encounter Visit Diagnoses Diagnosis Breast pain, left- Primary documented in this encounter Additional Health Concerns Assessment Noted Time PHQ-9 Depression Total Score: 0 06/09/20 9:48 AM EDT documented as of this encounter Care Teams Trade Show Specialist Relationship Specialty Start Date End Date Anabela Resendez MD [address] [place] [address] PCP - General Family Medicine 01/21/23 documented as of this encounter
--- OUTSIDE RECORDS SUMMARY | 2025-08-14 14:38 | XMS_ITS | Encounter Summary ---
Author Organization [employer] Address [address] [place] [address] [place], [place] [address] Care Team Providers Care Naval Aircrewman Operator Name Role Phone Anabela Resendez MD Primary Care Provider [phone] Reason for Visit * Reason Onset Date Comments Appointment Request 01/21/2023 Encounter Details Date Type Department Care Team ([facility] st Contact Info) Description 01/21/2023 Telephone [facility] MEDICINE 230 [place], [place] [phone] Danni Bhatti FNP [address] [place] [address] Appointment Request Social History Tobacco Use Types [...] annmarie cancelled by office. Will send to [place] to schedule TP appt again for pt. [...] accepted this outcome Please contact pt at [phone] documented in this encounter Plan of Treatment Not on file documented as of this encounter Visit Diagnoses Not on filedocumented in this encounter Care Teams Naval Aircrewman Operator Relationship Specialty Start Date End Date Anabela Resendez MD [address] [place] [address] PCP - General Family Medicine 01/21/23 documented as of this encounter
== END 2025-08-14 12:24 | disposition home or self-care (01) ==
LOC: HO.HHCX 12:23
PROVIDERS: PCP Family Medicine; Visit Provider Family Medicine
DX: M53.3 Sacrococcygeal disorders, not elsewhere classified (principal)
CPT/HCPCS: 72100; 72220

== ENCOUNTER → 2025-08-14 12:32 | Outpatient (BNV) | payer MEDICAID, SELFPAY | PROVIDERS: PCP Family Medicine; Visit Provider Radiology Diagnostic Ultrasound | DX: M54.50 Low back pain, unspecified (principal) | CPT/HCPCS: 72100; 72220 ==

== ENCOUNTER 2025-09-16 15:57 | Outpatient (REF) | payer MEDICAID, SELFPAY ==
--- NOTE | ~2025-09-16 | MR_ITS ---
EXAMINATION: MR PELVIS WITHOUT AND WITH CONTRAST CLINICAL INFORMATION: Malignant melanoma of torso COMPARISON: Previous x-rays of the lumbar spine, sacrum and coccyx August 2025 TECHNIQUE: Sagittal axial and coronal sequences through the pelvis with and without gadolinium. Patient received 8 mL gadavist contrast. FINDINGS: Visualized small and large bowel is unremarkable. Uterus and adnexa are unremarkable. The bladder is empty and not well evaluated. No enlarged lymph nodes. No ascites. No hernia. No aneurysm. Vascular structures are unremarkable. No suspicious bone lesion. No fracture or dislocation. Joint spaces are normal. There is slight increased T2 nonmass-like signal and enhancement in the subcutaneous right lower abdominal wall and inguinal region. This may represent postoperative change. Differential would include changes related to trauma and cellulitis. MR/MR pelvis wo/w con IMPRESSION: Slight increased T2 signal and enhancement in the subcutaneous soft tissues of the right lower abdominal wall and inguinal region. This may represent postsurgical change. Differential would include changes related to trauma and cellulitis. No mass or lymphadenopathy. Electronically signed by: Mayi Parsons MD 09/18/2025 02:51 PM EST
--- OUTSIDE RECORDS SUMMARY | 2025-09-16 16:05 | XMS_ITS | Encounter Summary ---
Author Organization [employer] Address [address] [facility] 7t [place] [address] Care Team Providers Care Rabbit Fancier Name Role Phone Anabela Resendez MD Primary Care Provider Encounter Details Date Type Department Care Team ([facility] st Contact Info) Description 06/20/2025 Orders Only [facility] MEDICINE 230 [place], [place] [phone] Anabela Resendez MD 230 [place], [place] [phone] Social History Tobacco Use Types Packs/Day Years [...] documented as of this encounter Care Teams Rabbit Fancier Relationship Specialty Start Date End Date Anabela Resendez MD 230 [place] [address] PCP - General Family Medicine 01/21/23 documented as of this encounter
--- OUTSIDE RECORDS SUMMARY | 2025-09-16 16:06 | XMS_ITS | Encounter Summary ---
Author Organization [employer] Address [address] [place] [address] 7 [place] [address] Care Team Providers Care Space Studies Faculty Member Name Role Phone Anabela Resendez MD Primary Care Provider [phone] Encounter Details Date Type Department Care Team ([facility] st Contact Info) Description 02/05/2023 Orders Only [facility] MEDICINE 230 [place], [place] [phone] Anabela Resendez MD 230 [place], [place] [phone] Vitamin D deficiency (Primary Dx) Social History [...] Primary documented in this encounter Care Teams Space Studies Faculty Member Relationship Specialty Start Date End Date Anabela Resendez MD 230 [place], [place] [phone] PCP - General Family Medicine 01/21/23 documented as of this encounter
--- OUTSIDE RECORDS SUMMARY | 2025-09-16 16:06 | XMS_ITS | Encounter Summary ---
Author Organization [employer] Address [address] [place] [address] 7 [place] [address] Care Team Providers Care Grinding And Spraying Supervisor Name Role Phone Anabela Resendez MD Primary Care Provider [phone] Reason for Referral * Imaging (Routine) - Closed Specialty Diagnoses / Procedures Referred By Contac t Referred To Contact Radiology Diagnoses Breast pain, left Procedures BI US Breast Complete Right Anabela Resendez MD [address] [place] [address] Phone: tel: fax: [address] [address] Phone: tel: fax: Referral ID Status Reason Start Date Expiration Date Visits Re quested Visits Authorized [id number] Closed 03/21/2024 03/21/2025 1 1 Encounter Details Date Type Department Care Team (Late st Contact Info) Description 03/21/2024 Orders Only [facility] MEDICINE 230 [place] [address] Anabela Resendez MD [address] [place] [address] Breast pain, left (Primary Dx) [...] PM EDT Narrative 03/28/2024 3:50 PM EDT [facility] [address] [place] [address] Ultrasound Report Signed Patient: Romi Howard MR #: [id number] : 1980 Acct:[id number] Age/Sex: 43 / F ADM Date: 03/28/24 Loc: HO.MAMMO Attending Dr: Anabela Resendez MD Ordering Physician: Anabela Resendez MD Date of Service: 03/28/24 Procedure(s): US breast LT limited mamm only Accession Number(s): [id number] cc: Anabela Resendez MD EXAMINATION: MM DIAGNOSTIC [...] by Terrence Bowie MD in OV> 03/28/24 154 DD/ 154 TD/TT: Memorial Counselor: Procedure Note Donotuseinterpreter, Image - 03/28/2024 [facility] [address] [place] [address] Ultrasound Report Signed Patient: Romi Howard #: [id number] : 1980Acct:[id number] Age/Sex: 43 / FADM Date: 03/28/24 Loc: HO.MAMMO Attending Dr: Anabela Resendez MD Ordering Physician: Anabela Resendez MD Date of Service: 03/28/24 Procedure(s): US breast LT limited mamm only Accession Number(s): [id number] cc: Anabela Resendez MD EXAMINATION: MM DIAGNOSTIC [...] MD Signed By: <Electronically signed by Terrence Bowei MD in OV> 03/28/24 1546 DD/ 1543 TD/TT: Memorial Counselor: us Anabela Resendez MD IMG US PROCEDURES Final Result * BI Mammogram Diag w/ Krishna w/ Implants Maksim (03/28/2024 3:08 PM EDT) Anatomical Region Laterality Modality Mammography 03/28/2024 3:08 PM EDT Narrative 03/28/2024 3:50 PM EDT [place] [facility] [address] [place] [address] Mammography Report Signed Patient: Romi Howard MR #: [id number] : 1980 Acct:[id number] Age/Sex: 43 / F ADM Date: 03/28/24 Loc: HO.MAMMO Attending Dr: Anabela Resendez MD Ordering Physician: Anabela Resendez MD Results: 2Benign F indings Date of Service: 03/28/24 Follow Up: 1 Year From Orig inal Mammogram Procedure(s): MM tomosynthesis diag imp BI Accession Number(s): [id number] cc: Anabela Resendez MD EXAMINATION: MM DIAGNOSTIC [...] in OV> 03/28/24 1546 DD/ 1508 TD/TT: Memorial Counselor: Procedure Note Donotuseinterpreter, Image - 03/28/2024 [facility] [address] [place] [address] Mammography Report Signed Patient: Romi Howard #: [id number] : 1980Acct:[id number] Age/Sex: 43 / FADM Date: 03/28/24 Loc: [facility] Attending Dr: Anabela Rseendez MD Ordering Physician: Anabela Resendez MDResults: 2Benign F indings Date of Service: 03/28/24Follow Up: 1 Year From Orig inal Mammogram Procedure(s): MM tomosynthesis diag imp BI Accession Number(s): [id number] cc: Anabela Resendez MD EXAMINATION: MM DIAGNOSTIC [...] in OV> 03/28/24 1546 DD/ 1508 TD/TT: Memorial Counselor: Anabela Resendez MD IMG BI PROCEDURES Final Result documented in this encounter Visit Diagnoses Diagnosis Breast pain, left- Primary documented in this encounter Additional Health Concerns Assessment Noted Time PHQ-9 Depression Total Score: 0 06/09/20 9:48 AM EDT documented as of this encounter Care Teams Grinding And Spraying Supervisor Relationship Specialty Start Date End Date Anabela Resendez MD [address] [place] [address] PCP - General Family Medicine 01/21/23 documented as of this encounter
--- OUTSIDE RECORDS SUMMARY | 2025-09-16 16:06 | XMS_ITS | Encounter Summary ---
Author Organization [employer] Address [address] [facility] 7t [place] [address] Care Team Providers Care Primer And Powder Canning Leader Name Role Phone Anabela Resendez MD Primary Care Provider [phone] Encounter Details Date Type Department Care Team ([facility] st Contact Info) Description 05/31/2025 Orders Only [facility] MEDICINE 230 [place], [place] [phone] Anabela Resendez MD 230 [place], [place] [phone] Social History Tobacco Use Types Packs/Day Years [...] documented as of this encounter Care Teams Primer And Powder Canning Leader Relationship Specialty Start Date End Date Anabela Resendez MD 230 [place] [address] PCP - General Family Medicine 01/21/23 documented as of this encounter
--- OUTSIDE RECORDS SUMMARY | 2025-09-16 16:06 | XMS_ITS | Encounter Summary ---
Author Organization [employer] Address [address] [facility] 7t [place] [address] Care Team Providers Care Home Health Outreach Coordinator Name Role Phone Anabela Resendez MD Primary Care Provider [phone] Encounter Details Date Type Department Care Team ([facility] st Contact Info) Description 06/20/20[address] Orders [address] [facility] MEDICINE 230 [place], [place] [phone] Anabela Resendez MD 230 [place], [place] [phone] Social History Tobacco Use Types Packs/Day Years [...] of this encounter Care Teams Home Health Outreach Coordinator Relationship Specialty Start Date End Date Anabela Resendez MD 230 [place] [address] PCP - General Family Medicine 01/21/23 documented as of this encounter
--- OUTSIDE RECORDS SUMMARY | 2025-09-16 16:06 | XMS_ITS | Encounter Summary ---
Author Organization [employer] Address [address] [place] [address], [place] [address] Care Team Providers Care Manager Of Hospital Name Role Phone Anabela Resendez MD Primary Care Provider [phone] Reason for Visit * Reason Onset Date Comments Appointment Request 01/21/2023 Encounter Details Date Type Department Care Team ([facility] st Contact Info) Description 01/21/2023 Telephone [facility] MEDICINE 230 [place], [place] [phone] Danni Bhatti FNP [address] [place] [address] Appointment Request Social History Tobacco Use Types [...] annmarie cancelled by office. Will send to [place] to schedule TP appt again for pt. [...] accepted this outcome Please contact pt at [phone] documented in this encounter Plan of Treatment Not on file documented as of this encounter Visit Diagnoses Not on filedocumented in this encounter Care Teams Manager Of Hospital Relationship Specialty Start Date End Date Anabela Resendez MD [address] [place] [address] PCP - General Family Medicine 01/21/23 documented as of this encounter
--- OUTSIDE RECORDS SUMMARY | 2025-09-16 16:06 | XMS_ITS | Encounter Summary ---
Author Organization [employer] Address [address] [facility] 7t [place] [address] Care Team Providers Care Retirement Benefits Specialist Name Role Phone Anabela Resendez MD Primary Care Provider [phone] Encounter Details Date Type Department Care Team ([facility] st Contact Info) Description 06/20/2025 Orders Only [facility] MEDICINE 230 [place], [place] [phone] Anabela Resendez MD 230 [place], [place] [phone] Vitamin D deficiency (Primary Dx) Social History [...] documented as of this encounter Care Teams Retirement Benefits Specialist Relationship Specialty Start Date End Date Anabela Resendez MD 230 [place] [address] PCP - General Family Medicine 01/21/23 documented as of this encounter
--- OUTSIDE RECORDS SUMMARY | 2025-09-16 16:07 | XMS_ITS | Encounter Summary ---
Author Organization [employer] Address [address] [place] [address] 7 [place] [address] Care Team Providers Care Sales Route Driver Name Role Phone Anabela Resendez MD Primary Care Provider [phone] Reason for Visit * Reason Onset Date Comments Appointment Request 04/18/2025 Encounter Details Date Type Department Care Team ([facility] st Contact Info) Description 04/18/2025 Telephone [facility] MED[facility]INE 230 [place], [place] [phone] Anabela Resendez MD 230 [place], [place] [phone] Appointment Request Social History Tobacco Use Types [...] from derm office. Please contact pt at [phone]. (Chinese Speaker) documented in this encounter Plan of Treatment Not on file documented as of this encounter Visit Diagnoses Not on filedocumented in this encounter Additional Health Concerns Assessment Noted Time PHQ-9 Depression Total Score: 14 024 7:54 AM EST documented as of this encounter Care Teams Sales Route Driver Relationship Specialty Start Date End Date Anabela Resendez MD [address] [place] [address] PCP - General Family Medicine 01/21/23 documented as of this encounter
--- OUTSIDE RECORDS SUMMARY | 2025-09-16 16:07 | XMS_ITS | Encounter Summary ---
Author Organization [employer] Address [address] [place] [address] 7 [place] [address] Care Team Providers Care Plaster Block Layer Name Role Phone Anabela Resendez MD Primary Care Provider [phone] Reason for Visit * Reason Onset Date Comments Nurse Triage 08/12/2024 Encounter Details Date Type Department Care Team ([facility] st Contact Info) Description 08/12/2024 Telephone [facility] MEDICINE 230 [place], [place] [phone] Anabela Resendez MD 230 [place], [place] [phone] Nurse Triage Social History Tobacco Use Types [...] encounter Miscellaneous Notes * Telephone Encounter - Lizzeht Styles RN - 08/12/2024 4:40 PM EST [...] go to ED she should go to [facility] ED due to MRI order there. Pt. Will go to ED if needed. I will send this to a green team covering provider and Provider that ordered MRI since PCP not in office onThursday08/15/24 to see if MRI can be expedited due to pt. concerns Protocol Used: Headache (Adult) Protocol-Based Disposition: Pt. Will go to [facility] ED if needed Video visit not offered [...] documented as of this encounter Care Teams Plaster Block Layer Relationship Specialty Start Date End Date Anabela Resendez MD [address] [place] [address] PCP - General Family Medicine 01/21/23 documented as of this encounter
--- OUTSIDE RECORDS SUMMARY | 2025-09-16 16:07 | XMS_ITS | Encounter Summary ---
Author Organization [employer] Address [address] [place] [address] Care Team Providers Care Technician Helper Instrument Name Role Phone Jory Yoder Primary Care Provider Danni Miles Primary Care Provider [phone] Anabela Resendez MD Primary Care Provider [phone] Reason for Visit * Reason Onset Date Comments Appointment Confirmation 11/07/2022 Encounter Details Date Type Department Care Team (Late st Contact Info) Description 11/07/2022 Telephone [facility] MEDICINE 230 [place] [address] Jory Yoder FNP Appointment Confirmation Social History [...] on filedocumented in this encounter Care Teams Technician Helper Instrument Relationship Specialty Start Date End Date Jory Yoder FNP PCP - General Family Medicine 09/01/22 11/30/22 Danni Bhatti FNP 230 [place] [address] PCP - General Family Medicine 12/01/22 01/20/23 Anabela Resendez MD 230 [place] [address] PCP - General Family Medicine 01/21/23 documented as of this encounter
--- OUTSIDE RECORDS SUMMARY | 2025-09-16 16:07 | XMS_ITS | Encounter Summary ---
Author Organization [employer] Address [address] [place] [address] 7 [place] [address] Care Team Providers Care Public Health Specialist Name Role Phone Anabela Resendez MD Primary Care Provider [phone] Reason for Referral * Imaging (Routine) - Closed Specialty Diagnoses / Procedures Referred By Nicol t Referred To Contact Radiology Diagnoses Breast cancer screening by mammogram Procedures BI Mammogram Screening Tomosynthesis Right Anabela Resendez MD [address] [place] [address] Phone: tel: fax: [address] [address] Phone: tel: fax: Referral ID Status Reason Start Date Expiration Date Visits Re quested Visits Authorized [id number] Closed 02/17/2024 02/16/2025 1 1 * Imaging (Routine) - Closed Specialty Diagnoses / Procedures Referred By Contac t Referred To Contact Radiology Diagnoses Mass of left breast, unspecified quadrant Procedures BI Mammogram Diagnostic Tomosynthesis Left Anabela Resendez MD [address] [place] [address] Phone: tel: fax: [address] [address] Phone: tel: fax: Referral ID Status Reason Start Date Expiration Date Visits Re quested Visits Authorized [id number] Closed 02/17/2024 02/16/2025 1 1 Encounter Details Date Type Department Care Team (Late st Contact Info) Description 02/17/2024 Orders Only [facility] MED[facility]INE [address] [place] [address] Anabela Resendez MD [address] [place] [address] Mass of left breast, unspecified quadrant (Primary [...] documented as of this encounter Care Teams Public Health Specialist Relationship Specialty Start Date End Date Anabela Resendez MD [address] [place] [address] PCP - General Family Medicine 01/21/23 documented as of this encounter
--- OUTSIDE RECORDS SUMMARY | 2025-09-16 16:07 | XMS_ITS | Encounter Summary ---
Author Organization [employer] Address [address] [place] [address] 7 [place] [address] Care Team Providers Care Chainstitch Seat Joiner Name Role Phone Anabela Resendez MD Primary Care Provider [phone] Reason for Visit * Reason Onset Date Comments Nurse Triage 01/20/2025 Encounter Details Date Type Department Care Team ([facility] st Contact Info) Description 01/20/2025 Telephone [facility] MEDICINE [address] [place], [place] [phone] Anabela Resendez MD [address] [place], [place] [phone] Nurse Triage Social History Tobacco Use Types [...] that rx be sent to [facility] in [place] as closer to her home. Pt advised to slat pickler and start rx as soon as possible, can also try cold/ warm compresses and return call if no improvement. Reviewed [facility] operating hours and that wait times vary. [...] acuity questions The caller accepted this outcome. [phone] documented in this encounter Plan of Treatment Not on file documented as of this encounter Visit Diagnoses Not on filedocumented in this encounter Additional Health Concerns Assessment Noted Time PHQ-9 Depression Total Score: 14 024 7:54 AM EST documented as of this encounter Care Teams Chainstitch Seat Joiner Relationship Specialty Start Date End Date Anabela Resendez MD [address] [place] [address] PCP - General Family Medicine 01/21/23 documented as of this encounter
--- OUTSIDE RECORDS SUMMARY | 2025-09-16 16:07 | XMS_ITS | Encounter Summary ---
Author Organization [employer] Address [address] [facility] 7t [place] [address] Care Team Providers Care Instructional Manager Name Role Phone Anabela Resendez MD Primary Care Provider [phone] Encounter Details Date Type Department Care Team ([facility] st Contact Info) Description 08/03/2025 Orders Only [facility] MEDICINE [address] [place], [place] [phone] Anabela Resendez MD [address] [place], [place] [phone] Acute coccygeal pain (Primary Dx) Social History [...] PM EST Narrative 08/14/2025 1:29 PM EST [address] [address] XRay Report Signed Patient: Romi Howard MR #: [id number] : 1980 Acct:[id number] Age/Sex: 44 / F ADM Date: 08/14/25 Loc: HO.HHCX Attending Dr: Anabela Resendez MD Ordering Physician: Anabela Resendez MD Date of Service: 08/14/25 Procedure(s): XR lumbar spine 2-3V Accession Number(s): [id number] cc: Anabela Resendez MD Reason for Exam: [...] MD 08/14/2025 01:26 PM [facility] Dictated By: Ramy Gonzalez MD Signed By: <Electronically signed by Ramy Gonzalez MD in OV> 08/14/25 1326 DD/ 1310 TD/TT: 08/14/25 1312 Mixing Tank Operator: JACK Procedure Note Donotuseinterpreter, Image - 08/14/2025 [place] [address] XRay Report Signed Patient: Romi Howard #: [id number] : 1980Acct:[id number] Age/Sex: 44 / FADM Date: 08/14/25 Loc: .HHCX Attending Dr: Anabela Resendez MD Ordering Physician: Anabela Resendez MD Date of Service: 08/14/25 Procedure(s): XR lumbar spine 2-3V Accession Number(s): [id number] cc: Anabela Resendez MD Reason for Exam: [...] 08/14/25 1326 DD/ 1310 TD/TT: 08/14/25 1312 Mixing Tank Operator: JACK Anabela Resendez MD IMG XR PROCEDURES Edited Result - Final * XR Sacrum Coccyx 2+ Views (08/14/2025 12:58 PM EST) Anatomical Region Laterality Modality Sacrum, Coccyx Radiographic Evelin ging 08/14/2025 12:5 8 PM EST Narrative 08/14/2025 1:29 PM EST [address] [address] XRay Report Signed Patient: Romi Howard MR #: [id number] : 1980 Acct:[id number] Age/Sex: 44 / F ADM Date: 08/14/25 Loc: .HHCX Attending Dr: Anabela Resendez MD Ordering Physician: Anabela Resendez MD Date of Service: 08/14/25 Procedure(s): XR sacrum coccyx min 2V Accession Number(s): [id number] cc: Anabela Resendez MD Reason for Exam: [...] MD 08/14/2025 01:26 PM [facility] Dictated By: Ramy Gonzalez MD Signed By: <Electronically signed by Ramy Gonzalez MD in OV> 08/14/25 1326 DD/ 1258 TD/TT: 08/14/25 1312 Mixing Tank Operator: Procedure Note Donotuseinterpreter, Image - 08/14/[address] [address] XRay Report Signed Patient: Romi Howard #: [id number] : 1980Acct:[id number] Age/Sex: 44 / FADM Date: 08/14/25 Loc: HO.HHCX Attending Dr: Anabela Resendez MD Ordering Physician: Anabela Resendez MD Date of Service: 08/14/25 Procedure(s): XR sacrum coccyx min 2V Accession Number(s): [id number] cc: Anabela Resendez MD Reason for Exam: [...] MD 08/14/2025 01:26 PM [facility] Dictated By: Ramy Gonzalez MD Signed By: <Electronically signed by Ramy Gonzalez MD in OV> 08/14/25 1326 DD/ 1258 TD/TT: 08/14/25 1312 Mixing Tank Operator: JACK Anabela Resendez MD IMG XR PROCEDURES Edited Result - Final documented in this encounter Visit Diagnoses Diagnosis Acute coccygeal pain- Primary documented in this encounter Additional Health Concerns Assessment Noted Time PHQ-9 Depression Total Score: 10 025 2:15 PM EDT documented as of this encounter Care Teams Instructional Manager Relationship Specialty Start Date End Date Anabela Resendez MD [address] [place] [address] PCP - General Family Medicine 01/21/23 documented as of this encounter
--- OUTSIDE RECORDS SUMMARY | 2025-09-16 16:07 | XMS_ITS | Encounter Summary ---
Author Organization [employer] Address [address] [place] [address] 7 [place] [address] Care Team Providers Care Lead Pastor Name Role Phone Anabela Resendez MD Primary Care Provider [phone] Reason for Visit * Reason Onset Date Comments Status Request 08/25/2025 Encounter Details Date Type Department Care Team ([facility] st Contact Info) Description 08/25/2025 Telephone [facility] MEDICINE [address] [place], [place] [phone] Anabela Resendez MD [address] [place] [address] Status Request Social History Tobacco Use Types Packs/Day [...] - Maria Del Rosario Zhou RN - 08/28/2025 12:05 PM EST Return call placed to the pt to inform that PCP ordered the requested MR Pelvis w/ and w/o Contrastfor ongoing coccygeal pain. The pt was also given the number for [facility] Centralized Scheduling [phone] * Telephone Encounter - Cameron Moody - 08/25/2025 10:19 AM EST Tc from pt requesting a call back to verify what is the status on the MRI she had requested. She states it was requested during last OV. Please contact pt at [phone]. documented in this encounter Plan of Treatment Not on file documented as of this encounter Visit Diagnoses Not on filedocumented in this encounter Additional Health Concerns Assessment Noted Time PHQ-9 Depression Total Score: 10 025 2:15 PM EDT documented as of this encounter Care Teams Lead Pastor Relationship Specialty Start Date End Date Anabela Resendez MD [address] [place] [address] PCP - General Family Medicine 01/21/23 documented as of this encounter
--- OUTSIDE RECORDS SUMMARY | 2025-09-16 16:07 | XMS_ITS | Encounter Summary ---
Author Organization [employer] Address [address] [place] [address] 7 [place] [address] Care Team Providers Care Crystal Evaluator Name Role Phone Anabela Resendez MD Primary Care Provider [phone] Reason for Visit * Reason Onset Date Comments Results 09/06/2024 Encounter Details Date Type Department Care Team ([facility] st Contact Info) Description 09/06/2024 Telephone [facility] MEDICINE [address] [place], [place] [phone] Anabela Resendez MD [address] [place], [place] [phone] Results Social History Tobacco Use Types Packs/Day [...] results: MRI Date when done: 07/31/24 Facility: [facility] TC placed to [facility] MRI department to request [...] results: MRI Date when done: 07/31/24 Facility: [facility] documented in this encounter Plan of Treatment Not on file documented as of this encounter Visit Diagnoses Not on filedocumented in this encounter Additional Health Concerns Assessment Noted Time PHQ-9 Depression Total Score: 14 024 7:54 AM EST documented as of this encounter Care Teams Crystal Evaluator Relationship Specialty Start Date End Date Anabela Resendez MD [address] [place] [address] PCP - General Family Medicine 01/21/23 documented as of this encounter
--- OUTSIDE RECORDS SUMMARY | 2025-09-16 16:07 | XMS_ITS | Encounter Summary ---
Author Organization [employer] Address [address] [place] [address] 7 [place] [address] Care Team Providers Care Amortization Clerk Name Role Phone Anabela Resendez MD Primary Care Provider [phone] Reason for Visit * Reason Onset Date Comments Nurse Triage 12/29/2024 Encounter Details Date Type Department Care Team ([facility] st Contact Info) Description 12/29/2024 Telephone [facility] MEDICINE [address] [place], [place] [phone] Anabela Resendez MD [address] [place], [place] [phone] Nurse Triage Social History Tobacco Use Types [...] back pain especially at night. Pt has touse pillows for back support to relieve the pain. Pt is not taking pain medication for back pain atthis time. Pt reports bilateral foot swelling and is using compression stockings to reduce this but, swelling remains. No difficulty breathing reported. Pt denies any urinary symptoms. Pt is drinkingadequate liquids. Pt is advised to come to [facility] today open till 4pm for provider [...] caller accepted this outcome. Contact pt at [phone] documented in this encounter Plan of Treatment Not on file documented as of this encounter Visit Diagnoses Not on filedocumented in this encounter Additional Health Concerns Assessment Noted Time PHQ-9 Depression Total Score: 14 024 7:54 AM EST documented as of this encounter Care Teams Amortization Clerk Relationship Specialty Start Date End Date Anabela Resendez MD [address] [place] [address] PCP - General Family Medicine 01/21/23 documented as of this encounter
--- OUTSIDE RECORDS SUMMARY | 2025-09-16 16:07 | XMS_ITS | Clinical Summary ---
Author Organization [employer] Address [address] [place] [address] 7 [place] [address] Care Team Providers Care Powder Coat Painter Name Role Phone Anabela Resendez MD Primary Care Provider Allergies Active Allergy Reactions Criticality Noted Date Comments Bee Venom 02/04/2023 Cortisone 10/30/2017 Other reaction(s): face,throat swollen Shellfish Allergy 02/04/2023 Shellfish Protein-Containing Drug Products Unknown Medications * This document contains information received from the source organization and may not represent a complete record from that organization. sodium chloride ([place]) 0.65 % nasal sprayIndication s:Allergic rhinitis, unspecified seasonality, unspecified trigger 1-2 spray on each nostril every 2-3 hours as needed for nasal congestion 30 mL 1 02/05/20 23 Active albuterol (2.5 MG/3ML) 0.083% nebulizer solutionIndicat ions:Mild intermittent asthma without complication Use 3 ml every 6 hours as needed for difficulty breathing / asthma exacerbation 75 mL 2 05/04/20 24 Active topiramate (Topamax) 25 MG tabletIndicatio ns:Migraine [...] hours. 9 tablet 3 05/04/20 24 Active albuterol 108 (90 Base) MCG/ACT inhalerIndicati ons:Mild intermittent asthma without complication Inhale 2 puffs every 4 (four) hours if needed for wheezing or shortness of breath. Maximum 8 puffs per day 18 g 2 01/20/20 25 2025 Active cetirizine (ZyrTEC) 10 MG tabletIndicatio ns:Allergic rhinitis, unspecified seasonality, unspecified trigger Take 1 tablet (10 mg) by mouth Once per day. 90 tablet 3 01/20/20 25 Active baclofen (Lioresal) 10 MG tablet Take 1 tablet (10 mg) by mouth if needed in the morning, at noon, and at bedtime for muscle spasms. 60 tablet 1 01/20/20 25 Active triamcinolone (Kenalog) 0.1 % ointmentIndicat ions:Eczema, unspecified type Apply topically 2 times daily. 80 g 04/10/20 25 Active EPINEPHrine (Epipen) 0.3 MG/0.3ML injection syringeIndicati ons:Allergic reaction to bee sting Administer one dose as instructed for severe allergy symptoms. Call 911 after use. 2 each 1 04/10/20 25 Active escitalopram (Lexapro) 10 MG tablet Take 1 tablet (10 mg) by mouth Once per day. 30 tablet 2 05/31/20 25 Active cholecalciferol (Vitamin D-3) 75 MCG (3000 UT) tablet Take 1 tablet (75 mcg) by mouth Once per day. Increased dose 90 tablet 3 06/08/20 25 Active ergocalciferol (Vitamin D2) 1.25 MG (88498 UT) capsule Take 1 capsule (1.25 mg) by mouth 1 (one) time per week. 8 capsule 06/20/20 25 Active oxyCODONE (Roxicodone) 5 MG immediate release tabletIndicatio ns:Coccygeal pain Take 1 tablet (5 mg) by mouth if needed at bedtime for severe pain. Maximum Monthly Dose = 10 tabs 10 tablet 08/15/20 25 Active ibuprofen 600 MG tablet Take 1 tablet (600 mg) by mouth every 8 (eight) hours if needed for moderate pain or fever. 90 tablet 1 08/15/20 25 Active acetaminophen (Tylenol Extra Strength) 500 MG tablet Take one or two tablets by mouth every 8 hours as needed for pain or fever. Maximum 6 tablets per day. 90 tablet 1 08/15/20 25 Active Diclofenac Sodium 1 % gel Apply 2 g topically if needed in the morning, at noon, in the evening, and at bedtime (pain). 150 g 3 08/15/20 25 Active lidocaine (Lidoderm) 5 % patch Apply 1 patch topically if needed each day for mild pain. Remove & discard patch within 12 hours or as directed by MD. 30 patch 3 08/15/20 25 Active fluticasone (Flonase) 50 MCG/ACT nasal sprayIndication s:Allergic rhinitis, unspecified seasonality, unspecified trigger ADMINISTER 1-2 SPRAYS INTO AFFECTED NOSTRIL(S) ONCE A DAY 48 mL 09/04/20 25 Active fluticasone (Flonase) 50 MCG/ACT nasal sprayIndication s:Allergic rhinitis, unspecified seasonality, unspecified trigger ADMINISTER 1-2 SPRAYS INTO AFFECTED NOSTRIL(S) ONCE A DAY 48 mL 08/19/20 24 2024 Discontinued Active Problems Problem Noted Date Diagnosed Date Coccygeal pain 08/25/2025 Assessment & Plan (08/25/2025 10:35 AM EST): - severe, since her melanoma excisional biopsy - neuropathic? - continue judicious use of oxycodone - continue using doughnut pillow and position change - MRI evaluation to rule out any infection or hematoma or other late surgical complication Lymphedema 08/25/2025 Assessment & Plan (08/25/2025 10:40 AM EST): - Continue current treatment plan per vascular specialist - Patient will have a follow-up in early next year to reassess lymphedema pump therapy Melanoma ([facility]) 07/28/2025 Assessment & Plan (08/25/2025 10:36 AM EST): - right buttock - s/p excisional biopsy on 05/26/2025, malignant melanoma - s/p wide local excision and right groin sentinel lymph node biopsy on 07/05/2025 - referred to pasting machine operator, Dr. Ulrich, as requested Assessment & Plan (07/28/2025 9:18 AM EDT): - right buttock - s/p excisional biopsy on 05/26/2025, malignant melanoma - s/p wide local excision and right groin sentinel lymph node biopsy on 07/05/2025 - refer to pasting machine operator, Dr. Ulrich, as requested Overweight 05/27/2025 Varicose veins of lower extremity with pain 05/06 Assessment & Plan (08/25/2025 10:40 AM EST): - continue following up with vascular specialist, last seen on 08/01/2025. -Recommended to continue compression stocking - continue cleg elevation, adequate physical activity, and low sodium diet Assessment & Plan (07/28/2025 9:22 AM EDT): [...] (05/27/2025 6:57 AM EDT): - seen by pasting machine operator - family history of melanoma - [...] intervention , [facility] team [facility], Comply with medication , Patient to engage in OP therapy , and Patient to reach out to [facility] as needed Chronic headache 07/27/2024 Assessment & Plan (07/27/2024 9:58 AM EDT): - family history of brain tumor - upcoming MRI appointment - continue NSAIDs Stress incontinence 06/08/2023 Assessment & Plan (10/15/2023 5:43 AM EST): - following with [facility] - s/p advantage blue [...] (07/27/2024 9:36 AM EDT): - following with [facility], last visit in Oct 2023 - 07/15/23 advantage blue retropubic midurethral sling, posterior colporrhaphy, and cystoscopy Assessment & Plan (05/04/2024 4:49 AM EDT): - following with [facility], last visit in Oct 2023 - 07/15/23 advantage blue retropubic midurethral sling, posterior colporrhaphy, and cystoscopy Assessment & Plan (10/15/2023 5:44 AM EST): - following with [facility], last visit in Aug 2023 - 07/15/23 advantage blue retropubic midurethral sling, posterior colporrhaphy, and cystoscopy Assessment & Plan (06/12/2023 5:22 AM EDT): - following with [facility] Asthma 02/04/2023 Assessment & Plan (07/28/2025 [...] (06/12/2023 5:20 AM EDT): - followed by [facility] PLANER TAILER - Dx Pelvic Congestion Syndrome - continue Tx plan per PLANER TAILER / UroGYN Assessment & Plan (02/04/2023 6:11 PM EDT): - followed by [facility] PLANER TAILER - Dx Pelvic Congestion Syndrome - continue Tx plan per PLANER TAILER / UroGYN Allergic rhinitis 02/04/2023 Assessment & [...] organization. Date Type Department Care Team Description 08/31/2025 Refill [facility] [address] [place] [address] Sharonda Victoria MD Allergic rhinitis, unspecified seasonality, unspecified trigger 08/28/2025 Telephone [facility] [address] [place] [address] Anabela Resendez MD Referral 08/25/2025 Telephone [facility] [address] [place] [address] Anabela Resendez MD MRI PELVIS ORDER 08/25/2025 Telephone [facility] [place] [address] Anabela Resendez MD Status Request 08/15/2025 3:00 PM EST Office Visit [place] [address] Anabela Resendez MD Coccygeal pain (Primary Dx); Malignant melanoma of torso excluding breast (CMS/HCC) (HCC); Varicose veins of both lower extremities with pain; Lymphedema 08/15/2025 Travel 08/15/2025 Telephone [facility] [place] [address] Anabela Resendez MD Nurse Triage 08/14/2025 Results [address]Up [address] [place] [address] Anabela Resendez MD XR Sacrum Coccyx 2+ Views 08/03/2025 Orders Only [facility] [place] [address] Anabela Resendez MD Acute coccygeal pain (Primary Dx) 07/17/2025 10:30 AM EDT Office Visit [facility] [place] [address] Anabela Resendez MD Vitamin D deficiency (Primary Dx); Malignant melanoma of torso excluding breast (CMS/HCC) (HCC); Surgical wound infection; Moderate episode of recurrent major depressive disorder (CMS/HCC) (HCC); CHERISE (generalized anxiety disorder); Mild intermittent asthma without complication; Varicose veins of both lower extremities with pain 07/17/2025 Patient Outreach [facility] [place] [address] Anabela Resendez MD Care Coordination (CHW outreach for SDOH housing search-referral completed ) 07/17/2025 Travel 07/14/2025 Telephone [facility] [place] [address] Beth Garrett MA chartprep 07/10/[address] [address] Laura Sykes, MALACHI Nurse Triage 06/30/[address] [address] Anabela Resendez MD Nurse Triage 06/27/2025 Orders Only [facility] External Provider, [facility] 06/20/2025 Orders Only [address] [place] [address] Anabela Resendez MD 06/20/2025 Orders Only [address] [address] Anabela Resendez MD 06/20/2025 Orders Only [address] [address] Anabela Resendez MD Vitamin D deficiency (Primary Dx) 06/20/2025 Results Follow-Up [address] [address] Anabela Resendez MD Vitamin D, 25-Hydroxy, Total, Immunoassay, CBC auto differential, Hemoglobin A1c, Additional followed-up results: 4 06/20/[address] [address] Anabela Resendez MD Results 06/19/[address] [address] Anabela Resendez MD Appointment Request from Last 3 Months Immunizations Immunization Administration [...] Sign Reading Time Taken Comments Blood Pressure 118/64 08/15/2025 2:58 PM EST Pulse 76 08/15/2025 2:58 PM EST Temperature 36.7 C (98 F) 08/15/2025 2:58 PM EST Respiratory Rate 20 08/15/2025 2:58 PM EST Oxygen Saturation 100% 07/17/2025 10:32 AM EDT Inhaled Oxygen Concentration - - Weight 79.1 kg (174 lb 6.4 oz) 08/15/2025 2:58 P M EST Height 162.6 cm (5' 4 ) 08/15/2025 2:58 PM EST Body Mass Index 29.94 08/15/2025 2:58 PM EST Plan of Treatment Health Maintenance Due Date [...] 05/17/2025 SDOH Screening 07/17/2026 07/17/2025 Tobacco Screening 08/15/2026 08/15/2025 Mammogram 02/18/2027 02/18/2025, 03/06, 03/28/2024, Additional history exists Cervical Cancer Screening 03/13/2027 HPV/Cotest 03/13/2027 03/13/2022, [...] 06/20/2025 9:36 AM EDT Vitamin D deficiency BI MAMMOGRAM SCREENING TOMOSYNTHESIS BILATERAL Routine 02/18/2025 [...] PM EST Narrative 08/14/2025 1:29 PM EST [address] [address] XRay Report Signed Patient: Romi Howard MR #: [id number] : 1980 Acct:[id number] Age/Sex: 44 / F ADM Date: 08/14/25 Loc: HO.HHCX Attending Dr: Anabela Resendez MD Ordering Physician: Anabela Resendez MD Date of Service: 08/14/25 Procedure(s): XR lumbar spine 2-3V Accession Number(s): [id number] cc: Anabela Resendez MD Reason for Exam: [...] by: Ramy Gonzalez MD 08/14/2025 01:26 PM [facility] Dictated By: Ramy Gonzalez MD Signed By: <Electronically signed by Ramy Gonzalez MD in OV> 08/14/25 1326 DD/ 1310 TD/TT: 08/14/25 1312 Systems Software Specialist: Procedure Note Donotuseinterpreter, Image - 08/14/[address] [address] XRay Report Signed Patient: Romi Howard #: [id number] : 1980Acct:[id number] Age/Sex: 44 / FADM Date: 08/14/25 Loc: HO.HHCX Attending Dr: Anabela Resendez MD Ordering Physician: Anabela Resendez MD Date of Service: 08/14/25 Procedure(s): XR lumbar spine 2-3V Accession Number(s): [id number] cc: Anabela Resendez MD Reason for Exam: [...] 08/14/25 1326 DD/ 1310 TD/TT: 08/14/25 1312 Systems Software Specialist: JACK us Anabela Resendez MD IMG XR PROCEDURES Edited Result - Final * XR Sacrum Coccyx 2+ Views (08/14/2025 12:58 PM EST) Anatomical Region Laterality Modality Sacrum, Coccyx Radiographic Evelin ging 08/14/2025 12:5 8 PM EST Narrative 08/14/2025 1:29 PM EST [address] [address] XRay Report Signed Patient: Romi Howard MR #: [id number] : 1980 Acct:[id number] Age/Sex: 44 / F ADM Date: 08/14/25 Loc: [facility] Attending Dr: Anabela Resendez MD Ordering Physician: Anabela Resendez MD Date of Service: 08/14/25 Procedure(s): XR sacrum coccyx min 2V Accession Number(s): [id number] cc: Anabela Resendez MD Reason for Exam: [...] by: Ramy Gonzalez MD 08/14/2025 01:26 PM [facility] Dictated By: Ramy Gonzalez MD Signed By: <Electronically signed by Ramy Gonzalez MD in OV> 08/14/25 1326 DD/ 1258 TD/TT: 08/14/25 1312 Systems Software Specialist: Procedure Note Donotuseinterpreter, Image - 08/14/[address] [address] XRay Report Signed Patient: Romi Howard #: [id number] : 1980Acct:[id number] Age/Sex: 44 / FADM Date: 08/14/25 Loc: HO.HHCX Attending Dr: Anabela Resendez MD Ordering Physician: Anabela Resendez MD Date of Service: 08/14/25 Procedure(s): XR sacrum coccyx min 2V Accession Number(s): [id number] cc: Anabela Resendez MD Reason for Exam: [...] by: Ramy Gonzalez MD 08/14/2025 01:26 PM [facility] Dictated By: Ramy Gonzalez MD Signed By: <Electronically signed by Ramy Gonzalez MD in OV> 08/14/25 1326 DD/ 1258 TD/TT: 08/14/25 1312 Systems Software Specialist: HB Anabela Resendez MD IMG XR PROCEDURES Edited Result - Final * VASC US Lower Extremity Venous Duplex Bilateral (06/27/2025 10:40 AM EDT) 06/27/2025 10:4 0 AM EDT Narrative [facility] - 06/27/2025 11:35 AM EDT [address] [address] Ultrasound Report Signed Patient: Romi Howard MR #: [id number] : 1980 Acct:[id number] Age/Sex: 44 / F ADM Date: 06/27/25 Loc: . Attending Dr: Jaswant Wolf MD Ordering Physician: Jaswant Wolf MD Date of Service: 06/27/25 Procedure(s): US venous duplex LE BI Accession Number(s): [id number] cc: Jaswant Wolf MD; Anabela Resendez MD [...] 06/27/25 1133 DD/ 1040 TD/TT: 06/27/25 1108 Systems Software Specialist: Procedure Note Donotuseinterpreter, Image - 06/27/[address] [address] Ultrasound Report Signed Patient: Romi Howard #: [id number] : 1980Acct:[id number] Age/Sex: 44 / FADM Date: 06/27/25 Loc: HO.US Attending Dr: Jaswant Wolf MD Ordering Physician: Jaswant Wolf MD Date of Service: 06/27/25 Procedure(s): US venous duplex LE BI Accession Number(s): [id number] cc: Jaswant Wolf MD; Anabela Resendez MD [...] 06/27/25 1133 DD/ 1040 TD/TT: 06/27/25 1108 Systems Software Specialist: us [facility] External Provider CV VASC ULAR PROCEDURES Final Result [facility] [address] [place] [phone] * (ABNORMAL) Vitamin D, 25-Hydroxy, Total, Immunoassay (06/20/2025 9:36 AM EDT) Vitamin D 25-OH Total 19.5(L) >30 ng/mL [facility] Comment: Health Based Reference Values*< 20 ng/mL Wilomuvmo55-39 ng/mL Insufficient> 30 ng/mL Sufficient*Dana MASON. N [...] ORDERABLES Final Resul t Performing Organization Address [facility] Co de Phone Number [facility] [address] [place] [phone] * Lipid Panel with Reflex to Direct LDL (06/20/2025 9:36 AM EDT) Triglycerides 34 <150 mg/dL [facility] Comment:Desirable Triglyceri de: less than 150 mg/dLBorderline High Triglyceride 150-199 mg/dLHigh Triglyceride: 200-499 mg/dLVery High Triglyceride: greater than or equal to 5OO mg/dL Cholesterol 150 <200 mg/dL [facility] Comment:Desirable Cholestero l: less than 200 mg/dLBorderline High Cholesterol: 200-239 mg/dLHigh Cholesterol: greater than 239 mg/dL LDL Cholesterol Calculated 83 <100 mg/dL [facility] Comment:Desirable LDL: less than 100 mg/dLNear Optimal/Above Optimal LDL: 110- 129 mg/dLBorderline High LDL: 130-159 mg/dLHigh LDL: 160-189 mg/dLVery High LDL: greater than or equal to 190 mg/dL HDL Cholesterol 61 >40 mg/dL [facility] Comment:Desirable HDL: great er than 40 mg/dL Note: This HDL assay may give artificially low results in patients with liver disease. Blood 06/20/2025 9:36 AM EDT 06/20/2025 11:20 AM EDT Anabela Resendez MD LAB BLOOD ORDERABLES Final Resul t Performing Organization Address [facility]/ZIP Co de Phone Number [facility] [address] [place] [phone] * (ABNORMAL) CBC auto differential (06/20/2025 9:36 AM EDT) White Blood Count 4.4(L) 4.8 - 10.8 X10*3/uL [facility] Red Blood Count 4.60 4.20 - 5.50 X10*6/uL [facility] Hemoglobin 12.4 12.0 - 16.0 g/dl [facility] Hematocrit 37.5 37.0 - 47.0 % [facility] Mean Corpuscular Volume 81.5 80.0 - 98.0 fL [facility] Mean Corpuscular Hemoglobin 27.0 27.0 - 33.0 pg [facility] Mean Corpuscular HGB Conc 33.1 31.0 - 35.0 g/dl [facility] Red Cell Distribution Width 13.2 11.0 - 16.0 % [facility] Platelet Count 162 160 - 400 X10*3/uL [facility] Mean Platelet Volume 11.5 9.4 - 12.3 fL [facility] Neutrophils Percent Auto 60.6 45 - 73 % [facility] Imm Gran Pct Auto 0.5(H) 0.0 - 0.4 % [facility] Lymphocytes Percent Auto 28.8 20 - 40 % [facility] Monocytes Percent Auto 7.8 2 - 11 % [facility] Eosinophils Percent Auto 1.6 0 - 4 % [facility] Basophils Percent Auto 0.7 0 - 2 % [facility] NRBC Pct Auto 0.0 0.0 - 0.2 /100WBC [facility] Neutrophils Absolute Auto 2.7 2.0 - 8.3 x10*3/uL [facility] Imm Gran Abs Auto 0.02 0.00 - 0.03 X10*3/uL [facility] Lymphocytes Absolute Auto 1.3 1.2 - 4.9 X10*3/uL [facility] Monocytes Absolute Auto 0.3 0.1 - 1.2 X10*3/uL [facility] Eosinophils Absolute Auto 0.1 0.0 - 0.4 X10*3/uL [facility] Basophils Absolute Auto 0.0 0.0 - 0.2 X10*3/uL [facility] NRBC Abs Auto 0.000 0.0 - 0.012 X10*3/uL [facility] Blood Venous blood specimen / Unknown 06/20/2025 9:36 AM EDT 06/20/2025 11:16 AM EDT Anabela Resendez MD LAB BLOOD ORDERABLES Final Resul t Performing Organization Address [facility]/ZIP Co de Phone Number [facility] [address] [place] [phone] * PTH, Intact Without Calcium (06/20/2025 9:36 AM EDT) Parathyroid Hormone, Intact 69.9 8.7 - 77.1 pg/mL [facility] Blood Venous blood specimen / Unknown 06/20/2025 9:36 AM EDT 06/20/2025 11:16 AM EDT Anabela Resendez MD LAB BLOOD ORDERABLES Final Resul t Performing Organization Address City/[facility] Co de Phone Number [facility] [address] [place] [phone] * Hemoglobin A1c (06/20/2025 9:36 AM EDT) Hemoglobin A1c 4.8 <6.0 % [facility] Comment:Hemoglobin A1C Refer ence Range Adults: 4.8 - 6.0 % Non diabetic: < 6.0 % Goal: < 7.0 %Additional Action Suggested: > 8.0 %Note: Hemoglobin A1c results are invalid for patients with abnormal amounts of HbF. Blood transfusions may impact the HbA1c concentration in the patient sample. Estimated Average Glucose 91 mg/dL [facility] Comment:eAG = Estimated ave rage glucose which is %A1C expressed asaverage glucose, using the formula of the S0B-GouywsrMzvatom Glucose study (ADAG), Diabetes Care, Vol.31,#8,2007 Blood Venous blood specimen / Unknown 06/20/2025 9:36 AM EDT 06/20/2025 11:16 AM EDT us Anabela Resendez MD LAB BLOOD ORDERABLES Final Resul t Performing Organization Address City/[facility]/ZIP Co de Phone Number [facility] [address] [place] [phone] * Hepatic Function Panel (06/20/2025 9:36 AM EDT) Bilirubin, Total 0.7 0.0 - 1.0 mg/dL [facility] Bilirubin, Direct 0.3 0.0 - 0.5 mg/dL [facility] Aspartate Amino Transferase 21 5 - 31 U/L [facility] Alanine Aminotransferase 14 0 - 31 U/L [facility] Total Protein 6.9 6.5 - 8.0 g/dL [facility] Albumin Level 4.4 3.5 - 5.0 g/dL [facility] Alkaline Phosphatase 60 39 - 117 U/L [facility] Blood Venous blood specimen / Unknown 06/20/2025 9:36 AM EDT 06/20/2025 11:20 AM EDT Anabela Resendez MD LAB BLOOD ORDERABLES Final Resul t Performing Organization Address [facility] Co de Phone Number [facility] [address] [place] [phone] * (ABNORMAL) Basic Metabolic Panel (06/20/2025 9:36 AM EDT) Sodium 140 135 - 145 mmol/L [facility] Potassium 4.3 3.3 - 5.1 mmol/L [facility] Chloride 108 96 - 108 mmol/L [facility] Carbon Dioxide 28 22 - 29 mmol/L [facility] Anion Gap 8(L) 12 - 20 [facility] Urea Nitrogen (BUN) 12 9 - 16 mg/dL [facility] Creatinine, Serum 0.67 0.5 - 1.4 mg/dL [facility] Estimated Glomerular Filt Rate >60 [facility] Comment:Chronic Kidney Disea se: Estimated GFR < 60 mL/min/1.48l2Bkzlkb Kidney Disease: Estimated GFR < 15 mL/min/1.73m2 Glucose 79 60 - 115 mg/dL [facility] Calcium 9.2 8.4 - 10.2 mg/dL [facility] Blood Venous blood specimen / Unknown 06/20/2025 9:36 AM EDT 06/20/2025 11:20 AM EDT us Anabela Resendez MD LAB BLOOD ORDERABLES Final Resul t [facility] [address] [place] [phone] [phone] * BI Mammogram Screening Tomosynthesis Bilateral (02/18/2025 9:30 AM EDT) Anatomical Region Laterality Modality Breast Bilateral Mammography 02/18/2025 9:30 AM EDT Narrative 02/25/2025 3:29 PM EDT [facility] [address] [place] [address] Mammography Report Signed Patient: Romi Howard MR #: [id number] : 1980 Acct:[id number] Age/Sex: 44 / F ADM Date: 02/18/25 [facility]: Anabela Resendez MD Ordering Physician: Anabela Resendez MD Results: 2Benign F indings Date of Service: 02/18/25 Follow Up: 1 Year From [facility] Mammogram Procedure(s): MM tomosynthesis screening BI Accession Number(s): [id number] cc: Anabela Resendez MD EXAMINATION: MM SCREENING [...] Kurtz DO in OV> 02/25/25 1525 DD/ TD/TT: 02/18/25 0944 Systems Software Specialist: Procedure Note Donotuseinterpreter, Image - 02/25/20[facility] [address] [place] [address] Mammography Report Signed Patient: Romi Howard #: [id number] : 1980Acct:[id number] Age/Sex: 44 / FADM Date: 02/18/25 Loc: .MAMMO Attending Dr: Anabela Resendez MD Ordering Physician: Anabela Resendez MDResults: 2Benign F indings Date of Service: 02/18/25Follow Up: 1 Year From [facility] Mammogram Procedure(s): MM tomosynthesis screening BI Accession Number(s): [id number] cc: Anabela Resendez MD EXAMINATION: MM SCREENING [...] 02/25/25 1525 DD/ 0930 TD/TT: 02/18/25 0944 Systems Software Specialist: Anabela Resendez MD IMG BI PROCEDURES Edited Result - Final * Hepatitis C Antibody with Reflex to HCV, RNA, Quantitative, Real-Time PCR (07/20/2024 1:38 PM EDT) Hepatitis C Antibody Nonreactive Nonreactive [facility] Comment:Antibodies to HCV no t detected; does not exclude early acuteHCV infection. Blood Venous blood specimen / Unknown 07/20/2024 1:38 PM EDT 07/20/2024 4:20 PM EDT Anabela Resendez MD LAB BLOOD ORDERABLES Final Resul t [facility] [address], [place] [phone] * HIV-1/2 Antigen and Antibodies, Fourth Generation, with Reflexes (07/20/2024 1:38 PM EDT) HIV AB/AG Nonreactive Nonreactive [facility] Comment:HIV-1 p24 Ag and/or HIV-1/HIV-2 Ab not detected.A test result that is nonreactive does not exclude thepossibility of exposure to or infection with HIV-1 and/orHIV-2. Nonreactive results in this assay for individualswith prior exposure to HIV-1 and/or HIV-2 may be due toantigen and antibody levels that are below the limit ofdetection of this assay.The [employer] HIV Ag/Ab Combo assay result andsupplemental assay results should be interpreted inconjunction with the patient's clinical presentation,history and other laboratory results. If the results areinconsistent with clinical evidence, additional testing issuggested to confirm the result. Blood Venous blood specimen / Unknown 07/20/2024 1:38 PM EDT 07/20/2024 4:20 PM EDT Anabela Resendez MD LAB BLOOD ORDERABLES Final Resul t [facility] [address] [place] [phone] * Pap Smear (03/13/2022) Pap Negative for intraephithelial lesion or malignancy Negative for intraephithelial lesion or malignancy, Other HPV Undetected Pap Vial 03/13/2022 [facility] External Provider HEALTH MAINTENANCE Final Result from Last 3 Months or Most Recently Relevant to Health Maintenance Insurance [facility] [employer] Care Teams Powder Coat Painter Relationship Specialty Start Date End Date Anabela Resendez MD [address] [place] [phone] PCP - General Family Medicine 01/21/23
--- OUTSIDE RECORDS SUMMARY | 2025-09-16 16:07 | XMS_ITS | Encounter Summary ---
Author Organization [employer] Address [address] [facility] 7 [place] [address] Care Team Providers Care Vp Care Management Name Role Phone Anabela Resendez MD Primary Care Provider [phone] Encounter Details Date Type Department Care Team ([facility] Contact Info) Description 08/14/2025 Results Follow-Up [facility] [address] [place], [place] [phone] Anabela Resendez MD [address] [place] [address] XR Sacrum Coccyx 2+ Views Social History Tobacco Use Types Packs/Day Years [...] documented as of this encounter Care Teams Vp Care Management Relationship Specialty Start Date End Date Anabela Resendez MD [address] [place] [phone] PCP - General Family Medicine 01/21/23 documented as of this encounter
--- OUTSIDE RECORDS SUMMARY | 2025-09-16 16:07 | XMS_ITS | Encounter Summary ---
Author Organization [employer] Address [address] [place] [address] 7 [place] [address] Care Team Providers Care Firmware Test Engineer Name Role Phone Anabela Resendez MD Primary Care Provider [phone] Reason for Visit * Reason Onset Date Comments Nurse Triage 08/02/2024 Encounter Details Date Type Department Care Team ([facility] st Contact Info) Description 08/02/2024 Telephone [facility] [address] [place], [place] [phone] Anabela Resendez MD [address] [place], [place] [phone] Nurse Triage Social History Tobacco Use Types [...] documented as of this encounter Care Teams Firmware Test Engineer Relationship Specialty Start Date End Date Anabela Resendez MD [address] [place] [phone] PCP - General Family Medicine 01/21/23 documented as of this encounter
--- OUTSIDE RECORDS SUMMARY | 2025-09-16 16:07 | XMS_ITS | Encounter Summary ---
Author Organization [employer] Address [address] [facility] [address]t [place] [address] Care Team Providers Care Elementary [employer] Director Name Role Phone Anabela Resendez MD Primary Care Provider [phone] Encounter Details Date Type Department Care Team ([facility] st Contact Info) Description 12/01/2023 Orders Only [facility] [address] [place], [place] [phone] Anabela Resendez MD [address] [place], [place] [phone] Family history of diabetes mellitus (Primary Dx); [...] Hepatitis A Antibody IgG REACTIVE Nonreactive [facility] Comment:The presence of IgG anti-HAV implies past HAV infection(recent or distant) or vaccination against HAV. Blood Venous blood specimen / Unknown 07/20/2024 1:38 PM EDT 07/20/2024 4:20 PM EDT us Anabela Resendez MD LAB BLOOD ORDERABLES Final Resul t [facility] [address] [place], [place] [phone] * (ABNORMAL) Vitamin D, 25-Hydroxy, Total, Immunoassay (07/20/2024 1:38 PM EDT) Vitamin D 25-OH Total 19.1(L) >30 ng/mL [facility] Comment:Health Based Referen ce Values*< 20 ng/mL [id number] ng/mL Insufficient> 30 ng/mL Sufficient*Holick MF. N [...] ORDERABLES Final Resul t Performing Organization Address [facility] Co de Phone Number [facility] [address] [place] [phone] * Hepatitis B surface antigen, EIA (07/20/2024 1:38 PM EDT) Hepatitis B Surface Ag Negative Negative [facility] Blood Venous blood specimen / Unknown 07/20/2024 1:38 PM EDT 07/20/2024 4:20 PM EDT Anabela Resendez MD LAB BLOOD ORDERABLES Final Resul t Performing Organization Address [facility] Co de Phone Number [facility] [address] [place] [phone] * HIV-1/2 Antigen and Antibodies, Fourth Generation, with Reflexes (07/20/2024 1:38 PM EDT) HIV AB/AG Nonreactive Nonreactive [facility] Comment:HIV-1 p24 Ag and/or HIV-1/HIV-2 Ab not detected.A test result that is nonreactive does not exclude thepossibility of exposure to or infection with HIV-1 and/orHIV-2. Nonreactive results in this assay for individualswith prior exposure to HIV-1 and/or HIV-2 may be due toantigen and antibody levels that are below the limit ofdetection of this assay.The [employer] HIV Ag/Ab Combo assay result andsupplemental assay results should be interpreted inconjunction with the patient's clinical presentation,history and other laboratory results. If the results areinconsistent with clinical evidence, additional testing issuggested to confirm the result. Blood Venous blood specimen / Unknown 07/20/2024 1:38 PM EDT 07/20/2024 4:20 PM EDT us Anabela Resendez MD LAB BLOOD ORDERABLES Final Resul t [facility] [address] [place] [phone] * Chlamydia/N. Gonorrhoeae RNA, TMA, Urogenitial (07/20/2024 1:38 PM EDT) CT PCR NOT DETECTED Not Detect. [facility] Comment:A not detected test result [...] NG PCR NOT DETECTED Not Detect. [facility] Comment:A not detected test result [...] EDT 07/20/2024 4:24 PM EDT Narrative [facility] - 07/21/2024 3:31 AM EDT Urine Anabela Resendez MD LAB MICROBIOLOGY - GENERAL ORDER VIJI Final Result Performing Organization Address [facility] Co de Phone Number [facility] [address] [place] [phone] * Hepatitis B Core Antibody, Total (07/20/2024 1:38 PM EDT) Hepatitis B Core Antibody Nonreactive Nonreactive [facility] Blood Venous blood specimen / Unknown 07/20/2024 1:38 PM EDT 07/20/2024 4:20 PM EDT us Anabela Resendez MD LAB BLOOD ORDERABLES Final Resul t Performing Organization Address [facility] Co de Phone Number [facility] [address] [place] [phone] * Hepatitis B Surface Antibody, Qualitative (07/20/2024 1:38 PM EDT) ~Hepatitis B Surface Antibody REACTIVE Nonreactive [facility] Comment:REACTIVE: > 11.99 mI U/mL Blood Venous blood specimen / Unknown 07/20/2024 1:38 PM EDT 07/20/2024 4:20 PM EDT Anabela Resendez MD LAB BLOOD ORDERABLES Final Resul t Performing Organization Address [facility] Co de Phone Number [facility] [address] [place] [phone] * Hepatitis C Antibody with Reflex to HCV, RNA, Quantitative, Real-Time PCR (07/20/2024 1:38 PM EDT) Hepatitis C Antibody Nonreactive Nonreactive [facility] Comment:Antibodies to HCV no t detected; does not exclude early acuteHCV infection. Blood Venous blood specimen / Unknown 07/20/2024 1:38 PM EDT 07/20/2024 4:20 PM EDT Anabela Resendez MD LAB BLOOD ORDERABLES Final Resul t Performing Organization Address [facility] Co de Phone Number [facility] [address] [place] [phone] * Syphilis Screen (07/20/2024 1:38 PM EDT) Syphilis Screen Nonreactive Nonreactive [facility] Blood 07/20/2024 1:38 PM EDT 07/20/2024 4:20 PM EDT Anabela Resendez MD LAB BLOOD ORDERABLES Final Resul t Performing Organization Address [facility] de Phone Number [facility] [address] [place] [phone] * Lipid Panel with Reflex to Direct LDL (07/20/2024 1:38 PM EDT) Triglycerides 58 <150 mg/dL [facility] Comment:Desirable Triglyceri de: less than 150 mg/dLBorderline High Triglyceride 150-199 mg/dLHigh Triglyceride: 200-499 mg/dLVery High Triglyceride: greater than or equal to 5OO mg/dL Cholesterol 161 <200 mg/dL [facility] Comment:Desirable Cholestero l: less than 200 mg/dLBorderline High Cholesterol: 200-239 mg/dLHigh Cholesterol: greater than 239 mg/dL LDL Cholesterol Calculated 87 <100 mg/dL [facility] Comment:Desirable LDL: less than 100 mg/dLNear Optimal/Above Optimal LDL: 110- 129 mg/dLBorderline High LDL: 130-159 mg/dLHigh LDL: 160-189 mg/dLVery High LDL: greater than or equal to 190 mg/dL HDL Cholesterol 63 >40 mg/dL [facility] Comment:Desirable HDL: great er than 40 mg/dL Note: This HDL assay may give artificially low results in patients with liver disease. Blood 07/20/2024 1:38 PM EDT 07/20/2024 4:20 PM EDT us Anabela Resendez MD LAB BLOOD ORDERABLES Final Resul t [facility] [address] [place] [phone] * (ABNORMAL) Comprehensive Metabolic Panel (07/20/2024 1:38 PM EDT) Sodium 140 135 - 145 mmol/L [facility] Potassium 4.1 3.3 - 5.1 mmol/L [facility] Chloride 107 96 - 108 mmol/L [facility] Carbon Dioxide 28 22 - 29 mmol/L [facility] Anion Gap 9(L) 12 - 20 [facility] Urea Nitrogen (BUN) 9 9 - 16 mg/dL [facility] Creatinine, Serum 1.00 0.5 - 1.4 mg/dL [facility] Estimated Glomerular Filt Rate >60 [facility] Comment:NOTE: For -Am erican individuals, multiply the result by 1.210.Chronic Kidney Disease: Estimated GFR < 60 mL/min/[id number] Kidney Disease: Estimated GFR < 15 mL/min/1.73m2 Glucose 85 60 - 115 mg/dL [facility] Calcium 9.7 8.4 - 10.2 mg/dL [facility] Bilirubin, Total 0.6 0.0 - 1.0 mg/dL [facility] Aspartate Amino Transferase 15 5 - 31 U/L [facility] Alanine Aminotransferase 13 0 - 31 U/L [facility] Total Protein 7.4 6.5 - 8.0 g/dL [facility] Albumin Level 4.5 3.5 - 5.0 g/dL [facility] Alkaline Phosphatase 59 39 - 117 U/L [facility] Blood Venous blood specimen / Unknown 07/20/2024 1:38 PM EDT 07/20/2024 4:20 PM EDT us Anabela Resendez MD LAB BLOOD ORDERABLES Final Resul t Performing Organization Address [facility]/ZIP Co de Phone Number [facility] [address] [place] [phone] * TSH with Reflex to Free T4 (07/20/2024 1:38 PM EDT) TSH reflex Free T4 1.13 0.32 - 4.0 uIU/mL [facility] Blood 07/20/2024 1:38 PM EDT 07/20/2024 4:20 PM EDT us Anabela Resendez MD LAB BLOOD ORDERABLES Final Resul t Performing Organization Address [facility] Co de Phone Number [facility] [address] [place] [phone] documented in this encounter Visit Diagnoses [...] documented as of this encounter Care Teams Elementary School Director Relationship Specialty Start Date End Date Anabela Resendez MD [address] [place] [phone] PCP - General Family Medicine 01/21/23 documented as of this encounter
== END 2025-09-16 15:58 | disposition home or self-care (01) ==
LOC: HO.MRI 15:57
PROVIDERS: PCP Family Medicine; Visit Provider Family Medicine
DX: M53.3 Sacrococcygeal disorders, not elsewhere classified (principal); C43.59 Malignant melanoma of other part of trunk
CPT/HCPCS: 72197; A9585

== ENCOUNTER → 2025-09-16 16:00 | Outpatient (BNV) | payer MEDICAID, SELFPAY | PROVIDERS: PCP Family Medicine; Visit Provider Radiology Diagnostic Radiology | DX: C43.59 Malignant melanoma of other part of trunk (principal) | CPT/HCPCS: 72197 ==